=== PATIENT | female | born 1975 | race Caucasian/White ===

== ENCOUNTER 2016-11-13 16:58 | Observation (INO) | payer OTHER, SELFPAY ==
[2016-11-13] MEDS: DILAUDID 2 MG INJECTION IV PRN ×3 (18:01→22:28)
[2016-11-13] MEDS: ROCEPHIN 1 Gm-D5w 50 ml Bag** 1 G/50 ML IVPB IV SCH (18:05)
[2016-11-13] MEDS: Zofran 4 MG/2 ML VIAL IV PRN ×2 (18:05→22:38)
[2016-11-13] MEDS: PROTONIX 40 MG IV IV SCH (18:05)
[2016-11-13] MEDS: D5W/0.45NS W/ 20mEq KCl 1000 ML 1,000 ML IV SCH (18:06)
[2016-11-13 18:11] LABS: BASOPHIL % 0.2 % (0.0-0.4); Eosinophil % 2.6 % (0.00-5.0); Granulocytes % 57.5 % (36.0-66.0); Lymphocytes % 33.2 % (24.0-44.0); Mean Platelet Volume 9.7 fl (6-9.5); Monocytes % 6.5 % (0.0-12.0); Platelet Count 294 K/mm3 (150-450); Red Blood Count 4.01 M/mm3 (4.1-5.4); Red Cell Distribution Width 14.8 % (11.5-14.0); White Blood Count 8.5 K/mm3 (4.0-10.5)
[2016-11-13 18:19] LABS: Mean Corpuscular Hemoglobin 27.6 pg (26-32)
[2016-11-13 19:03] LABS: ALKALINE PHOSPHATASE 73 U/L (46-116); ANION GAP 12.7 MEQ/L (5-15); BLOOD UREA NITROGEN 9 mg/dL (9-20); CHLORIDE 106 mEq/L (98-107); Glucose 103 MG/DL (70-110); Potassium 3.3 mEq/L (3.5-5.1); SGOT/AST 13 U/L (15-37); SGPT/ALT 15 U/L (12-78); SODIUM 143 mEq/L (136-145); Total Protein 6.8 gm/dL (6.4-8.2)
[2016-11-13 19:14] LABS: BILIRUBIN,TOTAL 0.1 mg/dL (0.2-1.0)
[2016-11-13] MEDS ORDERED: DESYREL 50 MG PO SCH (22:00)
[2016-11-13] MEDS ORDERED: Lyrica 50MG PO SCH (22:00)
[2016-11-13] MEDS: Ativan 1 MG PO PRN (23:14)
[2016-11-14] MEDS: DILAUDID 2 MG INJECTION IV PRN ×10 (00:31→23:49)
[2016-11-14] MEDS: Zofran 4 MG/2 ML VIAL IV PRN ×5 (02:36→21:49)
[2016-11-14] MEDS: D5W/0.45NS W/ 20mEq KCl 1000 ML 1,000 ML IV SCH ×2 (04:35→15:40)
[2016-11-14] MEDS: Ativan 1 MG PO PRN (08:32)
[2016-11-14] MEDS: PROTONIX 40 MG IV IV SCH (09:03)
[2016-11-14 09:04] LABS: BASOPHIL % 0.3 % (0.0-0.4); Eosinophil % 2.7 % (0.00-5.0); Granulocytes % 54.1 % (36.0-66.0); Lymphocytes % 35.6 % (24.0-44.0); Mean Cell Volume 86.7 fl (78-100); Mean Corpuscular Hemoglobin 27.5 pg (26-32); Mean Platelet Volume 9.8 fl (6-9.5); Monocytes % 7.3 % (0.0-12.0); Platelet Count 287 K/mm3 (150-450); Red Blood Count 4.07 M/mm3 (4.1-5.4); Red Cell Distribution Width 14.8 % (11.5-14.0); White Blood Count 6.7 K/mm3 (4.0-10.5)
[2016-11-14] MEDS: ROCEPHIN 1 Gm-D5w 50 ml Bag** 1 G/50 ML IVPB IV SCH (09:04)
[2016-11-14] MEDS ORDERED: HYDROCORTISONE RC PRN (09:33)
[2016-11-14 09:35] LABS: ANION GAP 12.9 MEQ/L (5-15); BLOOD UREA NITROGEN 5 mg/dL (9-20); CHLORIDE 107 mEq/L (98-107); Carbon Dioxide 26.4 mEq/L (21-32); Glucose 100 MG/DL (70-110); Potassium 3.9 mEq/L (3.5-5.1); SODIUM 142 mEq/L (136-145)
[2016-11-14] MEDS ORDERED: ANUSOL-HC 2.5% CREAM 30 GM TOP PRN (09:40)
[2016-11-14] MEDS ORDERED: NON-FORMULARY ITEM (Cholecalciferol (Vitamin D3) [Vitamin D3] 50,000 UNIT) PO SCH (09:45)
[2016-11-14] MEDS ORDERED: VEDOLIZUMAB 300 MG IV SCH (09:45)
[2016-11-14] MEDS ORDERED: LYRICA 100MG PO SCH (10:00)
--- NOTE | 2016-11-14 11:34 | XRAY ---
Indication: Abdominal pain. History of Crohn's disease. Multiple contiguous axial images obtained through the abdomen and pelvis prior to and following 80 cc Isovue 370 contrast. Oral contrast also given. Comparison: December 03, 2015. Lung bases again demonstrates bibasilar atelectasis/scarring more than before. Heart is not enlarged. Noncontrasted images through the abdomen again demonstrates calcified splenic granulomas. No new pathologic visceral calcification/calculi. Contrasted stomach and bowel loops appear nonobstructed. Colon is now fluid distended with synchronous fluid leveling probably diarrhea. There is now diffuse colonic bowel wall thickening involving the ascending and transverse colon as well as the distal ileum and ileocecal junction favoring Crohn's disease. Lesser minimal bowel wall thickening of the remaining descending and sigmoid colon. Right lower quadrant anastomosis remains intact. Again previous cholecystectomy and hysterectomy. No free fluid/air. Postcontrast images demonstrates normal visceral enhancement and renal excretion. Remaining liver, pancreas, spleen, adrenal glands, kidneys, ureters, bladder, and aorta appear normal in CT appearance and attenuation. Osseous structures intact. Impression: 1. Again CT features favoring Crohn's disease. No complications. 2. Stable calcified splenic granulomas. No pathologic visceral calcifications/calculi. CTDI 15.69
[2016-11-14] MEDS ORDERED: Ativan 1 MG PO PRN (15:07)
[2016-11-14] MEDS ORDERED: PHARMACY DOSING REQUIRED: VANCOMYCIN IV ONE (15:56)
[2016-11-14] MEDS: TYLENOL 325 MG PO PRN ×2 (17:26→22:33)
[2016-11-14] MEDS: VANCOCIN 1 GM VIAL*** 0.75 GM in Sodium Chloride 0.9% 250 ML 250 ML IV SCH (17:26)
[2016-11-14 22:04] LABS: A-aADO2 126; ARTERIAL BLD GAS O2 SATURATION 91.7 % (95-100); ARTERIAL BLOOD GAS BASE EXCESS 0.6 (-2.0-2.0); ARTERIAL BLOOD GAS FIO2 36 %; ARTERIAL BLOOD GAS PO2 72 mmHg (75-100); ARTERIAL BLOOD GAS pH 7.36 (7.35-7.45)
[2016-11-14 22:05] LABS: ALLEN TEST OK? YES
[2016-11-14] MEDS ORDERED: Sodium Chloride 0.9% 500 ML 500 ML IV ONE (22:30)
[2016-11-15] MEDS: DILAUDID 2 MG INJECTION IV PRN ×3 (02:19→06:48)
[2016-11-15] MEDS: Zofran 4 MG/2 ML VIAL IV PRN ×2 (02:22→06:48)
[2016-11-15] MEDS: D5W/0.45NS W/ 20mEq KCl 1000 ML 1,000 ML IV SCH ×2 (04:33→09:18)
[2016-11-15] MEDS: VANCOCIN 1 GM VIAL*** 0.75 GM in Sodium Chloride 0.9% 250 ML 250 ML IV SCH (05:42)
[2016-11-15 06:53] LABS: Eosinophil % 2.1 % (0.00-5.0); Granulocytes % 63.2 % (36.0-66.0); Lymphocytes % 26.6 % (24.0-44.0); Mean Cell Volume 86.6 fl (78-100); Mean Corpuscular Hemoglobin 27.2 pg (26-32); Mean Platelet Volume 10.4 fl (6-9.5); Monocytes % 8.1 % (0.0-12.0); Platelet Count 284 K/mm3 (150-450); Red Blood Count 4.19 M/mm3 (4.1-5.4); Red Cell Distribution Width 14.6 % (11.5-14.0); White Blood Count 6.3 K/mm3 (4.0-10.5)
[2016-11-15 07:11] VITALS: BP 109/68; PULSE 99; O2SAT 94
[2016-11-15 07:28] LABS: ANION GAP 10.9 MEQ/L (5-15); BLOOD UREA NITROGEN 6 mg/dL (9-20); CHLORIDE 109 mEq/L (98-107); Carbon Dioxide 27.8 mEq/L (21-32); Glucose 86 MG/DL (70-110); Potassium 4.8 mEq/L (3.5-5.1); SODIUM 143 mEq/L (136-145)
--- NOTE | 2016-11-15 08:46 | PCM.DCORD ---
- Discharge Discharge Date: 11/15/16 Disposition: Home, Self-Care Condition: Fair Prescriptions: New Sulfamethoxazole/Trimethoprim [Bactrim Ds Tablet] 1 each PO BID #14 tablet Fluoxetine HCl 20 mg PO DAILY #30 capsule Acetaminophen 325 mg [Tylenol 325 mg] 650 mg PO Q4H PRN PRN #0 tablet PRN Reason: Pain Continue Hydromorphone HCl 4 mg [Dilaudid 4 MG Tab] 4 mg PO Q4H #120 tab Lorazepam 1 mg [Ativan 1 MG] 1 mg PO TIDPRN PRN #90 tablet PRN Reason: Anxiety Pregabalin [Lyrica 100Mg] 100 mg PO BID #60 capsule Tramadol HCl 50 mg [Ultram 50 mg] 50 mg PO HS Ondansetron [Zofran Odt] 4 mg PO Q6HPRN PRN PRN Reason: Nausea Hydrocortisone [Proctosol-Hc] 28.35 gm RC Q4HPRN PRN PRN Reason: Pain Potassium Chl 40 Meq Oral Kiki* [Potassium Chl 40 Meq/30 ml Oral Solution] 40 meq PO DAILY PRN PRN PRN Reason: supplement Cholecalciferol (Vitamin D3) [Vitamin D3] 50,000 unit PO WEEKLY Vedolizumab [Entyvio] 300 mg IV UD Discontinued Trazodone HCl 50 mg [Desyrel 50 mg] 100 mg PO HS Follow up with: AKIKO GREGORY [Primary Care Provider] - 1 Week
[2016-11-15] MEDS: ROCEPHIN 1 Gm-D5w 50 ml Bag** 1 G/50 ML IVPB IV SCH (09:18)
[2016-11-15] MEDS: PROTONIX 40 MG IV IV SCH (09:18)
--- NOTE | 2016-11-15 10:03 | DS ---
DISCHARGE DIAGNOSES: 1) CELLULITIS OF UMBILICUS. 2) ABDOMINAL PAIN. 3) CROHN'S DISEASE. DISCHARGE PHYSICAL EXAMINATION: VITALS: Temperature current 98.7F, temperature max 100.7F, heart rate 70 to 122 currently 99, respiratory 16 to 18, blood pressure 97 to 122 over 56 to 70, weight 62.5 kg. Oxygen saturation 92 to 94% on room air. GENERAL: The patient is sitting up in bed in no acute distress. She is talkative but tearful at times. She denies suicidal ideation. CVS: She has a regular rate and rhythm. No murmurs, gallops or rubs are appreciated. LUNGS: Clear to auscultation bilaterally. No crackles or wheezes. ABDOMEN: Soft with normal bowel sounds. She has tenderness to mild palpation throughout. Her umbilicus she has 2 x 2 mm opening with mild surrounding erythema that comes down about 4 cm below her umbilicus. To the right of her umbilicus is a 0.5 x 0.5 area of firmness. There is no active drainage, no induration. EXTREMITIES: No clubbing, cyanosis or edema. HOSPITAL COURSE: 1) CELLULITIS OF UMBILICUS: She was started on ceftriaxone on her admission. Vancomycin was added yesterday. A wound culture was obtained. Per verbal report from the lab it had rare gram-positive cocci. On the gram stain the wound culture is still in lab. The patient desires to go home with oral antibiotic as her son has a graduation from grade school tomorrow that she does not want to miss. I explained to her that it would be better to stay for IV antibiotics but she prefers to go home and follow up in the clinic. I am going to discharge her on Bactrim 1 tablet p.o. b.i.d. for seven days, to follow up closely in the clinic. 2) ABDOMINAL PAIN: While she was here in the hospital she was given Dilaudid 1 mg IV every two hours as needed. She usually takes oral Dilaudid at home. She reported during her hospitalization that the IV pain medicine did not seem to help much but her blood pressure was on the low end of normal so we were unable to give her more. I discussed with her at length that it would be a good idea if we try to wean down on her pain medicine at home so she would not have a tolerance to it and would work better when she had pain different from her Crohn's and was hospitalized but the patient is reluctant to do this. She is allergic to all the other opiates. 3) CROHN'S DISEASE: She had a CT of her abdomen and pelvis during her hospitalization. It did not show any complications. Please see the radiologist dictation on this report. It did show extensive Crohn's disease for which she see a injury/safety hazard assessment in [place] and at [facility], and is currently under treatment with them. 4) ALTERED MENTAL STATUS: Last night the nurse called me and said that she was slurring her speech and confused, this has resolved this morning and she is alert and oriented and asking to go home. 5) DEPRESSION: The patient is agreeable to starting an antidepressant and states that she plans to start counseling as well. She knows if she has thoughts of hurting herself she needs to go to the emergency department or come to the office. She denies suicidal ideation at this time. DISCHARGE MEDICATIONS: She is going to resume all of her home medications and will start Bactrim DS 1 tablet p.o. b.i.d. for seven days and fluoxetine 20 mg p.o. daily. DISPOSITION: The patient was discharged to home in fair condition.
[2016-11-16] MEDS ORDERED: TROUGH DRUG LEVELS IJ ONE (05:30)
[2016-11-17] MEDS ORDERED: VITAMIN D2 PO SCH (10:00)
== END 2016-11-15 09:30 | disposition home or self-care (01) ==
LOC: MED SURG 16:58
PROVIDERS: ADMIT Internal Medicine; ATTEND Internal Medicine
DX: L03.316 Cellulitis of umbilicus (principal); K50.90 Crohn's disease, unspecified, without complications; R41.82 Altered mental status, unspecified; F41.8 Other specified anxiety disorders; G47.00 Insomnia, unspecified; Z79.899 Other long term (current) drug therapy
CPT/HCPCS: 36415; 36600; 74178; 80048; 80053; 82375; 82803; 85025; 86140; 87070; 87205; 94762; G0378; J0696; J1170; J2405; J3370; A9270-GY

== ENCOUNTER 2017-02-09 12:51 | Emergency (ER) | payer OTHER, SELFPAY ==
[2017-02-09] MEDS ORDERED: TORAdol 30 mg Injection IV ONE (13:52)
[2017-02-09] MEDS ORDERED: Vistaril 50 MG/ML IM ONE ×2 (13:52→14:08)
[2017-02-09] MEDS ORDERED: TORAdol 30 mg Injection ONE (14:08)
[2017-02-09 14:14] LABS: BASOPHIL % 0.2 % (0.0-0.4); Eosinophil % 1.8 % (0.00-5.0); Granulocytes % 62.5 % (36.0-66.0); Lymphocytes % 29.5 % (24.0-44.0); Mean Cell Volume 86.9 fl (78-100); Platelet Count 275 K/mm3 (150-450); Red Blood Count 3.83 M/mm3 (4.1-5.4)
[2017-02-09 14:15] LABS: Mean Corpuscular Hemoglobin 27.6 pg (26-32)
[2017-02-09 14:38] LABS: Collection Type VOID; Glucose NEGATIVE (NEGATIVE); Leukocyte Esterase NEGATIVE (NEGATIVE)
[2017-02-09 14:39] LABS: ADD URINE CULTURE? NO (NO); Bilirubin NEGATIVE (NEGATIVE); Blood NEGATIVE Ery/ul (0-5); COMPLETE URINE MICROSCOPIC? NO
[2017-02-09 14:44] LABS: ALKALINE PHOSPHATASE 77 U/L (46-116); BLOOD UREA NITROGEN 8 mg/dL (9-20); CHLORIDE 106 mEq/L (98-107); Carbon Dioxide 30.9 mEq/L (21-32); Glucose 89 MG/DL (70-110); Potassium 3.6 mEq/L (3.5-5.1); SGOT/AST 30 U/L (15-37); SGPT/ALT 16 U/L (12-78); SODIUM 141 mEq/L (136-145); Total Protein 6.7 gm/dL (6.4-8.2)
[2017-02-09 14:51] VITALS: BP 146/91; PULSE 81; O2SAT 96
--- NOTE | 2017-02-09 15:14 | ERPHSYRPT ---
- History of Present Illness Time Seen by Provider: 02/09/17 13:02 Source: patient Patient Subjective Stated Complaint: PT REPORTS BILATERAL SWELLING TO LEGS- STATES THAT SHE IS CONCERNED ABOUT HER LEFT LEG HAVING A BLOOD CLOT IN IT- STATES THAT SHE FEELS KNOTS IN IT-REPORTS PAIN-STATES THAT HER CHRONIC BACK PAIN HEADACHE IS ACTING UP WELL HER CROHNS-STATES SHE HAS ALREADY SPOKE TO PCP ABOUT THEM Triage Nursing Assessment: PT PINK WARM ET [id number] TO ED WITH NO NOTED LIMP-SLIGHT SWELLING NOTED TO RIGHT EXTREMITY-HOLMANS SIGN NEG BILATERALLY -PEDAL PULSE REGULAR ET STRONG BILATERALLY-CAP REFILL 2 SECONDS TO LOWER EXTREMITY-NO EXCESSIVE WARMTH NOTED Physician History: CC: leg swelling Hx: 41 y/o patient of Dr Gregory. She has hx of crohns disease. She has couple day hx of leg swelling. Started with a cord or knot in the left leg below knee inside. No redness. No fever or chills. No chest pain or acute dyspnea. No hx of venous thromboembolic disease. She was worried about blood clots. Ill: Crohns, fibromyalgia, arthritis, MVP Allergies/Adverse Reactions: clonazepam [From Klonopin] Allergy (Mild, Verified 02/09/17 13:03) "I DON'T KNOW" divalproex sodium [From Depakote] Allergy (Mild, Verified 02/09/17 13:03) "I DON'T KNOW" duloxetine HCl [From Cymbalta] Allergy (Mild, Verified 02/09/17 13:03) Hives fentanyl Allergy (Mild, Verified 02/09/17 13:03) Hives meperidine HCl [From Demerol] Allergy (Mild, Verified 02/09/17 13:03) Hives morphine Allergy (Mild, Verified 02/09/17 13:03) Hives buprenorphine Allergy (Verified 02/09/17 13:03) duloxetine [From Cymbalta] Allergy (Verified 02/09/17 13:03) meperidine [From Demerol] Allergy (Verified 02/09/17 13:03) adalimumab [From Humira] Adverse Reaction (Mild, Verified 02/09/17 13:03) Vomiting prednisone Adverse Reaction (Mild, Verified 02/09/17 13:03) SHAKING Home Medications: Tramadol HCl 50 mg [Ultram 50 mg] 50 mg PO HS 12/07/15 [History] Ondansetron [Zofran Odt] 4 mg PO Q6HPRN PRN 12/03/15 [History] Cholecalciferol (Vitamin D3) [Vitamin D3] 50,000 unit PO WEEKLY 11/13/16 [ History] Potassium Chl 40 Meq Oral Kiki* [Potassium Chl 40 Meq/30 ml Oral Solution] 40 meq PO DAILY PRN PRN 11/13/16 [History] Vedolizumab [Entyvio] 300 mg IV UD 11/13/16 [History] Trazodone HCl 50 mg [Desyrel 50 mg] 50 mg PO HS 02/09/17 [History] Hx Tetanus, Diphtheria Vaccination/Date Given: Yes Hx Influenza Vaccination/Date Given: No Hx Pneumococcal Vaccination/Date Given: No Immunizations Up to Date: Yes - Review of Systems Constitutional: No Fever, No Chills Eyes: No Symptoms Ears, Nose, & Throat: No Symptoms Respiratory: No Cough, No Dyspnea Cardiac: Edema (legs), No Chest Pain Abdominal/Gastrointestinal: No Nausea, No Vomiting Skin: No Rash Neurological: No Headache All Other Systems: Reviewed and Negative - Past Medical History Pertinent Past Medical History: Yes Neurological History: No Pertinent History ENT History: No Pertinent History Cardiac History: Arrhythmia Respiratory History: No Pertinent History Endocrine Medical History: Hypothyroidism Musculoskeletal History: Fibromyalgia, Osteoarthritis GI Medical History: Crohns Disease History: No Pertinent History Psycho-Social History: Anxiety, Depression Female Reproductive Disorders: Other Other Medical History: Cluster Headaches, pre cancerous cells cervix - Past Surgical History Past Surgical History: Yes Neuro Surgical History: No Pertinent History Cardiac: No Pertinent History Respiratory: No Pertinent History Gastrointestinal: Bowel Surgery, Cholecystectomy, Colon Resection Genitourinary: No Pertinent History Musculoskeletal: No Pertinent History Female Surgical History: Hysterectomy Other Surgical History: port-a-cath placement, tonsillectomy, 2 bowel resections - Social History Smoking Status: Current every day smoker How long have you smoked: 20 YEARS Exposure to second hand smoke: No Drug Use: none Patient Lives Alone: No - Female History Hx Last Menstrual Period: HYSTERECTOMY Hx Now: No - Nursing Vital Signs Nursing Vital Signs: Initial Vital Signs Temperature 99.4 F 02/09/17 12:57 Pulse Rate 110 H 02/09/17 12:57 Respiratory Rate 20 02/09/17 12:57 Blood Pressure 138/86 02/09/17 12:57 O2 Sat by Pulse Oximetry 96 02/09/17 12:57 Pain Scale Pain Intensity 7 - Physical Exam General Appearance: alert, other (anxious appearing) Eyes, Ears, Nose, Throat Exam: normal ENT inspection, moist mucous membranes Neck Exam: normal inspection, non-tender, supple Cardiovascular/Respiratory Exam: normal breath sounds, regular rate/rhythm Gastrointestinal/Abdominal Exam: non-tender, soft Neuro/Tendon Exam: normal sensation, normal motor functions Mental Status Exam: alert, oriented x 3, cooperative Skin Exam: warm, dry, No rash SpO2 Interpretation: normal SpO2: 96 Oxygen Delivery: Room Air Comments: Trace edema of legs. Cord left inner leg below knee, palpable, not red, mildly tender. Pulse intact. No calf tenderness. - Course Nursing assessment & vital signs reviewed: Yes - Radiology Ultrasound Exam doppler both legs Ultrasound: Other (per tech: No DVT. Superficial phlebitis left saphenous below knee.) Ordered Tests: Active Orders 24 hr Category Date Time Status Clean Catch Urine Specimen STAT Care 02/09/17 13:51 Active IV Insertion STAT Care 02/09/17 13:51 Active VENOUS BILATERAL EXTREMITY [US] Stat Exams 02/09/17 13:53 Ordered CBC W DIFF Stat Lab 02/09/17 14:05 Completed CMP Stat Lab 02/09/17 14:05 Completed UA W/RFX UR CULTURE Stat Lab 02/09/17 13:52 Completed Medication Summary Discontinued Medications Generic Name Dose Route Start Last Admin Trade Name Freq PRN Reason Stop Dose Admin Hydroxyzine HCl 50 mg 02/09/17 13:52 02/09/17 14:13 Vistaril 50 Mg/Ml IM 02/09/17 13:53 50 mg STAT ONE Administration Hydroxyzine HCl Confirm 02/09/17 14:08 Vistaril 50 Mg/Ml Administered 02/09/17 14:09 Dose 50 mg IM .STK-MED ONE Ketorolac Tromethamine 30 mg 02/09/17 13:52 02/09/17 14:12 Toradol 30 Mg Injection IV 02/09/17 13:53 30 mg STAT ONE Administration Ketorolac Tromethamine Confirm 02/09/17 14:08 Toradol 30 Mg Injection Administered 02/09/17 14:09 Dose 30 mg .ROUTE .STK-MED ONE Lab/Rad Data: Laboratory Result Diagrams 02/09/17 14:05 02/09/17 14:05 Laboratory Results 02/09/17 02/09/17 02/09/17 Range/Units 14:05 14:05 13:52 WBC 9.0 (4.0-10.5) K/mm3 RBC 3.83 L (4.1-5.4) M/mm3 Hgb 10.6 L (12.0-16.0) gm/dl Hct 33.3 L (35-47) % MCV 86.9 (78-100) fl MCH 27.6 (26-32) pg MCHC 31.8 L (32-36) g/dl RDW 16.0 H (11.5-14.0) % Plt Count 275 (150-450) K/mm3 MPV 10.0 H (6-9.5) fl Gran % 62.5 (36.0-66.0) % Lymphocytes % 29.5 (24.0-44.0) % Monocytes % 6.0 (0.0-12.0) % Eosinophils % 1.8 (0.00-5.0) % Basophils % 0.2 (0.0-0.4) % Basophils # 0.02 (0-0.4) Sodium 141 (136-145) mEq/L Potassium 3.6 (3.5-5.1) mEq/L Chloride 106 (98-107) mEq/L Carbon Dioxide 30.9 (21-32) mEq/L Anion Gap 8.0 (5-15) MEQ/L BUN 8 L (9-20) mg/dL Creatinine 0.52 L (0.55-1.30) mg/dl Estimated GFR > 60 ML/MIN Glucose 89 (70-110) MG/DL Calcium 8.7 (8.5-10.1) mg/dL Total Bilirubin 0.10 L (0.2-1.0) mg/dL AST 30 (15-37) U/L ALT 16 (12-78) U/L Alkaline Phosphatase 77 (46-116) U/L Serum Total Protein 6.7 (6.4-8.2) gm/dL Albumin 3.0 L (3.4-5.0) g/dL Ur Collection Type VOID Urine Color LT.YELLOW (YELLOW) Urine Appearance CLEAR (CLEAR) Urine pH 8.0 (5-6) Ur Specific [place] 1.005 (1.005-1.025) Urine Protein NEGATIVE (Negative) Urine Ketones NEGATIVE (NEGATIVE) Urine Blood NEGATIVE (0-5) Elias/ul Urine Nitrite NEGATIVE (NEGATIVE) Urine Bilirubin NEGATIVE (NEGATIVE) Urine Urobilinogen NORMAL (0-1) mg/dL Ur Leukocyte Esterase NEGATIVE (NEGATIVE) Urine Glucose NEGATIVE (NEGATIVE) mg/dL Specimen Received 02/09/17 1430 - Progress Progress Note: 02/09/17 15:14 Will get labs to check kidney function and get sono to rule out DVT. 02/09/17 16:00 Inst given. Counseled pt/family regarding: lab results, diagnosis, need for follow-up, rad results - Departure Time of Disposition: 16:00 Departure Disposition: Home Clinical Impression: Superficial phlebitis of left leg Condition: Stable Critical Care Time: No Referrals: AKIKO GREGORY [Primary Care Provider] - Instructions: Peripheral Edema -- Bilateral Additional Instructions: You have superficial phlebitis. Warm compresses 4 times a day. Rx keflex. Rx ibuprofen. Try support stockings. Follow up with Dr Gregory next week. Return for worsening or concerns. Prescriptions: Ibuprofen 600 mg [Motrin 600 mg] 1 tab PO Q6H PRN PRN #20 tablet PRN Reason: for pain Cephalexin Mh 500 mg [Keflex 500 mg] 1 cap PO QID #28 capsule
--- NOTE | 2017-02-09 16:34 | XRAY ---
Indication: Swelling. Left calf pain. Two-dimensional sonogram and color Doppler imaging of the major venous vessels of the left and right leg was performed. Comparison: None There is nonoccluding echogenic thrombus in a superficial vein at the level of the left calf favoring thrombophlebitis. No thrombus in the remaining examined deep in the vessels of the left and right leg including greater saphenous veins. Patent veins demonstrate normal compressibility. Venous waveforms are normal with and without augmentation. Impression: Left calf superficial thrombophlebitis. Remaining left and leg negative for DVT. Comment: Preliminary report was given.
== END 2017-02-09 16:12 | disposition home or self-care (01) ==
LOC: ED 12:51
DX: I80.02 Phlebitis and thrombophlebitis of superficial vessels of left lower extremity (principal)
CPT/HCPCS: 36000; 36415; 80053; 81002; 85025; 93970; 96372; 96374; 99284; J1642; J1885; J3410

== ENCOUNTER 2017-03-30 02:07 | Inpatient (IN) | payer OTHER, SELFPAY ==
[2017-03-30] MEDS ORDERED: Phenergan 25 MG INJ IV ONE (02:29)
[2017-03-30] MEDS ORDERED: Sodium Chloride 0.9% 1000 ML 1,000 ML IV STA (02:29)
[2017-03-30] MEDS ORDERED: Hydromorphone 1 mg/ml Ampule IV ONE (02:29)
[2017-03-30] MEDS ORDERED: Phenergan 25 MG INJ ONE (02:35)
[2017-03-30] MEDS ORDERED: Hydromorphone 1 mg/ml Ampule ONE (02:36)
[2017-03-30] MEDS ORDERED: Sodium Chloride 0.9% 1000 ML 1,000 ML ONE (02:36)
--- NOTE | 2017-03-30 02:38 | ERPHSYRPT ---
- History of Present Illness Time Seen by Provider: 03/30/17 02:25 Historian: patient Exam Limitations: no limitations Patient Subjective Stated Complaint: N/V/D ABDOMINAL PAIN X 3 DAYS. UNABLE TO KEEP MEDICTIONS DOWN. HAS APPOINTMENT WITH DR GREGORY TODAY AT 0900 Triage Nursing Assessment: ALERT AND ORIENTED WITH C/O ABDOMINAL PAIN WITH N/V/ D X 3 DAYS.;ABDOMEN SOFT AND TENDER ON PALPATION INCREASED ON LEFT LOWER QUAD. Physician History: 41-year-old white female with history of Crohn's disease arrives with complaint of left upper left lower quadrant abdominal pain multiple episodes of vomiting multiple episodes of diarrhea symptoms for 3 days Patient apparently takes chronic narcotic analgesia prescribed by her family doctor with states she cannot keep these down. She denies any fever she has not had any melena no hematochezia. Past medical history includes arrhythmia, hypothyroidism, osteoarthritis, Crohn' s disease, anxiety, depression, cluster headaches, precancerous cells on her cervix. Past surgical history includes bowel surgery, cholecystectomy, colon resection, hysterectomy, Port-A-Cath, tonsillectomy, bowel resection Timing/Duration: day(s) (3 days) Activities at Onset: none Quality: cramping Abdominal Pain Onset Location: LUQ, LLQ Pain Radiation: no radiation Severity of Pain-Max: moderate Severity of Pain-Current: moderate Modifying Factors: Improves With: other (patient states she has narcotic analgesia at home but is not able to keep it down) Associated Symptoms: diarrhea, nausea, vomiting, No back, No chest pain, No diaphoresis, No fever/chills, No fatigue, No headache, No heartburn, No loss of appetite, No neck pain, No rash, No shortness of breath, No syncope, No weakness Previous symptoms: same symptoms as today Allergies/Adverse Reactions: clonazepam [From Klonopin] Allergy (Mild, Verified 03/30/17 02:22) "I DON'T KNOW" divalproex sodium [From Depakote] Allergy (Mild, Verified 03/30/17 02:22) "I DON'T KNOW" duloxetine HCl [From Cymbalta] Allergy (Mild, Verified 03/30/17 02:22) Hives fentanyl Allergy (Mild, Verified 03/30/17 02:22) Hives meperidine HCl [From Demerol] Allergy (Mild, Verified 03/30/17 02:22) Hives morphine Allergy (Mild, Verified 03/30/17 02:22) Hives buprenorphine Allergy (Verified 03/30/17 02:22) duloxetine [From Cymbalta] Allergy (Verified 03/30/17 02:22) meperidine [From Demerol] Allergy (Verified 03/30/17 02:22) adalimumab [From Humira] Adverse Reaction (Mild, Verified 03/30/17 02:22) Vomiting prednisone Adverse Reaction (Mild, Verified 03/30/17 02:22) SHAKING Home Medications: Tramadol HCl 50 mg [Ultram 50 mg] 50 mg PO HS 05/31/15 [History] Ondansetron [Zofran Odt] 4 mg PO Q6HPRN PRN 12/03/15 [History] Cholecalciferol (Vitamin D3) [Vitamin D3] 50,000 unit PO WEEKLY 11/13/16 [ History] Potassium Chl 40 Meq Oral Kiki* [Potassium Chl 40 Meq/30 ml Oral Solution] 40 meq PO DAILY PRN PRN 11/13/16 [History] Vedolizumab [Entyvio] 300 mg IV UD 11/13/16 [History] Trazodone HCl 50 mg [Desyrel 50 mg] 50 mg PO HS 02/09/17 [History] Hx Tetanus, Diphtheria Vaccination/Date Given: Yes Hx Influenza Vaccination/Date Given: No Hx Pneumococcal Vaccination/Date Given: No Immunizations Up to Date: Yes - Review of Systems Constitutional: No Fever, No Chills Eyes: No Symptoms Ears, Nose, & Throat: No Symptoms Respiratory: No Cough, No Dyspnea Cardiac: No Chest Pain, No Edema, No Syncope Abdominal/Gastrointestinal: Abdominal Pain, Nausea, Vomiting, Diarrhea, No Constipation, No Hematemesis, No Hematochezia, No Melena, No Dysphagia, No Appetite Changes Genitourinary Symptoms: No Dysuria Musculoskeletal: No Back Pain, No Neck Pain Skin: No Rash Neurological: No Dizziness, No Focal Weakness, No Sensory Changes Psychological: No Symptoms Endocrine: No Symptoms All Other Systems: Reviewed and Negative - Past Medical History Pertinent Past Medical History: Yes Neurological History: No Pertinent History ENT History: No Pertinent History Cardiac History: Arrhythmia Respiratory History: No Pertinent History Endocrine Medical History: Hypothyroidism Musculoskeletal History: Fibromyalgia, Osteoarthritis GI Medical History: Crohns Disease History: No Pertinent History Psycho-Social History: Anxiety, Depression Female Reproductive Disorders: Other Other Medical History: Cluster Headaches, pre cancerous cells cervix - Past Surgical History Past Surgical History: Yes Neuro Surgical History: No Pertinent History Cardiac: No Pertinent History Respiratory: No Pertinent History Gastrointestinal: Bowel Surgery, Cholecystectomy, Colon Resection Genitourinary: No Pertinent History Musculoskeletal: No Pertinent History Female Surgical History: Hysterectomy Other Surgical History: port-a-cath placement, tonsillectomy, 2 bowel resections - Social History Smoking Status: Current every day smoker How long have you smoked: 20 YEARS Exposure to second hand smoke: No Drug Use: none Patient Lives Alone: No - Female History Hx Now: No - Nursing Vital Signs Nursing Vital Signs: Initial Vital Signs Temperature 98.8 F 03/30/17 02:09 Pulse Rate 109 H 03/30/17 02:09 Respiratory Rate 20 03/30/17 02:09 Blood Pressure 141/88 03/30/17 02:09 O2 Sat by Pulse Oximetry 100 03/30/17 02:09 Pain Scale Pain Intensity 7 - Physical Exam General Appearance: moderate distress Eye Exam: PERRL/EOMI, eyes nml inspection Ears, Nose, Throat Exam: normal ENT inspection, pharynx normal, moist mucous membranes Neck Exam: normal inspection, non-tender, supple, full range of motion Respiratory Exam: normal breath sounds, lungs clear, No respiratory distress Cardiovascular Exam: regular rate/rhythm, normal heart sounds Gastrointestinal/Abdomen Exam: soft, normal bowel sounds, tenderness (left upper and left lower quadrant tenderness), No distention, No mass, No guarding, No ecchymosis, No pulsatile mass, No rebound, No hernia, No hepatomegaly, No organomegaly, No splenomegaly Back Exam: normal inspection, normal range of motion, No CVA tenderness, No vertebral tenderness Extremity Exam: normal inspection, normal range of motion, pelvis stable Neurologic Exam: alert, oriented x 3, cooperative, normal mood/affect, nml cerebellar function, sensation nml, No motor deficits Skin Exam: normal color, warm, dry SpO2 Interpretation: normal (100%) SpO2: 100 Oxygen Delivery: Room Air - Course Nursing assessment & vital signs reviewed: Yes EKG Interpreted by Me: RATE (72 bpm), Sinus Rhythm, NORMAL AXIS, Other (EKG: Sinus rhythm 72 bpm normal axis, no acute ST or T wave changes essentially normal EKG) - Radiology Exams Abdomen X-ray Interpretation: Interpreted by me, Other (cxr unremarkable, few air fluid levels on abdominal film) Ordered Tests: Active Orders 24 hr Category Date Time Status EKG-ER Only STAT Care 03/30/17 03:27 Active IV Insertion STAT Care 03/30/17 02:29 Active OBSTR/ACUTE ABDOMEN SERIES Stat Exams 03/30/17 02:42 Taken AMYLASE Stat Lab 03/30/17 02:50 Completed CBC W DIFF Stat Lab 03/30/17 02:50 Completed CMP Stat Lab 03/30/17 02:50 Completed LIPASE Stat Lab 03/30/17 02:50 Completed UA W/RFX UR CULTURE Stat Lab 03/30/17 03:20 Received Medication Summary Generic Name Dose Route Start Last Admin Trade Name Freq PRN Reason Stop Dose Admin Sodium Chloride 1,000 mls @ 999 mls/hr 03/30/17 02:29 03/30/17 02:45 Sodium Chloride 0.9% 1000 Ml IV 03/30/17 03:29 999 mls/hr .Q1H1M STA Administration Potassium Chloride 100 mls @ 50 mls/hr 03/30/17 03:30 Potassium Chloride 20 Meq In Water 100ml IV 03/30/17 07:29 Q2H FRANK Discontinued Medications Generic Name Dose Route Start Last Admin Trade Name Freq PRN Reason Stop Dose Admin Hydromorphone HCl 1 mg 03/30/17 02:29 03/30/17 02:46 Hydromorphone 1 Mg/Ml Ampule IV 03/30/17 02:30 1 mg STAT ONE Administration Hydromorphone HCl Confirm 03/30/17 02:36 Hydromorphone 1 Mg/Ml Ampule Administered 03/30/17 02:37 Dose 1 mg .ROUTE .STK-MED ONE Sodium Chloride Confirm 03/30/17 02:36 Sodium Chloride 0.9% 1000 Ml Administered 03/30/17 02:37 Dose 1,000 mls @ ud .ROUTE .STK-MED ONE Promethazine HCl 12.5 mg 03/30/17 02:29 03/30/17 02:46 Phenergan 25 Mg Inj IV 03/30/17 02:30 12.5 mg STAT ONE Administration Promethazine HCl Confirm 03/30/17 02:35 Phenergan 25 Mg Inj Administered 03/30/17 02:36 Dose 25 mg .ROUTE .STK-MED ONE Lab/Rad Data: Laboratory Result Diagrams 03/30/17 02:50 03/30/17 02:50 Laboratory Results 03/30/17 03/30/17 Range/Units 02:50 02:50 WBC 11.1 H (4.0-10.5) K/mm3 RBC 4.59 (4.1-5.4) M/mm3 Hgb 13.0 (12.0-16.0) gm/dl Hct 39.0 (35-47) % MCV 85.0 (78-100) fl MCH 28.3 (26-32) pg MCHC 33.3 (32-36) g/dl RDW 15.6 H (11.5-14.0) % Plt Count 380 (150-450) K/mm3 MPV 9.6 H (6-9.5) fl Gran % 75.4 H (36.0-66.0) % Lymphocytes % 19.8 L (24.0-44.0) % Monocytes % 3.9 (0.0-12.0) % Eosinophils % 0.7 (0.00-5.0) % Basophils % 0.2 (0.0-0.4) % Basophils # 0.02 (0-0.4) Sodium 142 (136-145) mEq/L Potassium 2.4 L* (3.5-5.1) mEq/L Chloride 104 (98-107) mEq/L Carbon Dioxide 24.6 (21-32) mEq/L Anion Gap 16.2 H (5-15) MEQ/L BUN 8 L (9-20) mg/dL Creatinine 0.60 (0.55-1.30) mg/dl Estimated GFR > 60 ML/MIN Glucose 97 (70-110) MG/DL Calcium 9.3 (8.5-10.1) mg/dL Total Bilirubin 0.30 (0.2-1.0) mg/dL AST 18 (15-37) U/L ALT 24 (12-78) U/L Alkaline Phosphatase 84 (46-116) U/L Serum Total Protein 7.6 (6.4-8.2) gm/dL Albumin 4.0 (3.4-5.0) g/dL Amylase 58 (25-115) U/L Lipase 267 (73-393) U/L - Progress Progress: improved Progress Note: 03/30/17 02:36 41-year-old white female with a history of chronic abdominal pain history of Crohn's complains of multiple episodes of vomiting diarrhea left upper and lower quadrant abdominal pain symptoms going on for 3 days Patient states she does have narcotic analgesia she states she is not able to keep her pain meds down inspect is reviewed patient is on hydromorphone 4 mg she received 150 of these on March 02, 2017 she is also on lorazepam 1 mg she received 90 of these on March 02, 2017 she is also on tramadol 50 mg she received 30 of these on March 02, 2017, she is also on Lyrica 100 mg she received 60 of these on March 02, 2017. Patient states she is "pooping out" potassium pills and feels like she might be low on her potassium. Will go ahead and give patient IV normal saline Phenergan and Dilaudid 1 mg IV. Patient apparently has an appointment with her family doctor later today. 03/30/17 03:30 Patient with a few air-fluid levels on her acute abdominal series. Patient with nausea and vomiting patient with a potassium of 2.4. Patient receiving IV normal saline has received Phenergan and hydromorphone. I have ordered a 40 milliequivalents K rider. Will discuss case with Dr. Bello,who is security and privacy consultant for Dr. Gregory the patient's family physician. 03/30/17 03:43 Patient's case is discussed with Dr. Bello will place on observation telemetry patient to continue receiving IV normal saline her first 20 mEq of K rider (out of 40) have been started in the emergency room will continue hydromorphone for pain, Zofran for nausea,. . - Departure Time of Disposition: 03:47 Departure Disposition: Observation Clinical Impression: History of Crohn's disease, Hypokalemia Abdominal pain Qualifiers: Abdominal location: unspecified location Qualified Code(s): R10.9 - Unspecified abdominal pain Vomiting Qualifiers: Vomiting type: unspecified Vomiting Intractability: unspecified Nausea presence : unspecified Qualified Code(s): R11.10 - Vomiting, unspecified Diarrhea Qualifiers: Diarrhea type: unspecified type Qualified Code(s): R19.7 - Diarrhea, unspecified Condition: Fair Critical Care Time: No Referrals: AKIKO GREGORY [Primary Care Provider] -
[2017-03-30 02:54] LABS: BASOPHIL % 0.2 % (0.0-0.4); Eosinophil % 0.7 % (0.00-5.0); Granulocytes % 75.4 % (36.0-66.0); Lymphocytes % 19.8 % (24.0-44.0); Mean Corpuscular Hemoglobin 28.3 pg (26-32); Mean Platelet Volume 9.6 fl (6-9.5); Monocytes % 3.9 % (0.0-12.0); Platelet Count 380 K/mm3 (150-450); Red Blood Count 4.59 M/mm3 (4.1-5.4); Red Cell Distribution Width 15.6 % (11.5-14.0); White Blood Count 11.1 K/mm3 (4.0-10.5)
[2017-03-30 03:22] LABS: ALKALINE PHOSPHATASE 84 U/L (46-116); ANION GAP 16.2 MEQ/L (5-15); BLOOD UREA NITROGEN 8 mg/dL (9-20); CHLORIDE 104 mEq/L (98-107); Carbon Dioxide 24.6 mEq/L (21-32); Glucose 97 MG/DL (70-110); LIPASE 267 U/L (73-393); SGOT/AST 18 U/L (15-37); SGPT/ALT 24 U/L (12-78); SODIUM 142 mEq/L (136-145); Total Protein 7.6 gm/dL (6.4-8.2)
[2017-03-30 03:24] LABS: Potassium 2.4 mEq/L (3.5-5.1)
[2017-03-30 03:30] LABS: ADD URINE CULTURE? NO (NO); Bilirubin NEGATIVE (NEGATIVE); Blood NEGATIVE Ery/ul (0-5); COMPLETE URINE MICROSCOPIC? NO; Collection Type CLEAN CATCH; Glucose NEGATIVE (NEGATIVE); Leukocyte Esterase NEGATIVE (NEGATIVE)
[2017-03-30] MEDS: POTASSIUM CHLORIDE 20 mEq IN WATER 100ML 100 ML IV SCH ×2 (03:33→05:30)
[2017-03-30] MEDS ORDERED: DILAUDID 2 MG INJECTION IV PRN (04:12)
[2017-03-30] MEDS ORDERED: Sodium Chloride 0.9% 1000 ML 1,000 ML IV SCH (04:12)
[2017-03-30] MEDS ORDERED: Zofran 4 MG/2 ML VIAL IV PRN (04:12)
[2017-03-30] MEDS ORDERED: DILAUDID 2 MG INJECTION IV ONE (05:30)
--- NOTE | 2017-03-30 09:04 | XRAY ---
Indication: Abdominal pain. Comparison: March 03, 2015. 2 views of the abdomen again demonstrates right mid abdomen suture material and cholecystectomy clips. There is now mild right abdomen air distended bowel loops with some fluid leveling, ileus versus enteritis. Obstruction less likely considered as there is distal bowel gas. Again calcified splenic granulomas. Remaining solid organs and osseous structures unremarkable. Single PA chest again demonstrates normal heart, lungs, and bony thorax with incidental calcified granulomas and right-sided Port-A-Cath. Impression: 1. Right abdomen mild air distended bowel loops with fluid leveling, ileus versus enteritis. CT may yield further information if there remains further clinical concern. 2. Stable nonacute one view chest with chronic features.
[2017-03-30] MEDS: ENOXAPARIN SODIUM SQ SCH (09:53)
[2017-03-30 10:01] LABS: MAGNESIUM 1.6 mg/dL (1.8-2.4); Potassium 3.4 mEq/L (3.5-5.1)
[2017-03-30] MEDS ORDERED: VEDOLIZUMAB 300 MG IV SCH (10:15)
[2017-03-30] MEDS ORDERED: NON-FORMULARY ITEM (Cholecalciferol (Vitamin D3) [Vitamin D3] 50,000 UNIT) PO SCH (10:15)
--- NOTE | 2017-03-30 10:16 | HP ---
HISTORY OF PRESENT ILLNESS: This is a 41 year-old lady with severe Crohn's disease followed at both at and by a stockfeed miller in [place]. She had been doing better on Entyvio 300 mg IV. She reports that it was every four weeks and then changed it to every six and now she is trying to go every eight weeks. She has a history in the past of multiple hospitalizations for abdominal pain, vomiting, diarrhea. She has tried multiple other medications in the past for her Crohn's disease and it has not been well controlled. She had scans at and has had procedures at with clear documentation of severe Crohn's disease. The patient reported that she had been vomiting for about three days and unable to keep liquids or solids down as well as her home medications. She reports her whole abdomen is tender with the left side being worse. She then developed headaches, vomiting and her arms started to feel like they were going numb which happens when her potassium was low. She reports she had diarrhea at least three times yesterday and vomited five to six times. She reports that she drove herself here to the hospital and is feeling better since getting some fluids and potassium. REVIEW OF SYSTEMS: She denies fever. No blood in her stools. She states the stool looks like bile. She has had decreased oral intake and decreased urination. She is not sure if she has been urinating with the diarrhea. PAST MEDICAL HISTORY: Severe Crohn's disease. History of cervical cancer. Depression. Fibromyalgia. Chronic abdominal pain from the Crohn's disease. PAST SURGICAL HISTORY: Cholecystectomy. Hysterectomy. Bowel resection x2. Tonsillectomy. Colonoscopy 03/07/[address] Pineda stockfeed miller at [facility] revealed internal hemorrhoids, inflammation of small bowel anastomosis. MEDICATIONS: Keflex 1 capsule four times a day, vitamin D 50,000 units weekly, fluoxetine 20 mg daily, hydromorphone 4 mg tablet every six hours as needed, ibuprofen 600 mg every six hours as needed, lorazepam 1 mg t.i.d. as needed, Zofran 4 mg sublingual every six hours as needed, potassium 40 mg mEq daily as needed, Lyrica 100 mg twice a day, tramadol 50 mg q.h.s., trazodone 50 mg q.h.s., Entyvio 30 mg IV every six weeks. ALLERGIES: BUPRENORPHINE, CLONAZEPAM, CYMBALTA, DEMEROL, DIVALPROEX, DULOXETINE, FENTANYL, MEPERIDINE, MORPHINE, PREDNISONE. SOCIAL HISTORY: She has two children that live with her that family members care for while she is here in the hospital. She does smoke cigarettes. FAMILY HISTORY: Noncontributory. PHYSICAL EXAMINATION: VITAL SIGNS: Temperature current 97.9F, temperature max 98.8F, heart rate 70 to 109, respiratory rate 16 to 20, blood pressure 99 to 141 over 54 to 88. Oxygen saturation 94 to 100%. GENERAL: The patient is lying in bed, pleasant and talkative in no acute distress. CVS: She has a regular rate and rhythm. No murmurs, gallops or rubs are appreciated. CHEST: Clear to auscultation bilaterally. ABDOMEN: Soft with normal bowel sounds, mildly tender throughout. No guarding. No rigidity. EXTREMITIES: No clubbing, cyanosis or edema. SKIN: Warm, dry and intact. LABORATORY DATA AND TESTS: On admission her potassium was 2.4 otherwise CMP was within normal limits. UA was negative. White blood cell count was slightly elevated at 11,000 with 75% granulocytes, 20% lymphocytes. She had acute obstructive series with no official report from the radiologist yet. ASSESSMENT AND PLAN: 1) CROHN'S DISEASE EXACERBATION: Will continue with IV fluids, IV pain control with Zofran for nausea. Will continue with Lyrica. Will hold her oral opiates at this time. 2) HYPOKALEMIA: She received 4 mEq of IV and they are going to recheck her potassium. I am also going to have them check her magnesium level, continue to replace this as needed. 3) HISTORY OF DEPRESSION: Will continue her home medication of fluoxetine.
[2017-03-30] MEDS: LYRICA 100MG PO SCH ×2 (10:36→22:06)
[2017-03-30] MEDS: Zofran 4 MG/2 ML VIAL IV PRN ×4 (10:36→23:09)
[2017-03-30] MEDS: Prozac 20 MG PO SCH (10:45)
[2017-03-30] MEDS ORDERED: Magnesium Sulfate 1 GM/2 ML VIAL IV ONE (12:00)
[2017-03-30] MEDS: DILAUDID 2 MG INJECTION IV PRN ×5 (12:33→22:06)
[2017-03-30] MEDS: D5w/0.45NS W/ 40MEQ KCl 1000 Ml 1,000 ML IV SCH (12:34)
[2017-03-30] MEDS: Magnesium 1 Gm / 100 Ml D5W*** 100 ML IV SCH ×2 (12:34→13:35)
[2017-03-30] MEDS: Ativan 1 MG PO PRN (16:55)
[2017-03-30] MEDS: DESYREL 50 MG PO SCH (22:06)
[2017-03-31] MEDS: DILAUDID 2 MG INJECTION IV PRN ×11 (00:07→23:43)
[2017-03-31] MEDS: Zofran 4 MG/2 ML VIAL IV PRN ×5 (05:04→23:45)
[2017-03-31 06:17] LABS: BASOPHIL % 0.1 % (0.0-0.4); Eosinophil % 2.4 % (0.00-5.0); Granulocytes % 59.6 % (36.0-66.0); Lymphocytes % 31.6 % (24.0-44.0); Mean Cell Volume 87.3 fl (78-100); Mean Corpuscular Hemoglobin 28.2 pg (26-32); Mean Platelet Volume 9.8 fl (6-9.5); Monocytes % 6.3 % (0.0-12.0); Platelet Count 293 K/mm3 (150-450); Red Blood Count 4.11 M/mm3 (4.1-5.4); Red Cell Distribution Width 15.7 % (11.5-14.0); White Blood Count 7.8 K/mm3 (4.0-10.5)
[2017-03-31 06:36] LABS: ANION GAP 9.8 MEQ/L (5-15); BLOOD UREA NITROGEN 4 mg/dL (9-20); CHLORIDE 109 mEq/L (98-107); Carbon Dioxide 26.6 mEq/L (21-32); Glucose 95 MG/DL (70-110); Potassium 3.3 mEq/L (3.5-5.1); SODIUM 142 mEq/L (136-145)
[2017-03-31] MEDS: LYRICA 100MG PO SCH ×2 (10:07→22:30)
[2017-03-31] MEDS: D5w/0.45NS W/ 40MEQ KCl 1000 Ml 1,000 ML IV SCH ×2 (10:12→21:18)
[2017-03-31] MEDS: Prozac 20 MG PO SCH (10:14)
[2017-03-31] MEDS: ENOXAPARIN SODIUM SQ SCH (10:21)
[2017-03-31] MEDS: Ativan 1 MG PO PRN ×2 (10:25→19:34)
--- NOTE | 2017-03-31 12:06 | PCM.NOTE ---
Date and Time: 03/31/17 1201 Subjective Assessment: She reports some nausea but the nausea medication helps. She states she has had diarrhea 4 times yesterday which is an improvement. She also reports a headache on the left side today. She would like to try a liquid diet. She continues to have diffuse abdominal pain but a little worse on the left side. - Review of Systems Constitutional: No Symptoms Eyes: No Symptoms Ears, Nose, & Throat: No Symptoms Respiratory: No Symptoms Cardiac: No Symptoms Abdominal/Gastrointestinal: Abdominal Pain, Vomiting, Diarrhea Genitourinary Symptoms: No Symptoms Musculoskeletal: No Symptoms Neurological: Headache Objective Exam General Appearance: no apparent distress, alert Neurologic Exam: alert, oriented x 3, cooperative, normal mood/affect Skin Exam: normal color, warm, dry, No rash Respiratory Exam: normal breath sounds, lungs clear, No crackles/rales, No rhonchi, No wheezing Cardiovascular Exam: regular rate/rhythm, normal heart sounds, No murmur, No friction rub, No gallop Gastrointestinal/Abdomen Exam: soft, normal bowel sounds, tenderness, No mass, No guarding Extremity Exam: other (no c/c/e) OBJECTIVE DATA Vital Signs: Vital Signs - 24 hr Temp Pulse Resp BP Pulse Ox 03/31/17 11:59 97.4 F 73 16 111/62 93 L 03/31/17 07:55 97.4 F 81 16 111/68 93 L 03/31/17 07:30 16 03/31/17 04:00 98 F 87 16 102/68 96 03/31/17 00:00 98.1 F 82 16 119/58 93 L 03/30/17 20:00 98.2 F 72 18 121/82 92 L 03/30/17 16:00 98.0 F 70 16 112/67 93 L 03/30/17 15:38 16 Pain Assessment - Last Documented Pain Intensity 8 Pain Scale Used 0-10 Pain Scale Intake and Output: Intake & Output 03/29/17 03/30/17 03/31/17 04/01/17 06:59 06:59 06:59 06:59 Intake Total 2561 0 Output Total 1001 Balance 1560 0 Weight 55.61 kg 57.323 kg Lab Results: Lab Results-Last 24 Hours 03/31/17 03/31/17 03/31/17 Range/Units 05:45 05:45 05:45 WBC 7.8 (4.0-10.5) K/mm3 RBC 4.11 (4.1-5.4) M/mm3 Hgb 11.6 L (12.0-16.0) gm/dl Hct 35.9 (35-47) % MCV 87.3 (78-100) fl MCH 28.2 (26-32) pg MCHC 32.3 (32-36) g/dl RDW 15.7 H (11.5-14.0) % Plt Count 293 (150-450) K/mm3 MPV 9.8 H (6-9.5) fl Gran % 59.6 (36.0-66.0) % Lymphocytes % 31.6 (24.0-44.0) % Monocytes % 6.3 (0.0-12.0) % Eosinophils % 2.4 (0.00-5.0) % Basophils % 0.1 (0.0-0.4) % Basophils # 0.01 (0-0.4) Sodium 142 (136-145) mEq/L Potassium 3.3 L (3.5-5.1) mEq/L Chloride 109 H (98-107) mEq/L Carbon Dioxide 26.6 (21-32) mEq/L Anion Gap 9.8 (5-15) MEQ/L BUN 4 L (9-20) mg/dL Creatinine 0.47 L (0.55-1.30) mg/dl Estimated GFR > 60 ML/MIN Glucose 95 (70-110) MG/DL Calcium 8.3 L (8.5-10.1) mg/dL Magnesium 2.1 (1.8-2.4) mg/dL Assessment/Plan (1) Crohn's disease of both small and large intestine Current Visit: No Status: Chronic Assessment & Plan: Continue with IV fluids, pain control. She receives Entyvio injections as an outpatient and will be due for this again in about a week. Will try clear liquids today. Code(s): K50.80 - CROHN'S DISEASE OF BOTH SMALL AND LG INT W/O COMPLICATIONS (2) Hypokalemia Current Visit: Yes Status: Acute Assessment & Plan: Conitnue with potassium chloride in IV fluids. Magnesium was replaced yesterday. Code(s): E87.6 - HYPOKALEMIA (3) Depression Current Visit: Yes Status: Acute Code(s): F32.9 - MAJOR DEPRESSIVE DISORDER , SINGLE EPISODE, UNSPECIFIED (4) DNR (do not resuscitate) discussion Current Visit: Yes Status: Acute Assessment & Plan: Discussed with patient yesterday that she does not want chest compressions or to be put on a breathing machine if something happens suddenly. Code(s): Z71.89 - OTHER SPECIFIED COUNSELING
[2017-03-31] MEDS: DESYREL 50 MG PO SCH (22:31)
[2017-04-01] MEDS: DILAUDID 2 MG INJECTION IV PRN ×10 (01:47→21:57)
[2017-04-01] MEDS: Zofran 4 MG/2 ML VIAL IV PRN ×5 (03:49→21:57)
[2017-04-01] MEDS: Ativan 1 MG PO PRN (05:54)
[2017-04-01 06:06] LABS: ANION GAP 10.2 MEQ/L (5-15); BLOOD UREA NITROGEN 2 mg/dL (9-20); CHLORIDE 108 mEq/L (98-107); Carbon Dioxide 28.4 mEq/L (21-32); Glucose 94 MG/DL (70-110); Potassium 3.9 mEq/L (3.5-5.1); SODIUM 143 mEq/L (136-145)
[2017-04-01] MEDS: D5w/0.45NS W/ 40MEQ KCl 1000 Ml 1,000 ML IV SCH ×2 (07:00→17:00)
--- NOTE | 2017-04-01 08:55 | PCM.NOTE ---
Date and Time: 04/01/17 0852 Subjective Assessment: She reports she was able to keep some sprite down but the chicken broth didn't seem to sit very well on her stomach. She continues to have abdominal pain and reports diarrhea x 10 last night. She would like to try some tomatoe soup. - Review of Systems Constitutional: No Symptoms Eyes: No Symptoms Ears, Nose, & Throat: No Symptoms Respiratory: No Symptoms Cardiac: No Symptoms Abdominal/Gastrointestinal: Abdominal Pain, Nausea, Diarrhea Genitourinary Symptoms: No Symptoms Musculoskeletal: No Symptoms Skin: No Symptoms Objective Exam General Appearance: no apparent distress, alert Neurologic Exam: alert, cooperative, normal mood/affect Skin Exam: normal color, warm, dry Respiratory Exam: normal breath sounds, lungs clear, No crackles/rales, No rhonchi, No wheezing Cardiovascular Exam: regular rate/rhythm, normal heart sounds, No murmur, No friction rub, No gallop Gastrointestinal/Abdomen Exam: soft, normal bowel sounds, tenderness, No distention, No mass, No guarding Extremity Exam: normal inspection, other (no c/c/e) OBJECTIVE DATA Vital Signs: Vital Signs - 24 hr Temp Pulse Resp BP Pulse Ox 04/01/17 07:41 18 04/01/17 07:07 98.0 F 81 18 99/68 98 04/01/17 03:51 98.2 F 81 18 108/62 96 03/31/17 23:52 98.7 F 85 18 109/72 95 03/31/17 19:58 98.4 F 91 H 16 112/78 96 03/31/17 16:00 98.2 F 84 16 102/68 93 L 03/31/17 12:00 16 03/31/17 11:59 97.4 F 73 16 111/62 93 L Pain Assessment - Last Documented Pain Intensity 8 Pain Scale Used 0-10 Pain Scale Intake and Output: Intake & Output 03/30/17 03/31/17 04/01/17 04/02/17 06:59 06:59 06:59 06:59 Intake Total 2561 5046 280 Output Total 1001 1000 Balance 1560 4046 280 Weight 55.61 kg 57.323 kg 58.74 kg Lab Results: Lab Results-Last 24 Hours 04/01/17 Range/Units 05:35 Sodium 143 (136-145) mEq/L Potassium 3.9 (3.5-5.1) mEq/L Chloride 108 H (98-107) mEq/L Carbon Dioxide 28.4 (21-32) mEq/L Anion Gap 10.2 (5-15) MEQ/L BUN 2 L (9-20) mg/dL Creatinine 0.49 L (0.55-1.30) mg/dl Estimated GFR > 60 ML/MIN Glucose 94 (70-110) MG/DL Calcium 8.7 (8.5-10.1) mg/dL Assessment/Plan (1) Crohn's disease of both small and large intestine Current Visit: No Status: Chronic Assessment & Plan: Continue with IV fluids, pain control. Try advance to full liquid diet. She follows up as an outpatient with a patient services specialist at and at [facility]. Code(s): K50.80 - CROHN'S DISEASE OF BOTH SMALL AND LG INT W/O COMPLICATIONS (2) Hypokalemia Current Visit: Yes Status: Resolved Code(s): E87.6 - HYPOKALEMIA (3) Depression Current Visit: Yes Status: Acute Code(s): F32.9 - MAJOR DEPRESSIVE DISORDER , SINGLE EPISODE, UNSPECIFIED (4) DNR (do not resuscitate) discussion Current Visit: Yes Status: Acute Code(s): Z71.89 - OTHER SPECIFIED COUNSELING
[2017-04-01] MEDS: Prozac 20 MG PO SCH (10:54)
[2017-04-01] MEDS: LYRICA 100MG PO SCH ×2 (10:54→21:57)
[2017-04-01] MEDS: ENOXAPARIN SODIUM SQ SCH (10:54)
[2017-04-01] MEDS: DESYREL 50 MG PO SCH (21:57)
[2017-04-02] MEDS: DILAUDID 2 MG INJECTION IV PRN ×11 (00:05→23:42)
[2017-04-02] MEDS: Zofran 4 MG/2 ML VIAL IV PRN ×5 (02:42→21:35)
[2017-04-02 05:42] LABS: ANION GAP 8.8 MEQ/L (5-15); BLOOD UREA NITROGEN 2 mg/dL (9-20); CHLORIDE 108 mEq/L (98-107); Carbon Dioxide 29.7 mEq/L (21-32); Glucose 89 MG/DL (70-110); Potassium 4.2 mEq/L (3.5-5.1); SODIUM 142 mEq/L (136-145)
--- NOTE | 2017-04-02 07:59 | PCM.NOTE ---
Date and Time: 04/02/17 0754 Subjective Assessment: She reports she continues to have abdominal pain and diarrhea. She was able to drink 3 glasses of water she reports. She has had some nausea but no vomiting as the nausea medication has helped. She thinks she may want to try her oral pain medication if she can keep some food down today. She reports increased stress at home with her daughter and grand daughters. She reports some mouth pain and dental caries. She used to see Dr. Thayer but reports he is no longer practicing. - Review of Systems Constitutional: No Symptoms Eyes: No Symptoms Respiratory: No Symptoms Cardiac: No Symptoms Abdominal/Gastrointestinal: Abdominal Pain, Nausea, Diarrhea Genitourinary Symptoms: No Symptoms Musculoskeletal: No Symptoms Objective Exam General Appearance: no apparent distress, alert Neurologic Exam: alert, cooperative, normal mood/affect Comments: 04/02/17 07:59 Mouth with poor dentition, multiple broken off teeth, mild swelling of right side of face. OBJECTIVE DATA Vital Signs: Vital Signs - 24 hr Temp Pulse Resp BP Pulse Ox 04/02/17 07:20 98.6 F 84 17 93/52 96 04/02/17 04:00 97.8 F 86 16 104/58 97 04/01/17 23:48 98.3 F 91 H 16 97/58 96 04/01/17 19:30 98.7 F 96 H 16 117/75 93 L 04/01/17 16:00 98.2 F 84 16 108/70 98 04/01/17 11:22 98.0 F 81 18 103/62 94 L Pain Assessment - Last Documented Pain Intensity 6 Pain Scale Used 0-10 Pain Scale Intake and Output: Intake & Output 03/31/17 04/01/17 04/02/17 04/03/17 06:59 06:59 06:59 06:59 Intake Total 2561 5046 6236 Output Total 1001 1000 1000 Balance 1560 4046 5236 Weight 57.323 kg 58.74 kg 57.742 kg Lab Results: Lab Results-Last 24 Hours 04/02/17 Range/Units 05:10 Sodium 142 (136-145) mEq/L Potassium 4.2 (3.5-5.1) mEq/L Chloride 108 H (98-107) mEq/L Carbon Dioxide 29.7 (21-32) mEq/L Anion Gap 8.8 (5-15) MEQ/L BUN 2 L (9-20) mg/dL Creatinine 0.57 (0.55-1.30) mg/dl Estimated GFR > 60 ML/MIN Glucose 89 (70-110) MG/DL Calcium 9.1 (8.5-10.1) mg/dL Assessment/Plan (1) Crohn's disease of both small and large intestine Current Visit: No Status: Chronic Assessment & Plan: Continue with IV fluids, pain control, try to advance diet. She is on Entyvio as an outpatient and they just tried to stretch her infusions out from every 4 weeks to every 6 weeks. Code(s): K50.80 - CROHN'S DISEASE OF BOTH SMALL AND LG INT W/O COMPLICATIONS (2) Depression Current Visit: Yes Status: Acute Code(s): F32.9 - MAJOR DEPRESSIVE DISORDER , SINGLE EPISODE, UNSPECIFIED (3) DNR (do not resuscitate) discussion Current Visit: Yes Status: Acute Code(s): Z71.89 - OTHER SPECIFIED COUNSELING (4) Dental caries Current Visit: Yes Status: Acute Assessment & Plan: Will start ceftriaxone for this as she is not taking much by mouth. Code(s): K02.9 - DENTAL CARIES, UNSPECIFIED
[2017-04-02] MEDS: ENOXAPARIN SODIUM SQ SCH (08:26)
[2017-04-02] MEDS: Prozac 20 MG PO SCH (08:28)
[2017-04-02] MEDS: LYRICA 100MG PO SCH ×2 (08:28→21:33)
[2017-04-02] MEDS: ROCEPHIN 1 Gm-D5w 50 ml Bag** 1 G/50 ML IVPB IV SCH (08:28)
[2017-04-02] MEDS ORDERED: VITAMIN D2 PO SCH (10:00)
[2017-04-02] MEDS: D5w/0.45NS W/ 40MEQ KCl 1000 Ml 1,000 ML IV SCH ×2 (13:47→23:51)
[2017-04-02] MEDS: Ativan 1 MG PO PRN (19:33)
[2017-04-02] MEDS: DESYREL 50 MG PO SCH (21:33)
[2017-04-03] MEDS: DILAUDID 2 MG INJECTION IV PRN ×5 (01:51→11:51)
[2017-04-03] MEDS: Zofran 4 MG/2 ML VIAL IV PRN ×3 (01:52→11:48)
[2017-04-03 07:22] LABS: ANION GAP 11.6 MEQ/L (5-15); BLOOD UREA NITROGEN 5 mg/dL (9-20); CHLORIDE 106 mEq/L (98-107); Carbon Dioxide 30.3 mEq/L (21-32); Glucose 98 MG/DL (70-110); Potassium 4.4 mEq/L (3.5-5.1); SODIUM 144 mEq/L (136-145)
--- NOTE | 2017-04-03 08:38 | PCM.NOTE ---
Date and Time: 04/03/17832 Subjective Assessment: Patient reports continued diarrhea every hour which she states is normal for her. She would like to try her breakfast and lunch and then try to switch to her oral dilaudid. She reports she was due for her refills and had an appointment at my office the day she came in so if she is discharged later today , she will come and pick these up at my office. She continues to have abdominal pain that is worse on the left side. She has had nausea but the zofran has helped and she has been able to keep some food down. We discussed how fluoxetine has been on her home medication list at our office so we thought she was taking it but she reports she has not been taking this but she is willing to start it again as an outpatient. - Review of Systems Constitutional: No Symptoms Eyes: No Symptoms Ears, Nose, & Throat: No Symptoms Respiratory: No Symptoms Cardiac: No Symptoms Abdominal/Gastrointestinal: Abdominal Pain, Nausea, Diarrhea, No Vomiting, No Constipation Genitourinary Symptoms: No Symptoms Objective Exam General Appearance: no apparent distress, alert Neurologic Exam: alert, cooperative, normal mood/affect Skin Exam: normal color, warm, dry, No rash Respiratory Exam: normal breath sounds, lungs clear, No crackles/rales, No rhonchi, No wheezing Cardiovascular Exam: regular rate/rhythm, normal heart sounds, No murmur, No friction rub, No gallop Gastrointestinal/Abdomen Exam: soft, normal bowel sounds, tenderness, No distention, No mass, No guarding Extremity Exam: normal inspection, other (no c/c/e) OBJECTIVE DATA Vital Signs: Vital Signs - 24 hr Temp Pulse Resp BP Pulse Ox 04/03/17 07:09 97.8 F 88 16 116/68 93 L 04/03/17 04:00 98.4 F 85 16 98/68 97 04/03/17 00:00 98.4 F 92 H 16 119/85 95 04/02/17 20:00 98.3 F 89 16 116/64 95 04/02/17 16:00 98.6 F 72 18 97/62 95 04/02/17 12:00 19 04/02/17 11:20 98.6 F 93 H 18 105/64 94 L Pain Assessment - Last Documented Pain Intensity 6 Pain Scale Used 0-10 Pain Scale Intake and Output: Intake & Output 04/01/17 04/02/17 04/03/17 04/04/17 06:59 06:59 06:59 06:59 Intake Total 5954 7110 Output Total 1000 300 Balance 4952 6896 Weight 57.742 kg 61.745 kg Lab Results: Lab Results-Last 24 Hours 04/03/17 Range/Units 06:15 Sodium 144 (136-145) mEq/L Potassium 4.4 (3.5-5.1) mEq/L Chloride 106 (98-107) mEq/L Carbon Dioxide 30.3 (21-32) mEq/L Anion Gap 11.6 (5-15) MEQ/L BUN 5 L (9-20) mg/dL Creatinine 0.55 (0.55-1.30) mg/dl Estimated GFR > 60 ML/MIN Glucose 98 (70-110) MG/DL Calcium 9.6 (8.5-10.1) mg/dL Assessment/Plan (1) Crohn's disease of both small and large intestine Current Visit: No Status: Chronic Assessment & Plan: Continue with IV fluids, pain management and she will follow up with her gastroenterologists as an outpatient. If she is able to tolerate her oral dilaudid today, then she can be discharged home if she has someone to drive her home. Code(s): K50.80 - CROHN'S DISEASE OF BOTH SMALL AND LG INT W/O COMPLICATIONS (2) Depression Current Visit: Yes Status: Acute Assessment & Plan: Plan to restart fluoxetine as an outpatient. Code(s): F32.9 - MAJOR DEPRESSIVE DISORDER, SINGLE EPISODE, UNSPECIFIED (3) DNR (do not resuscitate) discussion Current Visit: Yes Status: Acute Code(s): Z71.89 - OTHER SPECIFIED COUNSELING (4) Dental caries Current Visit: Yes Status: Acute Assessment & Plan: Continue ceftriaxone 1 g IV daily and plan to change to amoxicillin as an outpatient to finish course. Code(s): K02.9 - DENTAL CARIES, UNSPECIFIED
[2017-04-03] MEDS: ENOXAPARIN SODIUM SQ SCH (09:13)
[2017-04-03] MEDS: Prozac 20 MG PO SCH (09:13)
[2017-04-03] MEDS: LYRICA 100MG PO SCH (09:13)
[2017-04-03] MEDS: ROCEPHIN 1 Gm-D5w 50 ml Bag** 1 G/50 ML IVPB IV SCH (09:14)
[2017-04-03] MEDS: D5w/0.45NS W/ 40MEQ KCl 1000 Ml 1,000 ML IV SCH (10:56)
[2017-04-03] MEDS ORDERED: Dilaudid 4 MG Tab PO PRN (13:29)
--- NOTE | 2017-04-03 15:01 | PCM.DCORD ---
- Discharge Discharge Date: 04/03/17 Disposition: Home, Self-Care Condition: Fair Prescriptions: New Amoxicillin 500 mg PO TID #24 capsule Fluoxetine HCl 20 mg [Prozac 20 MG] 20 mg PO DAILY #30 cap Continue Hydromorphone HCl 4 mg [Dilaudid 4 MG Tab] 4 mg PO Q4H #120 tab Lorazepam 1 mg [Ativan 1 MG] 1 mg PO TIDPRN PRN #90 tablet PRN Reason: Anxiety Pregabalin [Lyrica 100Mg] 100 mg PO BID #60 capsule Tramadol HCl 50 mg [Ultram 50 mg] 50 mg PO HS Ondansetron [Zofran Odt] 4 mg SL Q6HPRN PRN PRN Reason: Nausea Potassium Chl 40 Meq Oral Kiki* [Potassium Chl 40 Meq/30 ml Oral Solution] 40 meq PO DAILY PRN PRN PRN Reason: supplement Cholecalciferol (Vitamin D3) [Vitamin D3] 50,000 unit PO WEEKLY Vedolizumab [Entyvio] 300 mg IV UD Trazodone HCl 50 mg [Desyrel 50 mg] 50 mg PO HS Follow up with: AKIKO GREGORY [Primary Care Provider] - Forms: Patient Portal Information
[2017-04-03 16:26] VITALS: BP 125/62; PULSE 80; O2SAT 96
== END 2017-04-03 16:35 | disposition home or self-care (01) | DRG 387 ==
LOC: ED 02:07 → MED SURG 03:55 → OBSVTOIN 04-01 08:52
PROVIDERS: ADMIT Internal Medicine; ATTEND Internal Medicine
DX: K50.80 Crohn's disease of both small and large intestine without complications (principal); E87.6 Hypokalemia; R11.2 Nausea with vomiting, unspecified; R51 Headache; F32.9 Major depressive disorder, single episode, unspecified; K02.9 Dental caries, unspecified
CPT/HCPCS: 36000; 36415; 74022; 80048; 80053; 81002; 82150; 83690; 83735; 84132; 85025; 93005; 93041; 93268; 96360; 96365; 96374; 96375; 99285; G0378; J0696; J1170; J1642; J1650; J2405; J2550; J3475; J3480; A9270-GY

== ENCOUNTER → 2017-04-16 | Emergency (ER) | payer OTHER, SELFPAY ==
[~2017-04-16] MED LIST: Augmentin 500-125 Tablet ONE; Augmentin 500-125 Tablet PO ONE; TYLENOL 325 MG ONE; TYLENOL 325 MG PO STA
[2017-04-16 18:37] VITALS: O2SAT 96
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
[2017-04-16 20:45] VITALS: BP 113/84; PULSE 85
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
== END | disposition home or self-care (01) ==
LOC: ED 18:18
DX: S00.83XA Contusion of other part of head, initial encounter (principal); S06.0X9A Concussion with loss of consciousness of unspecified duration, initial encounter; S16.1XXA Strain of muscle, fascia and tendon at neck level, initial encounter; S39.012A Strain of muscle, fascia and tendon of lower back, initial encounter; V89.2XXA Person injured in unspecified motor-vehicle accident, traffic, initial encounter; Z79.899 Other long term (current) drug therapy; E03.9 Hypothyroidism, unspecified
CPT/HCPCS: 70450; 70486; 71010; 72110; 72125; 99283; 99284; A9270-GY

== ENCOUNTER 2017-06-25 21:08 | Inpatient (IN) | payer OTHER ==
[2017-06-25] MEDS ORDERED: Sodium Chloride 0.9% 1000 ML 1,000 ML IV STA (21:16)
[2017-06-25] MEDS ORDERED: BENADRYL 50 MG/ML IV ONE (21:16)
[2017-06-25] MEDS ORDERED: Hydromorphone 1 mg/ml Ampule IV ONE ×2 (21:16→23:04)
[2017-06-25] MEDS ORDERED: Zofran 4 MG/2 ML VIAL IV ONE (21:18)
[2017-06-25] MEDS ORDERED: BENADRYL 50 MG/ML ONE (21:39)
[2017-06-25] MEDS ORDERED: Zofran 4 MG/2 ML VIAL ONE (21:39)
[2017-06-25] MEDS ORDERED: Hydromorphone 1 mg/ml Ampule ONE ×2 (21:39→23:07)
[2017-06-25] MEDS ORDERED: Sodium Chloride 0.9% 1000 ML 1,000 ML ONE (21:40)
[2017-06-25 21:45] LABS: BASOPHIL % 0.2 % (0.0-0.4); Basophil (Absolute #) 0.02 (0-0.4); Eosinophil % 0.7 % (0.00-5.0); Eosinophil (Absolute #) 0.09 (0-0.5); Granulocyte Absolute (ANC) 9.37 (1.4-6.9); Granulocytes % 75.8 % (36.0-66.0); Hematocrit 39.9 % (35-47); Hemoglobin 12.8 gm/dl (12.0-16.0); Lymphocyte (Absolute #) 2.42 (1.0-4.6); Lymphocytes % 19.6 % (24.0-44.0); Mean Cell Volume 83.8 fl (78-100); Mean Corpuscular Hemoglobin 26.9 pg (26-32); Mean Corpuscular Hgb Concent. 32.1 g/dl (32-36); Mean Platelet Volume 9.1 fl (6-9.5); Monocyte (Absolute #) 0.46 (0.0-1.3); Monocytes % 3.7 % (0.0-12.0); Platelet Count 394 K/mm3 (150-450); Red Blood Count 4.76 M/mm3 (4.1-5.4); Red Cell Distribution Width 14.9 % (11.5-14.0); White Blood Count 12.4 K/mm3 (4.0-10.5)
[2017-06-25 21:46] LABS: VBG CARBOXYHEMOGLOBIN 6.6 % T HGB (0.0-6.9); VBG HCO3- 25.2 meq/L (22-28); VBG HEMOGLOBIN 13.1; VBG O2 SATURATION 93.7 (95-100); VBG pH 7.43 (7.32-7.42)
[2017-06-25 21:47] LABS: VBG POTASSIUM 2.4 (3.5-5.1)
[2017-06-25 22:10] LABS: ALBUMIN 3.6 g/dL (3.4-5.0); ALKALINE PHOSPHATASE 85 U/L (46-116); ANION GAP 15.2 MEQ/L (5-15); BLOOD UREA NITROGEN 11 mg/dL (9-20); CHLORIDE 105 mEq/L (98-107); Calcium 9.2 mg/dL (8.5-10.1); Carbon Dioxide 23.9 mEq/L (21-32); Creatinine 1 0.68 mg/dl (0.55-1.30); EST GLOMERULAR FILTRATION RATE > 60 ML/MIN; Glucose 100 MG/DL (70-110); LIPASE 301 U/L (73-393); SGOT/AST 13 U/L (15-37); SGPT/ALT 13 U/L (12-78); SODIUM 142 mEq/L (136-145); Total Protein 7.4 gm/dL (6.4-8.2)
[2017-06-25 22:12] LABS: Potassium 2.4 mEq/L (3.5-5.1)
--- NOTE | 2017-06-25 22:32 | ERPHSYRPT ---
- History of Present Illness Time Seen by Provider: 06/25/17 21:11 Source: patient Patient Subjective Stated Complaint: pt states she is having abd pain, nausea, and vomiting. states pain has gotten unbearable today. pt states she has been having numbness and tingling in her extremities. Triage Nursing Assessment: pt awake and alert. layhing in bed with eyes closed. pt arrive per family vehicle at ambulance bay and famiy states that she is having difficulty walking d/t weakness and numbness in her arms and feet. pt breathing quickly and shallow. lungs cta. abd soft, bowel sounds presnt. no stool at this time. Physician History: CC: crohns Hx: 41 y/o patient of Dr Gregory with hx of crohns disease. She is having a flare with recurrent nonbloody diarrhea, abd pain, vomiting. She can not keep her meds down. Ran out of zofran. No fever or chills. Vomiting and diarrhea are severe. She has full body muscle cramping. She is anxious. Severity: severe Allergies/Adverse Reactions: clonazepam [From Klonopin] Allergy (Mild, Verified 06/25/17 21:19) "I DON'T KNOW" divalproex sodium [From Depakote] Allergy (Mild, Verified 06/25/17 21:19) "I DON'T KNOW" duloxetine HCl [From Cymbalta] Allergy (Mild, Verified 06/25/17 21:19) Hives fentanyl Allergy (Mild, Verified 06/25/17 21:19) Hives meperidine HCl [From Demerol] Allergy (Mild, Verified 06/25/17 21:19) Hives morphine Allergy (Mild, Verified 06/25/17 21:19) Hives buprenorphine Allergy (Verified 06/25/17 21:19) duloxetine [From Cymbalta] Allergy (Verified 06/25/17 21:19) meperidine [From Demerol] Allergy (Verified 06/25/17 21:19) adalimumab [From Humira] Adverse Reaction (Mild, Verified 06/25/17 21:19) Vomiting prednisone Adverse Reaction (Mild, Verified 06/25/17 21:19) SHAKING Home Medications: Tramadol HCl 50 mg [Ultram 50 mg] 50 mg PO HS 12/07/15 [History] Ondansetron [Zofran Odt] 4 mg SL Q6HPRN PRN 12/03/15 [History] Cholecalciferol (Vitamin D3) [Vitamin D3] 50,000 unit PO WEEKLY 11/13/16 [ History] Potassium Chl 40 Meq Oral Kiki* [Potassium Chl 40 Meq/30 ml Oral Solution] 40 meq PO DAILY PRN PRN 11/13/16 [History] Vedolizumab [Entyvio] 300 mg IV UD 11/13/16 [History] Trazodone HCl 50 mg [Desyrel 50 mg] 50 mg PO HS 02/09/17 [History] Hydromorphone HCl 4 mg [Dilaudid 4 MG Tab] 4 mg PO Q4H PRN PRN 04/16/17 [ History] Hx Tetanus, Diphtheria Vaccination/Date Given: Yes Hx Influenza Vaccination/Date Given: No Hx Pneumococcal Vaccination/Date Given: No Immunizations Up to Date: Yes - Review of Systems Constitutional: Fatigue, Malaise, No Fever, No Chills Eyes: No Symptoms Ears, Nose, & Throat: No Symptoms Respiratory: No Cough, No Dyspnea Cardiac: No Chest Pain Abdominal/Gastrointestinal: Abdominal Pain, Nausea, Vomiting, Diarrhea Genitourinary Symptoms: No Dysuria Musculoskeletal: Myalgias Skin: No Rash Neurological: No Headache All Other Systems: Reviewed and Negative - Past Medical History Pertinent Past Medical History: Yes Neurological History: No Pertinent History ENT History: No Pertinent History Cardiac History: Arrhythmia Respiratory History: No Pertinent History Endocrine Medical History: Hypothyroidism Musculoskeletal History: Fibromyalgia, Osteoarthritis GI Medical History: Crohns Disease History: No Pertinent History Psycho-Social History: Anxiety, Depression Female Reproductive Disorders: Other Other Medical History: Cluster Headaches, pre cancerous cells cervix - Past Surgical History Past Surgical History: Yes Neuro Surgical History: No Pertinent History Cardiac: No Pertinent History Respiratory: No Pertinent History Gastrointestinal: Bowel Surgery, Cholecystectomy, Colon Resection Genitourinary: No Pertinent History Musculoskeletal: No Pertinent History Female Surgical History: Hysterectomy Other Surgical History: port-a-cath placement, tonsillectomy, 2 bowel resections - Social History Smoking Status: Current every day smoker How long have you smoked: 20 years Exposure to second hand smoke: Yes Drug Use: none Patient Lives Alone: No - Female History Hx Last Menstrual Period: hyster Hx Now: (hysterectomy) - Nursing Vital Signs Nursing Vital Signs: Initial Vital Signs Temperature 98.5 F 06/25/17 21:10 Pulse Rate 106 H 06/25/17 21:10 Respiratory Rate 26 H 06/25/17 21:10 Blood Pressure 137/83 06/25/17 21:10 O2 Sat by Pulse Oximetry 97 06/25/17 21:10 Pain Scale Pain Intensity 6 - Physical Exam General Appearance: alert, anxiety, thin Eye Exam: PERRL/EOMI Ears, Nose, Throat Exam: dry mucous membranes Neck Exam: normal inspection, non-tender, supple Respiratory Exam: normal breath sounds Cardiovascular Exam: regular rate/rhythm Gastrointestinal/Abdomen Exam: soft, other (diffuse discomfort, nondistended) Back Exam: normal inspection Extremity Exam: normal inspection, normal range of motion Neurologic Exam: alert, oriented x 3, cooperative, sensation nml, No motor deficits Skin Exam: warm, dry, No rash SpO2 Interpretation: normal SpO2: 97 Oxygen Delivery: Room Air - Course Nursing assessment & vital signs reviewed: Yes - Radiology Exams AAS X-ray Interpretation: Interpreted by me (few air fluid levels without obstruction, no free air) Ordered Tests: Active Orders 24 hr Category Date Time Status Triple Air Valve Tester STAT Care 06/25/17 22:20 Active Cath for Specimen-Straight STAT Care 06/25/17 21:17 Active EKG-ER Only STAT Care 06/25/17 22:20 Active IV Insertion STAT Care 06/25/17 21:16 Active NPO (ED) STAT Care 06/25/17 21:16 Active OBSTR/ACUTE ABDOMEN SERIES Stat Exams 06/25/17 22:36 Taken CBC W DIFF Stat Lab 06/25/17 21:42 Completed CMP Stat Lab 06/25/17 21:42 Completed LIPASE Stat Lab 06/25/17 21:42 Completed Lactic Acid Stat Lab 06/25/17 21:38 Completed MAGNESIUM Stat Lab 06/25/17 21:42 Completed UA W/RFX UR CULTURE Stat Lab 06/25/17 21:16 Ordered VENOUS BLOOD GAS Stat Lab 06/25/17 21:38 Completed Medication Summary Generic Name Dose Route Start Last Admin Trade Name Freq PRN Reason Stop Dose Admin Magnesium Sulfate/Dextrose 100 mls @ 100 mls/hr 06/25/17 22:30 06/25/17 22:49 Magnesium 1 Gm / 100 Ml D5w IV 06/26/17 00:29 100 mls/hr Q1H FRANK Administration Potassium Chloride 100 mls @ 50 mls/hr 06/25/17 22:30 06/25/17 22:49 Potassium Chloride 20 Meq In Water 100ml IV 06/26/17 02:29 50 mls/hr Q2H FRANK Administration Discontinued Medications Generic Name Dose Route Start Last Admin Trade Name Freq PRN Reason Stop Dose Admin Diphenhydramine HCl 25 mg 06/25/17 21:16 06/25/17 21:46 Benadryl 50 Mg/Ml IV 06/25/17 21:17 25 mg STAT ONE Administration Diphenhydramine HCl Confirm 06/25/17 21:39 Benadryl 50 Mg/Ml Administered 06/25/17 21:40 Dose 50 mg .ROUTE .STK-MED ONE Hydromorphone HCl 1 mg 06/25/17 21:16 06/25/17 21:46 Hydromorphone 1 Mg/Ml Ampule IV 06/25/17 21:17 1 mg STAT ONE Administration Hydromorphone HCl Confirm 06/25/17 21:39 Hydromorphone 1 Mg/Ml Ampule Administered 06/25/17 21:40 Dose 1 mg .ROUTE .STK-MED ONE Sodium Chloride 1,000 mls @ 999 mls/hr 06/25/17 21:16 06/25/17 21:46 Sodium Chloride 0.9% 1000 Ml IV 06/25/17 22:16 999 mls/hr .Q1H1M STA Administration Sodium Chloride Confirm 06/25/17 21:40 Sodium Chloride 0.9% 1000 Ml Administered 06/25/17 21:41 Dose 1,000 mls @ ud .ROUTE .STK-MED ONE Ondansetron HCl 4 mg 06/25/17 21:18 06/25/17 21:46 Zofran 4 Mg/2 Ml Vial IV 06/25/17 21:19 4 mg STAT ONE Administration Ondansetron HCl Confirm 06/25/17 21:39 Zofran 4 Mg/2 Ml Vial Administered 06/25/17 21:40 Dose 4 mg .ROUTE .STK-MED ONE Lab/Rad Data: Laboratory Result Diagrams 06/25/17 21:42 06/25/17 21:42 Laboratory Results 06/25/17 06/25/17 06/25/17 Range/Units 21:42 21:42 21:42 WBC 12.4 H (4.0-10.5) K/mm3 RBC 4.76 (4.1-5.4) M/mm3 Hgb 12.8 (12.0-16.0) gm/dl Hct 39.9 (35-47) % MCV 83.8 (78-100) fl MCH 26.9 (26-32) pg MCHC 32.1 (32-36) g/dl RDW 14.9 H (11.5-14.0) % Plt Count 394 (150-450) K/mm3 MPV 9.1 (6-9.5) fl Gran % 75.8 H (36.0-66.0) % Lymphocytes % 19.6 L (24.0-44.0) % Monocytes % 3.7 (0.0-12.0) % Eosinophils % 0.7 (0.00-5.0) % Basophils % 0.2 (0.0-0.4) % Basophils # 0.02 (0-0.4) VBG pH (7.32-7.42) VBG pCO2 at Pat Temp (42-55) mm/Hg VBG pO2 at Pat Temp (25-40) mm/Hg VBG HCO3 (22-28) meq/L VBG O2 Sat (Timo) (95-100) VBG Base Excess (-2.0-2.0) VBG Hemoglobin VBG Carboxyhemoglobin (0.0-6.9) % T HGB POC Potassium (3.5-5.1) Sodium 142 (136-145) mEq/L Potassium 2.4 L* (3.5-5.1) mEq/L Chloride 105 (98-107) mEq/L Carbon Dioxide 23.9 (21-32) mEq/L Anion Gap 15.2 H (5-15) MEQ/L BUN 11 (9-20) mg/dL Creatinine 0.68 (0.55-1.30) mg/dl Estimated GFR > 60 ML/MIN Glucose 100 (70-110) MG/DL Lactic Acid (0.4-2.0) Calcium 9.2 (8.5-10.1) mg/dL Magnesium 1.5 L (1.8-2.4) mg/dL Total Bilirubin 0.30 (0.2-1.0) mg/dL AST 13 L (15-37) U/L ALT 13 (12-78) U/L Alkaline Phosphatase 85 (46-116) U/L Serum Total Protein 7.4 (6.4-8.2) gm/dL Albumin 3.6 (3.4-5.0) g/dL Lipase 301 (73-393) U/L 06/25/17 06/25/17 Range/Units 21:38 21:38 WBC (4.0-10.5) K/mm3 RBC (4.1-5.4) M/mm3 Hgb (12.0-16.0) gm/dl Hct (35-47) % MCV (78-100) fl MCH (26-32) pg MCHC (32-36) g/dl RDW (11.5-14.0) % Plt Count (150-450) K/mm3 MPV (6-9.5) fl Gran % (36.0-66.0) % Lymphocytes % (24.0-44.0) % Monocytes % (0.0-12.0) % Eosinophils % (0.00-5.0) % Basophils % (0.0-0.4) % Basophils # (0-0.4) VBG pH 7.43 H (7.32-7.42) VBG pCO2 at Pat Temp 38 L (42-55) mm/Hg VBG pO2 at Pat Temp 57 H (25-40) mm/Hg VBG HCO3 25.2 (22-28) meq/L VBG O2 Sat (Timo) 93.7 L (95-100) VBG Base Excess 1.0 (-2.0-2.0) VBG Hemoglobin 13.1 VBG Carboxyhemoglobin 6.6 (0.0-6.9) % T HGB POC Potassium 2.4 L* (3.5-5.1) Sodium (136-145) mEq/L Potassium (3.5-5.1) mEq/L Chloride (98-107) mEq/L Carbon Dioxide (21-32) mEq/L Anion Gap (5-15) MEQ/L BUN (9-20) mg/dL Creatinine (0.55-1.30) mg/dl Estimated GFR ML/MIN Glucose (70-110) MG/DL Lactic Acid 1.0 (0.4-2.0) Calcium (8.5-10.1) mg/dL Magnesium (1.8-2.4) mg/dL Total Bilirubin (0.2-1.0) mg/dL AST (15-37) U/L ALT (12-78) U/L Alkaline Phosphatase (46-116) U/L Serum Total Protein (6.4-8.2) gm/dL Albumin (3.4-5.0) g/dL Lipase (73-393) U/L - Progress Progress Note: 06/25/17 23:03 Still pain and nausea after meds. K low and mag low. Will supp. Called Dr Villegas for Gerard for obs. Discussed with .: Bakari Will see patient in: hospital (observation) Counseled pt/family regarding: lab results, diagnosis, need for follow-up, rad results - Departure Time of Disposition: 23:03 Departure Disposition: Observation Clinical Impression: Crohn's disease of both small and large intestine, Hypokalemia, Hypomagnesemia , Vomiting and diarrhea Condition: Fair Critical Care Time: No Referrals: AKIKO GREGORY [Primary Care Provider] -
[2017-06-25] MEDS: POTASSIUM CHLORIDE 20 mEq IN WATER 100ML 100 ML IV SCH (22:49)
[2017-06-25] MEDS: Magnesium 1 Gm / 100 Ml D5W*** 100 ML IV SCH (22:49)
[2017-06-26 00:01] LABS: Appearance CLEAR (CLEAR); Leukocyte Esterase NEGATIVE (NEGATIVE); Nitrite NEGATIVE (NEGATIVE)
[2017-06-26 00:02] LABS: Bacteria FEW /HPF (NEGATIVE); Bilirubin NEGATIVE (NEGATIVE); Blood NEGATIVE Ery/ul (0-5); Epithelial Cells FEW /HPF (FEW); Glucose NEGATIVE (NEGATIVE); Ketones LARGE (NEGATIVE); Mucus MANY /HPF (NEGATIVE); Protein,Urine Dip TRACE (Negative); Urobilinogen NORMAL mg/dL (0-1)
[2017-06-26] MEDS ORDERED: Zofran 4 MG/2 ML VIAL IV PRN (00:27)
[2017-06-26] MEDS: D5w/0.45NS W/ 40MEQ KCl 1000 Ml 1,000 ML IV SCH ×3 (00:59→22:34)
[2017-06-26] MEDS: Magnesium 1 Gm / 100 Ml D5W*** 100 ML IV SCH (01:33)
[2017-06-26] MEDS: POTASSIUM CHLORIDE 20 mEq IN WATER 100ML 100 ML IV SCH ×2 (01:33→03:20)
[2017-06-26] MEDS: DILAUDID 2 MG INJECTION IV PRN ×8 (03:53→22:18)
[2017-06-26 08:19] LABS: BASOPHIL % 0.2 % (0.0-0.4); Basophil (Absolute #) 0.02 (0-0.4); Eosinophil (Absolute #) 0.17 (0-0.5); Granulocyte Absolute (ANC) 5.01 (1.4-6.9); Granulocytes % 59.2 % (36.0-66.0); Hematocrit 36.1 % (35-47); Hemoglobin 11.4 gm/dl (12.0-16.0); Lymphocyte (Absolute #) 2.79 (1.0-4.6); Mean Corpuscular Hemoglobin 27.1 pg (26-32); Mean Corpuscular Hgb Concent. 31.6 g/dl (32-36); Mean Platelet Volume 9.8 fl (6-9.5); Monocyte (Absolute #) 0.47 (0.0-1.3); Monocytes % 5.6 % (0.0-12.0); Platelet Count 347 K/mm3 (150-450); White Blood Count 8.5 K/mm3 (4.0-10.5)
[2017-06-26 08:19] LABS: ANION GAP 12.1 MEQ/L (5-15); BLOOD UREA NITROGEN 9 mg/dL (9-20); CHLORIDE 107 mEq/L (98-107); Calcium 8.2 mg/dL (8.5-10.1); Carbon Dioxide 27.1 mEq/L (21-32); Creatinine 1 0.66 mg/dl (0.55-1.30); EST GLOMERULAR FILTRATION RATE > 60 ML/MIN; Glucose 95 MG/DL (70-110); Potassium 3.5 mEq/L (3.5-5.1); SODIUM 143 mEq/L (136-145)
[2017-06-26] MEDS: Zofran 4 MG/2 ML VIAL IV PRN ×4 (08:48→22:18)
--- NOTE | 2017-06-26 09:15 | XRAY ---
Indication: Vomiting and diarrhea. History of Crohn's disease. Comparison: Portable chest April 16, 2017. 2 views of the abdomen nonacute and nonobstructed. Right abdomen suture material and cholecystectomy clips. Remaining solid organs and osseous structures unremarkable. Single frontal chest again demonstrates normal heart, lungs, and bony thorax with incidental calcified granulomas in right-sided Port-A-Cath. Impression: Negative abdomen. Nonacute one view chest with chronic features.
[2017-06-26] MEDS: Pepcid 20 MG VIAL IV SCH ×2 (10:35→22:18)
[2017-06-27] MEDS: DILAUDID 2 MG INJECTION IV PRN ×11 (00:29→21:37)
[2017-06-27] MEDS: Zofran 4 MG/2 ML VIAL IV PRN ×5 (02:33→19:26)
[2017-06-27 06:12] LABS: BASOPHIL % 0.2 % (0.0-0.4); Basophil (Absolute #) 0.02 (0-0.4); Eosinophil % 1.6 % (0.00-5.0); Eosinophil (Absolute #) 0.14 (0-0.5); Granulocyte Absolute (ANC) 6.02 (1.4-6.9); Granulocytes % 69.2 % (36.0-66.0); Hematocrit 37.8 % (35-47); Hemoglobin 11.8 gm/dl (12.0-16.0); Lymphocyte (Absolute #) 2.15 (1.0-4.6); Lymphocytes % 24.7 % (24.0-44.0); Mean Cell Volume 86.5 fl (78-100); Mean Corpuscular Hgb Concent. 31.2 g/dl (32-36); Mean Platelet Volume 9.5 fl (6-9.5); Monocyte (Absolute #) 0.37 (0.0-1.3); Monocytes % 4.3 % (0.0-12.0); Platelet Count 318 K/mm3 (150-450); Red Blood Count 4.37 M/mm3 (4.1-5.4); Red Cell Distribution Width 15.1 % (11.5-14.0); White Blood Count 8.7 K/mm3 (4.0-10.5)
[2017-06-27 06:39] LABS: ANION GAP 9.7 MEQ/L (5-15); BLOOD UREA NITROGEN 4 mg/dL (9-20); CHLORIDE 110 mEq/L (98-107); Calcium 8.5 mg/dL (8.5-10.1); Carbon Dioxide 26.6 mEq/L (21-32); Creatinine 1 0.55 mg/dl (0.55-1.30); EST GLOMERULAR FILTRATION RATE > 60 ML/MIN; Glucose 103 MG/DL (70-110); Potassium 3.7 mEq/L (3.5-5.1); SODIUM 143 mEq/L (136-145)
--- NOTE | 2017-06-27 08:12 | HP ---
HISTORY OF PRESENT ILLNESS: This is a 41 year-old patient with history of severe Crohn's disease who follows both at and by a insurance assistant in [place]. She reports that around Christstime she started feeling bad with increased vomiting and diarrhea. She reports she took all of her Zofran at home and was unable to get a refill because her pharmacy was closed on Sunday and then the . She reports it started to feel like her hands were tingling so she had her mother drive her to the emergency department. In the emergency department she was found to have significant hypokalemia and hypomagnesemia. She reports she continues to have some abdominal pain. She usually has Dilaudid 1 mg IV every two hours while she is here in the hospital and so far it has been given every four hours and she reports she would like to have that increased to every two hours. She reports that they were able to get the Entyvio approved and that she has an appointment to get this given at the [facility] in mid-June and also to see her insurance assistant there as well. She reports her whole abdomen is tender but a little more on the left lower quadrant. She is glad that she had the IV fluids and getting the potassium and magnesium but still states she feels poorly. REVIEW OF SYSTEMS: No chest pain. No shortness of breath. No headache. No fevers. She has the diarrhea, vomiting and abdominal pain. No lower extremity edema. No rashes. PAST MEDICAL HISTORY: Severe Crohn's disease documented at [facility]. Chronic abdominal pain from the Crohn's disease. History of cervical cancer, depression, fibromyalgia, anxiety. PAST SURGICAL HISTORY: Cholecystectomy, hysterectomy, bowel resection x2, tonsillectomy, colonoscopy 03/07/[address] Leonard Pineda Jr., Grievance Coordinator at [facility] with internal hemorrhoids, inflammation of the small bowel anastomosis. MEDICATIONS: Please see the home medication list. ALLERGIES: CLONAZEPAM, DEPAKOTE, CYMBALTA, FENTANYL, DEMEROL, MORPHINE, PREDNISONE, BUPRONEPHRINE. SOCIAL HISTORY: Her two young sons live with her. She continues to smoke. No alcohol use. FAMILY HISTORY: Noncontributory. PHYSICAL EXAMINATION: VITAL SIGNS: Temperature current 98.3F, temperature max 98.8F, heart rate 70 to 82, respiratory rate 18 to 20, blood pressure 106 to 111 over 60 to 68. Oxygen saturation 96 to 98% on room air. GENERAL: The patient is lying in bed a pleasant talkative lady in no acute distress. CVS: She has a regular rate and rhythm. No murmurs, gallops or rubs. CHEST: Clear to auscultation bilaterally. No crackles or wheezes. ABDOMEN: Normal bowel sounds. Tenderness throughout slightly worse in the left lower quadrant. No guarding. No rigidity. EXTREMITIES: No clubbing, cyanosis or edema. SKIN: Warm, dry and intact. LABORATORY DATA AND TESTS: On admission her potassium was 2.4 and repeat potassium 3.5, magnesium 1.5 repeat magnesium 2.4. UA with few bacteria, 2 to 5 white blood cells. White blood cell count 12,400 and repeat 8,500. Hemoglobin 11.4 this a.m. She had an acute abdominal series that was read as negative. ASSESSMENT AND PLAN: 1) CROHN'S DISEASE EXACERBATION: Will continue with IV fluids and pain control. She usually improves with conservative therapy as well as bowel rest and will have her follow up with her regular insurance assistant after she is discharged. 2) HYPOKALEMIA: Her potassium has been replaced, will continue with potassium in her IV fluids and recheck in the a.m. 3) HYPOMAGNESEMIA: This was also replaced. 4) HISTORY OF DEPRESSION: Will continue her home antidepressant. 5) ANXIETY: Will continue with her home antianxiety medications.
--- NOTE | 2017-06-27 08:18 | PCM.NOTE ---
Date and Time: 06/27/17812 Subjective Assessment: Patient reports that she continues to have abdominal pain and nausea. She reports the pain medication is helping with her abdominal pain. She has not had vomiting since she is taking the zofran. She continues to have frequent loose stools. She reports she tried a few sips of fluid yesterday. She reports the numbness is gone in her arms and legs. - Review of Systems Constitutional: Weakness Eyes: No Symptoms Ears, Nose, & Throat: No Symptoms Respiratory: No Symptoms Cardiac: No Symptoms Abdominal/Gastrointestinal: Abdominal Pain, Nausea, Diarrhea Genitourinary Symptoms: No Symptoms Musculoskeletal: No Symptoms Objective Exam General Appearance: no apparent distress, alert Neurologic Exam: alert, cooperative, normal mood/affect Skin Exam: normal color, dry, rash Respiratory Exam: normal breath sounds, lungs clear, No crackles/rales, No rhonchi, No wheezing Cardiovascular Exam: regular rate/rhythm, normal heart sounds, No murmur, No friction rub, No gallop Gastrointestinal/Abdomen Exam: soft, normal bowel sounds, tenderness, No distention, No mass, No guarding Extremity Exam: normal inspection, other (no c/c/e) OBJECTIVE DATA Vital Signs: Vital Signs - 24 hr Temp Pulse Resp BP Pulse Ox 06/27/17 07:54 16 06/27/17 07:11 97.9 F 70 16 102/67 95 06/27/17 04:02 98.3 F 80 20 118/81 95 06/27/17 03:53 20 06/27/17 03:26 98.3 F 80 20 118/81 95 06/27/17 00:00 98.0 F 67 16 102/60 97 06/26/17 20:00 98.3 F 72 18 102/67 95 06/26/17 16:00 98.3 F 76 20 111/60 98 06/26/17 12:00 98.3 F 73 18 106/68 96 Pain Assessment - Last Documented Pain Intensity 6 Pain Scale Used 0-10 Pain Scale Intake and Output: Intake & Output 06/25/17 06/26/17 06/27/17 06/28/17 06:59 06:59 06:59 06:59 Intake Total 3609 Output Total 4200 Balance -591 Weight 54.431 kg Lab Results: Lab Results-Last 24 Hours 06/26/17 06/26/1706/26/18 Range/Units 05:00 05:00 05:38 WBC 8.5 (4.0-10.5) K/mm3 RBC 4.20 (4.1-5.4) M/mm3 Hgb 11.4 L (12.0-16.0) gm/dl Hct 36.1 (35-47) % MCV 86.0 (78-100) fl MCH 27.1 (26-32) pg MCHC 31.6 L (32-36) g/dl RDW 15.0 H (11.5-14.0) % Plt Count 347 (150-450) K/mm3 MPV 9.8 H (6-9.5) fl Gran % 59.2 (36.0-66.0) % Lymphocytes % 33.0 (24.0-44.0) % Monocytes % 5.6 (0.0-12.0) % Eosinophils % 2.0 (0.00-5.0) % Basophils % 0.2 (0.0-0.4) % Basophils # 0.02 (0-0.4) Sodium 143 (136-145) mEq/L Potassium 3.5 (3.5-5.1) mEq/L Chloride 107 (98-107) mEq/L Carbon Dioxide 27.1 (21-32) mEq/L Anion Gap 12.1 (5-15) MEQ/L BUN 9 (9-20) mg/dL Creatinine 0.66 (0.55-1.30) mg/dl Estimated GFR > 60 ML/MIN Glucose 95 (70-110) MG/DL Calcium 8.2 L (8.5-10.1) mg/dL Magnesium 2.4 (1.8-2.4) mg/dL 06/27/17 06/27/17 Range/Units 05:25 05:25 WBC 8.7 (4.0-10.5) K/mm3 RBC 4.37 (4.1-5.4) M/mm3 Hgb 11.8 L (12.0-16.0) gm/dl Hct 37.8 (35-47) % MCV 86.5 (78-100) fl MCH 27.0 (26-32) pg MCHC 31.2 L (32-36) g/dl RDW 15.1 H (11.5-14.0) % Plt Count 318 (150-450) K/mm3 MPV 9.5 (6-9.5) fl Gran % 69.2 H (36.0-66.0) % Lymphocytes % 24.7 (24.0-44.0) % Monocytes % 4.3 (0.0-12.0) % Eosinophils % 1.6 (0.00-5.0) % Basophils % 0.2 (0.0-0.4) % Basophils # 0.02 (0-0.4) Sodium 143 (136-145) mEq/L Potassium 3.7 (3.5-5.1) mEq/L Chloride 110 H (98-107) mEq/L Carbon Dioxide 26.6 (21-32) mEq/L Anion Gap 9.7 (5-15) MEQ/L BUN 4 L (9-20) mg/dL Creatinine 0.55 (0.55-1.30) mg/dl Estimated GFR > 60 ML/MIN Glucose 103 (70-110) MG/DL Calcium 8.5 (8.5-10.1) mg/dL Magnesium (1.8-2.4) mg/dL Assessment/Plan (1) Exacerbation of Crohn's disease Current Visit: Yes Status: Acute Assessment & Plan: Continue IV fluids and pain control with IV dilaudid. Advance diet as tolerated. Code(s): K50.90 - CROHN'S DISEASE, UNSPECIFIED, WITHOUT COMPLICATIONS (2) Hypokalemia Current Visit: Yes Status: Resolved Code(s): E87.6 - HYPOKALEMIA (3) Hypomagnesemia Current Visit: Yes Status: Resolved Code(s): E83.42 - HYPOMAGNESEMIA (4) Depression Current Visit: Yes Status: Acute Assessment & Plan: Continue home medication. Code(s): F32.9 - MAJOR DEPRESSIVE DISORDER, SINGLE EPISODE, UNSPECIFIED
[2017-06-27] MEDS: Pepcid 20 MG VIAL IV SCH ×2 (08:46→21:37)
[2017-06-27] MEDS: D5w/0.45NS W/ 40MEQ KCl 1000 Ml 1,000 ML IV SCH ×2 (08:46→19:26)
[2017-06-27] MEDS: ENOXAPARIN SODIUM SQ SCH (09:15)
[2017-06-27] MEDS ORDERED: NON-FORMULARY ITEM (Cholecalciferol (Vitamin D3) [Vitamin D3] 50,000 UNIT) PO SCH (10:00)
[2017-06-27] MEDS ORDERED: VEDOLIZUMAB 300 MG IV SCH (10:00)
[2017-06-27] MEDS: LYRICA 100MG PO SCH ×2 (11:12→21:37)
[2017-06-27] MEDS: Prozac 20 MG PO SCH (11:12)
[2017-06-27] MEDS: Ativan 1 MG PO PRN ×2 (15:27→21:37)
[2017-06-27] MEDS: DESYREL 50 MG PO SCH (21:37)
[2017-06-28] MEDS: Zofran 4 MG/2 ML VIAL IV PRN ×5 (06:03→22:51)
[2017-06-28] MEDS: DILAUDID 2 MG INJECTION IV PRN ×9 (06:05→22:50)
[2017-06-28 06:31] LABS: BASOPHIL % 0.2 % (0.0-0.4); Basophil (Absolute #) 0.02 (0-0.4); Eosinophil % 1.2 % (0.00-5.0); Granulocyte Absolute (ANC) 5.54 (1.4-6.9); Hematocrit 39.8 % (35-47); Hemoglobin 12.3 gm/dl (12.0-16.0); Lymphocyte (Absolute #) 2.03 (1.0-4.6); Lymphocytes % 25.2 % (24.0-44.0); Mean Cell Volume 87.3 fl (78-100); Mean Corpuscular Hgb Concent. 30.9 g/dl (32-36); Mean Platelet Volume 9.6 fl (6-9.5); Monocyte (Absolute #) 0.35 (0.0-1.3); Monocytes % 4.4 % (0.0-12.0); Platelet Count 320 K/mm3 (150-450); Red Blood Count 4.56 M/mm3 (4.1-5.4); Red Cell Distribution Width 15.3 % (11.5-14.0)
[2017-06-28 06:38] LABS: ANION GAP 9.1 MEQ/L (5-15); BLOOD UREA NITROGEN 2 mg/dL (9-20); CHLORIDE 107 mEq/L (98-107); Calcium 8.9 mg/dL (8.5-10.1); Carbon Dioxide 29.8 mEq/L (21-32); Creatinine 1 0.63 mg/dl (0.55-1.30); EST GLOMERULAR FILTRATION RATE > 60 ML/MIN; Glucose 92 MG/DL (70-110); SODIUM 142 mEq/L (136-145)
[2017-06-28] MEDS: D5w/0.45NS W/ 40MEQ KCl 1000 Ml 1,000 ML IV SCH ×4 (07:56→16:30)
[2017-06-28] MEDS: Pepcid 20 MG VIAL IV SCH ×2 (08:08→20:37)
[2017-06-28] MEDS: ENOXAPARIN SODIUM SQ SCH (08:08)
[2017-06-28] MEDS: LYRICA 100MG PO SCH ×2 (10:08→21:25)
[2017-06-28] MEDS: Prozac 20 MG PO SCH (10:08)
[2017-06-28] MEDS: Ativan 1 MG PO PRN ×3 (10:13→21:34)
--- NOTE | 2017-06-28 11:06 | PCM.NOTE ---
Date and Time: 06/28/17 1102 Subjective Assessment: She reports she was able to take some chicken broth and that she slept a little bit last night. She continues to have watery stools frequently. She continues to have left lower and left upper quadrant pain as well as some epigastric pain. She has no numbness in her hands. - Review of Systems Constitutional: Weakness Eyes: No Symptoms Ears, Nose, & Throat: No Symptoms Respiratory: No Symptoms Cardiac: No Symptoms Abdominal/Gastrointestinal: Abdominal Pain, Nausea, Diarrhea Genitourinary Symptoms: No Symptoms Musculoskeletal: No Symptoms Skin: No Symptoms Objective Exam General Appearance: no apparent distress, alert Neurologic Exam: alert, cooperative, normal mood/affect Skin Exam: normal color, warm, dry, No rash Respiratory Exam: normal breath sounds, lungs clear, No crackles/rales, No rhonchi, No wheezing Cardiovascular Exam: regular rate/rhythm, normal heart sounds, No murmur, No friction rub, No gallop Gastrointestinal/Abdomen Exam: soft, normal bowel sounds, tenderness, No distention, No mass, No guarding Extremity Exam: other (no c/c/e) OBJECTIVE DATA Vital Signs: Vital Signs - 24 hr Temp Pulse Resp BP Pulse Ox 06/28/17 11:00 98.6 F 75 16 102/68 95 06/28/17 08:00 16 06/28/17 07:07 98.5 F 81 16 109/71 95 06/28/17 04:00 15 06/28/17 00:00 98.2 F 80 16 108/74 95 06/27/17 20:00 97.8 F 86 17 119/68 95 06/27/17 16:00 98.9 F 71 16 103/53 96 06/27/17 12:00 16 06/27/17 11:14 98.6 F 65 16 119/68 95 Pain Assessment - Last Documented Pain Intensity 7 Pain Scale Used 0-10 Pain Scale Intake and Output: Intake & Output 06/26/17 06/27/17 06/28/17 06/29/17 06:59 06:59 06:59 06:59 Intake Total 3609 3511 120 Output Total 4200 3000 Balance -591 511 120 Weight 54.431 kg Lab Results: Lab Results-Last 24 Hours 06/28/17 06/28/17 Range/Units 04:00 05:00 WBC 8.0 (4.0-10.5) K/mm3 RBC 4.56 (4.1-5.4) M/mm3 Hgb 12.3 (12.0-16.0) gm/dl Hct 39.8 (35-47) % MCV 87.3 (78-100) fl MCH 27.0 (26-32) pg MCHC 30.9 L (32-36) g/dl RDW 15.3 H (11.5-14.0) % Plt Count 320 (150-450) K/mm3 MPV 9.6 H (6-9.5) fl Gran % 69.0 H (36.0-66.0) % Lymphocytes % 25.2 (24.0-44.0) % Monocytes % 4.4 (0.0-12.0) % Eosinophils % 1.2 (0.00-5.0) % Basophils % 0.2 (0.0-0.4) % Basophils # 0.02 (0-0.4) Sodium 142 (136-145) mEq/L Potassium 4.0 (3.5-5.1) mEq/L Chloride 107 (98-107) mEq/L Carbon Dioxide 29.8 (21-32) mEq/L Anion Gap 9.1 (5-15) MEQ/L BUN 2 L (9-20) mg/dL Creatinine 0.63 (0.55-1.30) mg/dl Estimated GFR > 60 ML/MIN Glucose 92 (70-110) MG/DL Calcium 8.9 (8.5-10.1) mg/dL Multi-Disciplinary Progress Notes: Multi-Disciplinary Progress Notes 06/27/17 11:03 Case Management Note by Lizet Robbins SPOKE WITH PT THIS AM . HOME WITH SAME LEVEL OF CARE AT DISCHARGE. LIVES WITH KIDS, INDEPENDENT WITH ALL ADL'S. Initialized on 06/27/17 11:03 - END OF NOTE Assessment/Plan (1) Exacerbation of Crohn's disease Current Visit: Yes Status: Acute Assessment & Plan: continue with IV fluids and pain control. Will try to advance diet. Possible discharge tomorrow if she can tolerate a diet today. Code(s): K50.90 - CROHN'S DISEASE, UNSPECIFIED, WITHOUT COMPLICATIONS (2) Depression Current Visit: Yes Status: Acute Assessment & Plan: Controlled on her home medications at this time. Code(s): F32.9 - MAJOR DEPRESSIVE DISORDER, SINGLE EPISODE, UNSPECIFIED (3) Full code status Current Visit: Yes Status: Acute Assessment & Plan: Code status was address with her yesterday and she wishes to be full code but said she did not want to be on a ventilator for a prolonged time. Patient was encouraged to discuss her wishes with her family. Code(s): Z78.9 - OTHER SPECIFIED HEALTH STATUS
[2017-06-28] MEDS: DESYREL 50 MG PO SCH (21:25)
[2017-06-29] MEDS: DILAUDID 2 MG INJECTION IV PRN ×11 (00:46→23:38)
[2017-06-29] MEDS: Zofran 4 MG/2 ML VIAL IV PRN ×5 (03:08→21:47)
[2017-06-29] MEDS: D5w/0.45NS W/ 40MEQ KCl 1000 Ml 1,000 ML IV SCH ×3 (03:32→23:38)
[2017-06-29 05:47] LABS: BASOPHIL % 0.1 % (0.0-0.4); Basophil (Absolute #) 0.01 (0-0.4); Eosinophil % 2.2 % (0.00-5.0); Eosinophil (Absolute #) 0.18 (0-0.5); Granulocyte Absolute (ANC) 4.88 (1.4-6.9); Granulocytes % 58.7 % (36.0-66.0); Hematocrit 33.3 % (35-47); Hemoglobin 10.2 gm/dl (12.0-16.0); Lymphocyte (Absolute #) 2.79 (1.0-4.6); Lymphocytes % 33.5 % (24.0-44.0); Mean Cell Volume 87.6 fl (78-100); Mean Corpuscular Hemoglobin 26.8 pg (26-32); Mean Corpuscular Hgb Concent. 30.6 g/dl (32-36); Mean Platelet Volume 9.4 fl (6-9.5); Monocyte (Absolute #) 0.46 (0.0-1.3); Monocytes % 5.5 % (0.0-12.0); Platelet Count 263 K/mm3 (150-450); Red Cell Distribution Width 15.3 % (11.5-14.0); White Blood Count 8.3 K/mm3 (4.0-10.5)
[2017-06-29 06:13] LABS: BLOOD UREA NITROGEN 5 mg/dL (9-20); CHLORIDE 109 mEq/L (98-107); Calcium 8.2 mg/dL (8.5-10.1); Carbon Dioxide 27.2 mEq/L (21-32); EST GLOMERULAR FILTRATION RATE > 60 ML/MIN; Glucose 94 MG/DL (70-110); Potassium 4.1 mEq/L (3.5-5.1); SODIUM 143 mEq/L (136-145)
--- NOTE | 2017-06-29 08:57 | PCM.NOTE ---
Date and Time: 06/29/1757 Subjective Assessment: She reports continued diarrhea. She was able to eat some breakfast but states that her stomach just doesn't feel better. She is needing the zofran every 4 hours. She continues to feel weak. - Review of Systems Constitutional: Weakness Eyes: No Symptoms Ears, Nose, & Throat: No Symptoms Respiratory: No Symptoms Cardiac: No Symptoms Abdominal/Gastrointestinal: Abdominal Pain, Nausea, Diarrhea Genitourinary Symptoms: No Symptoms Musculoskeletal: No Symptoms Objective Exam General Appearance: no apparent distress Neurologic Exam: alert, cooperative, normal mood/affect Skin Exam: normal color, warm, dry, No rash Respiratory Exam: normal breath sounds, lungs clear, No crackles/rales, No rhonchi, No wheezing Cardiovascular Exam: regular rate/rhythm, No murmur, No friction rub, No gallop Gastrointestinal/Abdomen Exam: soft, normal bowel sounds, tenderness, other ( tenderness worse in the epigastric and left lower quadrant), No distention, No mass, No guarding Extremity Exam: normal inspection, other (no cc//e) OBJECTIVE DATA Vital Signs: Vital Signs - 24 hr Temp Pulse Resp BP Pulse Ox 06/29/17 08:00 18 06/29/17 07:37 98.0 F 84 18 96/54 93 L 06/29/17 03:45 97.9 F 71 17 107/61 96 06/29/17 00:00 98.0 F 74 18 103/69 99 06/28/17 20:00 98.9 F 89 17 101/66 94 L 06/28/17 16:00 16 06/28/17 15:55 98.2 F 76 16 110/72 95 06/28/17 11:52 16 06/28/17 11:00 98.6 F 75 16 102/68 95 Pain Assessment - Last Documented Pain Intensity 5 Pain Scale Used 0-10 Pain Scale Intake and Output: Intake & Output 06/27/17 06/28/17 06/29/17 06/30/17 06:59 06:59 06:59 06:59 Intake Total 3609 3511 4577 Output Total 4200 3000 7000 Balance -669 317 -0440 Lab Results: Lab Results-Last 24 Hours 06/29/17 06/29/17 Range/Units 05:30 05:30 WBC 8.3 (4.0-10.5) K/mm3 RBC 3.80 L (4.1-5.4) M/mm3 Hgb 10.2 L (12.0-16.0) gm/dl Hct 33.3 L (35-47) % MCV 87.6 (78-100) fl MCH 26.8 (26-32) pg MCHC 30.6 L (32-36) g/dl RDW 15.3 H (11.5-14.0) % Plt Count 263 (150-450) K/mm3 MPV 9.4 (6-9.5) fl Gran % 58.7 (36.0-66.0) % Lymphocytes % 33.5 (24.0-44.0) % Monocytes % 5.5 (0.0-12.0) % Eosinophils % 2.2 (0.00-5.0) % Basophils % 0.1 (0.0-0.4) % Basophils # 0.01 (0-0.4) Sodium 143 (136-145) mEq/L Potassium 4.1 (3.5-5.1) mEq/L Chloride 109 H (98-107) mEq/L Carbon Dioxide 27.2 (21-32) mEq/L Anion Gap 11.0 (5-15) MEQ/L BUN 5 L (9-20) mg/dL Creatinine 0.50 L (0.55-1.30) mg/dl Estimated GFR > 60 ML/MIN Glucose 94 (70-110) MG/DL Calcium 8.2 L (8.5-10.1) mg/dL Multi-Disciplinary Progress Notes: Multi-Disciplinary Progress Notes 06/28/17 11:58 Case Management Note by Lizet Robbins PT CONT TO VOICES ANY NEW NEEDS AT DISCHARGE WILL CONT TO FOLLOW ANY NEEDS. Initialized on 06/28/17 11:58 - END OF NOTE Assessment/Plan (1) Exacerbation of Crohn's disease Current Visit: Yes Status: Acute Assessment & Plan: Start solumedrol today. Continue with Iv fluids. Continue with IV pain control. Code(s): K50.90 - CROHN'S DISEASE, UNSPECIFIED, WITHOUT COMPLICATIONS (2) Depression Current Visit: Yes Status: Acute Assessment & Plan: continue home medication. Currently stable. Code(s): F32.9 - MAJOR DEPRESSIVE DISORDER, SINGLE EPISODE, UNSPECIFIED (3) Full code status Current Visit: Yes Status: Acute Code(s): Z78.9 - OTHER SPECIFIED HEALTH STATUS
[2017-06-29] MEDS: solu-MEDROL 40 MG IV SCH ×4 (09:19→23:38)
[2017-06-29] MEDS: Pepcid 20 MG VIAL IV SCH ×2 (09:19→21:48)
[2017-06-29] MEDS: ENOXAPARIN SODIUM SQ SCH (09:20)
[2017-06-29] MEDS: LYRICA 100MG PO SCH ×2 (09:20→21:47)
[2017-06-29] MEDS: Prozac 20 MG PO SCH (09:20)
[2017-06-29] MEDS: Ativan 1 MG PO PRN ×2 (12:34→19:39)
[2017-06-29] MEDS: DESYREL 50 MG PO SCH (21:47)
[2017-06-30] MEDS: Zofran 4 MG/2 ML VIAL IV PRN ×5 (02:20→21:20)
[2017-06-30] MEDS: DILAUDID 2 MG INJECTION IV PRN ×9 (02:20→21:19)
[2017-06-30] MEDS: solu-MEDROL 40 MG IV SCH ×3 (05:10→18:49)
[2017-06-30 06:56] LABS: BASOPHIL % 0.1 % (0.0-0.4); Basophil (Absolute #) 0.01 (0-0.4); Eosinophil (Absolute #) 0 (0-0.5); Granulocyte Absolute (ANC) 13.06 (1.4-6.9); Granulocytes % 90.2 % (36.0-66.0); Hematocrit 35.8 % (35-47); Hemoglobin 11.3 gm/dl (12.0-16.0); Lymphocyte (Absolute #) 1.23 (1.0-4.6); Lymphocytes % 8.5 % (24.0-44.0); Mean Cell Volume 86.5 fl (78-100); Mean Corpuscular Hgb Concent. 31.6 g/dl (32-36); Mean Platelet Volume 9.6 fl (6-9.5); Monocyte (Absolute #) 0.17 (0.0-1.3); Monocytes % 1.2 % (0.0-12.0); Platelet Count 311 K/mm3 (150-450); Red Blood Count 4.14 M/mm3 (4.1-5.4); Red Cell Distribution Width 14.9 % (11.5-14.0); White Blood Count 14.5 K/mm3 (4.0-10.5)
[2017-06-30 07:09] LABS: Mean Corpuscular Hemoglobin 27.2 pg (26-32)
[2017-06-30 07:16] LABS: ANION GAP 11.8 MEQ/L (5-15); BLOOD UREA NITROGEN 5 mg/dL (9-20); CHLORIDE 105 mEq/L (98-107); Calcium 9.1 mg/dL (8.5-10.1); Carbon Dioxide 27.8 mEq/L (21-32); Creatinine 1 0.62 mg/dl (0.55-1.30); EST GLOMERULAR FILTRATION RATE > 60 ML/MIN; Glucose 165 MG/DL (70-110); Potassium 4.6 mEq/L (3.5-5.1); SODIUM 140 mEq/L (136-145)
[2017-06-30] MEDS: Prozac 20 MG PO SCH (08:43)
[2017-06-30] MEDS: LYRICA 100MG PO SCH ×2 (08:43→21:18)
[2017-06-30] MEDS: Pepcid 20 MG VIAL IV SCH ×2 (08:44→21:20)
[2017-06-30] MEDS: ENOXAPARIN SODIUM SQ SCH (08:44)
[2017-06-30] MEDS: Ativan 1 MG PO PRN ×2 (08:47→21:18)
[2017-06-30] MEDS: D5w/0.45NS W/ 40MEQ KCl 1000 Ml 1,000 ML IV SCH ×2 (08:47→20:34)
--- NOTE | 2017-06-30 12:45 | PCM.NOTE ---
Date and Time: 06/30/17 1242 Subjective Assessment: She reports she only had diarrhea twice today but she did vomit after breakfast. She continues to have lower abdominal pain and epigastric pain. She continues to feel weak. - Review of Systems Constitutional: Weakness Eyes: No Symptoms Ears, Nose, & Throat: No Symptoms Respiratory: No Symptoms Cardiac: No Symptoms Abdominal/Gastrointestinal: Abdominal Pain, Nausea, Diarrhea Genitourinary Symptoms: No Symptoms Musculoskeletal: No Symptoms Skin: No Symptoms Objective Exam General Appearance: no apparent distress, alert Neurologic Exam: alert, cooperative, normal mood/affect Skin Exam: normal color, warm, dry, No rash Respiratory Exam: normal breath sounds, lungs clear, No crackles/rales, No rhonchi, No wheezing Cardiovascular Exam: regular rate/rhythm, normal heart sounds, No murmur, No friction rub, No gallop Gastrointestinal/Abdomen Exam: soft, normal bowel sounds, tenderness, other ( tender in epigastric area and left lower quadrant,), No distention, No mass, No guarding Extremity Exam: normal inspection, other (no c/c/e) OBJECTIVE DATA Vital Signs: Vital Signs - 24 hr Temp Pulse Resp BP Pulse Ox 06/30/17 08:00 20 06/30/17 07:34 98.4 F 65 20 111/56 93 L 06/30/17 04:10 97.8 F 70 16 108/51 94 L 06/29/17 23:42 97.9 F 73 16 102/57 96 06/29/17 20:10 97.8 F 81 15 121/65 97 06/29/17 20:00 15 06/29/17 16:00 99.4 F 104 H 18 109/64 95 Pain Assessment - Last Documented Pain Intensity 6 Pain Scale Used 0-10 Pain Scale Intake and Output: Intake & Output 06/28/17 06/29/17 06/30/17 07/01/17 06:59 06:59 06:59 06:59 Intake Total 4457 4900 240 Output Total 7000 3000 Balance -2543 1900 240 Lab Results: Lab Results-Last 24 Hours 06/30/17 06/30/17 Range/Units 06:00 06:00 WBC 14.5 H (4.0-10.5) K/mm3 RBC 4.14 (4.1-5.4) M/mm3 Hgb 11.3 L (12.0-16.0) gm/dl Hct 35.8 (35-47) % MCV 86.5 (78-100) fl MCH 27.2 (26-32) pg MCHC 31.6 L (32-36) g/dl RDW 14.9 H (11.5-14.0) % Plt Count 311 (150-450) K/mm3 MPV 9.6 H (6-9.5) fl Gran % 90.2 H (36.0-66.0) % Lymphocytes % 8.5 L (24.0-44.0) % Monocytes % 1.2 (0.0-12.0) % Eosinophils % 0.0 (0.00-5.0) % Basophils % 0.1 (0.0-0.4) % Basophils # 0.01 (0-0.4) Sodium 140 (136-145) mEq/L Potassium 4.6 (3.5-5.1) mEq/L Chloride 105 (98-107) mEq/L Carbon Dioxide 27.8 (21-32) mEq/L Anion Gap 11.8 (5-15) MEQ/L BUN 5 L (9-20) mg/dL Creatinine 0.62 (0.55-1.30) mg/dl Estimated GFR > 60 ML/MIN Glucose 165 H (70-110) MG/DL Calcium 9.1 (8.5-10.1) mg/dL Assessment/Plan (1) Exacerbation of Crohn's disease Current Visit: Yes Status: Acute Assessment & Plan: Continue with IV steroids, IV pain control, IV fluids. She may be having some improvement with the decreased number of stools. She follows with a electricity trading analyst in [place] and at . Code(s): K50.90 - CROHN'S DISEASE, UNSPECIFIED, WITHOUT COMPLICATIONS (2) Depression Current Visit: Yes Status: Acute Assessment & Plan: Well controlled with her home medication. Code(s): F32.9 - MAJOR DEPRESSIVE DISORDER, SINGLE EPISODE, UNSPECIFIED (3) Full code status Current Visit: Yes Status: Acute Code(s): Z78.9 - OTHER SPECIFIED HEALTH STATUS
[2017-06-30] MEDS: DESYREL 50 MG PO SCH (21:18)
[2017-07-01] MEDS: DILAUDID 2 MG INJECTION IV PRN ×10 (00:16→23:49)
[2017-07-01] MEDS: solu-MEDROL 40 MG IV SCH ×5 (00:16→23:50)
[2017-07-01] MEDS: Zofran 4 MG/2 ML VIAL IV PRN ×5 (02:25→21:20)
[2017-07-01] MEDS: Ativan 1 MG PO PRN ×2 (05:55→18:16)
[2017-07-01 05:56] LABS: Basophil (Absolute #) 0 (0-0.4); Eosinophil (Absolute #) 0 (0-0.5); Granulocyte Absolute (ANC) 19.63 (1.4-6.9); Hematocrit 37.3 % (35-47); Hemoglobin 11.3 gm/dl (12.0-16.0); Lymphocyte (Absolute #) 1.41 (1.0-4.6); Lymphocytes % 6.6 % (24.0-44.0); Mean Corpuscular Hgb Concent. 30.3 g/dl (32-36); Monocyte (Absolute #) 0.29 (0.0-1.3); Monocytes % 1.4 % (0.0-12.0); Platelet Count 320 K/mm3 (150-450); Red Blood Count 4.24 M/mm3 (4.1-5.4); Red Cell Distribution Width 15.6 % (11.5-14.0); White Blood Count 21.3 K/mm3 (4.0-10.5)
[2017-07-01 06:05] LABS: Mean Corpuscular Hemoglobin 26.6 pg (26-32)
[2017-07-01 06:13] LABS: ANION GAP 11.8 MEQ/L (5-15); BLOOD UREA NITROGEN 7 mg/dL (9-20); CHLORIDE 105 mEq/L (98-107); Carbon Dioxide 26.4 mEq/L (21-32); Creatinine 1 0.69 mg/dl (0.55-1.30); EST GLOMERULAR FILTRATION RATE > 60 ML/MIN; Glucose 159 MG/DL (70-110); Potassium 4.4 mEq/L (3.5-5.1); SODIUM 139 mEq/L (136-145)
[2017-07-01] MEDS: Pepcid 20 MG VIAL IV SCH ×2 (07:47→19:56)
[2017-07-01] MEDS: Prozac 20 MG PO SCH (07:48)
[2017-07-01] MEDS: VITAMIN D2 PO SCH (07:48)
[2017-07-01] MEDS: ENOXAPARIN SODIUM SQ SCH (07:48)
[2017-07-01] MEDS: LYRICA 100MG PO SCH ×2 (07:48→19:56)
[2017-07-01] MEDS: Magnesium 1 Gm / 100 Ml D5W*** 100 ML IV SCH ×2 (11:10→12:45)
--- NOTE | 2017-07-01 11:30 | PCM.NOTE ---
Date and Time: 07/01/17 1126 Subjective Assessment: Patient reports continued left sided abdominal pain and epigastric pain as well as some diarrhea but she feels this is a little better and continued nausea. She continues to need dilaudid 1 mg IV every 2 hours for pain. She is agreeable to a CT scan today and will check a rapid GI panel. Discussed she may need transferred to if she continues to not have much improvement to see her guidance director. - Review of Systems Constitutional: Weakness Eyes: No Symptoms Ears, Nose, & Throat: No Symptoms Respiratory: No Symptoms Cardiac: No Symptoms Abdominal/Gastrointestinal: Abdominal Pain, Nausea, Diarrhea Genitourinary Symptoms: No Symptoms Musculoskeletal: No Symptoms Skin: No Symptoms Objective Exam General Appearance: no apparent distress Neurologic Exam: alert, cooperative, normal mood/affect Skin Exam: normal color, warm, dry Respiratory Exam: normal breath sounds, lungs clear, No crackles/rales, No rhonchi, No wheezing Cardiovascular Exam: regular rate/rhythm, normal heart sounds, No murmur, No friction rub, No gallop Gastrointestinal/Abdomen Exam: soft, normal bowel sounds, tenderness, other ( more tenderness over left lower and left upper quadrant and epigastric area.), No distention, No mass, No guarding Extremity Exam: other (no c/c/e) OBJECTIVE DATA Vital Signs: Vital Signs - 24 hr Temp Pulse Resp BP Pulse Ox 07/01/17 09:55 56 L 18 109/59 98 07/01/17 08:00 18 07/01/17 07:19 98.2 F 56 L 18 111/71 95 07/01/17 04:00 97.7 F 54 L 14 118/63 96 07/01/17 00:00 98.0 F 73 16 108/58 95 06/30/17 20:12 97.7 F 80 18 110/67 94 L 06/30/17 20:00 16 06/30/17 16:00 98.3 F 75 18 120/66 93 L 06/30/17 12:00 98.7 F 82 17 105/58 91 L Pain Assessment - Last Documented Pain Intensity 7 Pain Scale Used 0-10 Pain Scale Intake and Output: Intake & Output 06/29/17 06/30/17 07/01/17 07/02/17 06:59 06:59 06:59 06:59 Intake Total 4457 4900 4278 360 Output Total 7000 3000 4200 Balance -2543 1900 78 360 Lab Results: Lab Results-Last 24 Hours 07/01/17 07/01/17 07/01/17 Range/Units 05:26 05:26 05:26 WBC 21.3 H (4.0-10.5) K/mm3 RBC 4.24 (4.1-5.4) M/mm3 Hgb 11.3 L (12.0-16.0) gm/dl Hct 37.3 (35-47) % MCV 88.0 (78-100) fl MCH 26.6 (26-32) pg MCHC 30.3 L (32-36) g/dl RDW 15.6 H (11.5-14.0) % Plt Count 320 (150-450) K/mm3 MPV 10.0 H (6-9.5) fl Gran % 92.0 H (36.0-66.0) % Lymphocytes % 6.6 L (24.0-44.0) % Monocytes % 1.4 (0.0-12.0) % Eosinophils % 0.0 (0.00-5.0) % Basophils % 0.0 (0.0-0.4) % Basophils # 0 (0-0.4) Sodium 139 (136-145) mEq/L Potassium 4.4 (3.5-5.1) mEq/L Chloride 105 (98-107) mEq/L Carbon Dioxide 26.4 (21-32) mEq/L Anion Gap 11.8 (5-15) MEQ/L BUN 7 L (9-20) mg/dL Creatinine 0.69 (0.55-1.30) mg/dl Estimated GFR > 60 ML/MIN Glucose 159 H (70-110) MG/DL Calcium 9.0 (8.5-10.1) mg/dL Magnesium 1.6 L (1.8-2.4) mg/dL Radiology Exams: Radiology Procedures Category Date Time Status ABDOMEN AND PELVIS W&WO CONTRA [CT] Urgent Exams 07/01/17 11:20 Ordered Assessment/Plan (1) Exacerbation of Crohn's disease Current Visit: Yes Status: Acute Assessment & Plan: Continue IV steroids. I think the leukocytosis is due to this but will also check GI panel and c.diff and amylase and lipase. Continue IV fluids. May need to consider TPN if her oral intake does not improve. Code(s): K50.90 - CROHN'S DISEASE, UNSPECIFIED, WITHOUT COMPLICATIONS (2) Depression Current Visit: Yes Status: Acute Assessment & Plan: Continue home medication. Code(s): F32.9 - MAJOR DEPRESSIVE DISORDER, SINGLE EPISODE, UNSPECIFIED (3) Full code status Current Visit: Yes Status: Acute Code(s): Z78.9 - OTHER SPECIFIED HEALTH STATUS (4) Hypomagnesemia Current Visit: Yes Status: Resolved Assessment & Plan: Will give 2 grams magnesium sulfate today IV. Code(s): E83.42 - HYPOMAGNESEMIA
[2017-07-01 11:41] LABS: AMYLASE 43 U/L (25-115); LIPASE 259 U/L (73-393)
[2017-07-01] MEDS: PROTONIX 40 MG IV IV SCH (12:45)
[2017-07-01] MEDS ORDERED: CITROMA 296 ML PO ONE (15:34)
[2017-07-01] MEDS: D5w/0.45NS W/ 40MEQ KCl 1000 Ml 1,000 ML IV SCH (18:39)
[2017-07-01] MEDS: DESYREL 50 MG PO SCH (19:56)
--- NOTE | 2017-07-01 20:13 | XRAY ---
Indication: Abdominal pain and vomiting. History of Crohn's disease. Multiple contiguous axial images obtained through the abdomen and pelvis prior to and following 80 cc Isovue 370 contrast. Oral contrast also given. Comparison: November 14, 2016. Lung bases again demonstrates bibasilar atelectasis/scarring. Heart is not enlarged. Noncontrasted images again demonstrates calcified splenic granulomas. No new pathologic visceral calcifications/calculi. Contrast in stomach and bowel loops appear nonobstructed. There is now moderate diffuse scattered colonic fecal debris throughout. No abnormal bowel wall thickening. Right lower quadrant anastomosis intact. Again previous hysterectomy. No free fluid/air. Postcontrast images demonstrates normal visceral enhancement and renal excretion. Remaining liver, pancreas, spleen, adrenal glands, kidneys, ureters, bladder, and aorta appear normal in CT appearance and attenuation. No pathologic retroperitoneal lymphadenopathy. Osseous structures intact. Impression: 1. New moderate fecal stasis without obstruction. 2. Stable calcified splenic granulomas. 3. Remaining CT abdomen/pelvis with and without contrast exam is negative. Comment: Preliminary interpretation was made by [facility]. No discrepancy. CTDI 12.27
[2017-07-02] MEDS: Zofran 4 MG/2 ML VIAL IV PRN ×3 (02:23→14:16)
[2017-07-02] MEDS: DILAUDID 2 MG INJECTION IV PRN ×3 (02:24→07:40)
[2017-07-02] MEDS: D5w/0.45NS W/ 40MEQ KCl 1000 Ml 1,000 ML IV SCH (04:46)
[2017-07-02] MEDS: Ativan 1 MG PO PRN (05:05)
[2017-07-02] MEDS: solu-MEDROL 40 MG IV SCH ×2 (05:05→11:22)
[2017-07-02 06:06] LABS: Granulocyte Absolute (ANC) 14.86 (1.4-6.9); Hematocrit 39.4 % (35-47); Mean Cell Volume 87.9 fl (78-100); Mean Corpuscular Hemoglobin 26.8 pg (26-32); Mean Corpuscular Hgb Concent. 30.5 g/dl (32-36); Mean Platelet Volume 10.5 fl (6-9.5); Platelet Count 329 K/mm3 (150-450); Red Blood Count 4.48 M/mm3 (4.1-5.4); Red Cell Distribution Width 15.4 % (11.5-14.0); White Blood Count 16.7 K/mm3 (4.0-10.5)
[2017-07-02 06:36] LABS: ANION GAP 10.8 MEQ/L (5-15); BLOOD UREA NITROGEN 12 mg/dL (9-20); CHLORIDE 102 mEq/L (98-107); Calcium 9.3 mg/dL (8.5-10.1); Creatinine 1 0.68 mg/dl (0.55-1.30); EST GLOMERULAR FILTRATION RATE > 60 ML/MIN; Glucose 125 MG/DL (70-110); Potassium 5.4 mEq/L (3.5-5.1); SODIUM 138 mEq/L (136-145)
[2017-07-02 07:12] LABS: Lymphocytes 5 % (24-44); Monocyte 1 % (0.0-12.0); Neutrophils 94 % (36.0-66.0); Platelet Estimate NORMAL (NORMAL); Total Cells Counted 100
[2017-07-02] MEDS ORDERED: Dextrose 5% -0.45 NaCl 1000 ML 1,000 ML IV SCH (07:45)
[2017-07-02] MEDS ORDERED: Dilaudid 4 MG Tab PO PRN (08:39)
[2017-07-02] MEDS: ENOXAPARIN SODIUM SQ SCH (09:08)
[2017-07-02] MEDS: LYRICA 100MG PO SCH (09:09)
[2017-07-02] MEDS: Prozac 20 MG PO SCH (09:09)
[2017-07-02] MEDS: VITAMIN D2 PO SCH (09:09)
[2017-07-02] MEDS: Pepcid 20 MG VIAL IV SCH (09:09)
[2017-07-02] MEDS: PROTONIX 40 MG IV IV SCH (11:22)
[2017-07-02 13:21] VITALS: BP 111/70; PULSE 66; O2SAT 95
--- NOTE | 2017-07-02 15:20 | PCM.DCORD ---
- Discharge Discharge Date: 07/02/17 Disposition: Home, Self-Care Condition: Fair Prescriptions: New Heparin Flush 500 units/5 ml [Heparin Lock Flush 100 Units/ml 5ml Syringe ] 500 units PORT FLUSH PRN PRN disp.syrin PRN Reason: Iv Port Flush Continue Lorazepam 1 mg [Ativan 1 MG] 1 mg PO TIDPRN PRN #90 tablet PRN Reason: Anxiety Pregabalin [Lyrica 100Mg] 100 mg PO BID #60 capsule Tramadol HCl 50 mg [Ultram 50 mg] 50 mg PO HS Ondansetron [Zofran Odt] 4 mg SL Q6HPRN PRN PRN Reason: Nausea Potassium Chl 40 Meq Oral Kiki* [Potassium Chl 40 Meq/30 ml Oral Solution] 40 meq PO DAILY PRN PRN PRN Reason: supplement Cholecalciferol (Vitamin D3) [Vitamin D3] 50,000 unit PO WEEKLY Vedolizumab [Entyvio] 300 mg IV UD Trazodone HCl 50 mg [Desyrel 50 mg] 50 mg PO HS Fluoxetine HCl 20 mg [Prozac 20 MG] 20 mg PO DAILY #30 cap Hydromorphone HCl 4 mg [Dilaudid 4 MG Tab] 4 mg PO Q4H PRN PRN PRN Reason: Pain Follow up with: AKIKO GREGORY [Primary Care Provider] - 07/09/17 1:15 pm Forms: Patient Portal Information
--- NOTE | 2017-07-04 11:05 | DS ---
DISCHARGE DIAGNOSES: 1) EXACERBATION OF CROHN'S DISEASE. 2) DEPRESSION. 3) CONSTIPATION. DISCHARGE PHYSICAL EXAMINATION: VITALS: Temperature current 98.3F, temperature max 98.4F, heart rate 50 to 68, respiratory rate 14 to 18, blood pressure 110 to 126 over 66 to 70. Oxygen saturation 94 to 96% on room air. GENERAL: The patient is lying in bed a pleasant talkative lady in no acute distress. CVS: She has a regular rate and rhythm. No murmurs, gallops or rubs. CHEST: Clear to auscultation bilaterally. ABDOMEN: Mildly tender in the left lower quadrant. Normal bowel sounds. No guarding. No rigidity. No distention. EXTREMITIES: No clubbing, cyanosis or edema. SKIN: Warm, dry and intact. HOSPITAL COURSE: 1) CROHN'S DISEASE EXACERBATION: She was given IV fluids and IV pain medication during her hospitalization. Her pain seemed to worsen. Yesterday she had a CT scan that revealed dilated small bowel and colon with ileus and fecal material in the rectum and sigmoid. She was given magnesium citrate and then mineral oil enema. The patient reported she filled this with stool although her nurse states she only showed it to her once. The patient reported she felt much better. The patient already has outpatient follow up scheduled with her coal handler and she reports they are getting her back on Entyvio that she had been on in the past which they had to get a new approval for with her new insurance company. 2) CONSTIPATION: Seems to be resolved as above. 3) DEPRESSION: She was continued on her home antidepressants. DISPOSITION: The patient was discharged to home in fair condition to resume all of her home medications and to follow up as an outpatient.
== END 2017-07-02 16:03 | disposition home or self-care (01) | DRG 387 ==
LOC: ED 21:08 → MED SURG 06-26 00:11 → OBSVTOIN 06-28 11:02
PROVIDERS: ADMIT Internal Medicine; ATTEND Internal Medicine
DX: K50.90 Crohn's disease, unspecified, without complications (principal); F32.9 Major depressive disorder, single episode, unspecified; K59.00 Constipation, unspecified; E87.6 Hypokalemia; E83.42 Hypomagnesemia; M79.7 Fibromyalgia; F41.9 Anxiety disorder, unspecified; Z85.41 Personal history of malignant neoplasm of cervix uteri
CPT/HCPCS: 36000; 36415; 74022; 74178; 80048; 80053; 81000; 81002; 82150; 82805; 83605; 83690; 83735; 85025; 87507; 93005; 93041; 93268; 96360; 96361; 96365; 96368; 96376; 99285; G0378; J1170; J1200; J1642; J1650; J2405; J2920; J3475; J3480; P9612; A9270-GY

== ENCOUNTER 2017-10-21 14:34 | Emergency (ER) | payer OTHER ==
[2017-10-21] MEDS ORDERED: TORAdol 30 mg Injection IV ONE (15:17)
[2017-10-21] MEDS ORDERED: Pepcid 20 MG VIAL IV ONE ×2 (15:17→15:34)
[2017-10-21] MEDS ORDERED: Zofran 4 MG/2 ML VIAL IV ONE (15:17)
[2017-10-21] MEDS ORDERED: Sodium Chloride 0.9% 1000 ML 1,000 ML IV STA (15:17)
[2017-10-21 15:33] LABS: BASOPHIL % 0.2 % (0.0-0.4); Basophil (Absolute #) 0.03 (0-0.4); Eosinophil % 0.3 % (0.00-5.0); Eosinophil (Absolute #) 0.04 (0-0.5); Granulocytes % 80.8 % (36.0-66.0); Hematocrit 42.6 % (35-47); Hemoglobin 14.2 gm/dl (12.0-16.0); Lymphocyte (Absolute #) 2.26 (1.0-4.6); Lymphocytes % 15.4 % (24.0-44.0); Mean Cell Volume 82.9 fl (78-100); Mean Corpuscular Hemoglobin 27.6 pg (26-32); Mean Corpuscular Hgb Concent. 33.3 g/dl (32-36); Mean Platelet Volume 9.3 fl (6-9.5); Monocyte (Absolute #) 0.49 (0.0-1.3); Monocytes % 3.3 % (0.0-12.0); Platelet Count 535 K/mm3 (150-450); Red Blood Count 5.14 M/mm3 (4.1-5.4); Red Cell Distribution Width 14.9 % (11.5-14.0); White Blood Count 14.7 K/mm3 (4.0-10.5)
[2017-10-21] MEDS ORDERED: Sodium Chloride 0.9% 1000 ML 1,000 ML ONE (15:34)
[2017-10-21] MEDS ORDERED: TORAdol 30 mg Injection ONE (15:34)
[2017-10-21] MEDS ORDERED: Zofran 4 MG/2 ML VIAL ONE (15:34)
[2017-10-21 15:41] LABS: Appearance HAZY (CLEAR); Bilirubin NEGATIVE (NEGATIVE); Blood NEGATIVE Ery/ul (0-5); Glucose NEGATIVE (NEGATIVE); Ketones NEGATIVE (NEGATIVE); Leukocyte Esterase 2+ (NEGATIVE); Nitrite NEGATIVE (NEGATIVE); Protein,Urine Dip 300 (Negative); Urobilinogen NORMAL mg/dL (0-1)
--- NOTE | 2017-10-21 15:48 | ERPHSYRPT ---
- History of Present Illness Time Seen by Provider: 10/21/17 14:56 Historian: patient Exam Limitations: no limitations Patient Subjective Stated Complaint: pt here for "flare up of chrons" for a week now, with n/v/d and abd pain Triage Nursing Assessment: pt alert, resp easy, walked in, skin w/d/p, no edema. abd soft Physician History: Pt is c/o recurrent, diffuse abdominal pain for one week, diarrhea, vomiting. She denies fever, chills,. passing bloody or black stool, or vomiting blood. She had surgeries for Chron's disease in the past, and several ER visits. Timing/Duration: week(s) (1) Activities at Onset: none Quality: cramping, sharpness Abdominal Pain Onset Location: generalized abdomen Pain Radiation: no radiation Severity of Pain-Max: severe Severity of Pain-Current: severe Modifying Factors: Improves With: nothing Associated Symptoms: diarrhea, loss of appetite, nausea, vomiting Previous symptoms: same symptoms as today Allergies/Adverse Reactions: clonazepam [From Klonopin] Allergy (Mild, Verified 10/21/17 14:54) "I DON'T KNOW" divalproex sodium [From Depakote] Allergy (Mild, Verified 10/21/17 14:54) "I DON'T KNOW" duloxetine HCl [From Cymbalta] Allergy (Mild, Verified 10/21/17 14:54) Hives fentanyl Allergy (Mild, Verified 10/21/17 14:54) Hives meperidine HCl [From Demerol] Allergy (Mild, Verified 10/21/17 14:54) Hives morphine Allergy (Mild, Verified 10/21/17 14:54) Hives buprenorphine Allergy (Verified 10/21/17 14:54) duloxetine [From Cymbalta] Allergy (Verified 10/21/17 14:54) meperidine [From Demerol] Allergy (Verified 10/21/17 14:54) adalimumab [From Humira] Adverse Reaction (Mild, Verified 10/21/17 14:54) Vomiting prednisone Adverse Reaction (Mild, Verified 10/21/17 14:54) SHAKING Home Medications: Tramadol HCl 50 mg [Ultram 50 mg] 50 mg PO HS 05/31/15 [History] Ondansetron [Zofran Odt] 4 mg SL Q6HPRN PRN 12/03/15 [History] Cholecalciferol (Vitamin D3) [Vitamin D3] 50,000 unit PO WEEKLY 11/13/16 [ History] Potassium Chl 40 Meq Oral Kiki* [Potassium Chl 40 Meq/30 ml Oral Solution] 40 meq PO DAILY PRN PRN 11/13/16 [History] Vedolizumab [Entyvio] 300 mg IV UD 11/13/16 [History] Trazodone HCl 50 mg [Desyrel 50 mg] 50 mg PO HS 02/09/17 [History] Hydromorphone HCl 4 mg [Dilaudid 4 MG Tab] 4 mg PO Q4H PRN PRN 04/16/17 [ History] Hx Tetanus, Diphtheria Vaccination/Date Given: Yes Hx Influenza Vaccination/Date Given: No Hx Pneumococcal Vaccination/Date Given: No Immunizations Up to Date: Yes - Review of Systems Constitutional: No Symptoms Abdominal/Gastrointestinal: Abdominal Pain, Nausea, Vomiting, Diarrhea, No Hematemesis, No Hematochezia, No Melena All Other Systems: Reviewed and Negative - Past Medical History Pertinent Past Medical History: Yes Neurological History: No Pertinent History ENT History: No Pertinent History Cardiac History: Arrhythmia Respiratory History: No Pertinent History Endocrine Medical History: Hypothyroidism Musculoskeletal History: Fibromyalgia, Osteoarthritis GI Medical History: Crohns Disease History: No Pertinent History Psycho-Social History: Anxiety, Depression Female Reproductive Disorders: Other Other Medical History: Cluster Headaches, pre cancerous cells cervix - Past Surgical History Past Surgical History: Yes Neuro Surgical History: No Pertinent History Cardiac: No Pertinent History Respiratory: No Pertinent History Gastrointestinal: Bowel Surgery, Cholecystectomy, Colon Resection Genitourinary: No Pertinent History Musculoskeletal: No Pertinent History Female Surgical History: Hysterectomy Other Surgical History: port-a-cath placement, tonsillectomy, 2 bowel resections - Social History Smoking Status: Current every day smoker How long have you smoked: 20 years Exposure to second hand smoke: Yes Drug Use: none Patient Lives Alone: No - Female History Hx Last Menstrual Period: hyster Hx Now: No - Nursing Vital Signs Nursing Vital Signs: Initial Vital Signs Temperature 98.5 F 10/21/17 14:40 Pulse Rate 89 10/21/17 14:40 Respiratory Rate 16 10/21/17 14:40 Blood Pressure 104/72 10/21/17 14:40 O2 Sat by Pulse Oximetry 95 10/21/17 14:40 Pain Scale Pain Intensity 6 - Physical Exam General Appearance: no apparent distress Eye Exam: eyes nml inspection Ears, Nose, Throat Exam: normal ENT inspection Neck Exam: normal inspection, non-tender, supple Respiratory Exam: normal breath sounds, lungs clear, airway intact, No chest tenderness Cardiovascular Exam: regular rate/rhythm, normal heart sounds, normal peripheral pulses, No murmur Gastrointestinal/Abdomen Exam: soft, normal bowel sounds, tenderness (diffuse), No distention, No mass, No guarding, No ecchymosis, No pulsatile mass, No rebound, No hernia Pelvic Exam: not done Back Exam: normal inspection, No CVA tenderness Extremity Exam: normal inspection Neurologic Exam: alert, oriented x 3 Skin Exam: normal color, warm, dry, No rash Lymphatic Exam: No adenopathy SpO2 Interpretation: normal SpO2: 95 Oxygen Delivery: Room Air - Course Nursing assessment & vital signs reviewed: Yes - CT Exams Abdomen/Pelvis CT Interpretation: Tele-radiologist Report, Other (Mild wall thickening and mucosal hyperemia involving the terminal ileum.) Ordered Tests: Active Orders 24 hr Category Date Time Status Clean Catch Urine Specimen STAT Care 10/21/17 15:17 Active IV Insertion STAT Care 10/21/17 15:17 Active NPO (ED) STAT Care 10/21/17 15:17 Active ABDOMEN AND PELVIS W CONTRAST [CT] Stat Exams 10/21/17 15:18 Taken AMYLASE Stat Lab 10/21/17 15:32 Completed CBC W DIFF Stat Lab 10/21/17 15:32 Completed CMP Stat Lab 10/21/17 15:32 Completed CULTURE,URINE Stat Lab 10/21/17 15:32 Received HCG,QUALITATIVE URINE Stat Lab 10/21/17 15:32 Completed LIPASE Stat Lab 10/21/17 15:32 Completed UA W/ MICROSCOPIC Stat Lab 10/21/17 15:32 Completed Urine Triage Profile Stat Lab 10/21/17 15:32 Completed Medication Summary Discontinued Medications Generic Name Dose Route Start Last Admin Trade Name Freq PRN Reason Stop Dose Admin Hydrocodone Bitart/Acetaminophen 1 tab 10/21/17 18:09 10/21/17 18:12 [place] 5/325 Mg PO 10/21/17 18:10 1 tab STAT ONE Administration Hydrocodone Bitart/Acetaminophen Confirm 10/21/17 18:11 [place] 5/325 Mg Administered 10/21/17 18:12 Dose 1 tab .ROUTE .STK-MED ONE Diphenhydramine HCl 25 mg 10/21/17 16:48 10/21/17 16:57 Benadryl 50 Mg/Ml IV 10/21/17 16:49 25 mg STAT ONE Administration Diphenhydramine HCl Confirm 10/21/17 16:53 Benadryl 50 Mg/Ml Administered 10/21/17 16:54 Dose 50 mg .ROUTE .STK-MED ONE Famotidine 20 mg 10/21/17 15:17 10/21/17 15:43 Pepcid 20 Mg Vial IV 10/21/17 15:18 20 mg STAT ONE Administration Famotidine Confirm 10/21/17 15:34 Pepcid 20 Mg Vial Administered 10/21/17 15:35 Dose 20 mg IV .STK-MED ONE Sodium Chloride 1,000 mls @ 999 mls/hr 10/21/17 15:17 10/21/17 15:43 Sodium Chloride 0.9% 1000 Ml IV 10/21/17 16:17 999 mls/hr .Q1H1M STA Administration Sodium Chloride Confirm 10/21/17 15:34 Sodium Chloride 0.9% 1000 Ml Administered 10/21/17 15:35 Dose 1,000 mls @ ud .ROUTE .STK-MED ONE Ketorolac Tromethamine 30 mg 10/21/17 15:17 10/21/17 15:43 Toradol 30 Mg Injection IV 10/21/17 15:18 30 mg STAT ONE Administration Ketorolac Tromethamine Confirm 10/21/17 15:34 Toradol 30 Mg Injection Administered 10/21/17 15:35 Dose 30 mg .ROUTE .STK-MED ONE Morphine Sulfate 4 mg 10/21/17 16:48 10/21/17 16:58 Morphine Sulfate 4 Mg Inj IV 10/21/17 16:49 4 mg STAT ONE Administration Morphine Sulfate Confirm 10/21/17 16:54 Morphine Sulfate 4 Mg Inj Administered 10/21/17 16:55 Dose 4 mg .ROUTE .STK-MED ONE Ondansetron HCl 4 mg 10/21/17 15:17 10/21/17 15:43 Zofran 4 Mg/2 Ml Vial IV 10/21/17 15:18 4 mg STAT ONE Administration Ondansetron HCl Confirm 10/21/17 15:34 Zofran 4 Mg/2 Ml Vial Administered 10/21/17 15:35 Dose 4 mg .ROUTE .STK-MED ONE Promethazine HCl 25 mg 10/21/17 16:21 10/21/17 16:41 Phenergan 25 Mg Inj IM 10/21/17 16:22 25 mg STAT ONE Administration Promethazine HCl Confirm 10/21/17 16:38 Phenergan 25 Mg Inj Administered 10/21/17 16:39 Dose 25 mg .ROUTE .STK-MED ONE Lab/Rad Data: Laboratory Result Diagrams 10/21/17 15:32 10/21/17 15:32 Laboratory Results 10/21/17 10/21/17 10/21/17 Range/Units 15:32 15:32 15:32 WBC (4.0-10.5) K/mm3 RBC (4.1-5.4) M/mm3 Hgb (12.0-16.0) gm/dl Hct (35-47) % MCV (78-100) fl MCH (26-32) pg MCHC (32-36) g/dl RDW (11.5-14.0) % Plt Count (150-450) K/mm3 MPV (6-9.5) fl Gran % (36.0-66.0) % Eos # (Auto) (0-0.5) Absolute Lymphs (auto) (1.0-4.6) Absolute Monos (auto) (0.0-1.3) Lymphocytes % (24.0-44.0) % Monocytes % (0.0-12.0) % Eosinophils % (0.00-5.0) % Basophils % (0.0-0.4) % Absolute Granulocytes (1.4-6.9) Basophils # (0-0.4) Sodium (137-145) mmol/L Potassium (3.5-5.1) mmol/L Chloride (98-107) mmol/L Carbon Dioxide (22-30) mmol/L Anion Gap (5-15) MEQ/L BUN (7-17) mg/dL Creatinine (0.52-1.04) mg/dL Estimated GFR ML/MIN Glucose (74-106) mg/dL Calcium (8.4-10.2) mg/dL Total Bilirubin (0.2-1.3) mg/dL AST (14-36) U/L ALT (0-35) U/L Alkaline Phosphatase (38-126) U/L Serum Total Protein (6.3-8.2) g/dL Albumin (3.5-5.0) g/dL Amylase (30-110) U/L Lipase (23-300) U/L Ur Collection Type CLEAN CATCH Urine Color YELLOW (YELLOW) Urine Appearance HAZY (CLEAR) Urine pH 5.0 (5-6) Ur Specific [place] 1.010 (1.005-1.025) Urine Protein 300 (Negative) Urine Ketones NEGATIVE (NEGATIVE) Urine Blood NEGATIVE (0-5) Elias/ul Urine Nitrite NEGATIVE (NEGATIVE) Urine Bilirubin NEGATIVE (NEGATIVE) Urine Urobilinogen NORMAL (0-1) mg/dL Ur Leukocyte Esterase 2+ (NEGATIVE) Urine Microscopic RBC 0-2 (0-2) /HPF Urine Microscopic WBC 5-10 (0-5) /HPF Ur Epithelial Cells FEW (FEW) /HPF Urine Bacteria MODERATE (NEGATIVE) /HPF Hyaline Casts 5-10 (0-2) /LPF Urine Mucus MODERATE (NEGATIVE) /HPF Urine Culture Reflexed YES (NO) Urine Glucose NEGATIVE (NEGATIVE) mg/dL Urine HCG, Qual NEGATIVE (Negative) Urine Opiates Level POSITIVE (NEGATIVE) Ur Methadone NEGATIVE (NEGATIVE) Urine Barbiturates NEGATIVE (NEGATIVE) Ur Phencyclidine (PCP) NEGATIVE (NEGATIVE) Urine Amphetamine NEGATIVE (NEGATIVE) U Benzodiazepine Level NEGATIVE (NEGATIVE) Urine Cocaine NEGATIVE (NEGATIVE) Urine Marijuana (THC) NEGATIVE (NEGATIVE) Specimen Received 10/21/17 1530 10/21/17 10/21/17 Range/Units 15:32 15:32 WBC 14.7 H (4.0-10.5) K/mm3 RBC 5.14 (4.1-5.4) M/mm3 Hgb 14.2 (12.0-16.0) gm/dl Hct 42.6 (35-47) % MCV 82.9 (78-100) fl MCH 27.6 (26-32) pg MCHC 33.3 (32-36) g/dl RDW 14.9 H (11.5-14.0) % Plt Count 535 H (150-450) K/mm3 MPV 9.3 (6-9.5) fl Gran % 80.8 H (36.0-66.0) % Eos # (Auto) 0.04 (0-0.5) Absolute Lymphs (auto) 2.26 (1.0-4.6) Absolute Monos (auto) 0.49 (0.0-1.3) Lymphocytes % 15.4 L (24.0-44.0) % Monocytes % 3.3 (0.0-12.0) % Eosinophils % 0.3 (0.00-5.0) % Basophils % 0.2 (0.0-0.4) % Absolute Granulocytes 11.90 H (1.4-6.9) Basophils # 0.03 (0-0.4) Sodium 147 H (137-145) mmol/L Potassium 4.1 (3.5-5.1) mmol/L Chloride 107 (98-107) mmol/L Carbon Dioxide 22 (22-30) mmol/L Anion Gap 22.6 H (5-15) MEQ/L BUN 12 (7-17) mg/dL Creatinine 0.81 (0.52-1.04) mg/dL Estimated GFR > 60.0 ML/MIN Glucose 110 H (74-106) mg/dL Calcium 10.7 H (8.4-10.2) mg/dL Total Bilirubin 0.40 (0.2-1.3) mg/dL AST 16 (14-36) U/L ALT 17 (0-35) U/L Alkaline Phosphatase 113 (38-126) U/L Serum Total Protein 8.7 H (6.3-8.2) g/dL Albumin 4.7 (3.5-5.0) g/dL Amylase 88 (30-110) U/L Lipase 276 (23-300) U/L Ur Collection Type Urine Color (YELLOW) Urine Appearance (CLEAR) Urine pH (5-6) Ur Specific [place] (1.005-1.025) Urine Protein (Negative) Urine Ketones (NEGATIVE) Urine Blood (0-5) Elias/ul Urine Nitrite (NEGATIVE) Urine Bilirubin (NEGATIVE) Urine Urobilinogen (0-1) mg/dL Ur Leukocyte Esterase (NEGATIVE) Urine Microscopic RBC (0-2) /HPF Urine Microscopic WBC (0-5) /HPF Ur Epithelial Cells (FEW) /HPF Urine Bacteria (NEGATIVE) /HPF Hyaline Casts (0-2) /LPF Urine Mucus (NEGATIVE) /HPF Urine Culture Reflexed (NO) Urine Glucose (NEGATIVE) mg/dL Urine HCG, Qual (Negative) Urine Opiates Level (NEGATIVE) Ur Methadone (NEGATIVE) Urine Barbiturates (NEGATIVE) Ur Phencyclidine (PCP) (NEGATIVE) Urine Amphetamine (NEGATIVE) U Benzodiazepine Level (NEGATIVE) Urine Cocaine (NEGATIVE) Urine Marijuana (THC) (NEGATIVE) Specimen Received - Progress Progress: improved Progress Note: 10/21/17 18:12 Improved after iv fluids, Morphine and Phenergan, not vomiting, nausea and pain mostly resolve, afebrile, I discussed the CT and lab results with her, will start her on keflex and discharge with instructions to rest x 2-3 days, drink plenty of fluids, and return if severe pain, vomiting, or fever> 102 F, follow up with her Ele[employer] next week. 10/21/17 18:13 10/21/17 18:17 Counseled pt/family regarding: lab results, diagnosis, need for follow-up, rad results - Departure Time of Disposition: 18:14 Departure Disposition: Home Clinical Impression: Crohn's disease of both small and large intestine Qualifiers: Digestive disease complication type: without complication Qualified Code(s): K50.80 - Crohn's disease of both small and large intestine without complications Nausea and vomiting Qualifiers: Vomiting type: unspecified Vomiting Intractability: non-intractable Qualified Code(s): R11.2 - Nausea with vomiting, unspecified Condition: Stable Critical Care Time: No Referrals: AKIKO GREGORY [Primary Care Provider] - Additional Instructions: Rest x 2-3 days, drink plenty of fluids, return if severe pain, vomiting, fever > 102 F, follow up with your PCP or [employer] next week! Prescriptions: Cephalexin Mh 500 mg [Keflex 500 mg] 500 mg PO Q6H 7 Days #28 capsule Promethazine HCl 25 mg [Phenergan 25 mg] 25 mg PO Q6H PRN 5 Days #10 tablet PRN Reason: Nausea/Vomiting
[2017-10-21 15:50] LABS: ALBUMIN 4.7 g/dL (3.5-5.0); ALKALINE PHOSPHATASE 113 U/L (38-126); AMYLASE 88 U/L (30-110); ANION GAP 22.6 MEQ/L (5-15); BLOOD UREA NITROGEN 12 mg/dL (7-17); CHLORIDE 107 mmol/L (98-107); Calcium 10.7 mg/dL (8.4-10.2); Carbon Dioxide 22 mmol/L (22-30); Creatinine 1 0.81 mg/dL (0.52-1.04); Glucose 110 mg/dL (74-106); LIPASE 276 U/L (23-300); Potassium 4.1 mmol/L (3.5-5.1); SGOT/AST 16 U/L (14-36); SODIUM 147 mmol/L (137-145); Total Protein 8.7 g/dL (6.3-8.2)
[2017-10-21 15:53] LABS: Amphetamine,Urine NEGATIVE (NEGATIVE); Benzodiazepine,Urine NEGATIVE (NEGATIVE); Cocaine,Urine NEGATIVE (NEGATIVE); Methadone,Urine NEGATIVE (NEGATIVE); Opiate,Urine POSITIVE (NEGATIVE); PCP,Urine NEGATIVE (NEGATIVE); THC,Urine NEGATIVE (NEGATIVE)
[2017-10-21 15:55] LABS: Bacteria MODERATE /HPF (NEGATIVE); Epithelial Cells FEW /HPF (FEW); Mucus MODERATE /HPF (NEGATIVE); RBC 0-2 /HPF (0-2)
[2017-10-21 15:58] LABS: SGPT/ALT 17 U/L (0-35)
[2017-10-21 16:15] LABS: Barbiturate,Urine NEGATIVE (NEGATIVE)
[2017-10-21] MEDS ORDERED: Phenergan 25 MG INJ IM ONE (16:21)
[2017-10-21] MEDS ORDERED: Phenergan 25 MG INJ ONE (16:38)
[2017-10-21] MEDS ORDERED: BENADRYL 50 MG/ML IV ONE (16:48)
[2017-10-21] MEDS ORDERED: MORPHINE SULFATE 4 MG INJ IV ONE (16:48)
[2017-10-21] MEDS ORDERED: BENADRYL 50 MG/ML ONE (16:53)
[2017-10-21] MEDS ORDERED: MORPHINE SULFATE 4 MG INJ ONE (16:54)
[2017-10-21 17:59] VITALS: BP 105/66; PULSE 80
[2017-10-21] MEDS ORDERED: NORCO 5/325 MG PO ONE (18:09)
[2017-10-21] MEDS ORDERED: NORCO 5/325 MG ONE (18:11)
[2017-10-21 18:15] VITALS: O2SAT 95
[2017-10-21] MEDS ORDERED: KEFLEX 500 MG PO ONE (18:17)
[2017-10-21] MEDS ORDERED: KEFLEX 500 MG ONE (18:25)
--- NOTE | 2017-10-21 21:09 | XRAY ---
Indication: Abdomen pain, nausea, and vomiting. Multiple contiguous axial images obtained through the abdomen and pelvis using 80 cc Isovue 370 contrast only. Comparison: July 01, 2017. Lung bases again demonstrates mild bibasilar dependent atelectasis. No consolidation or effusion. Heart is not enlarged. Noncontrasted stomach and bowel loops appear unremarkable. Stable cholecystectomy, hysterectomy, calculus with splenic granulomas, and intact right lower quadrant anastomosis. No free fluid/air. Remaining liver, pancreas, spleen, adrenal glands, kidneys, ureters, bladder, and aorta appear unremarkable. Osseous structures intact. Impression: 1. Stable calcified splenic granulomas and postsurgical changes. 2. No new/acute intra-abdominal/pelvic abnormalities. Comment: Preliminary interpretation was made by [facility]. No critical discrepancy. CTDI 11.56
== END 2017-10-21 18:50 | disposition home or self-care (01) ==
LOC: ED 14:34
DX: K50.80 Crohn's disease of both small and large intestine without complications (principal); R11.2 Nausea with vomiting, unspecified; Z79.899 Other long term (current) drug therapy
CPT/HCPCS: 36000; 36415; 74177; 80053; 80307; 81000; 82150; 83690; 84703; 85025; 87086; 96360; 96372; 99284; J1200; J1642; J1885; J2270; J2405; J2550; A9270-GY

== ENCOUNTER 2017-11-20 11:02 | Emergency (ER) | payer OTHER ==
[2017-11-20] MEDS ORDERED: Sodium Chloride 0.9% 1000 ML 1,000 ML IV STA ×2 (11:17→11:24)
[2017-11-20] MEDS ORDERED: MORPHINE SULFATE 4 MG INJ IV ONE ×3 (11:17→15:06)
[2017-11-20] MEDS ORDERED: BENADRYL 50 MG/ML IV ONE (11:19)
--- NOTE | 2017-11-20 11:24 | ERPHSYRPT ---
- History of Present Illness Time Seen by Provider: 11/20/17 11:20 Historian: patient Exam Limitations: no limitations Patient Subjective Stated Complaint: HASN'T FELT WELL SINCE SUNDAY. STATES VOMITED ALL DAY YESTERDAY AND TODAY. ALSO HAVING LOOSE STOOLS. PAIN TO LOWER ABD AND LEFT SIDE. Triage Nursing Assessment: TO ROOM PER SELF, GUARDING ABD. A/O TIMES THREE. ABD SOFT, TENDER TO TOUCH. Physician History: 42-year-old white female who was initially seen by Dr. gregory this morning she arrives with complaint of abdominal pain states she is unable to eat she's been having multiple episodes of vomiting and diarrhea symptoms since 5 days ago. Patient states that her pain is generalized in her abdomen Past medical history includes arrhythmia, hypothyroidism, fibromyalgia, osteoarthritis, Crohn's disease, anxiety, depression, cluster headaches, abnormal cells on her cervix in the past Past surgical history includes bowel surgery, cholecystectomy, colon resection, hysterectomy, Port-A-Cath, tonsillectomy patient apparently has had 2 bowel resections. Social history positive tobacco use Timing/Duration: day(s) (5 days) Activities at Onset: none Quality: cramping Abdominal Pain Onset Location: generalized abdomen Pain Radiation: no radiation Severity of Pain-Max: moderate Severity of Pain-Current: moderate Modifying Factors: Improves With: nothing Associated Symptoms: loss of appetite, nausea, vomiting, No back, No chest pain , No diaphoresis, No diarrhea, No fever/chills, No fatigue, No headache, No heartburn, No neck pain, No rash, No shortness of breath, No syncope Previous symptoms: same symptoms as today Allergies/Adverse Reactions: clonazepam [From Klonopin] Allergy (Mild, Verified 11/20/17 11:16) "I DON'T KNOW" divalproex sodium [From Depakote] Allergy (Mild, Verified 11/20/17 11:16) "I DON'T KNOW" duloxetine HCl [From Cymbalta] Allergy (Mild, Verified 11/20/17 11:16) Hives fentanyl Allergy (Mild, Verified 11/20/17 11:16) Hives meperidine HCl [From Demerol] Allergy (Mild, Verified 11/20/17 11:16) Hives morphine Allergy (Mild, Verified 11/20/17 11:16) Hives buprenorphine Allergy (Verified 11/20/17 11:16) duloxetine [From Cymbalta] Allergy (Verified 11/20/17 11:16) meperidine [From Demerol] Allergy (Verified 11/20/17 11:16) adalimumab [From Humira] Adverse Reaction (Mild, Verified 11/20/17 11:16) Vomiting prednisone Adverse Reaction (Mild, Verified 11/20/17 11:16) SHAKING Home Medications: Ondansetron [Zofran Odt] 4 mg SL Q6HPRN PRN 12/03/15 [History] Cholecalciferol (Vitamin D3) [Vitamin D3] 50,000 unit PO WEEKLY 11/13/16 [ History] Potassium Chl 40 Meq Oral Kiki* [Potassium Chl 40 Meq/30 ml Oral Solution] 40 meq PO DAILY PRN PRN 11/13/16 [History] Vedolizumab [Entyvio] 300 mg IV UD 11/13/16 [History] Trazodone HCl 50 mg [Desyrel 50 mg] 50 mg PO HS 02/09/17 [History] Hydromorphone HCl 4 mg [Dilaudid 4 MG Tab] 4 mg PO Q4H PRN PRN 04/16/17 [ History] Hx Tetanus, Diphtheria Vaccination/Date Given: Yes Hx Influenza Vaccination/Date Given: No Hx Pneumococcal Vaccination/Date Given: No - Review of Systems Constitutional: No Fever, No Chills Eyes: No Symptoms Ears, Nose, & Throat: No Symptoms Respiratory: No Cough, No Dyspnea Cardiac: No Chest Pain, No Edema, No Syncope Abdominal/Gastrointestinal: Abdominal Pain, Nausea, Vomiting, Diarrhea Genitourinary Symptoms: No Dysuria Musculoskeletal: No Back Pain, No Neck Pain Skin: No Rash Neurological: No Dizziness, No Focal Weakness, No Sensory Changes Psychological: No Symptoms Endocrine: No Symptoms All Other Systems: Reviewed and Negative - Past Medical History Pertinent Past Medical History: Yes Neurological History: No Pertinent History ENT History: No Pertinent History Cardiac History: Arrhythmia Respiratory History: No Pertinent History Endocrine Medical History: Hypothyroidism Musculoskeletal History: Fibromyalgia, Osteoarthritis GI Medical History: Crohns Disease History: No Pertinent History Psycho-Social History: Anxiety, Depression Female Reproductive Disorders: Other Other Medical History: Cluster Headaches, pre cancerous cells cervix - Past Surgical History Past Surgical History: Yes Neuro Surgical History: No Pertinent History Cardiac: No Pertinent History Respiratory: No Pertinent History Gastrointestinal: Bowel Surgery, Cholecystectomy, Colon Resection Genitourinary: No Pertinent History Musculoskeletal: No Pertinent History Female Surgical History: Hysterectomy Other Surgical History: port-a-cath placement, tonsillectomy, 2 bowel resections - Social History Smoking Status: Current every day smoker How long have you smoked: 20 years Exposure to second hand smoke: Yes Drug Use: none Patient Lives Alone: No - Female History Hx Now: No - Nursing Vital Signs Nursing Vital Signs: Initial Vital Signs Temperature 98.7 F 11/20/17 11:06 Pulse Rate 138 H 11/20/17 11:06 Respiratory Rate 18 11/20/17 11:06 Blood Pressure 116/87 11/20/17 11:06 O2 Sat by Pulse Oximetry 98 11/20/17 11:06 Pain Scale Pain Intensity 9 - Physical Exam General Appearance: other (well-developed well-nourished white female anxious in appearance) Eye Exam: PERRL/EOMI, eyes nml inspection Ears, Nose, Throat Exam: normal ENT inspection, pharynx normal, moist mucous membranes Neck Exam: normal inspection, non-tender, supple, full range of motion Respiratory Exam: normal breath sounds, lungs clear, No respiratory distress Cardiovascular Exam: regular rate/rhythm, normal heart sounds Gastrointestinal/Abdomen Exam: soft, normal bowel sounds, tenderness (Diffuse abdominal tenderness) Back Exam: normal inspection, normal range of motion, No CVA tenderness, No vertebral tenderness Extremity Exam: normal inspection, normal range of motion, pelvis stable Neurologic Exam: alert, oriented x 3, cooperative, drafter apprentice II-XII nml as tested, normal mood/affect, nml cerebellar function, sensation nml, No motor deficits Skin Exam: normal color, warm, dry SpO2 Interpretation: normal (98%) SpO2: 98 Oxygen Delivery: Room Air - Course Nursing assessment & vital signs reviewed: Yes EKG Interpreted by Me: RATE (102 bpm), Sinus Tach, NORMAL AXIS, Other (EKG: Sinus tachycardia, 102 bpm, normal axis,, no acute ST or T wave changes, normal EKG) - Radiology Exams Abdomen X-ray Interpretation: Discussed w/ radiologist (three-view abdomen acute series : Impression: Stable negative abdomen and nonacute one view chest with chronic features) Ordered Tests: Active Orders 24 hr Category Date Time Status Transit Operator STAT Care 11/20/17 12:13 Active EKG-ER Only STAT Care 11/20/17 12:12 Active IV Insertion STAT Care 11/20/17 11:17 Active OBSTR/ACUTE ABDOMEN SERIES Stat Exams 11/20/17 12:15 Completed AMYLASE Stat Lab 11/20/17 11:30 Completed BLOOD CULTURE Stat Lab 11/20/17 12:17 Received CBC W DIFF Stat Lab 11/20/17 11:30 Completed CMP Stat Lab 11/20/17 11:30 Completed CULTURE,URINE Stat Lab 11/20/17 11:30 Received ETHYL ALCOHOL Stat Lab 11/20/17 11:30 Completed LIPASE Stat Lab 11/20/17 11:30 Completed Occult Blood,Stool Other Stat Lab 11/20/17 11:30 Completed UA W/ MICROSCOPIC Stat Lab 11/20/17 11:30 Completed Urine Triage Profile Stat Lab 11/20/17 11:30 Completed Medication Summary Generic Name Dose Route Start Last Admin Trade Name Freq PRN Reason Stop Dose Admin Sodium Chloride 1,000 mls @ 100 mls/hr 11/20/17 14:45 11/20/17 14:43 Sodium Chloride 0.9% 1000 Ml IV 12/20/17 14:44 100 mls/hr .Q10H FRANK Administration Discontinued Medications Generic Name Dose Route Start Last Admin Trade Name Freq PRN Reason Stop Dose Admin Diphenhydramine HCl 25 mg 11/20/17 11:19 11/20/17 11:31 Benadryl 50 Mg/Ml IV 11/20/17 11:20 25 mg STAT ONE Administration Diphenhydramine HCl Confirm 11/20/17 11:26 Benadryl 50 Mg/Ml Administered 11/20/17 11:27 Dose 50 mg .ROUTE .STK-MED ONE Sodium Chloride 1,000 mls @ 999 mls/hr 11/20/17 11:17 11/20/17 11:32 Sodium Chloride 0.9% 1000 Ml IV 11/20/17 12:17 999 mls/hr .Q1H1M STA Administration Sodium Chloride 1,000 mls @ 999 mls/hr 11/20/17 11:24 11/20/17 12:31 Sodium Chloride 0.9% 1000 Ml IV 11/20/17 12:24 999 mls/hr .Q1H1M STA Administration Sodium Chloride Confirm 11/20/17 11:27 Sodium Chloride 0.9% 1000 Ml Administered 11/20/17 11:28 Dose 1,000 mls @ ud .ROUTE .STK-MED ONE Ceftriaxone Sodium/Dextrose 1 g in 50 mls @ 100 mls/hr 11/20/17 11:52 12:04 Rocephin 1 Gm-D5w 50 Ml Bag IV 11/20/17 12:21 100 mls/hr STAT STA Administration Ceftriaxone Sodium/Dextrose Confirm 11/20/17 12:00 Rocephin 1 Gm-D5w 50 Ml Bag Administered 11/20/17 12:01 Dose 1 g in 50 mls @ ud IV .STK-MED ONE Sodium Chloride Confirm 11/20/17 12:10 Sodium Chloride 0.9% 1000 Ml Administered 11/20/17 12:11 Dose 1,000 mls @ ud .ROUTE .STK-MED ONE Potassium Chloride 100 mls @ 50 mls/hr 11/20/17 12:12 11/20/17 12:31 Potassium Chloride 20 Meq In Water 100ml IV 11/20/17 14:11 50 mls/hr STAT ONE Administration Potassium Chloride Confirm 11/20/17 12:26 Potassium Chloride 20 Meq In Water 100ml Administered 11/20/17 12:27 Dose 100 mls @ ud IV .STK-MED ONE Sodium Chloride Confirm 11/20/17 14:40 Sodium Chloride 0.9% 1000 Ml Administered 11/20/17 14:41 Dose 1,000 mls @ ud .ROUTE .STK-MED ONE Morphine Sulfate 4 mg 11/20/17 11:17 11/20/17 11:32 Morphine Sulfate 4 Mg Inj IV 11/20/17 11:18 4 mg STAT ONE Administration Morphine Sulfate Confirm 11/20/17 11:27 Morphine Sulfate 4 Mg Inj Administered 11/20/17 11:28 Dose 4 mg .ROUTE .STK-MED ONE Morphine Sulfate 4 mg 11/20/17 12:08 11/20/17 12:11 Morphine Sulfate 4 Mg Inj IV 11/20/17 12:09 4 mg STAT ONE Administration Morphine Sulfate Confirm 11/20/17 12:10 Morphine Sulfate 4 Mg Inj Administered 11/20/17 12:11 Dose 4 mg .ROUTE .STK-MED ONE Morphine Sulfate 4 mg 11/20/17 15:06 11/20/17 15:17 Morphine Sulfate 4 Mg Inj IV 11/20/17 15:07 4 mg STAT ONE Administration Morphine Sulfate Confirm 11/20/17 15:13 Morphine Sulfate 4 Mg Inj Administered 11/20/17 15:14 Dose 4 mg .ROUTE .STK-MED ONE Ondansetron HCl Confirm 11/20/17 14:40 Zofran 4 Mg/2 Ml Vial Administered 11/20/17 14:41 Dose 4 mg .ROUTE .STK-MED ONE Ondansetron HCl 4 mg 11/20/17 14:42 11/20/17 14:44 Zofran 4 Mg/2 Ml Vial IV 11/20/17 14:43 4 mg STAT ONE Administration Lab/Rad Data: Laboratory Result Diagrams 11/20/17 11:30 11/20/17 11:30 Laboratory Results 11/20/17 11/20/17 11/20/17 Range/Units 11:30 11:30 11:30 WBC (4.0-10.5) K/mm3 RBC (4.1-5.4) M/mm3 Hgb (12.0-16.0) gm/dl Hct (35-47) % MCV (78-100) fl MCH (26-32) pg MCHC (32-36) g/dl RDW (11.5-14.0) % Plt Count (150-450) K/mm3 MPV (6-9.5) fl Gran % (36.0-66.0) % Eos # (Auto) (0-0.5) Absolute Lymphs (auto) (1.0-4.6) Absolute Monos (auto) (0.0-1.3) Lymphocytes % (24.0-44.0) % Monocytes % (0.0-12.0) % Eosinophils % (0.00-5.0) % Basophils % (0.0-0.4) % Absolute Granulocytes (1.4-6.9) Basophils # (0-0.4) Sodium (137-145) mmol/L Potassium (3.5-5.1) mmol/L Chloride (98-107) mmol/L Carbon Dioxide (22-30) mmol/L Anion Gap (5-15) MEQ/L BUN (7-17) mg/dL Creatinine (0.52-1.04) mg/dL Estimated GFR ML/MIN Glucose (74-106) mg/dL Calcium (8.4-10.2) mg/dL Total Bilirubin (0.2-1.3) mg/dL AST (14-36) U/L ALT (0-35) U/L Alkaline Phosphatase (38-126) U/L Serum Total Protein (6.3-8.2) g/dL Albumin (3.5-5.0) g/dL Amylase (30-110) U/L Lipase (23-300) U/L Ur Collection Type VOID Urine Color YELLOW (YELLOW) Urine Appearance HAZY (CLEAR) Urine pH 6.0 (5-6) Ur Specific [place] 1.020 (1.005-1.025) Urine Protein 2+ (Negative) Urine Ketones MODERATE (NEGATIVE) Urine Blood 50 (0-5) Elias/ul Urine Nitrite NEGATIVE (NEGATIVE) Urine Bilirubin SMALL (NEGATIVE) Urine Urobilinogen NORMAL (0-1) mg/dL Ur Leukocyte Esterase TRACE (NEGATIVE) Urine Microscopic RBC 0-2 (0-2) /HPF Urine Microscopic WBC 10-15 (0-5) /HPF Ur Epithelial Cells MODERATE (FEW) /HPF Urine Bacteria FEW (NEGATIVE) /HPF Urine Mucus MODERATE (NEGATIVE) /HPF Urine Culture Reflexed YES (NO) Urine Glucose NEGATIVE (NEGATIVE) mg/dL Stool Occult Blood NEGATIVE (Negative) Urine Opiates Level POSITIVE (NEGATIVE) Ur Methadone NEGATIVE (NEGATIVE) Urine Barbiturates NEGATIVE (NEGATIVE) Ur Phencyclidine (PCP) NEGATIVE (NEGATIVE) Urine Amphetamine NEGATIVE (NEGATIVE) U Benzodiazepine Level NEGATIVE (NEGATIVE) Urine Cocaine NEGATIVE (NEGATIVE) Urine Marijuana (THC) NEGATIVE (NEGATIVE) Ethyl Alcohol (0-10) mg/dL Specimen Received 11/20/17 1140 11/20/17 11/20/17 11/20/17 Range/Units 11:30 11:30 11:30 WBC 14.7 H (4.0-10.5) K/mm3 RBC 5.52 H (4.1-5.4) M/mm3 Hgb 15.1 (12.0-16.0) gm/dl Hct 44.6 (35-47) % MCV 80.8 (78-100) fl MCH 27.3 (26-32) pg MCHC 33.9 (32-36) g/dl RDW 15.4 H (11.5-14.0) % Plt Count 561 H (150-450) K/mm3 MPV 9.2 (6-9.5) fl Gran % 79.6 H (36.0-66.0) % Eos # (Auto) 0.03 (0-0.5) Absolute Lymphs (auto) 2.28 (1.0-4.6) Absolute Monos (auto) 0.68 (0.0-1.3) Lymphocytes % 15.5 L (24.0-44.0) % Monocytes % 4.6 (0.0-12.0) % Eosinophils % 0.2 (0.00-5.0) % Basophils % 0.1 (0.0-0.4) % Absolute Granulocytes 11.71 H (1.4-6.9) Basophils # 0.02 (0-0.4) Sodium 142 (137-145) mmol/L Potassium 3.1 L (3.5-5.1) mmol/L Chloride 103 (98-107) mmol/L Carbon Dioxide 21 L (22-30) mmol/L Anion Gap 20.3 H (5-15) MEQ/L BUN 9 (7-17) mg/dL Creatinine 0.65 (0.52-1.04) mg/dL Estimated GFR > 60.0 ML/MIN Glucose 120 H (74-106) mg/dL Calcium 10.2 (8.4-10.2) mg/dL Total Bilirubin 0.40 (0.2-1.3) mg/dL AST 18 (14-36) U/L ALT 15 (0-35) U/L Alkaline Phosphatase 118 (38-126) U/L Serum Total Protein 8.4 H (6.3-8.2) g/dL Albumin 4.8 (3.5-5.0) g/dL Amylase 71 (30-110) U/L Lipase 174 (23-300) U/L Ur Collection Type Urine Color (YELLOW) Urine Appearance (CLEAR) Urine pH (5-6) Ur Specific [place] (1.005-1.025) Urine Protein (Negative) Urine Ketones (NEGATIVE) Urine Blood (0-5) Elias/ul Urine Nitrite (NEGATIVE) Urine Bilirubin (NEGATIVE) Urine Urobilinogen (0-1) mg/dL Ur Leukocyte Esterase (NEGATIVE) Urine Microscopic RBC (0-2) /HPF Urine Microscopic WBC (0-5) /HPF Ur Epithelial Cells (FEW) /HPF Urine Bacteria (NEGATIVE) /HPF Urine Mucus (NEGATIVE) /HPF Urine Culture Reflexed (NO) Urine Glucose (NEGATIVE) mg/dL Stool Occult Blood (Negative) Urine Opiates Level (NEGATIVE) Ur Methadone (NEGATIVE) Urine Barbiturates (NEGATIVE) Ur Phencyclidine (PCP) (NEGATIVE) Urine Amphetamine (NEGATIVE) U Benzodiazepine Level (NEGATIVE) Urine Cocaine (NEGATIVE) Urine Marijuana (THC) (NEGATIVE) Ethyl Alcohol < 10 (0-10) mg/dL Specimen Received - Progress Progress: improved Progress Note: 11/20/17 13:59 Patient improved but not completely pain-free after morphine 4 mg IV 2 Benadryl 25 mg IV. Patient's heart rate markedly improved after 2 L of normal saline. Patient's acute abdomen no acute changes. Patient did have 10-15 white cells per high-power field in her urine blood cultures and urine cultures obtained patient given Rocephin IV. Dr. Cortés had requested that the patient be transferred to a facility were a avionics integration engineer was available. I discussed the case initially with Jesica Sharp nurse practitioner on-call for Dr. Silva I also discussed the case with Dr. Babin , hospitalist at [facility] Dr. Babin accepted patient for transfer - Departure Time of Disposition: 14:01 Departure Disposition: Transfer ([facility],Dr. Babin) Clinical Impression: persistent nausea and vomiting, Dehydration, History of Crohn's disease Abdominal pain Qualifiers: Abdominal location: generalized Qualified Code(s): R10.84 - Generalized abdominal pain Condition: Fair Critical Care Time: No Referrals: AKIKO GREGORY [Primary Care Provider] -
[2017-11-20] MEDS ORDERED: BENADRYL 50 MG/ML ONE (11:26)
[2017-11-20] MEDS ORDERED: MORPHINE SULFATE 4 MG INJ ONE ×3 (11:27→15:13)
[2017-11-20] MEDS ORDERED: Sodium Chloride 0.9% 1000 ML 1,000 ML ONE ×3 (11:27→14:40)
[2017-11-20 11:34] LABS: BASOPHIL % 0.1 % (0.0-0.4); Basophil (Absolute #) 0.02 (0-0.4); Eosinophil % 0.2 % (0.00-5.0); Eosinophil (Absolute #) 0.03 (0-0.5); Granulocyte Absolute (ANC) 11.71 (1.4-6.9); Granulocytes % 79.6 % (36.0-66.0); Hematocrit 44.6 % (35-47); Hemoglobin 15.1 gm/dl (12.0-16.0); Lymphocyte (Absolute #) 2.28 (1.0-4.6); Lymphocytes % 15.5 % (24.0-44.0); Mean Cell Volume 80.8 fl (78-100); Mean Corpuscular Hgb Concent. 33.9 g/dl (32-36); Mean Platelet Volume 9.2 fl (6-9.5); Monocyte (Absolute #) 0.68 (0.0-1.3); Monocytes % 4.6 % (0.0-12.0); Platelet Count 561 K/mm3 (150-450); Red Blood Count 5.52 M/mm3 (4.1-5.4); Red Cell Distribution Width 15.4 % (11.5-14.0); White Blood Count 14.7 K/mm3 (4.0-10.5)
[2017-11-20 11:36] LABS: Mean Corpuscular Hemoglobin 27.3 pg (26-32)
[2017-11-20 11:42] LABS: Appearance HAZY (CLEAR); Leukocyte Esterase TRACE (NEGATIVE); Nitrite NEGATIVE (NEGATIVE); Protein,Urine Dip 2+ (Negative)
[2017-11-20 11:43] LABS: Bacteria FEW /HPF (NEGATIVE); Bilirubin SMALL (NEGATIVE); Blood 50 Ery/ul (0-5); Epithelial Cells MODERATE /HPF (FEW); Glucose NEGATIVE (NEGATIVE); Ketones MODERATE (NEGATIVE); Mucus MODERATE /HPF (NEGATIVE); RBC 0-2 /HPF (0-2); Urobilinogen NORMAL mg/dL (0-1)
[2017-11-20] MEDS ORDERED: ROCEPHIN 1 Gm-D5w 50 ml Bag** 1 G/50 ML IVPB IV STA (11:52)
[2017-11-20 11:53] LABS: Amphetamine,Urine NEGATIVE (NEGATIVE); Barbiturate,Urine NEGATIVE (NEGATIVE); Benzodiazepine,Urine NEGATIVE (NEGATIVE); Cocaine,Urine NEGATIVE (NEGATIVE); Methadone,Urine NEGATIVE (NEGATIVE); Opiate,Urine POSITIVE (NEGATIVE); PCP,Urine NEGATIVE (NEGATIVE); THC,Urine NEGATIVE (NEGATIVE)
[2017-11-20] MEDS ORDERED: ROCEPHIN 1 Gm-D5w 50 ml Bag** 1 G/50 ML IVPB IV ONE (12:00)
[2017-11-20 12:01] LABS: ALBUMIN 4.8 g/dL (3.5-5.0); ALKALINE PHOSPHATASE 118 U/L (38-126); AMYLASE 71 U/L (30-110); ANION GAP 20.3 MEQ/L (5-15); BLOOD UREA NITROGEN 9 mg/dL (7-17); CHLORIDE 103 mmol/L (98-107); Calcium 10.2 mg/dL (8.4-10.2); Carbon Dioxide 21 mmol/L (22-30); Creatinine 1 0.65 mg/dL (0.52-1.04); Glucose 120 mg/dL (74-106); LIPASE 174 U/L (23-300); Potassium 3.1 mmol/L (3.5-5.1); SGOT/AST 18 U/L (14-36); SGPT/ALT 15 U/L (0-35); SODIUM 142 mmol/L (137-145); Total Protein 8.4 g/dL (6.3-8.2)
[2017-11-20] MEDS ORDERED: POTASSIUM CHLORIDE 20 mEq IN WATER 100ML 100 ML IV ONE ×2 (12:12→12:26)
--- NOTE | 2017-11-20 12:47 | XRAY ---
Indication: Abdomen pain. Nausea and vomiting. Comparison: June 25, 2017. 2 views of the abdomen again demonstrates nonspecific nonobstructed bowel gas pattern with stable right abdomen suture material and cholecystectomy clips. Remaining solid organs and osseous structures unremarkable. Single PA chest again demonstrates normal heart, lungs, and bony thorax with incidental calcified granulomas and right Port-A-Cath. Impression: Stable negative abdomen and nonacute one view chest with chronic features.
[2017-11-20] MEDS ORDERED: Zofran 4 MG/2 ML VIAL ONE (14:40)
[2017-11-20] MEDS ORDERED: Zofran 4 MG/2 ML VIAL IV ONE (14:42)
[2017-11-20] MEDS ORDERED: Sodium Chloride 0.9% 1000 ML 1,000 ML IV SCH (14:45)
[2017-11-20 15:59] VITALS: BP 110/72; PULSE 96; O2SAT 96
== END 2017-11-20 16:55 | disposition short-term general hospital (02) ==
LOC: ED 11:02
DX: R11.2 Nausea with vomiting, unspecified (principal); E86.0 Dehydration; R10.84 Generalized abdominal pain; K50.90 Crohn's disease, unspecified, without complications
CPT/HCPCS: 36000; 36415; 74022; 80053; 80307; 81000; 82150; 82272; 83690; 85025; 87040; 87077; 87086; 87186; 93005; 93041; 96360; 96361; 96374; 96375; 96376; 99285; J0696; J1200; J2270; J2405; J3480; G0480

== ENCOUNTER 2017-12-01 02:50 | Emergency (ER) | payer OTHER ==
[2017-12-01 03:21] VITALS: O2SAT 98
--- NOTE | 2017-12-01 03:29 | ERPHSYRPT ---
- History of Present Illness Time Seen by Provider: 12/01/17 03:15 Source: patient Exam Limitations: no limitations Patient Subjective Stated Complaint: leg swelling and continued abdominal pain since being discharged from [facility] 4 days ago.. was transfered from here. has had blood clots on left leg Triage Nursing Assessment: alert and oriented and anxious. casandra has had sob since she noticed the swelling. states sore throat.. in no respiratory distress. abdomen soft but tender to palpate. states has a UTI and is being treated. Physician History: 42 y/o female with history of Crohns Disease, Anxiety and DVT who was just released from [facility] for Crohns flare up comes to the ER with complaints of leg swelling and shortness of breath that started this evening. Pt says that on the last admission, she developed a DVT of the left leg and was given lovenox injections but was not sent home on any oral anti-coagulants. Pt admits to having worsening dyspnea on exertion as well as a sore throat. Pt denies any fever, chills, cough, congestion, chest pain, dizziness or palpitations. Timing/Duration: today Activities at Onset: none Severity of Dyspnea-Max: mild Severity of Dyspnea-Current: mild Possible Cause: no prior episodes Modifying Factors: Improves With: nothing Associated Symptoms: anxiety, leg swelling International travel in last 2 weeks: No Allergies/Adverse Reactions: clonazepam [From Klonopin] Allergy (Mild, Verified 11/20/17 11:16) "I DON'T KNOW" divalproex sodium [From Depakote] Allergy (Mild, Verified 11/20/17 11:16) "I DON'T KNOW" duloxetine HCl [From Cymbalta] Allergy (Mild, Verified 11/20/17 11:16) Hives fentanyl Allergy (Mild, Verified 11/20/17 11:16) Hives meperidine HCl [From Demerol] Allergy (Mild, Verified 11/20/17 11:16) Hives morphine Allergy (Mild, Verified 11/20/17 11:16) Hives buprenorphine Allergy (Verified 11/20/17 11:16) duloxetine [From Cymbalta] Allergy (Verified 11/20/17 11:16) meperidine [From Demerol] Allergy (Verified 11/20/17 11:16) adalimumab [From Humira] Adverse Reaction (Mild, Verified 11/20/17 11:16) Vomiting prednisone Adverse Reaction (Mild, Verified 11/20/17 11:16) SHAKING Home Medications: Ondansetron [Zofran Odt] 4 mg SL Q6HPRN PRN 12/03/15 [History] Cholecalciferol (Vitamin D3) [Vitamin D3] 50,000 unit PO WEEKLY 11/13/16 [ History] Potassium Chl 40 Meq Oral Kiki* [Potassium Chl 40 Meq/30 ml Oral Solution] 40 meq PO DAILY PRN PRN 11/13/16 [History] Vedolizumab [Entyvio] 300 mg IV UD 11/13/16 [History] Trazodone HCl 50 mg [Desyrel 50 mg] 50 mg PO HS 02/09/17 [History] Hydromorphone HCl 4 mg [Dilaudid 4 MG Tab] 4 mg PO Q4H PRN PRN 04/16/17 [ History] Hx Tetanus, Diphtheria Vaccination/Date Given: Yes Hx Influenza Vaccination/Date Given: No Hx Pneumococcal Vaccination/Date Given: No Immunizations Up to Date: Yes - Review of Systems Constitutional: No Fever, No Chills Eyes: No Symptoms Ears, Nose, & Throat: No Symptoms Respiratory: Dyspnea, Dyspnea on Exertion ([place]), No Cough Cardiac: Edema, No Chest Pain, No Palpitations, No Syncope Abdominal/Gastrointestinal: No Abdominal Pain, No Nausea, No Vomiting, No Diarrhea Genitourinary Symptoms: No Dysuria Musculoskeletal: No Back Pain, No Neck Pain Skin: No Rash Neurological: No Dizziness, No Focal Weakness, No Sensory Changes Psychological: No Symptoms, Anxiety Endocrine: No Symptoms All Other Systems: Reviewed and Negative - Past Medical History Pertinent Past Medical History: Yes Neurological History: No Pertinent History ENT History: No Pertinent History Cardiac History: Arrhythmia Respiratory History: No Pertinent History Endocrine Medical History: Hypothyroidism Musculoskeletal History: Fibromyalgia, Osteoarthritis GI Medical History: Crohns Disease History: No Pertinent History Psycho-Social History: Anxiety, Depression Female Reproductive Disorders: Other Other Medical History: Cluster Headaches, pre cancerous cells cervix - Past Surgical History Past Surgical History: Yes Neuro Surgical History: No Pertinent History Cardiac: No Pertinent History Respiratory: No Pertinent History Gastrointestinal: Bowel Surgery, Cholecystectomy, Colon Resection Genitourinary: No Pertinent History Musculoskeletal: No Pertinent History Female Surgical History: Hysterectomy Other Surgical History: port-a-cath placement, tonsillectomy, 2 bowel resections - Social History Smoking Status: Current every day smoker How long have you smoked: 20 years Exposure to second hand smoke: No Drug Use: none Patient Lives Alone: No - Female History Hx Now: No - Nursing Vital Signs Nursing Vital Signs: Initial Vital Signs Temperature 99.1 F 12/01/17 03:12 Pulse Rate 74 12/01/17 03:12 Respiratory Rate 18 12/01/17 03:12 Blood Pressure 123/82 12/01/17 03:12 O2 Sat by Pulse Oximetry 98 12/01/17 03:12 Pain Scale Pain Intensity 7 - Physical Exam General Appearance: alert, anxiety Eye Exam: PERRL/EOMI Neck Exam: normal inspection, supple Respiratory Exam: normal breath sounds, lungs clear, No chest tenderness, No respiratory distress Cardiovascular/Chest Exam: normal heart sounds, regular rate/rhythm Abdominal/Gastrointestinal Exam: soft, No tenderness, No distention, No mass Extremity Exam: non-tender, normal range of motion, normal inspection, no calf tenderness, no pedal edema Neurologic Exam: alert, oriented x 3, 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, 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, sensation nml, No motor deficits Skin Exam: normal color, warm, No dry SpO2 Interpretation: normal SpO2: 98 Oxygen Delivery: Room Air - Course Nursing assessment & vital signs reviewed: Yes EKG Interpreted by Me: RATE, NORMAL AXIS, NORMAL INTERVALS, NORMAL QRS, NORMAL ST-T Ordered Tests: Active Orders 24 hr Category Date Time Status 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 STAT Care 12/01/17 03:18 Active EKG-ER Only STAT Care 12/01/17 03:18 Active IV Insertion STAT Care 12/01/17 03:18 Active CHEST WITH CONTRAST [CT] Stat Exams 12/01/17 03:18 Taken CBC W DIFF Stat Lab 12/01/17 03:55 Completed CK-Creatinine Phosphokinase Stat Lab 12/01/17 03:55 Completed CMP Stat Lab 12/01/17 03:55 Completed CULTURE, THROAT Stat Lab 12/01/17 03:29 Received HCG QUALITATIVE,SERUM Stat Lab 12/01/17 03:55 Completed Manual Differential NC Stat Lab 12/01/17 03:55 Completed NT PRO BNP Stat Lab 12/01/17 03:55 Completed PROTIME WITH INR Stat Lab 12/01/17 03:55 Completed PTT Stat Lab 12/01/17 03:55 Completed STREP SCREEN-BETA A Stat Lab 12/01/17 03:29 Completed TROPONIN Q3H Lab 12/01/17 03:55 Completed TROPONIN Q3H Lab 12/01/17 06:30 Ordered TROPONIN Q3H Lab 12/01/17 09:30 Ordered TROPONIN Q3H Lab 12/01/17 12:30 Ordered TROPONIN Q3H Lab 12/01/17 15:30 Ordered Medication Summary Discontinued Medications Generic Name Dose Route Start Last Admin Trade Name Freq PRN Reason Stop Dose Admin Hydromorphone HCl 1 mg 12/01/17 04:05 12/01/17 04:16 Hydromorphone 1 Mg/Ml Ampule IV 12/01/17 04:06 1 mg STAT ONE Administration Hydromorphone HCl Confirm 12/01/17 04:13 Dilaudid 2 Mg Injection Administered 12/01/17 04:14 Dose 2 mg .ROUTE .STK-MED ONE Ondansetron HCl 4 mg 12/01/17 04:06 12/01/17 04:15 Zofran 4 Mg/2 Ml Vial IV 12/01/17 04:07 4 mg STAT ONE Administration Ondansetron HCl Confirm 12/01/17 04:09 Zofran 4 Mg/2 Ml Vial Administered 12/01/17 04:10 Dose 4 mg .ROUTE .STK-MED ONE Potassium Chloride 40 meq 12/01/17 04:47 12/01/17 05:16 Klor Con 10 Meq PO 12/01/17 04:48 40 meq STAT ONE Administration Potassium Chloride Confirm 12/01/17 05:16 Klor Con 10 Meq Administered 12/01/17 05:17 Dose 40 meq PO .STK-MED ONE Lab/Rad Data: Laboratory Result Diagrams 12/01/17 03:55 12/01/17 03:55 Laboratory Results 12/01/17 12/01/17 12/01/17 Range/Units 03:55 03:55 03:55 WBC (4.0-10.5) K/mm3 RBC (4.1-5.4) M/mm3 Hgb (12.0-16.0) gm/dl Hct (35-47) % MCV (78-100) fl MCH (26-32) pg MCHC (32-36) g/dl RDW (11.5-14.0) % Plt Count (150-450) K/mm3 MPV (6-9.5) fl Absolute Granulocytes (1.4-6.9) Segmented Neutrophils (36.0-66.0) % Lymphocytes (Manual) (24-44) % Monocytes (Manual) (0.0-12.0) % Eosinophils (Manual) (0.00-3.0) % Platelet Estimate (NORMAL) RBC Morphology PT 9.7 L (9.95-12.35) SECONDS INR 0.84 (0.8-3.0) APTT 27.1 (25.3-37.0) SECONDS Sodium (137-145) mmol/L Potassium (3.5-5.1) mmol/L Chloride (98-107) mmol/L Carbon Dioxide (22-30) mmol/L Anion Gap (5-15) MEQ/L BUN (7-17) mg/dL Creatinine (0.52-1.04) mg/dL Estimated GFR ML/MIN Glucose (74-106) mg/dL Calcium (8.4-10.2) mg/dL Total Bilirubin (0.2-1.3) mg/dL AST (14-36) U/L ALT (0-35) U/L Alkaline Phosphatase (38-126) U/L Creatine Kinase (30-135) U/L Troponin I < 0.012 (0.000-0.034) ng/mL NT-Pro-B Natriuret Pep (0-450) pg/mL Serum Total Protein (6.3-8.2) g/dL Albumin (3.5-5.0) g/dL Serum , Qual NEGATIVE (Negative) Streptococcus Screen (Negative) 12/01/17 12/01/17 12/01/17 Range/Units 03:55 03:55 03:29 WBC 13.4 H (4.0-10.5) K/mm3 RBC 3.94 L (4.1-5.4) M/mm3 Hgb 10.8 L (12.0-16.0) gm/dl Hct 33.3 L (35-47) % MCV 84.5 (78-100) fl MCH 27.4 (26-32) pg MCHC 32.4 (32-36) g/dl RDW 17.8 H (11.5-14.0) % Plt Count 303 (150-450) K/mm3 MPV 9.9 H (6-9.5) fl Absolute Granulocytes 8.51 H (1.4-6.9) Segmented Neutrophils 69 H (36.0-66.0) % Lymphocytes (Manual) 23 L (24-44) % Monocytes (Manual) 5 (0.0-12.0) % Eosinophils (Manual) 3 (0.00-3.0) % Platelet Estimate NORMAL (NORMAL) RBC Morphology NORMAL PT (9.95-12.35) SECONDS INR (0.8-3.0) APTT (25.3-37.0) SECONDS Sodium 143 (137-145) mmol/L Potassium 3.3 L (3.5-5.1) mmol/L Chloride 104 (98-107) mmol/L Carbon Dioxide 31 H (22-30) mmol/L Anion Gap 11.6 (5-15) MEQ/L BUN 11 (7-17) mg/dL Creatinine 0.46 L (0.52-1.04) mg/dL Estimated GFR > 60.0 ML/MIN Glucose 98 (74-106) mg/dL Calcium 8.6 (8.4-10.2) mg/dL Total Bilirubin 0.10 L (0.2-1.3) mg/dL AST 17 (14-36) U/L ALT 24 (0-35) U/L Alkaline Phosphatase 62 (38-126) U/L Creatine Kinase 45 (30-135) U/L Troponin I (0.000-0.034) ng/mL NT-Pro-B Natriuret Pep 416 (0-450) pg/mL Serum Total Protein 5.8 L (6.3-8.2) g/dL Albumin 3.3 L (3.5-5.0) g/dL Serum , Qual (Negative) Streptococcus Screen NEGATIVE (Negative) - Progress Progress: improved Air Movement: good Progress Note: 12/01/17 04:59 Pt feels better after receiving dilaudid and zofran. Pt has a white count of 13, 000 but is on steroids. The EKG and troponin is normal. The CTA chest does not show a pulmonary embolus. Pt will be d/c home, will continue on her dilaudid pills and will F/U with her PCP. - Departure Time of Disposition: 05:35 Departure Disposition: Home Clinical Impression: Leg swelling Dyspnea Qualifiers: Dyspnea type: shortness of breath Qualified Code(s): R06.02 - Shortness of breath Condition: Stable Critical Care Time: No Referrals: AKIKO GREGORY [Primary Care Provider] - Instructions: Dependent Edema (DC), Shortness of Breath (Dyspnea) (DC) Additional Instructions: Follow up with your primary care doctor for any additional recommendations for leg swelling and shortness of breath. Continue to take pain medications as instructed.
[2017-12-01] MEDS ORDERED: Hydromorphone 1 mg/ml Ampule IV ONE (04:05)
[2017-12-01] MEDS ORDERED: Zofran 4 MG/2 ML VIAL IV ONE (04:06)
[2017-12-01 04:07] LABS: Granulocyte Absolute (ANC) 8.51 (1.4-6.9); Hematocrit 33.3 % (35-47); Hemoglobin 10.8 gm/dl (12.0-16.0); Mean Cell Volume 84.5 fl (78-100); Mean Corpuscular Hemoglobin 27.4 pg (26-32); Mean Corpuscular Hgb Concent. 32.4 g/dl (32-36); Mean Platelet Volume 9.9 fl (6-9.5); Platelet Count 303 K/mm3 (150-450); Red Blood Count 3.94 M/mm3 (4.1-5.4); Red Cell Distribution Width 17.8 % (11.5-14.0); White Blood Count 13.4 K/mm3 (4.0-10.5)
[2017-12-01] MEDS ORDERED: Zofran 4 MG/2 ML VIAL ONE (04:09)
[2017-12-01] MEDS ORDERED: DILAUDID 2 MG INJECTION ONE (04:13)
[2017-12-01 04:31] LABS: ALBUMIN 3.3 g/dL (3.5-5.0); ALKALINE PHOSPHATASE 62 U/L (38-126); ANION GAP 11.6 MEQ/L (5-15); BLOOD UREA NITROGEN 11 mg/dL (7-17); CHLORIDE 104 mmol/L (98-107); CK-Creatinine Phosphokinase 45 U/L (30-135); Calcium 8.6 mg/dL (8.4-10.2); Carbon Dioxide 31 mmol/L (22-30); Creatinine 1 0.46 mg/dL (0.52-1.04); Glucose 98 mg/dL (74-106); INR 0.84 (0.8-3.0); Potassium 3.3 mmol/L (3.5-5.1); SGOT/AST 17 U/L (14-36); SGPT/ALT 24 U/L (0-35); SODIUM 143 mmol/L (137-145); Total Protein 5.8 g/dL (6.3-8.2)
[2017-12-01 04:33] LABS: PTT 27.1 SECONDS (25.3-37.0)
[2017-12-01 04:40] LABS: NT PRO BNP 416 pg/mL (0-450)
[2017-12-01] MEDS ORDERED: Klor Con 10 MEQ PO ONE ×2 (04:47→05:16)
[2017-12-01 05:11] LABS: Eosinophil 3 % (0.00-3.0); Lymphocytes 23 % (24-44); Monocyte 5 % (0.0-12.0); Neutrophils 69 % (36.0-66.0); Platelet Estimate NORMAL (NORMAL); Total Cells Counted 100
[2017-12-01 05:23] VITALS: BP 124/88; PULSE 78
--- NOTE | 2017-12-01 08:31 | XRAY ---
Indication: Abdomen pain, lower extremity edema, and short of breath. History of left leg blood clots. Multiple contiguous axial images obtained through the chest using 80 cc Isovue 370 contrast and PE protocol. Comparison: None. There is satisfactory opacification of the pulmonary arteries to include the lobar and segmental branches. No filling defect or pulmonary embolus. Heart is not enlarged. Aorta is normal in course and caliber. Right-sided Port-A-Cath. Tiny left superhilar calcified nodes. No pathologic mediastinal/hilar lymphadenopathy. Examination of the lung parenchyma demonstrates mild bilateral dependent atelectasis, minimal bibasilar fibrosis/scarring, and left midlung calcified granuloma. Small patchy airspace opacity in the peripheral right upper lobe. No other pulmonary mass, infiltrate, or effusion. Bony thorax intact. Limited upper abdomen demonstrates calcified splenic granulomas and previous cholecystectomy. Impression: 1. Negative pulmonary embolus. 2. Right upper lobe patchy airspace disease. 3. Incidental evidence for old granulomatous disease. Comment: Preliminary interpretation was made by [facility]. No discrepancy. CTDI 12.56
== END 2017-12-01 06:11 | disposition home or self-care (01) ==
LOC: ED 02:50
DX: M79.89 Other specified soft tissue disorders (principal); R06.02 Shortness of breath; Z86.718 Personal history of other venous thrombosis and embolism; Z79.899 Other long term (current) drug therapy
CPT/HCPCS: 36000; 36415; 71260; 80053; 82550; 83880; 84484; 84703; 85025; 85610; 85730; 87070; 87430; 93005; 93041; 96374; 96375; 99284; J1170; J1642; J2405; A9270-GY

== ENCOUNTER 2018-02-28 17:30 | Inpatient (IN) | payer OTHER ==
[2018-02-28] MEDS ORDERED: Sodium Chloride 0.9% 1000 ML 1,000 ML IV STA (18:44)
[2018-02-28] MEDS ORDERED: Phenergan 25 MG INJ IV ONE (18:45)
[2018-02-28] MEDS ORDERED: MORPHINE SULFATE 4 MG INJ IV ONE ×2 (18:45→20:20)
--- NOTE | 2018-02-28 18:50 | ERPHSYRPT ---
- History of Present Illness Time Seen by Provider: 02/28/18 18:38 Historian: patient Exam Limitations: no limitations Patient Subjective Stated Complaint: PT HERE FOR ABD PAIN FOR LAST COUPLE DAYS WITH N/V/D. 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 Past surgical history includes bowel surgery, cholecystectomy, colon resection, hysterectomy, Port-A-Cath, tonsillectomy and adenoidectomy, Timing/Duration: day(s) Activities at Onset: none Quality: cramping Abdominal Pain Onset Location: generalized abdomen Pain Radiation: no radiation Severity of Pain-Max: moderate Severity of Pain-Current: moderate Associated Symptoms: denies symptoms Previous symptoms: same symptoms as today (frequent episodes of abdominal pain) Allergies/Adverse Reactions: clonazepam [From Klonopin] Allergy (Mild, Verified 02/28/18 17:52) "I DON'T KNOW" divalproex sodium [From Depakote] Allergy (Mild, Verified 02/28/18 17:52) "I DON'T KNOW" duloxetine HCl [From Cymbalta] Allergy (Mild, Verified 02/28/18 17:52) Hives fentanyl Allergy (Mild, Verified 02/28/18 17:52) Hives meperidine HCl [From Demerol] Allergy (Mild, Verified 02/28/18 17:52) Hives morphine Allergy (Mild, Verified 02/28/18 17:52) Hives buprenorphine Allergy (Verified 02/28/18 17:52) duloxetine [From Cymbalta] Allergy (Verified 02/28/18 17:52) meperidine [From Demerol] Allergy (Verified 02/28/18 17:52) adalimumab [From Humira] Adverse Reaction (Mild, Verified 02/28/18 17:52) Vomiting prednisone Adverse Reaction (Mild, Verified 02/28/18 17:52) SHAKING Home Medications: Cholecalciferol (Vitamin D3) [Vitamin D3] 50,000 unit PO WEEKLY 11/13/16 [ History] Vedolizumab [Entyvio] 300 mg IV UD 11/13/16 [History] Hydromorphone HCl 4 mg [Dilaudid 4 MG Tab] 4 mg PO Q4H PRN PRN 04/16/17 [ History] Ondansetron HCl [Zofran] 4 mg PO Q6H PRN PRN 02/28/18 [History] Hx Tetanus, Diphtheria Vaccination/Date Given: Yes Hx Influenza Vaccination/Date Given: No Hx Pneumococcal Vaccination/Date Given: No - Review of Systems Constitutional: No Fever, No Chills Eyes: No Symptoms Ears, Nose, & Throat: No Symptoms Respiratory: No Cough, No Dyspnea Cardiac: No Chest Pain, No Edema, No Syncope Abdominal/Gastrointestinal: Abdominal Pain, Nausea, Vomiting, Diarrhea Genitourinary Symptoms: No Dysuria Musculoskeletal: No Back Pain, No Neck Pain Skin: No Rash Neurological: No Dizziness, No Focal Weakness, No Sensory Changes Psychological: No Symptoms Endocrine: No Symptoms All Other Systems: Reviewed and Negative - Past Medical History Pertinent Past Medical History: Yes Neurological History: No Pertinent History ENT History: No Pertinent History Cardiac History: Arrhythmia Respiratory History: No Pertinent History Endocrine Medical History: Hypothyroidism Musculoskeletal History: Fibromyalgia, Osteoarthritis GI Medical History: Crohns Disease History: No Pertinent History Psycho-Social History: Anxiety, Depression Female Reproductive Disorders: Other Other Medical History: Cluster Headaches, pre cancerous cells cervix - Past Surgical History Past Surgical History: Yes Neuro Surgical History: No Pertinent History Cardiac: No Pertinent History Respiratory: No Pertinent History Gastrointestinal: Bowel Surgery, Cholecystectomy, Colon Resection Genitourinary: No Pertinent History Musculoskeletal: No Pertinent History Female Surgical History: Hysterectomy Other Surgical History: port-a-cath placement, tonsillectomy, 2 bowel resections - Social History Smoking Status: Current every day smoker How long have you smoked: 20 years Exposure to second hand smoke: Yes Drug Use: none Patient Lives Alone: No - Female History Hx Last Menstrual Period: POST Hx Now: No - Nursing Vital Signs Nursing Vital Signs: Initial Vital Signs Temperature 99.2 F 02/28/18 17:47 Pulse Rate 118 H 02/28/18 17:47 Respiratory Rate 16 02/28/18 17:47 Blood Pressure 137/109 02/28/18 17:47 O2 Sat by Pulse Oximetry 97 02/28/18 17:47 Pain Scale Pain Intensity 6 - Physical Exam General Appearance: mild distress Eye Exam: PERRL/EOMI, eyes nml inspection Ears, Nose, Throat Exam: normal ENT inspection, pharynx normal, moist mucous membranes Neck Exam: normal inspection, non-tender, supple, full range of motion Respiratory Exam: normal breath sounds, lungs clear, No respiratory distress Cardiovascular Exam: regular rate/rhythm, normal heart sounds Gastrointestinal/Abdomen Exam: soft, normal bowel sounds, tenderness (Mild diffuse tenderness) Back Exam: normal inspection, normal range of motion, No CVA tenderness, No vertebral tenderness Extremity Exam: normal inspection, normal range of motion, pelvis stable Neurologic Exam: alert, oriented x 3, 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, 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, normal mood/affect, nml cerebellar function, sensation nml, No motor deficits Skin Exam: normal color, warm, dry SpO2 Interpretation: normal (97%) SpO2: 97 Oxygen Delivery: Room Air - Course Nursing assessment & vital signs reviewed: Yes EKG Interpreted by Me: RATE (95 bpm), Sinus Rhythm, NORMAL AXIS, Other (EKG: Sinus rhythm, 95 bpm, normal axis, no acute ST or T wave changes, , essentially normal EKG) - Radiology Exams Abdomen X-ray Interpretation: Interpreted by me, Other (acute abdomen series: Air-fluid levels upper abdomen no free air) Ordered Tests: Medication Summary Generic Name Dose Route Start Last Admin Trade Name Freq PRN Reason Stop Dose Admin Enoxaparin Sodium 40 mg 03/01/18 10:00 03/01/18 10:13 Enoxaparin Sodium SQ 03/31/18 09:59 40 mg DAILY FRANK Administration Fluoxetine HCl 20 mg 03/01/18 10:00 03/01/18 08:09 Prozac 20 Mg PO 03/31/18 09:59 20 mg DAILY FRANK Administration Sodium Chloride 1,000 mls @ 100 mls/hr 02/28/18 22:34 03/02/18 06:28 Sodium Chloride 0.9% 1000 Ml IV 03/30/18 22:33 100 mls/hr .Q10H FRANK Administration Potassium Chloride 20 meq in 100 mls @ 50 mls/hr 03/02/18 08:52 Potassium Chloride 20 Meq In Water 100ml IV 03/02/18 10:51 STAT ONE Lorazepam 1 mg 02/28/18 22:55 03/02/18 01:04 Ativan 2 Mg/1 Ml Vial IV 03/30/18 22:54 1 mg TID PRN PRN Administration ANXIETY Methylprednisolone Sodium Succinate 60 mg 03/01/18 09:00 03/02/18 06:27 Solu-Medrol 125 Mg IV 03/31/18 08:59 60 mg Q8HT FRANK Administration Morphine Sulfate 2 mg 02/28/18 22:54 03/02/18 08:50 Morphine Sulfate 2 Mg Inj IV 03/05/18 22:53 2 mg Q2H PRN PRN Administration PAIN Ondansetron HCl 4 mg 02/28/18 22:56 03/02/18 06:27 Zofran 4 Mg/2 Ml Vial IV 03/30/18 22:55 4 mg Q4H PRN PRN Administration NAUSEA/VOMITING Promethazine HCl 12.5 mg 02/28/18 22:34 03/02/18 08:50 Phenergan 25 Mg Inj IV 03/30/18 22:33 12.5 mg Q6H PRN PRN Administration NAUSEA/VOMITING Discontinued Medications Generic Name Dose Route Start Last Admin Trade Name Freq PRN Reason Stop Dose Admin Sodium Chloride 1,000 mls @ 999 mls/hr 02/28/18 18:44 02/28/18 19:07 Sodium Chloride 0.9% 1000 Ml IV 02/28/18 19:44 999 mls/hr .Q1H1M STA Administration Sodium Chloride Confirm 02/28/18 19:03 Sodium Chloride 0.9% 1000 Ml Administered 02/28/18 19:04 Dose 1,000 mls @ ud .ROUTE .STK-MED ONE Sodium Chloride 1,000 mls @ 100 mls/hr 02/28/18 20:15 Sodium Chloride 0.9% 1000 Ml IV 03/30/18 20:14 .Q10H FRANK Potassium Chloride 100 mls @ 50 mls/hr 02/28/18 20:15 02/28/18 23:24 Potassium Chloride 20 Meq In Water 100ml IV 03/01/18 00:14 50 mls/hr Q2H FRANK Administration Morphine Sulfate 4 mg 02/28/18 18:45 02/28/18 19:08 Morphine Sulfate 4 Mg Inj IV 02/28/18 18:46 4 mg STAT ONE Administration Morphine Sulfate Confirm 02/28/18 19:03 Morphine Sulfate 4 Mg Inj Administered 02/28/18 19:04 Dose 4 mg .ROUTE .STK-MED ONE Morphine Sulfate 4 mg 02/28/18 20:20 02/28/18 21:13 Morphine Sulfate 4 Mg Inj IV 02/28/18 20:21 4 mg STAT ONE Administration Morphine Sulfate Confirm 02/28/18 21:11 Morphine Sulfate 4 Mg Inj Administered 02/28/18 21:12 Dose 4 mg .ROUTE .STK-MED ONE Morphine Sulfate 4 mg 02/28/18 22:34 Morphine Sulfate 4 Mg Inj IV 03/05/18 22:33 Q4H PRN PRN PAIN Promethazine HCl 12.5 mg 02/28/18 18:45 02/28/18 19:08 Phenergan 25 Mg Inj IV 02/28/18 18:46 12.5 mg STAT ONE Administration Promethazine HCl Confirm 02/28/18 19:03 Phenergan 25 Mg Inj Administered 02/28/18 19:04 Dose 25 mg .ROUTE .STK-MED ONE Lab/Rad Data: Laboratory Result Diagrams 02/28/18 18:05 02/28/18 18:05 Laboratory Results 02/28/18 02/28/18 Range/Units 18:05 18:05 WBC 11.9 H (4.0-10.5) K/mm3 RBC 4.65 (4.1-5.4) M/mm3 Hgb 13.0 (12.0-16.0) gm/dl Hct 39.3 (35-47) % MCV 84.5 (78-100) fl MCH 28.0 (26-32) pg MCHC 33.1 (32-36) g/dl RDW 15.0 H (11.5-14.0) % Plt Count 494 H (150-450) K/mm3 MPV 9.2 (6-9.5) fl Gran % 73.0 H (36.0-66.0) % Eos # (Auto) 0.10 (0-0.5) Absolute Lymphs (auto) 2.59 (1.0-4.6) Absolute Monos (auto) 0.50 (0.0-1.3) Lymphocytes % 21.8 L (24.0-44.0) % Monocytes % 4.2 (0.0-12.0) % Eosinophils % 0.8 (0.00-5.0) % Basophils % 0.2 (0.0-0.4) % Absolute Granulocytes 8.65 H (1.4-6.9) Basophils # 0.02 (0-0.4) Sodium 142 (137-145) mmol/L Potassium 2.8 L* (3.5-5.1) mmol/L Chloride 106 (98-107) mmol/L Carbon Dioxide 25 (22-30) mmol/L Anion Gap 14.7 (5-15) MEQ/L BUN 12 (7-17) mg/dL Creatinine 0.51 L (0.52-1.04) mg/dL Estimated GFR > 60.0 ML/MIN Glucose 98 (74-106) mg/dL Calcium 9.6 (8.4-10.2) mg/dL Total Bilirubin 0.20 (0.2-1.3) mg/dL AST 20 (14-36) U/L ALT 23 (0-35) U/L Alkaline Phosphatase 88 (38-126) U/L Serum Total Protein 7.4 (6.3-8.2) g/dL Albumin 4.4 (3.5-5.0) g/dL Amylase 91 (30-110) U/L Lipase 327 H (23-300) U/L - Progress Progress: improved Progress Note: 02/28/18 20:19 42-year-old white female with history of Crohn's arrives with complaint of persistent nausea and vomiting diarrhea symptoms for 2-3 days. Patient with tenderness in the left lower quadrant abdomen. Patient unfortunately has a potassium of 2.8. I've discussed the case with Dr. Bello who is covering for Dr. dykes. Will go ahead and continue IV fluids continue morphine and Phenergan for pain. 02/28/18 20:[address] patient on 40 mEq K rider Will begin this in the emergency room. - Departure Time of Disposition: 20:31 Departure Disposition: Observation Clinical Impression: Hypokalemia Nausea and vomiting Qualifiers: Vomiting type: unspecified Vomiting Intractability: non-intractable Qualified Code(s): R11.2 - Nausea with vomiting, unspecified Abdominal pain Qualifiers: Abdominal location: left lower quadrant Qualified Code(s): R10.32 - Left lower quadrant pain Diarrhea Qualifiers: Diarrhea type: unspecified type Qualified Code(s): R19.7 - Diarrhea, unspecified Condition: Fair Critical Care Time: No
[2018-02-28 18:51] LABS: BASOPHIL % 0.2 % (0.0-0.4); Basophil (Absolute #) 0.02 (0-0.4); Eosinophil % 0.8 % (0.00-5.0); Granulocyte Absolute (ANC) 8.65 (1.4-6.9); Hematocrit 39.3 % (35-47); Lymphocyte (Absolute #) 2.59 (1.0-4.6); Lymphocytes % 21.8 % (24.0-44.0); Mean Cell Volume 84.5 fl (78-100); Mean Corpuscular Hgb Concent. 33.1 g/dl (32-36); Mean Platelet Volume 9.2 fl (6-9.5); Monocytes % 4.2 % (0.0-12.0); Platelet Count 494 K/mm3 (150-450); Red Blood Count 4.65 M/mm3 (4.1-5.4); White Blood Count 11.9 K/mm3 (4.0-10.5)
[2018-02-28 19:01] LABS: ALBUMIN 4.4 g/dL (3.5-5.0); ALKALINE PHOSPHATASE 88 U/L (38-126); AMYLASE 91 U/L (30-110); ANION GAP 14.7 MEQ/L (5-15); BLOOD UREA NITROGEN 12 mg/dL (7-17); CHLORIDE 106 mmol/L (98-107); Calcium 9.6 mg/dL (8.4-10.2); Carbon Dioxide 25 mmol/L (22-30); Creatinine 1 0.51 mg/dL (0.52-1.04); Glucose 98 mg/dL (74-106); LIPASE 327 U/L (23-300); SGOT/AST 20 U/L (14-36); SGPT/ALT 23 U/L (0-35); SODIUM 142 mmol/L (137-145); Total Protein 7.4 g/dL (6.3-8.2)
[2018-02-28] MEDS ORDERED: MORPHINE SULFATE 4 MG INJ ONE ×2 (19:03→21:11)
[2018-02-28] MEDS ORDERED: Phenergan 25 MG INJ ONE (19:03)
[2018-02-28] MEDS ORDERED: Sodium Chloride 0.9% 1000 ML 1,000 ML ONE (19:03)
[2018-02-28 19:04] LABS: Potassium 2.8 mmol/L (3.5-5.1)
[2018-02-28] MEDS ORDERED: Sodium Chloride 0.9% 1000 ML 1,000 ML IV SCH (20:15)
[2018-02-28 20:29] LABS: Appearance CLEAR (CLEAR); Bilirubin NEGATIVE (NEGATIVE); Blood TRACE NON-HEM Ery/ul (0-5); Glucose NEGATIVE (NEGATIVE); Ketones NEGATIVE (NEGATIVE); Leukocyte Esterase NEGATIVE (NEGATIVE); Nitrite NEGATIVE (NEGATIVE); Protein,Urine Dip TRACE (Negative); Specific Gravity 1.025 (1.005-1.025); Urobilinogen NORMAL mg/dL (0-1)
[2018-02-28 20:30] LABS: Epithelial Cells MODERATE /HPF (FEW); Mucus SLIGHT /HPF (NEGATIVE); RBC 0-2 /HPF (0-2); WBC 0-2 /HPF (0-5)
[2018-02-28] MEDS: POTASSIUM CHLORIDE 20 mEq IN WATER 100ML 100 ML IV SCH ×2 (21:19→23:24)
[2018-02-28] MEDS ORDERED: MORPHINE SULFATE 4 MG INJ IV PRN (22:34)
[2018-02-28] MEDS: MORPHINE SULFATE 2 MG INJ IV PRN (23:16)
[2018-02-28] MEDS: Zofran 4 MG/2 ML VIAL IV PRN (23:19)
[2018-02-28] MEDS: Ativan 2 MG/1 ML VIAL IV PRN (23:22)
[2018-03-01] MEDS: Sodium Chloride 0.9% 1000 ML 1,000 ML IV SCH ×3 (01:20→19:58)
[2018-03-01] MEDS: MORPHINE SULFATE 2 MG INJ IV PRN ×10 (01:20→21:55)
[2018-03-01] MEDS: Phenergan 25 MG INJ IV PRN ×2 (02:33→09:57)
[2018-03-01 04:49] LABS: ALBUMIN 3.9 g/dL (3.5-5.0); ALKALINE PHOSPHATASE 71 U/L (38-126); AMYLASE 63 U/L (30-110); BLOOD UREA NITROGEN 10 mg/dL (7-17); CHLORIDE 110 mmol/L (98-107); Calcium 9.1 mg/dL (8.4-10.2); Carbon Dioxide 24 mmol/L (22-30); Glucose 84 mg/dL (74-106); LIPASE 105 U/L (23-300); Potassium 3.5 mmol/L (3.5-5.1); SGOT/AST 20 U/L (14-36); SGPT/ALT 21 U/L (0-35); SODIUM 143 mmol/L (137-145); Total Protein 6.5 g/dL (6.3-8.2)
[2018-03-01] MEDS: Zofran 4 MG/2 ML VIAL IV PRN ×4 (05:24→21:55)
[2018-03-01 05:51] LABS: BASOPHIL % 0.4 % (0.0-0.4); Basophil (Absolute #) 0.03 (0-0.4); Eosinophil % 2.5 % (0.00-5.0); Granulocyte Absolute (ANC) 4.58 (1.4-6.9); Granulocytes % 57.7 % (36.0-66.0); Hemoglobin 12.1 gm/dl (12.0-16.0); Lymphocyte (Absolute #) 2.56 (1.0-4.6); Lymphocytes % 32.2 % (24.0-44.0); Mean Corpuscular Hemoglobin 28.1 pg (26-32); Mean Corpuscular Hgb Concent. 32.7 g/dl (32-36); Monocyte (Absolute #) 0.57 (0.0-1.3); Monocytes % 7.2 % (0.0-12.0); Platelet Count 435 K/mm3 (150-450); White Blood Count 7.9 K/mm3 (4.0-10.5)
[2018-03-01] MEDS: Ativan 2 MG/1 ML VIAL IV PRN ×2 (08:09→17:42)
[2018-03-01] MEDS: Prozac 20 MG PO SCH (08:09)
--- NOTE | 2018-03-01 09:09 | XRAY ---
Indication: Abdominal pain. History Crohn's. Comparison: November 20, 2017. 2 views of the abdomen again demonstrates nonspecific nonobstructed bowel gas pattern with right abdomen suture material, cholecystectomy clips, and calcified splenic granulomas. Remaining solid organs and osseous structures are unremarkable. Single PA chest again demonstrates normal heart, lungs, and bony thorax with incidental calcific granulomas in right Port-A-Cath. Impression: Stable negative abdomen and nonacute 1V chest with chronic features.
--- NOTE | 2018-03-01 09:34 | HP ---
HISTORY OF PRESENT ILLNESS: This is a 42 year-old patient with severe Crohn's disease who presented to the emergency department with increasing vomiting, diarrhea as well as left lower quadrant pain. She has been following with Dr. Leonard Pineda at [facility] and reports that she is supposed to have a colonoscopy with him and then have surgery but the colonoscopy has not been scheduled yet. She reports that she spoke with the surgeon the last admission she had [facility]. She reports the vomiting and diarrhea got worse two days ago. She reports having diarrhea 40 times in the past two days with mucousy and non-bloody. She reports a low grade fever to 104F at home. REVIEW OF SYSTEMS: No cough. No rhinorrhea. No sick contacts. No rashes. PAST MEDICAL HISTORY: Crohn's disease. History of bowel resection x2. History of cervical cancer. Depression. Fibromyalgia. Chronic abdominal pain. PAST SURGICAL HISTORY: Cholecystectomy. Hysterectomy. Bowel resection x2. Tonsillectomy. MEDICATIONS: Please see the medication reconciliation list which I have reviewed. ALLERGIES: CLONAZEPAM, CYMBALTA, DEMEROL, DIVALPROEX, FENTANYL, MEPERIDINE, ADALIMUMAB, MORPHINE, PREDNISONE. SOCIAL HISTORY: She continues to smoke. No alcohol use. She has two sons that live with her. FAMILY HISTORY: Noncontributory. PHYSICAL EXAMINATION: VITAL SIGNS: Temperature current 98.5F, temperature max 99.2F, heart rate 67 to 118 currently 90, respiratory rate 16 to 20, blood pressure 113 to 137 over 77 to 109, weight 58 kg. Oxygen saturation 95 to 97% on room air. GENERAL: The patient is sitting up in no acute distress. CVS: She has a regular rate and rhythm. No murmurs, gallops or rubs. CHEST: Clear to auscultation bilaterally. ABDOMEN: Diffusely tender. No guarding. No rigidity. Normal bowel sounds. EXTREMITIES: No clubbing, cyanosis or edema. SKIN: Warm, dry and intact. LABORATORY DATA AND TESTS: CBC within normal limits today. CMP within normal limits. Urine culture is in lab. She had acute abdominal series. We are awaiting the final reading on that from the radiologist. ASSESSMENT AND PLAN: 1) CROHN'S DISEASE EXACERBATION: I will start her on IV Solu-Medrol, will continue with pain management with morphine at this time. I will update her frame and scrap crusher that she has been admitted and see if he would like to give her the date and time for the colonoscopy. 2) ANXIETY: Currently her lorazepam is held as she is on morphine. 3) FIBROMYALGIA: Currently stable. 4) HYPOKALEMIA: On admission her potassium was 2.8 but this has been replaced and is normal now.
[2018-03-01] MEDS: solu-MEDROL 125 MG IV SCH ×3 (10:00→21:55)
[2018-03-01] MEDS: ENOXAPARIN SODIUM SQ SCH (10:13)
[2018-03-02] MEDS: MORPHINE SULFATE 2 MG INJ IV PRN ×11 (00:08→22:46)
[2018-03-02] MEDS: Ativan 2 MG/1 ML VIAL IV PRN ×2 (01:04→15:01)
[2018-03-02] MEDS: Zofran 4 MG/2 ML VIAL IV PRN ×5 (02:11→20:44)
[2018-03-02 05:41] LABS: BASOPHIL % 0.1 % (0.0-0.4); Basophil (Absolute #) 0.01 (0-0.4); Eosinophil (Absolute #) 0 (0-0.5); Hematocrit 34.1 % (35-47); Hemoglobin 11.1 gm/dl (12.0-16.0); Lymphocyte (Absolute #) 1.46 (1.0-4.6); Lymphocytes % 15.5 % (24.0-44.0); Mean Cell Volume 85.3 fl (78-100); Mean Corpuscular Hgb Concent. 32.6 g/dl (32-36); Mean Platelet Volume 8.9 fl (6-9.5); Monocyte (Absolute #) 0.23 (0.0-1.3); Monocytes % 2.4 % (0.0-12.0); Platelet Count 396 K/mm3 (150-450); Red Cell Distribution Width 14.5 % (11.5-14.0); White Blood Count 9.4 K/mm3 (4.0-10.5)
[2018-03-02 05:47] LABS: Mean Corpuscular Hemoglobin 27.7 pg (26-32)
[2018-03-02 05:50] LABS: ANION GAP 10.7 MEQ/L (5-15); BLOOD UREA NITROGEN 5 mg/dL (7-17); CHLORIDE 109 mmol/L (98-107); Calcium 8.7 mg/dL (8.4-10.2); Carbon Dioxide 26 mmol/L (22-30); Creatinine 1 0.44 mg/dL (0.52-1.04); Glucose 144 mg/dL (74-106); Potassium 3.2 mmol/L (3.5-5.1); SODIUM 142 mmol/L (137-145)
[2018-03-02] MEDS: solu-MEDROL 125 MG IV SCH ×3 (06:27→22:15)
[2018-03-02] MEDS: Sodium Chloride 0.9% 1000 ML 1,000 ML IV SCH (06:28)
[2018-03-02] MEDS: Phenergan 25 MG INJ IV PRN ×2 (08:50→18:29)
[2018-03-02] MEDS ORDERED: POTASSIUM CHLORIDE 20 mEq IN WATER 100ML 20 MEQ/100 ML BAG IV ONE (08:52)
[2018-03-02] MEDS: ENOXAPARIN SODIUM SQ SCH (09:55)
[2018-03-02] MEDS: Prozac 20 MG PO SCH (09:55)
--- NOTE | 2018-03-02 11:14 | PCM.NOTE ---
Date and Time: 03/02/18 1111 Subjective Assessment: Patient required 22 mg of IV morphine over the past 24 hours. She continues to have diarrhea and abdominal pain but states she is keeping some fluids down with the nausea medication. Dr. Beth's office plans to see her in March and do colonoscopy in April. - Review of Systems Constitutional: Weakness Eyes: No Symptoms Ears, Nose, & Throat: No Symptoms Respiratory: No Symptoms Cardiac: No Symptoms Abdominal/Gastrointestinal: Abdominal Pain, Nausea, Diarrhea, No Vomiting Genitourinary Symptoms: No Symptoms Musculoskeletal: No Symptoms Skin: No Symptoms Objective Exam General Appearance: no apparent distress, alert Neurologic Exam: alert, cooperative, normal mood/affect Skin Exam: normal color, warm, dry, No rash Respiratory Exam: normal breath sounds, lungs clear, No crackles/rales, No rhonchi, No wheezing Cardiovascular Exam: regular rate/rhythm, normal heart sounds, No murmur, No friction rub, No gallop Gastrointestinal/Abdomen Exam: soft, normal bowel sounds, tenderness, No distention, No mass, No guarding Extremity Exam: other (no c/c/e) OBJECTIVE DATA Vital Signs: Vital Signs - 24 hr Temp Pulse Resp BP Pulse Ox 03/02/18 09:17 97 03/02/18 08:00 17 03/02/18 07:53 97.9 F 89 17 115/74 94 L 03/02/18 04:00 98.2 F 86 19 114/79 95 03/02/18 00:00 97.7 F 94 H 18 110/73 96 03/01/18 20:00 98.0 F 97 H 19 126/84 91 L 03/01/18 19:31 91 L 03/01/18 16:00 98.8 F 85 18 113/79 92 L 03/01/18 12:00 98.6 F 96 H 18 115/72 92 L Pain Assessment - Last Documented Pain Intensity 8 Pain Scale Used 0-10 Pain Scale Intake and Output: Intake & Output 02/28/18 03/01/18 03/02/18 03/03/18 06:59 06:59 06:59 06:59 Intake Total 954 5339 240 Output Total 4000 200 Balance 954 1339 40 Weight 58.8 kg 59.6 kg Lab Results: Lab Results-Last 24 Hours 03/02/18 03/02/18 03/02/18 Range/Units 05:15 05:15 05:20 WBC 9.4 (4.0-10.5) K/mm3 RBC 4.00 L (4.1-5.4) M/mm3 Hgb 11.1 L (12.0-16.0) gm/dl Hct 34.1 L (35-47) % MCV 85.3 (78-100) fl MCH 27.7 (26-32) pg MCHC 32.6 (32-36) g/dl RDW 14.5 H (11.5-14.0) % Plt Count 396 (150-450) K/mm3 MPV 8.9 (6-9.5) fl Gran % 82.0 H (36.0-66.0) % Eos # (Auto) 0 (0-0.5) Absolute Lymphs (auto) 1.46 (1.0-4.6) Absolute Monos (auto) 0.23 (0.0-1.3) Lymphocytes % 15.5 L (24.0-44.0) % Monocytes % 2.4 (0.0-12.0) % Eosinophils % 0.0 (0.00-5.0) % Basophils % 0.1 (0.0-0.4) % Absolute Granulocytes 7.70 H (1.4-6.9) Basophils # 0.01 (0-0.4) Sodium 142 (137-145) mmol/L Potassium 3.2 L (3.5-5.1) mmol/L Chloride 109 H (98-107) mmol/L Carbon Dioxide 26 (22-30) mmol/L Anion Gap 10.7 (5-15) MEQ/L BUN 5 L (7-17) mg/dL Creatinine 0.44 L (0.52-1.04) mg/dL Estimated GFR > 60.0 ML/MIN Glucose 144 H (74-106) mg/dL Calcium 8.7 (8.4-10.2) mg/dL Magnesium 1.7 (1.6-2.3) mg/dL Radiology Exams: Radiology Procedures Category Date Time Status OBSTR/ACUTE ABDOMEN SERIES Stat Exams 02/28/18 19:37 Completed Assessment/Plan (1) Exacerbation of Crohn's disease Current Visit: No Status: Acute Assessment & Plan: Continue fluids, IV pain control, IV steroids. Code(s): K50.90 - CROHN'S DISEASE, UNSPECIFIED, WITHOUT COMPLICATIONS (2) Anxiety Current Visit: Yes Status: Acute Code(s): F41.9 - ANXIETY DISORDER, UNSPECIFIED (3) Fibromyalgia Current Visit: Yes Status: Acute (4) Hypokalemia Current Visit: Yes Status: Acute Assessment & Plan: Magnesium level in normal limits; continue to replace potassium. Code(s): E87.6 - HYPOKALEMIA
[2018-03-02] MEDS: Sodium Chloride 0.9% W/ 20 mEq KCl/LITER 1,000 ML IV SCH (15:01)
[2018-03-03] MEDS: Phenergan 25 MG INJ IV PRN ×4 (00:51→20:37)
[2018-03-03] MEDS: MORPHINE SULFATE 2 MG INJ IV PRN ×9 (00:51→22:30)
[2018-03-03] MEDS: Ativan 2 MG/1 ML VIAL IV PRN ×3 (01:00→22:41)
[2018-03-03] MEDS: Sodium Chloride 0.9% W/ 20 mEq KCl/LITER 1,000 ML IV SCH ×3 (01:04→21:06)
[2018-03-03] MEDS: Zofran 4 MG/2 ML VIAL IV PRN ×4 (03:58→22:30)
[2018-03-03 05:42] LABS: Basophil (Absolute #) 0 (0-0.4); Eosinophil (Absolute #) 0 (0-0.5); Granulocyte Absolute (ANC) 9.16 (1.4-6.9); Hematocrit 32.6 % (35-47); Hemoglobin 10.7 gm/dl (12.0-16.0); Lymphocyte (Absolute #) 1.45 (1.0-4.6); Lymphocytes % 13.3 % (24.0-44.0); Mean Corpuscular Hemoglobin 28.2 pg (26-32); Mean Corpuscular Hgb Concent. 32.8 g/dl (32-36); Mean Platelet Volume 8.8 fl (6-9.5); Monocyte (Absolute #) 0.29 (0.0-1.3); Monocytes % 2.7 % (0.0-12.0); Platelet Count 365 K/mm3 (150-450); Red Blood Count 3.79 M/mm3 (4.1-5.4); Red Cell Distribution Width 14.9 % (11.5-14.0); White Blood Count 10.9 K/mm3 (4.0-10.5)
[2018-03-03 06:07] LABS: ANION GAP 13.6 MEQ/L (5-15); BLOOD UREA NITROGEN 4 mg/dL (7-17); CHLORIDE 108 mmol/L (98-107); Calcium 8.9 mg/dL (8.4-10.2); Carbon Dioxide 27 mmol/L (22-30); Glucose 122 mg/dL (74-106); Potassium 3.5 mmol/L (3.5-5.1); SODIUM 145 mmol/L (137-145)
[2018-03-03] MEDS: solu-MEDROL 125 MG IV SCH ×3 (06:54→22:29)
--- NOTE | 2018-03-03 09:04 | PCM.NOTE ---
Date and Time: 03/03/18900 Subjective Assessment: She reports continued abdominal pain and diarrhea. She has had some nausea but no vomiting as she is taking the anti nausea medications. She is concerned if she goes home, she will end up right back at the hospital. Her fried cake maker will see her early March with a colonoscopy scheduled for April. - Review of Systems Constitutional: No Symptoms Eyes: No Symptoms Ears, Nose, & Throat: No Symptoms Respiratory: No Symptoms Cardiac: No Symptoms Abdominal/Gastrointestinal: Abdominal Pain, Nausea, Diarrhea, No Vomiting Genitourinary Symptoms: No Symptoms Musculoskeletal: No Symptoms Skin: No Symptoms Objective Exam General Appearance: no apparent distress, alert, other (sitting up, holding her abodmen) Neurologic Exam: alert, cooperative, normal mood/affect Skin Exam: normal color, warm, dry, No rash Cardiovascular Exam: regular rate/rhythm, normal heart sounds, No murmur, No friction rub, No gallop Gastrointestinal/Abdomen Exam: soft, normal bowel sounds, tenderness, No distention, No mass, No guarding Extremity Exam: normal inspection, other (no c/c/e) OBJECTIVE DATA Vital Signs: Vital Signs - 24 hr Temp Pulse Resp BP Pulse Ox 03/03/18 07:41 97.6 F 62 17 114/73 95 03/03/18 04:00 97.7 F 63 20 117/80 95 03/03/18 00:00 18 03/02/18 23:59 97.6 F 85 18 122/78 96 03/02/18 20:00 19 03/02/18 19:35 98.0 F 99 H 19 105/69 96 03/02/18 18:28 96 03/02/18 16:00 97.4 F 88 18 120/66 97 03/02/18 13:58 96 03/02/18 12:00 98.1 F 121 H 18 98/55 96 03/02/18 09:17 97 Pain Assessment - Last Documented Pain Intensity 6 Pain Scale Used 0-10 Pain Scale Intake and Output: Intake & Output 03/01/18 03/02/18 03/03/18 03/04/18 06:59 06:59 06:59 06:59 Intake Total 954 5373 4344 Output Total 4000 1500 Balance 954 7809 2844 Weight 58.8 kg 59.6 kg 59.9 kg Lab Results: Lab Results-Last 24 Hours 03/02/18 03/02/18 03/03/18 Range/Units 05:20 14:00 05:05 WBC 10.9 H (4.0-10.5) K/mm3 RBC 3.79 L (4.1-5.4) M/mm3 Hgb 10.7 L (12.0-16.0) gm/dl Hct 32.6 L (35-47) % MCV 86.0 (78-100) fl MCH 28.2 (26-32) pg MCHC 32.8 (32-36) g/dl RDW 14.9 H (11.5-14.0) % Plt Count 365 (150-450) K/mm3 MPV 8.8 (6-9.5) fl Gran % 84.0 H (36.0-66.0) % Eos # (Auto) 0 (0-0.5) Absolute Lymphs (auto) 1.45 (1.0-4.6) Absolute Monos (auto) 0.29 (0.0-1.3) Lymphocytes % 13.3 L (24.0-44.0) % Monocytes % 2.7 (0.0-12.0) % Eosinophils % 0.0 (0.00-5.0) % Basophils % 0.0 (0.0-0.4) % Absolute Granulocytes 9.16 H (1.4-6.9) Basophils # 0 (0-0.4) Sodium (137-145) mmol/L Potassium 3.5 (3.5-5.1) mmol/L Chloride (98-107) mmol/L Carbon Dioxide (22-30) mmol/L Anion Gap (5-15) MEQ/L BUN (7-17) mg/dL Creatinine (0.52-1.04) mg/dL Estimated GFR ML/MIN Glucose (74-106) mg/dL Calcium (8.4-10.2) mg/dL Magnesium 1.7 (1.6-2.3) mg/dL 03/03/18 Range/Units 05:05 WBC (4.0-10.5) K/mm3 RBC (4.1-5.4) M/mm3 Hgb (12.0-16.0) gm/dl Hct (35-47) % MCV (78-100) fl MCH (26-32) pg MCHC (32-36) g/dl RDW (11.5-14.0) % Plt Count (150-450) K/mm3 MPV (6-9.5) fl Gran % (36.0-66.0) % Eos # (Auto) (0-0.5) Absolute Lymphs (auto) (1.0-4.6) Absolute Monos (auto) (0.0-1.3) Lymphocytes % (24.0-44.0) % Monocytes % (0.0-12.0) % Eosinophils % (0.00-5.0) % Basophils % (0.0-0.4) % Absolute Granulocytes (1.4-6.9) Basophils # (0-0.4) Sodium 145 (137-145) mmol/L Potassium 3.5 (3.5-5.1) mmol/L Chloride 108 H (98-107) mmol/L Carbon Dioxide 27 (22-30) mmol/L Anion Gap 13.6 (5-15) MEQ/L BUN 4 L (7-17) mg/dL Creatinine 0.40 L (0.52-1.04) mg/dL Estimated GFR > 60.0 ML/MIN Glucose 122 H (74-106) mg/dL Calcium 8.9 (8.4-10.2) mg/dL Magnesium (1.6-2.3) mg/dL Assessment/Plan (1) Exacerbation of Crohn's disease Current Visit: No Status: Acute Assessment & Plan: Continue IV steroids and IV pain control. Follow up with fried cake maker as an outpatient. Code(s): K50.90 - CROHN'S DISEASE, UNSPECIFIED, WITHOUT COMPLICATIONS (2) Anxiety Current Visit: Yes Status: Acute Assessment & Plan: Stable at this time. Code(s): F41.9 - ANXIETY DISORDER, UNSPECIFIED (3) Fibromyalgia Current Visit: Yes Status: Acute Assessment & Plan: Stable at this time. (4) Hypokalemia Current Visit: Yes Status: Acute Assessment & Plan: I added potassium to her IV fluids and her potassium is normal this am at 3.5. Code(s): E87.6 - HYPOKALEMIA
[2018-03-03] MEDS: Prozac 20 MG PO SCH (09:30)
[2018-03-03] MEDS: ENOXAPARIN SODIUM SQ SCH (09:30)
[2018-03-04] MEDS: MORPHINE SULFATE 2 MG INJ IV PRN ×3 (01:32→06:35)
[2018-03-04] MEDS: Zofran 4 MG/2 ML VIAL IV PRN (04:22)
[2018-03-04 04:41] VITALS: O2SAT 96
[2018-03-04 05:54] LABS: Granulocyte Absolute (ANC) 10.66 (1.4-6.9); Hematocrit 32.8 % (35-47); Hemoglobin 10.5 gm/dl (12.0-16.0); Mean Cell Volume 87.5 fl (78-100); Mean Platelet Volume 9.1 fl (6-9.5); Platelet Count 357 K/mm3 (150-450); Red Blood Count 3.75 M/mm3 (4.1-5.4); Red Cell Distribution Width 15.1 % (11.5-14.0); White Blood Count 12.6 K/mm3 (4.0-10.5)
[2018-03-04 06:08] LABS: ANION GAP 14.4 MEQ/L (5-15); BLOOD UREA NITROGEN 9 mg/dL (7-17); CHLORIDE 105 mmol/L (98-107); Calcium 8.7 mg/dL (8.4-10.2); Carbon Dioxide 27 mmol/L (22-30); Creatinine 1 0.43 mg/dL (0.52-1.04); Glucose 122 mg/dL (74-106); Potassium 3.6 mmol/L (3.5-5.1); SODIUM 143 mmol/L (137-145)
[2018-03-04] MEDS: Ativan 2 MG/1 ML VIAL IV PRN (06:35)
[2018-03-04] MEDS: solu-MEDROL 125 MG IV SCH (06:35)
[2018-03-04] MEDS: Sodium Chloride 0.9% W/ 20 mEq KCl/LITER 1,000 ML IV SCH (06:49)
[2018-03-04 07:59] VITALS: BP 153/93; PULSE 53
--- NOTE | 2018-03-04 08:31 | PCM.DCORD ---
- Discharge Discharge Date: 03/04/18 Disposition: Home, Self-Care Condition: Good Prescriptions: Continue Cholecalciferol (Vitamin D3) [Vitamin D3] 50,000 unit PO WEEKLY Vedolizumab [Entyvio] 300 mg IV UD Fluoxetine HCl 20 mg [Prozac 20 MG] 20 mg PO DAILY #30 cap Ondansetron HCl [Zofran] 4 mg PO Q6H PRN PRN PRN Reason: Nausea/Vomiting Lorazepam 1 mg [Ativan 1 MG] 1 mg PO TIDPRN PRN #90 tablet PRN Reason: Anxiety Changed Hydromorphone HCl 4 mg [Dilaudid 4 MG Tab] 4 mg PO Q6HPRN PRN #120 tab MDD 4 PRN Reason: Pain Additional Instructions: has scheduled patients colonoscopy for April and they will call pt. with a time. but pt will see in office March for a visit. I will send an order from the clinic for her Vit B 12 injections. Follow up with: KHRIS CASTILLO JR [NON-STAFF PHY W/O PRIVILEGES] - 03/27/18 1:30 pm AKIKO GREGORY [Primary Care Provider] - 03/08/18 10:30 am
[2018-03-04] MEDS: ENOXAPARIN SODIUM SQ SCH (10:37)
[2018-03-04] MEDS: Prozac 20 MG PO SCH (10:47)
--- NOTE | 2018-03-05 09:33 | DS ---
DISCHARGE DIAGNOSES: 1) CROHN'S DISEASE EXACERBATION. 2) ANXIETY. 3) FIBROMYALGIA. 4) HYPOKALEMIA. DISCHARGE PHYSICAL EXAMINATION: VITALS: Temperature current 98.1F, temperature max 98.7F, heart rate 56 to 74, respiratory rate 18 to 19, blood pressure 119 to 153 over 76 to 93. Oxygen saturation 94 to 96% on room air. GENERAL: The patient was a pleasant talkative lady sitting up in bed in no acute distress. CVS: She has a regular rate and rhythm. No murmurs, gallops or rubs are appreciated. CHEST: Clear to auscultation bilaterally. No crackles or wheezes. ABDOMEN: Normal bowel sounds, soft, diffusely tender. No guarding. No rigidity. EXTREMITIES: No clubbing, cyanosis or edema. SKIN: Warm, dry and intact. HOSPITAL COURSE: 1) CROHN'S DISEASE EXACERBATION: She was given IV fluids as well as IV pain control with morphine and she was requiring approximately 20 mg IV daily of morphine. I started her on IV steroids. She reported that she had oral steroids at home from the child specialist that she would take although these were not listed on her home medications. She also has follow up scheduled with the child specialist in March and a colonoscopy in April. Her child specialist is Dr. Leonard Pineda and will have her continue to keep that follow up. She does have history of severe Crohn's disease and they are talking about possible resection in the future due to an area that is almost strictured in her small bowel. 2) ANXIETY: It has been stable during her hospital stay. 3) FIBROMYALGIA: This has also been stable during her hospital stay. 4) HYPOKALEMIA: She came in with a low potassium and we replaced with IV potassium. We had to do one more K-rider later during the hospitalization when I added potassium chloride to her fluids. I will continue to monitor this as an outpatient. DISCHARGE MEDICATIONS: Please see the discharge order. FOLLOW UP: She is to follow up with myself this week and her child specialist as scheduled. DISPOSITION: The patient was discharged home in fair condition.
== END 2018-03-04 11:25 | disposition home or self-care (01) | DRG 387 ==
LOC: ED 17:30 → OBSVTOIN 21:45 → MED SURG 21:45 → INTOOBSV 03-01 09:04 → OBSVTOIN 03-01 09:04
PROVIDERS: ADMIT Internal Medicine; ATTEND Internal Medicine
DX: K50.90 Crohn's disease, unspecified, without complications (principal); F41.9 Anxiety disorder, unspecified; M79.7 Fibromyalgia; E87.6 Hypokalemia; Z85.41 Personal history of malignant neoplasm of cervix uteri; Z90.49 Acquired absence of other specified parts of digestive tract; F32.9 Major depressive disorder, single episode, unspecified; Z79.899 Other long term (current) drug therapy
CPT/HCPCS: 36000; 36415; 74022; 80048; 80053; 81000; 82150; 83690; 83735; 84132; 85025; 87086; 93268; 94762; 96360; 96374; 96375; 96376; 99285; J1642; J1650; J2060; J2270; J2405; J2550; J2930; J3480; A9270-GY; G0378

== ENCOUNTER 2018-04-26 06:49 | Emergency (ER) | payer OTHER ==
--- NOTE | 2018-04-26 07:34 | ERPHSYRPT ---
- History of Present Illness Time Seen by Provider: 04/26/18 07:20 Source: patient Exam Limitations: no limitations Patient Subjective Stated Complaint: states has hx crohns and has had vomiting for two days with watery diarrhea. is also having sore throat from the vomiting. was supposed to see dr siegel today to get scheduled for a colonoscopy. is also supposed to have a third surgery to have some more colon removed. also is having abd pain Triage Nursing Assessment: ambulated to room per self. skin w/d, color normal. resp easy. occasional retching with only small amt emesis. Physician History: 42 y/o white female with h/o crohns dz presents with abd pain, vomiting and watery diarrhea. pt also c/o sore throat secondary to vomiting pt has an appt with pcp today for her monthly check up. pt has a colonoscopy scheduled for May 09. pt has had 2 bowel resections in past for tx of acute exacerbations of her crohns dz. pt has had morphine in the past to control her abd pain. she tolerates that well. pt is not on any steroids at this time. Timing/Duration: gradual onset Severity: mild Prearrival Treatment: prescription meds Modifying Factors: Improves With: nothing Associated Symptoms: difficulty swallowing Allergies/Adverse Reactions: clonazepam [From Klonopin] Allergy (Mild, Verified 04/26/18 07:10) "I DON'T KNOW" divalproex sodium [From Depakote] Allergy (Mild, Verified 04/26/18 07:10) "I DON'T KNOW" duloxetine HCl [From Cymbalta] Allergy (Mild, Verified 04/26/18 07:10) Hives fentanyl Allergy (Mild, Verified 04/26/18 07:10) Hives meperidine HCl [From Demerol] Allergy (Mild, Verified 04/26/18 07:10) Hives buprenorphine Allergy (Verified 04/26/18 07:10) duloxetine [From Cymbalta] Allergy (Verified 04/26/18 07:10) meperidine [From Demerol] Allergy (Verified 04/26/18 07:10) adalimumab [From Humira] Adverse Reaction (Mild, Verified 04/26/18 07:10) Vomiting prednisone Adverse Reaction (Mild, Verified 04/26/18 07:10) SHAKING Home Medications: Cholecalciferol (Vitamin D3) [Vitamin D3] 50,000 unit PO WEEKLY 11/13/16 [ History] Vedolizumab [Entyvio] 300 mg IV UD 11/13/16 [History] Ondansetron HCl [Zofran] 4 mg PO Q6H PRN PRN 02/28/18 [History] Hx Tetanus, Diphtheria Vaccination/Date Given: Yes Hx Influenza Vaccination/Date Given: No Hx Pneumococcal Vaccination/Date Given: No - Review of Systems Constitutional: No Symptoms Eyes: No Symptoms Ears, Nose, & Throat: Throat Pain, Painful Swallowing Respiratory: No Symptoms Cardiac: No Symptoms, No Chest Pain, No Palpitations, No Syncope Abdominal/Gastrointestinal: Abdominal Pain, Nausea, Vomiting, Diarrhea Genitourinary Symptoms: No Symptoms, No Dysuria, No Frequency, No Hematuria Musculoskeletal: No Symptoms Skin: No Symptoms Neurological: No Symptoms Psychological: No Symptoms Endocrine: No Symptoms Hematologic/Lymphatic: No Symptoms Immunological/Allergic: No Symptoms All Other Systems: Reviewed and Negative - Past Medical History Pertinent Past Medical History: Yes Neurological History: No Pertinent History ENT History: No Pertinent History Cardiac History: Arrhythmia Respiratory History: No Pertinent History Endocrine Medical History: Hypothyroidism Musculoskeletal History: Fibromyalgia, Osteoarthritis GI Medical History: Crohns Disease History: No Pertinent History Psycho-Social History: Anxiety, Depression Female Reproductive Disorders: Other Other Medical History: Cluster Headaches, pre cancerous cells cervix - Past Surgical History Past Surgical History: Yes Neuro Surgical History: No Pertinent History Cardiac: No Pertinent History Respiratory: No Pertinent History Gastrointestinal: Bowel Surgery, Cholecystectomy, Colon Resection Genitourinary: No Pertinent History Musculoskeletal: No Pertinent History Female Surgical History: Hysterectomy Other Surgical History: port-a-cath placement, tonsillectomy, 2 bowel resections - Social History Smoking Status: Current every day smoker How long have you smoked: 20 Exposure to second hand smoke: No Drug Use: none Patient Lives Alone: No - Female History Hx Now: No - Nursing Vital Signs Nursing Vital Signs: Initial Vital Signs Temperature 99 F 04/26/18 07:08 Pulse Rate 125 H 04/26/18 07:08 Respiratory Rate 18 04/26/18 07:08 Blood Pressure 113/85 04/26/18 07:08 O2 Sat by Pulse Oximetry 95 04/26/18 07:08 Pain Scale Pain Intensity 8 - Physical Exam General Appearance: mild distress, alert, anxiety Eye Exam: bilateral eye: normal inspection, PERRL, EOMI Ear Exam: bilateral ear: auricle normal, canal normal, TM normal Nasal Exam: normal inspection Throat Exam: pharynx normal, moist mucus membranes, No dental tenderness, No excessive drooling Neck Exam: normal inspection, non-tender, supple, full range of motion, trachea midline Cardiovascular/Respiratory Exam: chest non-tender, normal breath sounds, regular rate/rhythm, heart sounds normal Abdominal Exam: soft, tenderness (generalized.), No guarding Neurologic Exam: alert, oriented x 3, cooperative, child development assistant II-XII nml as tested Skin Exam: normal color, warm, dry SpO2 Interpretation: normal SpO2: 95 Oxygen Delivery: Room Air Ordered Tests: Active Orders 24 hr Category Date Time Status IV Insertion STAT Care 04/26/18 07:41 Active AMYLASE Stat Lab 04/26/18 08:03 Completed CBC W DIFF Stat Lab 04/26/18 08:03 Completed CMP Stat Lab 04/26/18 08:03 Completed CULTURE,URINE Stat Lab 04/26/18 10:00 Received LIPASE Stat Lab 04/26/18 08:03 Completed Lactic Acid Stat Lab 04/26/18 07:55 Completed UA W/RFX UR CULTURE Stat Lab 04/26/18 10:00 Completed Medication Summary Discontinued Medications Generic Name Dose Route Start Last Admin Trade Name Rohit PRN Reason Stop Dose Admin Sodium Chloride 1,000 mls @ 999 mls/hr 04/26/18 07:41 04/26/18 08:16 Sodium Chloride 0.9% 1000 Ml IV 04/26/18 08:41 999 mls/hr .Q1H1M STA Administration Sodium Chloride Confirm 04/26/18 08:09 Sodium Chloride 0.9% 1000 Ml Administered 04/26/18 08:10 Dose 1,000 mls @ ud .ROUTE .STK-MED ONE Potassium Chloride 20 meq in 100 mls @ 50 mls/hr 04/26/18 08:58 04/26/18 09: 23 Potassium Chloride 20 Meq In Water 100ml IV 04/26/18 10:57 50 mls/hr STAT ONE Administration Potassium Chloride Confirm 04/26/18 09:17 Potassium Chloride 20 Meq In Water 100ml Administered 04/26/18 09:18 Dose 100 mls @ ud IV .STK-MED ONE Methylprednisolone Sodium Succinate 125 mg 04/26/18 09:19 04/26/18 09:26 Solu-Medrol 125 Mg IV 04/26/18 09:20 125 mg STAT ONE Administration Methylprednisolone Sodium Succinate Confirm 04/26/18 09:25 Solu-Medrol 125 Mg Administered 04/26/18 09:26 Dose 125 mg .ROUTE .STK-MED ONE Morphine Sulfate 4 mg 04/26/18 07:41 04/26/18 08:19 Morphine Sulfate 4 Mg Inj IV 04/26/18 07:42 4 mg STAT ONE Administration Morphine Sulfate Confirm 04/26/18 08:09 Morphine Sulfate 4 Mg Inj Administered 04/26/18 08:10 Dose 4 mg .ROUTE .STK-MED ONE Morphine Sulfate 4 mg 04/26/18 10:20 04/26/18 10:33 Morphine Sulfate 4 Mg Inj IV 04/26/18 10:21 4 mg STAT ONE Administration Morphine Sulfate Confirm 04/26/18 10:32 Morphine Sulfate 4 Mg Inj Administered 04/26/18 10:33 Dose 4 mg .ROUTE .STK-MED ONE Ondansetron HCl 4 mg 04/26/18 07:41 04/26/18 08:16 Zofran 4 Mg/2 Ml Vial IV 04/26/18 07:42 4 mg STAT ONE Administration Ondansetron HCl Confirm 04/26/18 08:08 Zofran 4 Mg/2 Ml Vial Administered 04/26/18 08:09 Dose 4 mg .ROUTE .STK-MED ONE Potassium Bicarbonate 50 meq 04/26/18 08:58 04/26/18 09:24 K-Lyte 25 Meq PO 04/26/18 08:59 50 meq STAT ONE Administration Potassium Bicarbonate Confirm 04/26/18 09:17 K-Lyte 25 Meq Administered 04/26/18 09:18 Dose 50 meq .ROUTE .STK-MED ONE Lab/Rad Data: Laboratory Result Diagrams 04/26/18 08:03 04/26/18 08:03 Laboratory Results 04/26/18 04/26/18 04/26/18 Range/Units 10:00 08:03 08:03 WBC 12.0 H (4.0-10.5) K/mm3 RBC 4.51 (4.1-5.4) M/mm3 Hgb 12.4 (12.0-16.0) gm/dl Hct 38.4 (35-47) % MCV 85.1 (78-100) fl MCH 27.5 (26-32) pg MCHC 32.3 (32-36) g/dl RDW 14.7 H (11.5-14.0) % Plt Count 499 H (150-450) K/mm3 MPV 9.4 (6-9.5) fl Gran % 79.7 H (36.0-66.0) % Eos # (Auto) 0.02 (0-0.5) Absolute Lymphs (auto) 1.79 (1.0-4.6) Absolute Monos (auto) 0.60 (0.0-1.3) Lymphocytes % 14.9 L (24.0-44.0) % Monocytes % 5.0 (0.0-12.0) % Eosinophils % 0.2 (0.00-5.0) % Basophils % 0.2 (0.0-0.4) % Absolute Granulocytes 9.61 H (1.4-6.9) Basophils # 0.02 (0-0.4) Sodium 140 (137-145) mmol/L Potassium 2.9 L* (3.5-5.1) mmol/L Chloride 101 (98-107) mmol/L Carbon Dioxide 28 (22-30) mmol/L Anion Gap 13.9 (5-15) MEQ/L BUN 9 (7-17) mg/dL Creatinine 0.47 L (0.52-1.04) mg/dL Estimated GFR > 60.0 ML/MIN Glucose 106 (74-106) mg/dL Lactic Acid (0.4-2.0) Calcium 9.4 (8.4-10.2) mg/dL Total Bilirubin 0.20 (0.2-1.3) mg/dL AST 11 L (14-36) U/L ALT 11 (0-35) U/L Alkaline Phosphatase 93 (38-126) U/L Serum Total Protein 6.9 (6.3-8.2) g/dL Albumin 4.0 (3.5-5.0) g/dL Amylase 62 (30-110) U/L Lipase 205 (23-300) U/L Urine Color YELLOW (YELLOW) Urine Appearance SLIGHTLY CLOUDY (CLEAR) Urine pH 6.0 (5-6) Ur Specific [place] 1.020 (1.005-1.025) Urine Protein 30 (Negative) Urine Ketones SMALL (NEGATIVE) Urine Blood NEGATIVE (0-5) Elias/ul Urine Nitrite NEGATIVE (NEGATIVE) Urine Bilirubin NEGATIVE (NEGATIVE) Urine Urobilinogen NEGATIVE (0-1) mg/dL Ur Leukocyte Esterase NEGATIVE (NEGATIVE) Urine WBC (Auto) 0-2 (0-5) /HPF Urine RBC (Auto) NONE (0-2) /HPF U Epithel Cells (Auto) RARE (FEW) /HPF Urine Bacteria (Auto) FEW (NEGATIVE) /HPF Urine Mucus (Auto) MODERATE (NEGATIVE) /HPF Urine Culture Reflexed YES (NO) Urine Glucose NEGATIVE (NEGATIVE) mg/dL 04/26/18 Range/Units 07:55 WBC (4.0-10.5) K/mm3 RBC (4.1-5.4) M/mm3 Hgb (12.0-16.0) gm/dl Hct (35-47) % MCV (78-100) fl MCH (26-32) pg MCHC (32-36) g/dl RDW (11.5-14.0) % Plt Count (150-450) K/mm3 MPV (6-9.5) fl Gran % (36.0-66.0) % Eos # (Auto) (0-0.5) Absolute Lymphs (auto) (1.0-4.6) Absolute Monos (auto) (0.0-1.3) Lymphocytes % (24.0-44.0) % Monocytes % (0.0-12.0) % Eosinophils % (0.00-5.0) % Basophils % (0.0-0.4) % Absolute Granulocytes (1.4-6.9) Basophils # (0-0.4) Sodium (137-145) mmol/L Potassium (3.5-5.1) mmol/L Chloride (98-107) mmol/L Carbon Dioxide (22-30) mmol/L Anion Gap (5-15) MEQ/L BUN (7-17) mg/dL Creatinine (0.52-1.04) mg/dL Estimated GFR ML/MIN Glucose (74-106) mg/dL Lactic Acid 1.0 (0.4-2.0) Calcium (8.4-10.2) mg/dL Total Bilirubin (0.2-1.3) mg/dL AST (14-36) U/L ALT (0-35) U/L Alkaline Phosphatase (38-126) U/L Serum Total Protein (6.3-8.2) g/dL Albumin (3.5-5.0) g/dL Amylase (30-110) U/L Lipase (23-300) U/L Urine Color (YELLOW) Urine Appearance (CLEAR) Urine pH (5-6) Ur Specific [place] (1.005-1.025) Urine Protein (Negative) Urine Ketones (NEGATIVE) Urine Blood (0-5) Elias/ul Urine Nitrite (NEGATIVE) Urine Bilirubin (NEGATIVE) Urine Urobilinogen (0-1) mg/dL Ur Leukocyte Esterase (NEGATIVE) Urine WBC (Auto) (0-5) /HPF Urine RBC (Auto) (0-2) /HPF U Epithel Cells (Auto) (FEW) /HPF Urine Bacteria (Auto) (NEGATIVE) /HPF Urine Mucus (Auto) (NEGATIVE) /HPF Urine Culture Reflexed (NO) Urine Glucose (NEGATIVE) mg/dL - Progress Progress: improved Progress Note: 04/26/18 11:19 pt feeling better. will send pt home with rx for prednisone Counseled pt/family regarding: lab results, diagnosis, need for follow-up - Departure Time of Disposition: 11:20 Departure Disposition: Home Clinical Impression: Chronic abdominal pain, Vomiting Condition: Stable Critical Care Time: No Referrals: AKIKO GREGORY [Primary Care Provider] - Additional Instructions: drink plenty of fluids. follow up with primary doctor for further management Prescriptions: Ondansetron HCl [Zofran] 4 mg PO TID PRN #10 tablet PRN Reason: Nausea/Vomiting Prednisone 10 mg [Deltasone 10 mg] 10 mg PO TID #12 tablet
[2018-04-26] MEDS ORDERED: Zofran 4 MG/2 ML VIAL IV ONE (07:41)
[2018-04-26] MEDS ORDERED: Sodium Chloride 0.9% 1000 ML 1,000 ML IV STA (07:41)
[2018-04-26] MEDS ORDERED: MORPHINE SULFATE 4 MG INJ IV ONE ×2 (07:41→10:20)
[2018-04-26] MEDS ORDERED: Zofran 4 MG/2 ML VIAL ONE (08:08)
[2018-04-26] MEDS ORDERED: Sodium Chloride 0.9% 1000 ML 1,000 ML ONE (08:09)
[2018-04-26] MEDS ORDERED: MORPHINE SULFATE 4 MG INJ ONE ×2 (08:09→10:32)
[2018-04-26 08:33] LABS: ALKALINE PHOSPHATASE 93 U/L (38-126); AMYLASE 62 U/L (30-110); ANION GAP 13.9 MEQ/L (5-15); BLOOD UREA NITROGEN 9 mg/dL (7-17); CHLORIDE 101 mmol/L (98-107); Calcium 9.4 mg/dL (8.4-10.2); Carbon Dioxide 28 mmol/L (22-30); Creatinine 1 0.47 mg/dL (0.52-1.04); Glucose 106 mg/dL (74-106); LIPASE 205 U/L (23-300); SGOT/AST 11 U/L (14-36); SGPT/ALT 11 U/L (0-35); SODIUM 140 mmol/L (137-145); Total Protein 6.9 g/dL (6.3-8.2)
[2018-04-26 08:39] LABS: Potassium 2.9 mmol/L (3.5-5.1)
[2018-04-26] MEDS ORDERED: K-LYTE 25 MEQ PO ONE (08:58)
[2018-04-26] MEDS ORDERED: POTASSIUM CHLORIDE 20 mEq IN WATER 100ML 20 MEQ/100 ML BAG IV ONE (08:58)
[2018-04-26 09:15] LABS: BASOPHIL % 0.2 % (0.0-0.4); Basophil (Absolute #) 0.02 (0-0.4); Eosinophil % 0.2 % (0.00-5.0); Eosinophil (Absolute #) 0.02 (0-0.5); Granulocyte Absolute (ANC) 9.61 (1.4-6.9); Granulocytes % 79.7 % (36.0-66.0); Hematocrit 38.4 % (35-47); Hemoglobin 12.4 gm/dl (12.0-16.0); Lymphocyte (Absolute #) 1.79 (1.0-4.6); Lymphocytes % 14.9 % (24.0-44.0); Mean Cell Volume 85.1 fl (78-100); Mean Corpuscular Hemoglobin 27.5 pg (26-32); Mean Corpuscular Hgb Concent. 32.3 g/dl (32-36); Mean Platelet Volume 9.4 fl (6-9.5); Platelet Count 499 K/mm3 (150-450); Red Blood Count 4.51 M/mm3 (4.1-5.4); Red Cell Distribution Width 14.7 % (11.5-14.0)
[2018-04-26] MEDS ORDERED: K-LYTE 25 MEQ ONE (09:17)
[2018-04-26] MEDS ORDERED: POTASSIUM CHLORIDE 20 mEq IN WATER 100ML 100 ML IV ONE (09:17)
[2018-04-26] MEDS ORDERED: solu-MEDROL 125 MG IV ONE (09:19)
[2018-04-26] MEDS ORDERED: solu-MEDROL 125 MG ONE (09:25)
[2018-04-26 10:18] LABS: Appearance SLIGHTLY CLOUDY (CLEAR); Bilirubin NEGATIVE (NEGATIVE); Blood NEGATIVE Ery/ul (0-5); Glucose NEGATIVE (NEGATIVE); Ketones SMALL (NEGATIVE); Leukocyte Esterase NEGATIVE (NEGATIVE); Nitrite NEGATIVE (NEGATIVE); Protein,Urine Dip 30 (Negative); Urobilinogen NEGATIVE mg/dL (0-1)
[2018-04-26 12:21] VITALS: BP 131/78; PULSE 88; O2SAT 98
== END 2018-04-26 12:16 | disposition home or self-care (01) ==
LOC: ED 06:49
DX: R10.9 Unspecified abdominal pain (principal); R11.2 Nausea with vomiting, unspecified; R19.7 Diarrhea, unspecified; Z79.899 Other long term (current) drug therapy
CPT/HCPCS: 36000; 36415; 80053; 81001; 82150; 83605; 83690; 85025; 87086; 96360; 96365; 96374; 96375; 96376; 99284; J1642; J2270; J2405; J2930; J3480; A9270-GY

== ENCOUNTER 2018-05-27 07:08 | Emergency (ER) | payer OTHER ==
--- NOTE | 2018-05-27 07:56 | ERPHSYRPT ---
- History of Present Illness Time Seen by Provider: 05/27/18 07:53 Historian: patient Exam Limitations: no limitations Patient Subjective Stated Complaint: abdominal pain Triage Nursing Assessment: Pt c/o of abdominal pain that starts under the sternum and goes all the way to the pubic bone, pain with palpatation, tachycardic, pulses normal, reports diarhea, denies N&V, afebrile, rates pain 10 / Physician History: The patient is a 42-year-old female complaining of worsening abdominal pain and fever since yesterday. She has chronic abdominal pain from Crohn's disease but states this pain is in a different spot than the chronic pain. She saw her primary medical doctor, Dr. Gregory, 3 days ago for the pain. She was told to come to the emergency room if the pain worsened or she developed a fever. She has vomiting and diarrhea but she states these are no different than what they are every day. She had a colonoscopy done on 05/09/18. She took a Dilaudid at 11 PM yesterday without relief. She requests Zofran and morphine in the ER. Her past medical history is significant for Crohn's disease, partial colon resection 2, chronic abdominal pain, anxiety, tonsillectomy, and cholecystectomy. Timing/Duration: yesterday, gradual onset, worse Activities at Onset: none Quality: aching Abdominal Pain Onset Location: generalized abdomen Pain Radiation: no radiation Severity of Pain-Max: severe Severity of Pain-Current: severe Modifying Factors: Improves With: analgesics (dilaudid) Associated Symptoms: diarrhea, fever/chills, nausea, vomiting Previous symptoms: different symptoms, recently seen Allergies/Adverse Reactions: clonazepam [From Klonopin] Allergy (Mild, Verified 05/27/18 07:30) "I DON'T KNOW" divalproex sodium [From Depakote] Allergy (Mild, Verified 05/27/18 07:30) "I DON'T KNOW" duloxetine HCl [From Cymbalta] Allergy (Mild, Verified 05/27/18 07:30) Hives fentanyl Allergy (Mild, Verified 05/27/18 07:30) Hives meperidine HCl [From Demerol] Allergy (Mild, Verified 05/27/18 07:30) Hives buprenorphine Allergy (Verified 05/27/18 07:30) duloxetine [From Cymbalta] Allergy (Verified 05/27/18 07:30) meperidine [From Demerol] Allergy (Verified 05/27/18 07:30) adalimumab [From Humira] Adverse Reaction (Mild, Verified 05/27/18 07:30) Vomiting prednisone Adverse Reaction (Mild, Verified 05/27/18 07:30) SHAKING Home Medications: Cholecalciferol (Vitamin D3) [Vitamin D3] 50,000 unit PO WEEKLY 11/13/16 [ History] Vedolizumab [Entyvio] 300 mg IV UD 11/13/16 [History] Hx Tetanus, Diphtheria Vaccination/Date Given: Yes Hx Influenza Vaccination/Date Given: No Hx Pneumococcal Vaccination/Date Given: No - Review of Systems Constitutional: Fever Eyes: No Symptoms Ears, Nose, & Throat: No Symptoms Respiratory: No Cough, No Dyspnea Cardiac: No Chest Pain, No Edema, No Syncope Abdominal/Gastrointestinal: Abdominal Pain, Nausea, Vomiting, Diarrhea Genitourinary Symptoms: No Dysuria Musculoskeletal: No Back Pain, No Neck Pain Skin: No Rash Neurological: No Dizziness, No Focal Weakness, No Sensory Changes Psychological: No Symptoms Endocrine: No Symptoms Hematologic/Lymphatic: No Symptoms Immunological/Allergic: No Symptoms All Other Systems: Reviewed and Negative - Past Medical History Pertinent Past Medical History: Yes Neurological History: No Pertinent History ENT History: No Pertinent History Cardiac History: Arrhythmia Respiratory History: No Pertinent History Endocrine Medical History: Hypothyroidism Musculoskeletal History: Fibromyalgia, Osteoarthritis GI Medical History: Crohns Disease History: No Pertinent History Psycho-Social History: Anxiety, Depression Female Reproductive Disorders: Other Other Medical History: Cluster Headaches, pre cancerous cells cervix - Past Surgical History Past Surgical History: Yes Neuro Surgical History: No Pertinent History Cardiac: No Pertinent History Respiratory: No Pertinent History Gastrointestinal: Bowel Surgery, Cholecystectomy, Colon Resection Genitourinary: No Pertinent History Musculoskeletal: No Pertinent History Female Surgical History: Hysterectomy Other Surgical History: port-a-cath placement, tonsillectomy, 2 bowel resections - Social History Smoking Status: Current every day smoker How long have you smoked: 20 Exposure to second hand smoke: No Drug Use: none Patient Lives Alone: No - Female History Hx Now: No (hysterectomy) - Nursing Vital Signs Nursing Vital Signs: Initial Vital Signs Temperature 98.2 F 05/27/18 07:12 Pulse Rate 119 H 05/27/18 07:12 Blood Pressure 113/76 05/27/18 07:12 O2 Sat by Pulse Oximetry 96 05/27/18 07:12 Pain Scale Pain Intensity 5 - Physical Exam General Appearance: moderate distress Eye Exam: PERRL/EOMI, eyes nml inspection Ears, Nose, Throat Exam: normal ENT inspection, pharynx normal, moist mucous membranes Neck Exam: normal inspection, non-tender, supple, full range of motion Respiratory Exam: normal breath sounds, lungs clear, No respiratory distress Cardiovascular Exam: regular rate/rhythm, normal heart sounds Gastrointestinal/Abdomen Exam: tenderness (generalized) Pelvic Exam: not done Rectal Exam: not done Back Exam: normal inspection, normal range of motion, No CVA tenderness, No vertebral tenderness Extremity Exam: normal inspection, normal range of motion, pelvis stable Neurologic Exam: alert, oriented x 3, cooperative, normal mood/affect, nml cerebellar function, sensation nml, No motor deficits Skin Exam: normal color, warm, dry SpO2 Interpretation: normal SpO2: 96 Oxygen Delivery: Room Air - CT Exams Abdomen/Pelvis CT Interpretation: Tele-radiologist Report (per Dr Holguin), Other (mild fluid distended small bowel with wall thickening with stranding favoring enteritis) Ordered Tests: Active Orders 24 hr Category Date Time Status Clean Catch Urine Specimen STAT Care 05/27/18 07:58 Active IV Insertion STAT Care 05/27/18 07:58 Active ABDOMEN AND PELVIS W/0 CONTRAS [CT] Stat Exams 05/27/18 07:59 Completed AMYLASE Stat Lab 05/27/18 07:58 Completed CBC W DIFF Stat Lab 05/27/18 08:15 Completed CMP Stat Lab 05/27/18 07:58 Completed LIPASE Stat Lab 05/27/18 07:58 Completed Lactic Acid Stat Lab 05/27/18 08:30 Completed UA W/RFX UR CULTURE Stat Lab 05/27/18 08:15 Completed Medication Summary Discontinued Medications Generic Name Dose Route Start Last Admin Trade Name Freq PRN Reason Stop Dose Admin Sodium Chloride 1,000 mls @ 999 mls/hr 05/27/18 07:58 05/27/18 08:38 Sodium Chloride 0.9% 1000 Ml IV 05/27/18 08:58 999 mls/hr .Q1H1M STA Administration Morphine Sulfate 4 mg 05/27/18 07:58 05/27/18 08:39 Morphine Sulfate 4 Mg Inj IV 05/27/18 07:59 4 mg STAT ONE Administration Morphine Sulfate 4 mg 05/27/18 09:57 05/27/18 10:11 Morphine Sulfate 4 Mg Inj IV 05/27/18 09:58 4 mg STAT ONE Administration Morphine Sulfate Confirm 05/27/18 10:06 Morphine Sulfate 4 Mg Inj Administered 05/27/18 10:07 Dose 4 mg .ROUTE .STK-MED ONE Ondansetron HCl 4 mg 05/27/18 07:58 05/27/18 08:39 Zofran 4 Mg/2 Ml Vial IV 05/27/18 07:59 4 mg STAT ONE Administration Lab/Rad Data: Laboratory Result Diagrams 05/27/18 08:15 05/27/18 07:58 Laboratory Results 05/27/18 05/27/18 05/27/18 Range/Units 08:30 08:15 08:15 WBC 14.9 H (4.0-10.5) K/mm3 RBC 4.01 L (4.1-5.4) M/mm3 Hgb 10.8 L (12.0-16.0) gm/dl Hct 34.5 L (35-47) % MCV 86.0 (78-100) fl MCH 26.9 (26-32) pg MCHC 31.3 L (32-36) g/dl RDW 15.2 H (11.5-14.0) % Plt Count 473 H (150-450) K/mm3 MPV 8.8 (6-9.5) fl Gran % 76.3 H (36.0-66.0) % Eos # (Auto) 0.23 (0-0.5) Absolute Lymphs (auto) 2.47 (1.0-4.6) Absolute Monos (auto) 0.82 (0.0-1.3) Lymphocytes % 16.5 L (24.0-44.0) % Monocytes % 5.5 (0.0-12.0) % Eosinophils % 1.5 (0.00-5.0) % Basophils % 0.2 (0.0-0.4) % Absolute Granulocytes 11.39 H (1.4-6.9) Basophils # 0.03 (0-0.4) Sodium (137-145) mmol/L Potassium (3.5-5.1) mmol/L Chloride (98-107) mmol/L Carbon Dioxide (22-30) mmol/L Anion Gap (5-15) MEQ/L BUN (7-17) mg/dL Creatinine (0.52-1.04) mg/dL Estimated GFR ML/MIN Glucose (74-106) mg/dL Lactic Acid 1.0 (0.4-2.0) Calcium (8.4-10.2) mg/dL Total Bilirubin (0.2-1.3) mg/dL AST (14-36) U/L ALT (0-35) U/L Alkaline Phosphatase (38-126) U/L Serum Total Protein (6.3-8.2) g/dL Albumin (3.5-5.0) g/dL Amylase (30-110) U/L Lipase (23-300) U/L Urine Color STRAW (YELLOW) Urine Appearance CLEAR (CLEAR) Urine pH 6.0 (5-6) Ur Specific [place] 1.010 (1.005-1.025) Urine Protein NEGATIVE (Negative) Urine Ketones NEGATIVE (NEGATIVE) Urine Blood NEGATIVE (0-5) Elias/ul Urine Nitrite NEGATIVE (NEGATIVE) Urine Bilirubin NEGATIVE (NEGATIVE) Urine Urobilinogen NEGATIVE (0-1) mg/dL Ur Leukocyte Esterase NEGATIVE (NEGATIVE) Urine WBC (Auto) NONE (0-5) /HPF Urine RBC (Auto) NONE (0-2) /HPF U Epithel Cells (Auto) NONE (FEW) /HPF Urine Bacteria (Auto) NONE SEEN (NEGATIVE) /HPF Urine Culture Reflexed NO (NO) Urine Glucose NEGATIVE (NEGATIVE) mg/dL 05/27/18 Range/Units 07:58 WBC (4.0-10.5) K/mm3 RBC (4.1-5.4) M/mm3 Hgb (12.0-16.0) gm/dl Hct (35-47) % MCV (78-100) fl MCH (26-32) pg MCHC (32-36) g/dl RDW (11.5-14.0) % Plt Count (150-450) K/mm3 MPV (6-9.5) fl Gran % (36.0-66.0) % Eos # (Auto) (0-0.5) Absolute Lymphs (auto) (1.0-4.6) Absolute Monos (auto) (0.0-1.3) Lymphocytes % (24.0-44.0) % Monocytes % (0.0-12.0) % Eosinophils % (0.00-5.0) % Basophils % (0.0-0.4) % Absolute Granulocytes (1.4-6.9) Basophils # (0-0.4) Sodium 138 (137-145) mmol/L Potassium 3.5 (3.5-5.1) mmol/L Chloride 104 (98-107) mmol/L Carbon Dioxide 27 (22-30) mmol/L Anion Gap 11.6 (5-15) MEQ/L BUN 14 (7-17) mg/dL Creatinine 0.46 L (0.52-1.04) mg/dL Estimated GFR > 60.0 ML/MIN Glucose 94 (74-106) mg/dL Lactic Acid (0.4-2.0) Calcium 8.8 (8.4-10.2) mg/dL Total Bilirubin 0.20 (0.2-1.3) mg/dL AST 15 (14-36) U/L ALT 20 (0-35) U/L Alkaline Phosphatase 93 (38-126) U/L Serum Total Protein 6.7 (6.3-8.2) g/dL Albumin 3.7 (3.5-5.0) g/dL Amylase 63 (30-110) U/L Lipase 142 (23-300) U/L Urine Color (YELLOW) Urine Appearance (CLEAR) Urine pH (5-6) Ur Specific [place] (1.005-1.025) Urine Protein (Negative) Urine Ketones (NEGATIVE) Urine Blood (0-5) Elias/ul Urine Nitrite (NEGATIVE) Urine Bilirubin (NEGATIVE) Urine Urobilinogen (0-1) mg/dL Ur Leukocyte Esterase (NEGATIVE) Urine WBC (Auto) (0-5) /HPF Urine RBC (Auto) (0-2) /HPF U Epithel Cells (Auto) (FEW) /HPF Urine Bacteria (Auto) (NEGATIVE) /HPF Urine Culture Reflexed (NO) Urine Glucose (NEGATIVE) mg/dL - Progress Progress: unchanged Progress Note: 05/27/18 09:27 given zofran 4 mg, MSO4 4 mg, and fluids with improvement. 05/27/18 09:[address] Gregory who saw pt on Sunday for pain med refill. Pt was doing fine at the time. Dr Gregory wants pt transferred to [place] where there is a GI doctor. 05/27/18 10:12 Dr Horne, hospitalist, [facility] accepts pt. Counseled pt/family regarding: lab results, diagnosis, rad results - Departure Time of Disposition: 10:13 Departure Disposition: Transfer (transfer to [facility] per Dr Horne) Clinical Impression: Abdominal pain, Enteritis Condition: Stable Critical Care Time: No Referrals: AKIKO GREGORY [Primary Care Provider] -
[2018-05-27 08:31] LABS: BASOPHIL % 0.2 % (0.0-0.4); Basophil (Absolute #) 0.03 (0-0.4); Eosinophil % 1.5 % (0.00-5.0); Eosinophil (Absolute #) 0.23 (0-0.5); Granulocyte Absolute (ANC) 11.39 (1.4-6.9); Granulocytes % 76.3 % (36.0-66.0); Hematocrit 34.5 % (35-47); Hemoglobin 10.8 gm/dl (12.0-16.0); Lymphocyte (Absolute #) 2.47 (1.0-4.6); Lymphocytes % 16.5 % (24.0-44.0); Mean Corpuscular Hemoglobin 26.9 pg (26-32); Mean Corpuscular Hgb Concent. 31.3 g/dl (32-36); Mean Platelet Volume 8.8 fl (6-9.5); Monocyte (Absolute #) 0.82 (0.0-1.3); Monocytes % 5.5 % (0.0-12.0); Platelet Count 473 K/mm3 (150-450); Red Blood Count 4.01 M/mm3 (4.1-5.4); Red Cell Distribution Width 15.2 % (11.5-14.0); White Blood Count 14.9 K/mm3 (4.0-10.5)
[2018-05-27] MEDS: Sodium Chloride 0.9% 1000 ML 1,000 ML IV STA (08:38)
[2018-05-27] MEDS: Zofran 4 MG/2 ML VIAL IV ONE (08:39)
[2018-05-27] MEDS: MORPHINE SULFATE 4 MG INJ IV ONE ×2 (08:39→10:11)
[2018-05-27 08:42] LABS: Appearance CLEAR (CLEAR); Bilirubin NEGATIVE (NEGATIVE); Blood NEGATIVE Ery/ul (0-5); Glucose NEGATIVE (NEGATIVE); Ketones NEGATIVE (NEGATIVE); Leukocyte Esterase NEGATIVE (NEGATIVE); Nitrite NEGATIVE (NEGATIVE); Protein,Urine Dip NEGATIVE (Negative); Urobilinogen NEGATIVE mg/dL (0-1)
[2018-05-27 08:53] LABS: ALBUMIN 3.7 g/dL (3.5-5.0); ALKALINE PHOSPHATASE 93 U/L (38-126); AMYLASE 63 U/L (30-110); ANION GAP 11.6 MEQ/L (5-15); BLOOD UREA NITROGEN 14 mg/dL (7-17); CHLORIDE 104 mmol/L (98-107); Calcium 8.8 mg/dL (8.4-10.2); Carbon Dioxide 27 mmol/L (22-30); Creatinine 1 0.46 mg/dL (0.52-1.04); Glucose 94 mg/dL (74-106); LIPASE 142 U/L (23-300); Potassium 3.5 mmol/L (3.5-5.1); SGOT/AST 15 U/L (14-36); SGPT/ALT 20 U/L (0-35); SODIUM 138 mmol/L (137-145); Total Protein 6.7 g/dL (6.3-8.2)
--- NOTE | 2018-05-27 09:22 | XRAY ---
Indication: Diffuse abdominal pain. Multiple contiguous axial images obtained through the abdomen and pelvis without contrast as ordered. Comparison: July 01 and October 21, 2017. Lung bases demonstrates worsening bibasilar discoid atelectasis. No infiltrate or effusion. Heart is not enlarged. Noncontrasted stomach and bowel loops appear nonobstructed. Left mid abdomen demonstrates a loop of mild fluid distended small bowel with wall thickening with stranding favoring enteritis. Also new moderate diffuse scattered colonic fecal debris throughout including rectum. Stable cholecystectomy, hysterectomy, calcified splenic granulomas, and right lower quadrant anastomosis. No free fluid/air. Remaining liver, pancreas, spleen, adrenal glands, kidneys, ureters, bladder, and aorta appear unremarkable for noncontrast exam. Osseous structures intact. No ventral or inguinal hernias. Impression: 1. New CT finding favoring enteritis. 2. New diffuse fecal stasis without obstruction. 3. Worsening bibasilar discoid atelectasis. 4. Remaining CT abdomen/pelvis without contrast exam is negative. CT DI 13.05
[2018-05-27] MEDS ORDERED: MORPHINE SULFATE 4 MG INJ ONE (10:06)
[2018-05-27 11:38] VITALS: BP 132/72; PULSE 72; O2SAT 98
== END 2018-05-27 11:54 | disposition short-term general hospital (02) ==
LOC: ED 07:08
DX: R10.84 Generalized abdominal pain (principal); K52.9 Noninfective gastroenteritis and colitis, unspecified; Z79.899 Other long term (current) drug therapy; K50.90 Crohn's disease, unspecified, without complications
CPT/HCPCS: 36000; 36415; 74176; 80053; 81001; 82150; 83605; 83690; 85025; 96360; 96374; 96375; 96376; 99285; J2270; J2405

== ENCOUNTER 2018-10-09 16:39 | Emergency (ER) | payer OTHER ==
[2018-10-09] MEDS ORDERED: Phenergan 25 MG INJ IV ONE (17:03)
[2018-10-09] MEDS ORDERED: Lactated Ringers 1,000 ML IV ONE ×2 (17:04→17:10)
[2018-10-09] MEDS ORDERED: Klor Con 10 MEQ PO ONE ×2 (17:10→17:46)
[2018-10-09] MEDS ORDERED: Phenergan 25 MG INJ ONE (17:10)
--- NOTE | 2018-10-09 17:11 | ERPHSYRPT ---
- History of Present Illness Time Seen by Provider: 10/09/18 16:47 Source: patient Exam Limitations: no limitations Physician History: patient sent from Clinic because low K+=2.7; patient has hx of Chrons disease and chronic abd pain with loose watery stools and intermittant abd pain with N&V ; no fever or chills; Dr Gregory called and wants us to give her some K+ and release her. she takes dilaudid at home and took zofran at home but not helping completely; Timing/Duration: today Severity: mild Modifying Factors: Improves With: other Associated Symptoms: nausea, vomiting, abdominal pain, other (watery diarrhea chronic no change) Allergies/Adverse Reactions: clonazepam [From Klonopin] Allergy (Mild, Verified 10/09/18 16:59) "I DON'T KNOW" divalproex sodium [From Depakote] Allergy (Mild, Verified 10/09/18 16:59) "I DON'T KNOW" duloxetine HCl [From Cymbalta] Allergy (Mild, Verified 10/09/18 16:59) Hives fentanyl Allergy (Mild, Verified 10/09/18 16:59) Hives meperidine HCl [From Demerol] Allergy (Mild, Verified 10/09/18 16:59) Hives buprenorphine Allergy (Verified 10/09/18 16:59) duloxetine [From Cymbalta] Allergy (Verified 10/09/18 16:59) meperidine [From Demerol] Allergy (Verified 10/09/18 16:59) adalimumab [From Humira] Adverse Reaction (Mild, Verified 10/09/18 16:59) Vomiting prednisone Adverse Reaction (Mild, Verified 10/09/18 16:59) SHAKING Home Medications: Cholecalciferol (Vitamin D3) [Vitamin D3] 50,000 unit PO WEEKLY 11/13/16 [ History] Vedolizumab [Entyvio] 300 mg IV UD 11/13/16 [History] Omeprazole 20 mg PO DAILY 10/09/18 [History] Hx Tetanus, Diphtheria Vaccination/Date Given: Yes Hx Influenza Vaccination/Date Given: No Hx Pneumococcal Vaccination/Date Given: No - Review of Systems Constitutional: No Symptoms Eyes: No Symptoms Ears, Nose, & Throat: No Symptoms Respiratory: No Cough, No Dyspnea, No Wheezing Cardiac: No Chest Pain, No Palpitations, No Syncope Abdominal/Gastrointestinal: Abdominal Pain (chronic no change), Nausea, Vomiting (no change), Diarrhea (chronic no change) Genitourinary Symptoms: No Symptoms Musculoskeletal: No Symptoms Skin: No Symptoms Neurological: No Symptoms Psychological: No Symptoms - Past Medical History Pertinent Past Medical History: Yes Neurological History: No Pertinent History ENT History: No Pertinent History Cardiac History: Arrhythmia Respiratory History: No Pertinent History Endocrine Medical History: Hypothyroidism Musculoskeletal History: Fibromyalgia, Osteoarthritis GI Medical History: Crohns Disease History: No Pertinent History Psycho-Social History: Anxiety, Depression Female Reproductive Disorders: Other Other Medical History: Cluster Headaches, pre cancerous cells cervix - Past Surgical History Past Surgical History: Yes Neuro Surgical History: No Pertinent History Cardiac: No Pertinent History Respiratory: No Pertinent History Gastrointestinal: Bowel Surgery, Cholecystectomy, Colon Resection Genitourinary: No Pertinent History Musculoskeletal: No Pertinent History Female Surgical History: Hysterectomy Other Surgical History: port-a-cath placement, tonsillectomy, 2 bowel resections - Social History Smoking Status: Current every day smoker How long have you smoked: 20 Exposure to second hand smoke: No Alcohol Use: None Drug Use: none Patient Lives Alone: No Significant Family History: no pertinent family hx - Female History Hx Now: No - Nursing Vital Signs Nursing Vital Signs: Initial Vital Signs Temperature 98.6 F 10/09/18 16:55 Pulse Rate 112 H 10/09/18 16:55 Respiratory Rate 16 10/09/18 16:55 Blood Pressure 114/76 10/09/18 16:55 O2 Sat by Pulse Oximetry 97 10/09/18 16:55 Pain Scale Pain Intensity 6 - Physical Exam General Appearance: mild distress, alert, thin Eye Exam: PERRL/EOMI, eyes nml inspection, No photophobia Ears, Nose, Throat Exam: normal ENT inspection, TMs normal, pharynx normal, moist mucous membranes Neck Exam: normal inspection, non-tender, supple, full range of motion, No meningismus, No JVD Respiratory Exam: normal breath sounds, lungs clear, airway intact, No chest tenderness, No respiratory distress, No diminished breath sounds Cardiovascular Exam: regular rate/rhythm, normal heart sounds, normal peripheral pulses, capillary refill <2 sec, No murmur Gastrointestinal/Abdomen Exam: soft, normal bowel sounds, tenderness (mild diffuse), guarding (mild ), No distention, No mass, No pulsatile mass, No rebound, No organomegaly Pelvic Exam: deferred Rectal Exam: deferred Back Exam: normal inspection, normal range of motion, No CVA tenderness, No rash Extremity Exam: normal inspection, normal range of motion, No jane's sign, No pedal edema Neurologic Exam: alert, oriented x 3, cooperative, plasterer spray 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 II-XII nml as tested, normal mood/affect, nml cerebellar function, nml station & gait, other (no hyperreflexia) Skin Exam: normal color, warm, dry, No rash, No petechiae - Course Nursing assessment & vital signs reviewed: Yes Ordered Tests: Active Orders 24 hr Category Date Time Status IV Insertion STAT Care 10/09/18 17:03 Active Medication Summary Discontinued Medications Generic Name Dose Route Start Last Admin Trade Name Freq PRN Reason Stop Dose Admin Hydromorphone HCl 2 mg 10/09/18 17:35 10/09/18 17:41 Hydromorphone 1 Mg/Ml Ampule IV 10/09/18 17:36 2 mg STAT ONE Administration Hydromorphone HCl Confirm 10/09/18 17:39 Hydromorphone 1 Mg/Ml Ampule Administered 10/09/18 17:40 Dose 2 mg .ROUTE .STK-MED ONE Lactated Ringer's 1,000 mls @ 999 mls/hr 10/09/18 17:04 10/09/18 18:29 Lactated Ringers IV 10/09/18 18:04 Infused .Q1H1M ONE Infusion Lactated Ringer's Confirm 10/09/18 17:10 Lactated Ringers Administered 10/09/18 17:11 Dose 1,000 mls @ ud IV .STK-MED ONE Potassium Chloride 40 meq 10/09/18 17:05 10/09/18 17:48 Klor Con 10 Meq PO 10/09/18 17:06 40 meq STAT ONE Administration Potassium Chloride Confirm 10/09/18 17:10 Klor Con 10 Meq Administered 10/09/18 17:11 Dose 40 meq PO .STK-MED ONE Potassium Chloride Confirm 10/09/18 17:46 Klor Con 10 Meq Administered 10/09/18 17:47 Dose 40 meq PO .STK-MED ONE Promethazine HCl 12.5 mg 10/09/18 17:03 10/09/18 17:20 Phenergan 25 Mg Inj IV 10/09/18 17:04 12.5 mg STAT ONE Administration Promethazine HCl Confirm 10/09/18 17:10 Phenergan 25 Mg Inj Administered 10/09/18 17:11 Dose 25 mg .ROUTE .STK-MED ONE Lab/Rad Data: k+= 2.7 FROM CLINIC - Progress Progress: improved, re-examined Progress Note: 10/09/18 17:11 will give LR IV and oral potassium with phenergan; will monitor and recheck 10/09/18 19:04 PATIENT TOLERATED iv FLUIDS, ANTIEMETICS AND PAIN MED AND ORAL k+ WELL dR Gregory NOTIFIED AND PATIENT RELEASED HOME TO FOLLOW UP WITH dR GREGORY IN THE OFFICE 10/09/18 19:06 INSTRUCTIONS GIVEN Counseled pt/family regarding: lab results, diagnosis, need for follow-up - Departure Departure Disposition: Home Clinical Impression: Hypokalemia, History of Crohn's disease Condition: Stable Critical Care Time: No Referrals: AKIKO GREGORY [Primary Care Provider] - Instructions: Hypokalemia (DC) Additional Instructions: CONTINUE HOME MEDS; TAKE ORAL k+; FOLLOW UP dR Gregory Follow-up with family doctor as directed. Call for appointment. Return if any problems. If you smoke please stop. Call or follow up with your family doctor for assistance if you need it to stop. Please wear your seatbelt when driving. Have a nice day. Thank you for allowing us to participate in your care today. :o) Dr Carlos Manuel Ovalles
[2018-10-09] MEDS: Klor Con 10 MEQ PO ONE ×2 (17:20→17:48)
[2018-10-09] MEDS ORDERED: Hydromorphone 1 mg/ml Ampule IV ONE (17:35)
[2018-10-09] MEDS ORDERED: Hydromorphone 1 mg/ml Ampule ONE (17:39)
[2018-10-09 19:22] VITALS: BP 105/71; PULSE 93; O2SAT 95
== END 2018-10-09 19:31 | disposition home or self-care (01) ==
LOC: ED 16:39
DX: E87.6 Hypokalemia (principal); K50.90 Crohn's disease, unspecified, without complications
CPT/HCPCS: 36000; 36415; 80048; 82306; 82607; 84443; 85025; 96360; 96374; 96375; 99284; J1170; J1642; J2550; A9270-GY

== ENCOUNTER 2018-11-10 19:45 | Emergency (ER) | payer OTHER ==
[2018-11-10] MEDS ORDERED: Zofran 4 MG/2 ML VIAL IV ONE (20:31)
[2018-11-10] MEDS ORDERED: Sodium Chloride 0.9% 1000 ML 1,000 ML IV STA ×2 (20:31→20:39)
[2018-11-10] MEDS ORDERED: Sodium Chloride 0.9% 1000 ML 1,000 ML ONE ×3 (20:35→22:54)
[2018-11-10] MEDS ORDERED: Zofran 4 MG/2 ML VIAL ONE (20:35)
[2018-11-10] MEDS ORDERED: DILAUDID 2 MG INJECTION IV STA ×2 (20:40→23:06)
[2018-11-10] MEDS ORDERED: Hydromorphone 1 mg/ml Ampule ONE ×2 (20:43→23:21)
[2018-11-10 20:45] LABS: BASOPHIL % 0.4 % (0.0-0.4); Basophil (Absolute #) 0.03 (0-0.4); Eosinophil % 1.7 % (0.00-5.0); Eosinophil (Absolute #) 0.13 (0-0.5); Granulocyte Absolute (ANC) 5.11 (1.4-6.9); Granulocytes % 65.8 % (36.0-66.0); Hematocrit 30.6 % (35-47); Hemoglobin 9.5 gm/dl (12.0-16.0); Lymphocyte (Absolute #) 2.07 (1.0-4.6); Lymphocytes % 26.7 % (24.0-44.0); Mean Cell Volume 79.7 fl (78-100); Mean Corpuscular Hemoglobin 24.7 pg (26-32); Mean Platelet Volume 8.9 fl (6-9.5); Monocyte (Absolute #) 0.42 (0.0-1.3); Monocytes % 5.4 % (0.0-12.0); Platelet Count 424 K/mm3 (150-450); Red Blood Count 3.84 M/mm3 (4.1-5.4); White Blood Count 7.8 K/mm3 (4.0-10.5)
[2018-11-10 20:53] LABS: INR 1.16 (0.8-3.0); PROTIME 13.5 SECONDS (9.95-12.35)
[2018-11-10 20:57] LABS: ALBUMIN 3.2 g/dL (3.5-5.0); ALKALINE PHOSPHATASE 80 U/L (38-126); AMYLASE 47 U/L (30-110); ANION GAP 11.5 MEQ/L (5-15); BLOOD UREA NITROGEN 8 mg/dL (7-17); CHLORIDE 104 mmol/L (98-107); Calcium 8.8 mg/dL (8.4-10.2); Carbon Dioxide 28 mmol/L (22-30); Creatinine 1 0.38 mg/dL (0.52-1.04); Glucose 104 mg/dL (74-106); LIPASE 59 U/L (23-300); MAGNESIUM 1.9 mg/dL (1.6-2.3); SGOT/AST 11 U/L (14-36); SGPT/ALT 15 U/L (0-35); SODIUM 141 mmol/L (137-145); Total Protein 6.2 g/dL (6.3-8.2)
[2018-11-10 20:59] VITALS: O2SAT 96
[2018-11-10 21:00] LABS: Potassium 2.9 mmol/L (3.5-5.1)
[2018-11-10 21:09] LABS: Appearance CLEAR (CLEAR); Bacteria RARE /HPF (NEGATIVE); Bilirubin NEGATIVE (NEGATIVE); Blood NEGATIVE Ery/ul (0-5); Epithelial Cells RARE /HPF (FEW); Glucose NEGATIVE (NEGATIVE); Ketones NEGATIVE (NEGATIVE); Leukocyte Esterase NEGATIVE (NEGATIVE); Nitrite NEGATIVE (NEGATIVE); Protein,Urine Dip NEGATIVE (Negative); Specific Gravity 1.006 (1.005-1.025); Urobilinogen NEGATIVE mg/dL (0-1); WBC 0-2 /HPF (0-5)
[2018-11-10] MEDS: Sodium Chloride 0.9% 1000 ML 1,000 ML IV SCH ×2 (21:22→21:23)
[2018-11-10] MEDS ORDERED: POTASSIUM CHLORIDE 20 mEq IN WATER 100ML 20 MEQ/100 ML BAG IV ONE (22:02)
[2018-11-10] MEDS ORDERED: POTASSIUM CHLORIDE 20 mEq IN WATER 100ML 100 ML IV ONE (22:04)
--- NOTE | 2018-11-10 22:14 | ERPHSYRPT ---
- History of Present Illness Time Seen by Provider: 11/10/18 20:20 Historian: patient Exam Limitations: clinical condition Patient Subjective Stated Complaint: Abdominal pain Triage Nursing Assessment: Patient ambulated back to ED and transferred self to bed. Patietn A+O X 3. Patient's skin pink, warm and dry. Patient complains of abdominal pain all over abdomen 9/10 that is throbbing and cramping. Patient states she has been having the pain for 2 days. Patient did take dilaudid 4mg PO at 1000 with no relief. Patient states she has been having diarrhea for 2 days. Patient's abdomen flat, soft and tender with hyperactive BS X 4. Physician History: PATIENT WITH A HISTORY OF CROHNS DISEASE, POST BOWEL RESECTIONS X 2 COMPLAINS OF GENERALIZED ABDOMINAL PAIN X 3 DAYS. DENIES DIARRHEA OR FEVER OR CHILLS. UNABLE TO TOLERATE FLUIDS. DENIES MELENA OR HEMATOCHEZIA, Timing/Duration: day(s) Activities at Onset: none Quality: sharpness, stabbing Abdominal Pain Onset Location: generalized abdomen Pain Radiation: no radiation Severity of Pain-Max: severe Severity of Pain-Current: severe Modifying Factors: Improves With: analgesics, other (HAS NO RELIEF AFTER ORAL DILAUDID 4MG ) Associated Symptoms: nausea, vomiting Previous symptoms: same symptoms as today Allergies/Adverse Reactions: clonazepam [From Klonopin] Allergy (Mild, Verified 11/10/18 20:08) "I DON'T KNOW" divalproex sodium [From Depakote] Allergy (Mild, Verified 11/10/18 20:08) "I DON'T KNOW" duloxetine HCl [From Cymbalta] Allergy (Mild, Verified 11/10/18 20:08) Hives fentanyl Allergy (Mild, Verified 11/10/18 20:08) Hives meperidine HCl [From Demerol] Allergy (Mild, Verified 11/10/18 20:08) Hives buprenorphine Allergy (Verified 11/10/18 20:08) duloxetine [From Cymbalta] Allergy (Verified 11/10/18 20:08) meperidine [From Demerol] Allergy (Verified 11/10/18 20:08) adalimumab [From Humira] Adverse Reaction (Mild, Verified 11/10/18 20:08) Vomiting prednisone Adverse Reaction (Mild, Verified 11/10/18 20:08) SHAKING Home Medications: Cholecalciferol (Vitamin D3) [Vitamin D3] 50,000 unit PO WEEKLY 11/13/16 [ History] Vedolizumab [Entyvio] 300 mg IV UD 11/13/16 [History] Omeprazole 20 mg PO DAILY 10/09/18 [History] Hx Tetanus, Diphtheria Vaccination/Date Given: Yes Hx Influenza Vaccination/Date Given: No Hx Pneumococcal Vaccination/Date Given: No Immunizations Up to Date: Yes - Review of Systems Constitutional: No Fever, No Chills Eyes: No Symptoms Ears, Nose, & Throat: No Symptoms Respiratory: No Symptoms, No Cough, No Dyspnea Cardiac: No Chest Pain, No Edema, No Syncope Abdominal/Gastrointestinal: No Abdominal Pain, No Nausea, No Vomiting, No Diarrhea Genitourinary Symptoms: No Dysuria Musculoskeletal: No Back Pain, No Neck Pain Skin: No Rash Neurological: No Dizziness, No Focal Weakness, No Sensory Changes Psychological: No Symptoms Endocrine: No Symptoms All Other Systems: Reviewed and Negative - Past Medical History Pertinent Past Medical History: Yes Neurological History: No Pertinent History ENT History: No Pertinent History Cardiac History: Arrhythmia Respiratory History: No Pertinent History Endocrine Medical History: Hypothyroidism Musculoskeletal History: Fibromyalgia, Osteoarthritis GI Medical History: Crohns Disease History: No Pertinent History Psycho-Social History: Anxiety, Depression Female Reproductive Disorders: Other Other Medical History: Cluster Headaches, pre cancerous cells cervix - Past Surgical History Past Surgical History: Yes Neuro Surgical History: No Pertinent History Cardiac: No Pertinent History Respiratory: No Pertinent History Gastrointestinal: Bowel Surgery, Cholecystectomy, Colon Resection Genitourinary: No Pertinent History Musculoskeletal: No Pertinent History Female Surgical History: Hysterectomy Other Surgical History: port-a-cath placement, tonsillectomy, 2 bowel resections - Social History Smoking Status: Current every day smoker How long have you smoked: 20 Exposure to second hand smoke: No Alcohol Use: None Drug Use: none Patient Lives Alone: No Significant Family History: no pertinent family hx - Female History Hx Last Menstrual Period: Hysterectomy Hx Now: No - Nursing Vital Signs Nursing Vital Signs: Initial Vital Signs Temperature 99.8 F 11/10/18 20:10 Pulse Rate 114 H 11/10/18 20:10 Respiratory Rate 20 11/10/18 20:10 Blood Pressure 124/82 11/10/18 20:10 O2 Sat by Pulse Oximetry 94 L 11/10/18 20:10 Pain Scale Pain Intensity 6 - Physical Exam SpO2: 96 - CT Exams Abdomen/Pelvis CT Interpretation: Tele-radiologist Report (MILD WALL THICKENING OF THE RECTOSIGMOID COLON, FOCAL AREA LOF NARROWING IN THE MID TRANSVERSE COLON. ADDITIONAL WALL THICKENING IN THE ASCENDING COLON WITH WALL THICKENING OF THE DISTAL SMALL BOWEL, SUGGESTIVE OF CROHNS DISEASE.) Ordered Tests: Active Orders 24 hr Category Date Time Status Etcher Photoengraving STAT Care 11/10/18 20:41 Active EKG-ER Only STAT Care 11/10/18 20:31 Active IV Insertion STAT Care 11/10/18 20:17 Active IV Insertion-2nd Peripheral STAT Care 11/10/18 20:59 Active Oxygen-ED Only Nasal Cannula 2 lpm Care 11/10/18 20:41 Active ABDOMEN AND PELVIS W CONTRAST [CT] Stat Exams 11/10/18 20:32 Taken AMYLASE Stat Lab 11/10/18 20:40 Completed BLOOD CULTURE Stat Lab 11/10/18 20:55 Received CBC W DIFF Stat Lab 11/10/18 20:40 Completed CMP Stat Lab 11/10/18 20:40 Completed LIPASE Stat Lab 11/10/18 20:40 Completed Lactic Acid Stat Lab 11/10/18 20:40 Completed MAGNESIUM Stat Lab 11/10/18 20:40 Completed PROTIME WITH INR Stat Lab 11/10/18 20:43 Completed TROPONIN Q3H Lab 11/10/18 20:43 Completed UA W/RFX UR CULTURE Stat Lab 11/10/18 21:01 Completed Urine Triage Profile Stat Lab 11/10/18 21:00 Completed Medication Summary Generic Name Dose Route Start Last Admin Trade Name Freq PRN Reason Stop Dose Admin Sodium Chloride 1,000 mls @ 999 mls/hr 11/10/18 20:45 11/10/18 21:23 Sodium Chloride 0.9% 1000 Ml IV 11/10/18 22:45 Not Given .Q1H1M FRANK Sodium Chloride 1,000 mls @ 100 mls/hr 11/10/18 23:30 11/10/18 23:29 Sodium Chloride 0.9% 1000 Ml IV 12/10/18 23:29 100 mls/hr .Q10H FRANK Administration Discontinued Medications Generic Name Dose Route Start Last Admin Trade Name Freq PRN Reason Stop Dose Admin Hydromorphone HCl 2 mg 11/10/18 20:40 11/10/18 20:45 Dilaudid 2 Mg Injection IV 11/10/18 20:41 2 mg STAT STA Administration Hydromorphone HCl Confirm 11/10/18 20:43 Hydromorphone 1 Mg/Ml Ampule Administered 11/10/18 20:44 Dose 2 mg .ROUTE .STK-MED ONE Hydromorphone HCl 2 mg 11/10/18 23:06 11/10/18 23:28 Dilaudid 2 Mg Injection IV 11/10/18 23:07 2 mg STAT STA Administration Hydromorphone HCl Confirm 11/10/18 23:21 Hydromorphone 1 Mg/Ml Ampule Administered 11/10/18 23:22 Dose 2 mg .ROUTE .STK-MED ONE Sodium Chloride 1,000 mls @ 999 mls/hr 11/10/18 20:31 11/10/18 21:41 Sodium Chloride 0.9% 1000 Ml IV 11/10/18 21:31 Infused .Q1H1M STA Infusion Sodium Chloride Confirm 11/10/18 20:35 Sodium Chloride 0.9% 1000 Ml Administered 11/10/18 20:36 Dose 1,000 mls @ ud .ROUTE .STK-MED ONE Sodium Chloride 1,000 mls @ 999 mls/hr 11/10/18 20:39 11/10/18 21:57 Sodium Chloride 0.9% 1000 Ml IV 11/10/18 21:39 Infused .Q1H1M STA Infusion Potassium Chloride 20 meq in 100 mls @ 50 mls/hr 11/10/18 22:02 11/10/18 22: 11 Potassium Chloride 20 Meq In Water 100ml IV 11/11/18 00:01 50 mls/hr STAT ONE Administration Potassium Chloride Confirm 11/10/18 22:04 Potassium Chloride 20 Meq In Water 100ml Administered 11/10/18 22:05 Dose 100 mls @ ud IV .STK-MED ONE Levofloxacin/Dextrose 500 mg in 100 mls @ 100 mls/hr 11/10/18 23:07 11/10/18 23:30 Levofloxacin 500mg/100ml D5w IV 11/11/18 00:06 100 mls/hr STAT STA Administration Levofloxacin/Dextrose Confirm 11/10/18 23:21 Levofloxacin 500mg/100ml D5w Administered 11/10/18 23:22 Dose 500 mg in 100 mls @ ud IV .STK-MED ONE Ondansetron HCl 4 mg 11/10/18 20:31 11/10/18 20:42 Zofran 4 Mg/2 Ml Vial IV 11/10/18 20:32 4 mg STAT ONE Administration Ondansetron HCl Confirm 11/10/18 20:35 Zofran 4 Mg/2 Ml Vial Administered 11/10/18 20:36 Dose 4 mg .ROUTE .STK-MED ONE Lab/Rad Data: Laboratory Result Diagrams 11/10/18 20:40 11/10/18 20:40 Laboratory Results 11/10/18 11/10/18 11/10/18 Range/Units 21:01 21:00 20:43 WBC (4.0-10.5) K/mm3 RBC (4.1-5.4) M/mm3 Hgb (12.0-16.0) gm/dl Hct (35-47) % MCV (78-100) fl MCH (26-32) pg MCHC (32-36) g/dl RDW (11.5-14.0) % Plt Count (150-450) K/mm3 MPV (6-9.5) fl Gran % (36.0-66.0) % Eos # (Auto) (0-0.5) Absolute Lymphs (auto) (1.0-4.6) Absolute Monos (auto) (0.0-1.3) Lymphocytes % (24.0-44.0) % Monocytes % (0.0-12.0) % Eosinophils % (0.00-5.0) % Basophils % (0.0-0.4) % Absolute Granulocytes (1.4-6.9) Basophils # (0-0.4) PT (9.95-12.35) SECONDS INR (0.8-3.0) Sodium (137-145) mmol/L Potassium (3.5-5.1) mmol/L Chloride (98-107) mmol/L Carbon Dioxide (22-30) mmol/L Anion Gap (5-15) MEQ/L BUN (7-17) mg/dL Creatinine (0.52-1.04) mg/dL Estimated GFR ML/MIN Glucose (74-106) mg/dL Lactic Acid (0.4-2.0) Calcium (8.4-10.2) mg/dL Magnesium (1.6-2.3) mg/dL Total Bilirubin (0.2-1.3) mg/dL AST (14-36) U/L ALT (0-35) U/L Alkaline Phosphatase (38-126) U/L Troponin I < 0.012 (0.000-0.034) ng/mL Serum Total Protein (6.3-8.2) g/dL Albumin (3.5-5.0) g/dL Amylase (30-110) U/L Lipase (23-300) U/L Urine Color STRAW (YELLOW) Urine Appearance CLEAR (CLEAR) Urine pH 7.0 (5-6) Ur Specific [place] 1.006 (1.005-1.025) Urine Protein NEGATIVE (Negative) Urine Ketones NEGATIVE (NEGATIVE) Urine Blood NEGATIVE (0-5) Elias/ul Urine Nitrite NEGATIVE (NEGATIVE) Urine Bilirubin NEGATIVE (NEGATIVE) Urine Urobilinogen NEGATIVE (0-1) mg/dL Ur Leukocyte Esterase NEGATIVE (NEGATIVE) Urine WBC (Auto) 0-2 (0-5) /HPF Urine RBC (Auto) NONE (0-2) /HPF U Epithel Cells (Auto) RARE (FEW) /HPF Urine Bacteria (Auto) RARE (NEGATIVE) /HPF Urine Culture Reflexed NO (NO) Urine Glucose NEGATIVE (NEGATIVE) mg/dL Urine Opiates Level POSITIVE (NEGATIVE) Ur Methadone NEGATIVE (NEGATIVE) Urine Barbiturates NEGATIVE (NEGATIVE) Ur Phencyclidine (PCP) NEGATIVE (NEGATIVE) Urine Amphetamine NEGATIVE (NEGATIVE) U Benzodiazepine Level NEGATIVE (NEGATIVE) Urine Cocaine NEGATIVE (NEGATIVE) Urine Marijuana (THC) NEGATIVE (NEGATIVE) 11/10/18 11/10/18 11/10/18 Range/Units 20:43 20:40 20:40 WBC (4.0-10.5) K/mm3 RBC (4.1-5.4) M/mm3 Hgb (12.0-16.0) gm/dl Hct (35-47) % MCV (78-100) fl MCH (26-32) pg MCHC (32-36) g/dl RDW (11.5-14.0) % Plt Count (150-450) K/mm3 MPV (6-9.5) fl Gran % (36.0-66.0) % Eos # (Auto) (0-0.5) Absolute Lymphs (auto) (1.0-4.6) Absolute Monos (auto) (0.0-1.3) Lymphocytes % (24.0-44.0) % Monocytes % (0.0-12.0) % Eosinophils % (0.00-5.0) % Basophils % (0.0-0.4) % Absolute Granulocytes (1.4-6.9) Basophils # (0-0.4) PT 13.5 H (9.95-12.35) SECONDS INR 1.16 (0.8-3.0) Sodium 141 (137-145) mmol/L Potassium 2.9 L* (3.5-5.1) mmol/L Chloride 104 (98-107) mmol/L Carbon Dioxide 28 (22-30) mmol/L Anion Gap 11.5 (5-15) MEQ/L BUN 8 (7-17) mg/dL Creatinine 0.38 L (0.52-1.04) mg/dL Estimated GFR > 60.0 ML/MIN Glucose 104 (74-106) mg/dL Lactic Acid 1.2 (0.4-2.0) Calcium 8.8 (8.4-10.2) mg/dL Magnesium 1.9 (1.6-2.3) mg/dL Total Bilirubin 0.10 L (0.2-1.3) mg/dL AST 11 L (14-36) U/L ALT 15 (0-35) U/L Alkaline Phosphatase 80 (38-126) U/L Troponin I (0.000-0.034) ng/mL Serum Total Protein 6.2 L (6.3-8.2) g/dL Albumin 3.2 L (3.5-5.0) g/dL Amylase 47 (30-110) U/L Lipase 59 (23-300) U/L Urine Color (YELLOW) Urine Appearance (CLEAR) Urine pH (5-6) Ur Specific [place] (1.005-1.025) Urine Protein (Negative) Urine Ketones (NEGATIVE) Urine Blood (0-5) Elias/ul Urine Nitrite (NEGATIVE) Urine Bilirubin (NEGATIVE) Urine Urobilinogen (0-1) mg/dL Ur Leukocyte Esterase (NEGATIVE) Urine WBC (Auto) (0-5) /HPF Urine RBC (Auto) (0-2) /HPF U Epithel Cells (Auto) (FEW) /HPF Urine Bacteria (Auto) (NEGATIVE) /HPF Urine Culture Reflexed (NO) Urine Glucose (NEGATIVE) mg/dL Urine Opiates Level (NEGATIVE) Ur Methadone (NEGATIVE) Urine Barbiturates (NEGATIVE) Ur Phencyclidine (PCP) (NEGATIVE) Urine Amphetamine (NEGATIVE) U Benzodiazepine Level (NEGATIVE) Urine Cocaine (NEGATIVE) Urine Marijuana (THC) (NEGATIVE) 11/10/18 Range/Units 20:40 WBC 7.8 (4.0-10.5) K/mm3 RBC 3.84 L (4.1-5.4) M/mm3 Hgb 9.5 L (12.0-16.0) gm/dl Hct 30.6 L (35-47) % MCV 79.7 (78-100) fl MCH 24.7 L (26-32) pg MCHC 31.0 L (32-36) g/dl RDW 17.0 H (11.5-14.0) % Plt Count 424 (150-450) K/mm3 MPV 8.9 (6-9.5) fl Gran % 65.8 (36.0-66.0) % Eos # (Auto) 0.13 (0-0.5) Absolute Lymphs (auto) 2.07 (1.0-4.6) Absolute Monos (auto) 0.42 (0.0-1.3) Lymphocytes % 26.7 (24.0-44.0) % Monocytes % 5.4 (0.0-12.0) % Eosinophils % 1.7 (0.00-5.0) % Basophils % 0.4 (0.0-0.4) % Absolute Granulocytes 5.11 (1.4-6.9) Basophils # 0.03 (0-0.4) PT (9.95-12.35) SECONDS INR (0.8-3.0) Sodium (137-145) mmol/L Potassium (3.5-5.1) mmol/L Chloride (98-107) mmol/L Carbon Dioxide (22-30) mmol/L Anion Gap (5-15) MEQ/L BUN (7-17) mg/dL Creatinine (0.52-1.04) mg/dL Estimated GFR ML/MIN Glucose (74-106) mg/dL Lactic Acid (0.4-2.0) Calcium (8.4-10.2) mg/dL Magnesium (1.6-2.3) mg/dL Total Bilirubin (0.2-1.3) mg/dL AST (14-36) U/L ALT (0-35) U/L Alkaline Phosphatase (38-126) U/L Troponin I (0.000-0.034) ng/mL Serum Total Protein (6.3-8.2) g/dL Albumin (3.5-5.0) g/dL Amylase (30-110) U/L Lipase (23-300) U/L Urine Color (YELLOW) Urine Appearance (CLEAR) Urine pH (5-6) Ur Specific [place] (1.005-1.025) Urine Protein (Negative) Urine Ketones (NEGATIVE) Urine Blood (0-5) Elias/ul Urine Nitrite (NEGATIVE) Urine Bilirubin (NEGATIVE) Urine Urobilinogen (0-1) mg/dL Ur Leukocyte Esterase (NEGATIVE) Urine WBC (Auto) (0-5) /HPF Urine RBC (Auto) (0-2) /HPF U Epithel Cells (Auto) (FEW) /HPF Urine Bacteria (Auto) (NEGATIVE) /HPF Urine Culture Reflexed (NO) Urine Glucose (NEGATIVE) mg/dL Urine Opiates Level (NEGATIVE) Ur Methadone (NEGATIVE) Urine Barbiturates (NEGATIVE) Ur Phencyclidine (PCP) (NEGATIVE) Urine Amphetamine (NEGATIVE) U Benzodiazepine Level (NEGATIVE) Urine Cocaine (NEGATIVE) Urine Marijuana (THC) (NEGATIVE) - Progress Progress Note: 11/10/18 23:35 IV NORMAL SALINE 1000ML/HR X 2 , LACTIC ACID 1.2, DILAUDID 2MG X 2 DOSES, ZOFRAN 4MG, AFTER 2 SETS OF BLOOD CULTURES ADMINISTERED LEVAQUIN 500MG, FLAGYL 500MG IVPB, SOLUMEDROL 125MG IV Discussed with : Gerard (DISCUSSED WITH DR GREGORY AT 7770 RECOMMENDS TRANSFER TO [facility]), Other (DISCUSSED WITH DR BERNARD AT 9693 ACCEPTS TRANSFER TO [facility] VIA [facility]) - Departure Departure Disposition: Observation Clinical Impression: ACUTE EXACRBATION CROHNS DISEASE Condition: Stable Critical Care Time: No Referrals: AKIKO GREGORY [Primary Care Provider] -
[2018-11-10 22:27] LABS: Amphetamine,Urine NEGATIVE (NEGATIVE); Barbiturate,Urine NEGATIVE (NEGATIVE); Benzodiazepine,Urine NEGATIVE (NEGATIVE); Cocaine,Urine NEGATIVE (NEGATIVE); Methadone,Urine NEGATIVE (NEGATIVE); Opiate,Urine POSITIVE (NEGATIVE); PCP,Urine NEGATIVE (NEGATIVE); THC,Urine NEGATIVE (NEGATIVE)
[2018-11-10] MEDS ORDERED: Levofloxacin 500MG/100ML D5W 500 MG/100 ML BAG IV STA (23:07)
[2018-11-10] MEDS ORDERED: Levofloxacin 500MG/100ML D5W 500 MG/100 ML BAG IV ONE (23:21)
[2018-11-10] MEDS ORDERED: Sodium Chloride 0.9% 1000 ML 1,000 ML IV SCH (23:30)
[2018-11-11 00:45] VITALS: BP 119/85
[2018-11-11 01:26] VITALS: PULSE 112
--- NOTE | 2018-11-12 08:46 | XRAY ---
Exam: CT of the abdomen and pelvis with IV contrast from 11/10/2018. CTDI: 14.61 Comparison: CT of the abdomen and pelvis without IV contrast from 05/27/2018. Indication: 43-year-old female with diffuse abdominal pain 2 weeks, worse in mid to lower left abdomen, history of Crohn's disease 13 years. The patient has a history of 2 prior partial bowel resections due to Crohn's disease, cholecystectomy, and "complete" hysterectomy. She also has nausea, vomiting, diarrhea, and fever. Technique: Post-IV contrast axial images were obtained through the abdomen and pelvis during automated injection of 80 cc of Isovue-370 contrast material. Delay axial images were obtained through the abdomen and pelvis as well. Reconstructed coronal and sagittal images were created and reviewed. Findings: I note some obliquely oriented discoid atelectasis at the posterior left lung base. There is also minimal linear atelectasis at the anterior medial right lung base. No posterior pleural fluid is seen. The liver appears of unremarkable size. Minimal fat density is seen near the ligamentum teres anteriorly on axial image #24 and #25. This is not pathological. No focal liver mass is seen. Surgical clips consistent with prior cholecystectomy are noted. There is slight intrahepatic biliary duct prominence which may be due to the patient's prior cholecystectomy. The pancreas appears unremarkable. The spleen is of normal size and reveals some scattered calcified granulomas without mass. The adrenal glands are of normal size and configuration. The kidneys are of normal size and reveal no mass, hydronephrosis, or renal calculi. There is a mild extrarenal pelvis on the right. The visualized ureters appear unremarkable. The abdominal aorta is of normal diameter. No abnormal retroperitoneal lymphadenopathy is seen. I see no free intraperineal air or ventral hernia. Surgical suture material is seen within the right lower quadrant from prior partial bowel resection(s). I see no evidence of bowel obstruction. Fluid and stool are seen within the descending colon and rectosigmoid colon. However, more importantly, I see small bowel loops with abnormal wall thickening and enhancement. For example, see axial image #50 and #53 of series #2. These findings suggest acute inflammation/enteritis, probably due to the patient's Crohn's disease. I see no abscess. In addition, there is some focal narrowing of the mid transverse colon on coronal image #35. This could be due to peristalsis, although a mild stricture or mucosal lesion at this site is not excluded with certainty. There also appears to be some mild thickening of the colon wall near the hepatic flexure, proximal transverse colon, and sigmoid colon. This could reflect inflammation from Crohn's disease or colitis as well. The uterus is surgically absent. No abnormal pelvic adnexal mass or pelvic lymphadenopathy is seen. I cannot exclude a minimal amount of intraperitoneal fluid within the lower pelvis to the right of midline. The urinary bladder is mostly empty. No gross abnormality is seen. The skeleton reveals no acute fracture or aggressive bone lesion. Impression: 1. I note scattered areas of abnormal small bowel wall thickening and enhancement within the left lower quadrant and mid abdomen suggesting acute inflammation consistent with exacerbation of Crohn's disease. Enteritis is not completely excluded. To a lesser extent, I note mild colon wall thickening within the hepatic flexure and proximal transverse colon as well as the sigmoid colon which could represent inflammation from Crohn's disease or colitis. 2. I note a focal narrowing of the mid transverse colon on coronal image #35 which is nonspecific. Major differential diagnosis includes contraction due to a peristaltic wave, stricture, or other stenosing mucosal lesion. This is not appreciated on the coronal CT images from 05/27/2018. 3. I believe there is a minimal amount of free intraperitoneal fluid within the lower posterior right side of the pelvis. No free intraperitoneal air or abscess is seen. 4. Bibasilar linear/discoid atelectasis.
== END 2018-11-11 01:15 | disposition short-term general hospital (02) ==
LOC: ED 19:45
DX: K50.90 Crohn's disease, unspecified, without complications (principal); F41.8 Other specified anxiety disorders; Z79.899 Other long term (current) drug therapy; Z90.49 Acquired absence of other specified parts of digestive tract
CPT/HCPCS: 36000; 36415; 74177; 80053; 80307; 81001; 82150; 83605; 83690; 83735; 84484; 85025; 85610; 87040; 93005; 93041; 96360; 96361; 96365; 96367; 96374; 96375; 96376; 99285; J1170; J1956; J2405; J3480

== ENCOUNTER 2018-11-29 14:25 | Observation (INO) | payer OTHER ==
[2018-11-29] MEDS ORDERED: Sodium Chloride 0.9% 10 ML FLUSH Syringe IV PRN (15:15)
[2018-11-29] MEDS ORDERED: Potassium Chloride 40 MEQ/20 ML VIAL 40 MEQ, Magnesium Sulfate 1 GM/2 ML VIAL*** 2 GM i... IV SCH ×3 (16:00)
[2018-11-29] MEDS ORDERED: NON-FORMULARY ITEM (Ondansetron Hcl [Zofran] 4 MG) PO PRN (16:49)
[2018-11-29] MEDS ORDERED: Cyanocobalamin B-12 1000 MCG/ML IM SCH (17:00)
[2018-11-29] MEDS ORDERED: NON-FORMULARY ITEM (Cholecalciferol (Vitamin D3) [Vitamin D3] 50,000 UNIT) PO SCH (17:00)
[2018-11-29] MEDS: Protonix 40MG Tablet PO SCH (17:19)
[2018-11-29] MEDS: ZOFRAN ODT 4 MG PO PRN (17:19)
[2018-11-29] MEDS: BENTYL 20 MG PO SCH (21:39)
[2018-11-29] MEDS: Dilaudid 4 MG Tab PO PRN (21:40)
[2018-11-29] MEDS: Ativan 1 MG PO PRN (21:40)
[2018-11-29] MEDS ORDERED: NON-FORMULARY ITEM (Dicyclomine Hcl [Dicyclomine Hcl] 10 MG) PO SCH (22:00)
[2018-11-29] MEDS: Sodium Chloride 0.9% 10 ML FLUSH Syringe IV SCH (22:41)
[2018-11-30] MEDS: ZOFRAN ODT 4 MG PO PRN ×5 (03:09→23:58)
[2018-11-30 06:09] LABS: ANION GAP 11.5 MEQ/L (5-15); BLOOD UREA NITROGEN 7 mg/dL (7-17); CHLORIDE 106 mmol/L (98-107); Calcium 8.8 mg/dL (8.4-10.2); Carbon Dioxide 27 mmol/L (22-30); Creatinine 1 0.52 mg/dL (0.52-1.04); Glucose 82 mg/dL (74-106); Potassium 3.5 mmol/L (3.5-5.1); SODIUM 141 mmol/L (137-145)
[2018-11-30] MEDS: Sodium Chloride 0.9% 10 ML FLUSH Syringe IV SCH ×3 (06:51→21:26)
[2018-11-30] MEDS: Dilaudid 4 MG Tab PO PRN (06:51)
[2018-11-30] MEDS: Ativan 1 MG PO PRN ×2 (07:37→21:25)
[2018-11-30] MEDS: BENTYL 20 MG PO SCH ×3 (10:26→21:24)
[2018-11-30] MEDS: Protonix 40MG Tablet PO SCH (10:26)
[2018-11-30] MEDS ORDERED: SUBLIMAZE 100 MCG/2 ML IV ONE (11:02)
[2018-11-30] MEDS: DILAUDID 2 MG INJECTION IV PRN ×3 (15:14→23:58)
[2018-12-01] MEDS: DILAUDID 2 MG INJECTION IV PRN ×5 (04:10→22:23)
[2018-12-01] MEDS: ZOFRAN ODT 4 MG PO PRN ×5 (04:18→22:21)
[2018-12-01] MEDS: Sodium Chloride 0.9% 10 ML FLUSH Syringe IV SCH ×3 (06:52→22:23)
[2018-12-01] MEDS: Ativan 1 MG PO PRN ×2 (08:12→22:21)
[2018-12-01] MEDS: BENTYL 20 MG PO SCH ×3 (10:33→22:22)
[2018-12-01] MEDS: Protonix 40MG Tablet PO SCH (10:33)
--- NOTE | 2018-12-01 15:43 | PCM.NOTE ---
Date and Time: 11/30/18 1540 Subjective Assessment: doing better - Review of Systems Constitutional: No Fever, No Chills Eyes: No Symptoms Ears, Nose, & Throat: No Symptoms Respiratory: No Cough, No Short Of Breath Cardiac: No Chest Pain, No Edema, No Syncope Abdominal/Gastrointestinal: No Abdominal Pain, No Nausea, No Vomiting, No Diarrhea Genitourinary Symptoms: No Dysuria Musculoskeletal: No Back Pain, No Neck Pain Skin: No Rash Neurological: No Dizziness, No Focal Weakness, No Sensory Changes Psychological: No Symptoms Endocrine: No Symptoms Hematologic/Lymphatic: No Symptoms Immunological/Allergic: No Symptoms Objective Exam General Appearance: no apparent distress, alert Neurologic Exam: alert, oriented x 3, cooperative, normal mood/affect, nml cerebellar function, sensation nml, No motor deficits Skin Exam: normal color, warm, dry Wound Assessment: Skin/Wound Assessment Wound/Incision Assessment Start: 11/29/18 16: 10 Text: Status: Active Freq: Q8H Protocol: Document 12/01/18 10:00 CL (Rec: 12/01/18 10:32 CL [id number]) Wound/Incision Assessment Lower Anterior Medial Abdomen Wound Assessment Shift Assessment Wound Type Incision Wound Stage Non Pressure Wound Dressing Status Dry & Intact Drainage Amount None Drainage Odor None/Absent General Appearance Well Approximated Open to air Clean/Dry Comment scabs present, open to air, healing, no drainage noted. Wound Photo Photo Taken No Eye Exam: PERRL, EOMI, eyes nml inspection Ears, Nose, Throat Exam: normal ENT inspection, pharynx normal, moist mucous membranes Neck Exam: normal inspection, non-tender, supple, full range of motion Respiratory Exam: normal breath sounds, lungs clear, No respiratory distress Cardiovascular Exam: regular rate/rhythm, normal heart sounds Gastrointestinal/Abdomen Exam: soft, No tenderness, No mass Extremity Exam: normal inspection, normal range of motion Back Exam: normal inspection, normal range of motion, No CVA tenderness, No vertebral tenderness Pelvic Exam: deferred Rectal Exam: deferred OBJECTIVE DATA Vital Signs: Vital Signs - 24 hr Temp Pulse Resp BP Pulse Ox 12/01/18 12:00 98.4 F 93 H 16 99/56 97 12/01/18 11:00 17 12/01/18 07:21 97.9 F 76 17 96/57 97 12/01/18 07:00 17 12/01/18 04:00 98.0 F 76 16 142/88 96 12/01/18 03:00 15 12/01/18 00:10 98.3 F 81 15 105/59 96 11/30/18 23:00 16 11/30/18 20:00 97.6 F 82 16 110/62 96 11/30/18 19:41 18 11/30/18 16:03 97.8 F 80 18 85/53 98 Pain Assessment - Last Documented Pain Intensity 5 Pain Scale Used 0-10 Pain Scale Intake and Output: Intake & Output 11/29/18 11/30/18 12/01/18 12/02/18 11:59 11:59 11:59 11:59 Intake Total 1280 1680 Output Total 400 Balance 1280 1280 Weight 51.4 kg Assessment/Plan (1) Exacerbation of Crohn's disease Current Visit: Yes Status: Acute Onset Date: ~03/01/18 Qualifiers: Digestive disease complication type: unspecified complication Qualified Code(s): K50.919 - Crohn's disease, unspecified, with unspecified complications Code(s): K50.90 - CROHN'S DISEASE, UNSPECIFIED, WITHOUT COMPLICATIONS (2) Failure of outpatient treatment Current Visit: Yes Status: Chronic Onset Date: ~03/01/18 Code(s): Z78.9 - OTHER SPECIFIED HEALTH STATUS (3) Hypokalemia Current Visit: Yes Status: Resolved Onset Date: ~03/01/18 Code(s): E87.6 - HYPOKALEMIA (4) Nausea and vomiting Current Visit: Yes Status: Resolved Qualifiers: Vomiting type: unspecified Code(s): R11.2 - NAUSEA WITH VOMITING, UNSPECIFIED
[2018-12-02] MEDS: DILAUDID 2 MG INJECTION IV PRN (02:53)
[2018-12-02] MEDS: ZOFRAN ODT 4 MG PO PRN ×2 (02:53→09:17)
[2018-12-02] MEDS: Sodium Chloride 0.9% 10 ML FLUSH Syringe IV SCH ×2 (06:06→12:59)
[2018-12-02] MEDS: BENTYL 20 MG PO SCH (09:16)
[2018-12-02] MEDS: Dilaudid 4 MG Tab PO PRN (09:17)
[2018-12-02] MEDS: Protonix 40MG Tablet PO SCH (09:17)
--- NOTE | 2018-12-02 10:19 | PCM.NOTE ---
Date and Time: 12/02/18 1016 Subjective Assessment: Patient would like to go home. She feels she is almost to baseline but has not had oral pain meds due to her fear of vomiting. We discussed she would take the zophran tab and wait 20-30 minutes then attempt oral pain med ,explained I need to know she can tolerate oral meds before being discharged. She c/o the Zophran has a bad taste and it can cause the urge to vomit . We discussed a trial of phenergan and she would like a RX for that at home. She states she can have watery stools "30 x a day" and takes a liquid potassium per Dr Gee. Objective Exam Wound Assessment: Skin/Wound Assessment Wound/Incision Assessment Start: 11/29/18 16: 10 Text: Status: Active Freq: Q8H Protocol: Document 12/02/18 02:00 EG (Rec: 12/02/18 02:51 EG [id number]) Wound/Incision Assessment Lower Anterior Medial Abdomen Wound Assessment Shift Assessment Wound Type Incision Wound Stage Non Pressure Wound Dressing Status Dry & Intact Drainage Amount None Drainage Odor None/Absent General Appearance Well Approximated Open to air Clean/Dry Comment scabs present, open to air, healing, no drainage noted. Wound Photo Photo Taken No OBJECTIVE DATA Vital Signs: Vital Signs - 24 hr Temp Pulse Resp BP Pulse Ox 12/02/18 08:00 98.1 F 79 16 95/60 97 12/02/18 07:51 16 12/02/18 04:10 97.9 F 74 17 104/59 96 12/02/18 03:00 14 12/02/18 00:01 98.5 F 76 16 96/56 97 12/01/18 23:00 16 12/01/18 20:00 97.9 F 88 16 98/56 95 12/01/18 19:00 16 12/01/18 16:00 98.9 F 82 16 101/62 97 12/01/18 12:00 98.4 F 93 H 16 99/56 97 12/01/18 11:00 17 Pain Assessment - Last Documented Pain Intensity 6 Pain Scale Used 0-10 Pain Scale Intake and Output: Intake & Output 11/29/18 11/30/18 12/01/18 12/02/18 11:59 11:59 11:59 11:59 Intake Total 1280 1680 1880 Output Total 400 Balance 1280 1280 1880 Weight 51.4 kg
[2018-12-02 10:31] LABS: ALBUMIN 3.7 g/dL (3.5-5.0); ALKALINE PHOSPHATASE 83 U/L (38-126); ANION GAP 13.4 MEQ/L (5-15); BLOOD UREA NITROGEN 8 mg/dL (7-17); CHLORIDE 101 mmol/L (98-107); Calcium 9.7 mg/dL (8.4-10.2); Carbon Dioxide 30 mmol/L (22-30); Creatinine 1 0.59 mg/dL (0.52-1.04); Glucose 86 mg/dL (74-106); Potassium 5.1 mmol/L (3.5-5.1); SGOT/AST 24 U/L (14-36); SGPT/ALT 27 U/L (0-35); SODIUM 140 mmol/L (137-145); Total Protein 6.9 g/dL (6.3-8.2)
[2018-12-02 10:39] LABS: BASOPHIL % 0.5 % (0.0-0.4); Basophil (Absolute #) 0.04 (0-0.4); Eosinophil % 6.4 % (0.00-5.0); Eosinophil (Absolute #) 0.52 (0-0.5); Granulocyte Absolute (ANC) 5.77 (1.4-6.9); Granulocytes % 71.5 % (36.0-66.0); Hematocrit 31.9 % (35-47); Hemoglobin 9.7 gm/dl (12.0-16.0); Lymphocyte (Absolute #) 1.46 (1.0-4.6); Lymphocytes % 18.1 % (24.0-44.0); Mean Corpuscular Hemoglobin 24.9 pg (26-32); Mean Corpuscular Hgb Concent. 30.4 g/dl (32-36); Mean Platelet Volume 8.9 fl (6-9.5); Monocyte (Absolute #) 0.28 (0.0-1.3); Monocytes % 3.5 % (0.0-12.0); Platelet Count 575 K/mm3 (150-450); Red Blood Count 3.89 M/mm3 (4.1-5.4); Red Cell Distribution Width 18.6 % (11.5-14.0); White Blood Count 8.1 K/mm3 (4.0-10.5)
--- NOTE | 2018-12-02 12:21 | PCM.DCORD ---
- Discharge Disposition: Home, Self-Care Condition: Stable Prescriptions: New Promethazine HCl 25 mg [Phenergan 25 mg] 25 mg PO BID PRN #30 tablet Continue Cholecalciferol (Vitamin D3) [Vitamin D3] 50,000 unit PO WEEKLY Vedolizumab [Entyvio] 300 mg IV UD Lorazepam 1 mg [Ativan 1 MG] 1 mg PO TIDPRN PRN #90 tablet PRN Reason: Anxiety Hydromorphone HCl 4 mg [Dilaudid 4 MG Tab] 4 mg PO Q6HPRN PRN #120 tab MDD 4 PRN Reason: Pain Omeprazole 20 mg PO DAILY Dicyclomine HCl 10 mg PO TID Ondansetron HCl [Zofran] 4 mg PO Q6H PRN PRN Reason: Nausea/Vomiting Cyanocobalamin (Vitamin B-12) [Cobal-1000] 1,000 mcg IM UD Additional Instructions: Patient has an appt with her GI doctor 12/16/18.Since her potassium today is 5.1 , I told her to hold her home potassium and retest lab order for potassium in 1 week. Discussed anemia and need to eat foods rich in iron rather than iron tablets ,states she can eat cooked greens. Order to retest H/H [address] Gregory follows patient's pain meds and sees her regularly 1 x a month for this plus follows all of patient's primary care needs. Follow up with: AKIKO GREGORY [Primary Care Provider] - 12/10/18 3:00 pm
[2018-12-02 12:43] VITALS: BP 101/58; PULSE 88; O2SAT 91
[2018-12-03] MEDS ORDERED: VITAMIN D2 PO SCH (10:00)
== END 2018-12-02 13:15 | disposition home or self-care (01) ==
LOC: MED SURG 15:25
PROVIDERS: ADMIT Internal Medicine; ATTEND Internal Medicine
DX: K50.90 Crohn's disease, unspecified, without complications (principal); F41.9 Anxiety disorder, unspecified; E55.9 Vitamin D deficiency, unspecified; E87.6 Hypokalemia; R11.2 Nausea with vomiting, unspecified; Z79.899 Other long term (current) drug therapy
CPT/HCPCS: 36415; 80048; 80053; 83735; 84132; 85025; 86900; 93005; 93268; G0378; J1170; J1642; J3010; J3475; J3480; Q0162; A9270-GY

== ENCOUNTER 2018-12-31 15:12 | Inpatient (IN) | payer OTHER ==
[2018-12-31] MEDS ORDERED: Sodium Chloride 0.9% 1000 ML 1,000 ML IV STA (15:56)
[2018-12-31 16:09] LABS: BASOPHIL % 0.2 % (0.0-0.4); Basophil (Absolute #) 0.02 (0-0.4); Eosinophil % 0.9 % (0.00-5.0); Eosinophil (Absolute #) 0.08 (0-0.5); Granulocyte Absolute (ANC) 6.46 (1.4-6.9); Granulocytes % 72.2 % (36.0-66.0); Hematocrit 37.3 % (35-47); Hemoglobin 11.9 gm/dl (12.0-16.0); Lymphocytes % 21.3 % (24.0-44.0); Mean Cell Volume 78.9 fl (78-100); Mean Corpuscular Hgb Concent. 31.9 g/dl (32-36); Mean Platelet Volume 9.3 fl (6-9.5); Monocyte (Absolute #) 0.48 (0.0-1.3); Monocytes % 5.4 % (0.0-12.0); Platelet Count 598 K/mm3 (150-450); Red Blood Count 4.73 M/mm3 (4.1-5.4); Red Cell Distribution Width 18.2 % (11.5-14.0); White Blood Count 8.9 K/mm3 (4.0-10.5)
[2018-12-31 16:11] LABS: Mean Corpuscular Hemoglobin 25.1 pg (26-32)
[2018-12-31 16:16] LABS: ALBUMIN 4.1 g/dL (3.5-5.0); ALKALINE PHOSPHATASE 111 U/L (38-126); AMYLASE 140 U/L (30-110); BLOOD UREA NITROGEN 17 mg/dL (7-17); CHLORIDE 105 mmol/L (98-107); Calcium 9.7 mg/dL (8.4-10.2); Carbon Dioxide 24 mmol/L (22-30); Creatinine 1 0.55 mg/dL (0.52-1.04); Glucose 142 mg/dL (74-106); Potassium 3.6 mmol/L (3.5-5.1); SGOT/AST 53 U/L (14-36); SGPT/ALT 93 U/L (0-35); SODIUM 140 mmol/L (137-145); Total Protein 7.6 g/dL (6.3-8.2)
[2018-12-31] MEDS ORDERED: Hydromorphone 1 mg/ml Ampule IV ONE (16:17)
[2018-12-31] MEDS ORDERED: Zofran 4 MG/2 ML VIAL IV ONE (16:17)
--- NOTE | 2018-12-31 16:22 | ERPHSYRPT ---
- History of Present Illness Time Seen by Provider: 12/31/18 16:11 Historian: patient Exam Limitations: no limitations Patient Subjective Stated Complaint: Pt states "I think my crohn's is acting up. I had a third bowel resection done on November 16. I feel like crap and have ever since. I am having horrible diarrhea." Triage Nursing Assessment: Pt presented through the front, alert and oriented X 3, skin pwd. Pt ambulated with an upright steady gait, able to speak in clear full sentences. PT in no apparent respiratory distress. Physician History: This is a 43-year-old white female with history of arrhythmia, hypothyroidism, fibromyalgia, Crohn's, anxiety, depression, cluster headaches She arrives with complaint of abdominal pain crampy in nature low abdominal region she states she vomits whenever she is she states she is having multiple loose stools symptoms going on for a week. Patient states she is unable to take her medications at home. Past medical history includes arrhythmia, hypothyroidism, fibromyalgia, osteoarthritis, Crohn's, anxiety, depression, cluster headaches, precancerous cells on her cervix Past surgical history includes bowel surgery, cholecystectomy, colon resection, hysterectomy, Port-A-Cath, tonsils, bowel resection x3 last time was in October of this year. Timing/Duration: week(s) Activities at Onset: none (one week) Quality: cramping Abdominal Pain Onset Location: suprapubic Pain Radiation: no radiation Severity of Pain-Max: moderate Severity of Pain-Current: moderate Modifying Factors: Improves With: other (ppatient states she is unable to take her pain medications because of nausea and vomiting) Associated Symptoms: diarrhea, nausea, vomiting, weakness, No back, No chest pain, No diaphoresis, No fever/chills, No fatigue, No headache, No heartburn, No loss of appetite, No neck pain, No rash, No shortness of breath, No syncope Allergies/Adverse Reactions: clonazepam [From Klonopin] Allergy (Mild, Verified 11/10/18 20:08) "I DON'T KNOW" divalproex sodium [From Depakote] Allergy (Mild, Verified 11/10/18 20:08) "I DON'T KNOW" duloxetine HCl [From Cymbalta] Allergy (Mild, Verified 11/10/18 20:08) Hives fentanyl Allergy (Mild, Verified 11/10/18 20:08) Hives meperidine HCl [From Demerol] Allergy (Mild, Verified 11/10/18 20:08) Hives buprenorphine Allergy (Verified 11/10/18 20:08) duloxetine [From Cymbalta] Allergy (Verified 11/10/18 20:08) meperidine [From Demerol] Allergy (Verified 11/10/18 20:08) adalimumab [From Humira] Adverse Reaction (Mild, Verified 11/10/18 20:08) Vomiting prednisone Adverse Reaction (Mild, Verified 11/10/18 20:08) SHAKING Home Medications: Cholecalciferol (Vitamin D3) [Vitamin D3] 50,000 unit PO WEEKLY 11/13/16 [ History] Vedolizumab [Entyvio] 300 mg IV UD 11/13/16 [History] Omeprazole 20 mg PO DAILY 10/09/18 [History] Cyanocobalamin (Vitamin B-12) [Cobal-1000] 1,000 mcg IM UD 11/29/18 [History] Ondansetron HCl [Zofran] 4 mg PO Q6H PRN 11/29/18 [History] Hx Tetanus, Diphtheria Vaccination/Date Given: Yes Hx Influenza Vaccination/Date Given: No Hx Pneumococcal Vaccination/Date Given: No Immunizations Up to Date: Yes - Review of Systems Constitutional: No Fever, No Chills Eyes: No Symptoms Ears, Nose, & Throat: No Symptoms Respiratory: No Cough, No Dyspnea Cardiac: No Chest Pain, No Edema, No Syncope Abdominal/Gastrointestinal: Abdominal Pain, Nausea, Vomiting, Diarrhea, No Constipation, No Hematemesis, No Hematochezia, No Melena, No Dysphagia, No Appetite Changes Genitourinary Symptoms: No Dysuria Musculoskeletal: No Back Pain, No Neck Pain Skin: No Rash Neurological: No Dizziness, No Focal Weakness, No Sensory Changes Psychological: No Symptoms Endocrine: No Symptoms All Other Systems: Reviewed and Negative - Past Medical History Pertinent Past Medical History: Yes Neurological History: No Pertinent History ENT History: No Pertinent History Cardiac History: Arrhythmia Respiratory History: No Pertinent History Endocrine Medical History: Hypothyroidism Musculoskeletal History: Fibromyalgia, Osteoarthritis GI Medical History: Crohns Disease History: No Pertinent History Psycho-Social History: Anxiety, Depression Female Reproductive Disorders: Other Other Medical History: Cluster Headaches, pre cancerous cells cervix - Past Surgical History Past Surgical History: Yes Neuro Surgical History: No Pertinent History Cardiac: No Pertinent History Respiratory: No Pertinent History Gastrointestinal: Bowel Surgery, Cholecystectomy, Colon Resection Genitourinary: No Pertinent History Musculoskeletal: No Pertinent History Female Surgical History: Hysterectomy Other Surgical History: port-a-cath placement, tonsillectomy, 2 bowel resections. another bowel resection. - Social History Smoking Status: Current every day smoker How long have you smoked: 30 years Exposure to second hand smoke: Yes Alcohol Use: None Drug Use: none Patient Lives Alone: No Significant Family History: no pertinent family hx - Female History Hx Last Menstrual Period: hysterectomy Hx Now: No - Nursing Vital Signs Nursing Vital Signs: Initial Vital Signs Temperature 98.8 F 12/31/18 15:20 Pulse Rate 126 H 12/31/18 15:20 Respiratory Rate 22 12/31/18 15:20 Blood Pressure 127/87 12/31/18 15:20 O2 Sat by Pulse Oximetry 98 12/31/18 15:20 Pain Scale Pain Intensity 2 - Physical Exam General Appearance: mild distress, alert Eye Exam: PERRL/EOMI, eyes nml inspection Ears, Nose, Throat Exam: normal ENT inspection, pharynx normal, moist mucous membranes Neck Exam: normal inspection, non-tender, supple, full range of motion Respiratory Exam: normal breath sounds, lungs clear, No respiratory distress Cardiovascular Exam: regular rate/rhythm, normal heart sounds, capillary refill <2 sec Gastrointestinal/Abdomen Exam: soft, normal bowel sounds, tenderness ( suprapubic abdominal tenderness), other (healed abdominal incision low abdomen) Back Exam: normal inspection, normal range of motion, No CVA tenderness, No vertebral tenderness Extremity Exam: normal inspection, normal range of motion, pelvis stable Neurologic Exam: alert, oriented x 3, cooperative, 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 Compared to November 10, 2018. Mild distended small bowel loops left abdomen with fluid leveling unchanged on delayed iimages. Ileus versus enteritis. Stable partial a standing colectomy with intact anastomosis. Cholecystectomy and calcified granulomas. Remaining abdomen and pelvis negative..) Ordered Tests: Active Orders 24 hr Category Date Time Status IV Insertion STAT Care 12/31/18 15:56 Active ABDOMEN AND PELVIS W CONTRAST [CT] Stat Exams 12/31/18 16:54 Taken AMYLASE Stat Lab 12/31/18 16:00 Completed CBC W DIFF Stat Lab 12/31/18 15:56 Completed CMP Stat Lab 12/31/18 16:00 Completed LIPASE Stat Lab 12/31/18 16:00 Completed UA W/RFX UR CULTURE Stat Lab 12/31/18 16:07 Completed Medication Summary Discontinued Medications Generic Name Dose Route Start Last Admin Trade Name Freq PRN Reason Stop Dose Admin Hydromorphone HCl 1 mg 12/31/18 16:17 12/31/18 16:31 Hydromorphone 1 Mg/Ml Ampule IV 12/31/18 16:18 1 mg STAT ONE Administration Hydromorphone HCl Confirm 12/31/18 16:26 Hydromorphone 1 Mg/Ml Ampule Administered 12/31/18 16:27 Dose 1 mg .ROUTE .STK-MED ONE Sodium Chloride 1,000 mls @ 999 mls/hr 12/31/18 15:56 12/31/18 17:40 Sodium Chloride 0.9% 1000 Ml IV 12/31/18 16:56 Infused .Q1H1M STA Infusion Sodium Chloride Confirm 12/31/18 16:26 Sodium Chloride 0.9% 1000 Ml Administered 12/31/18 16:27 Dose 1,000 mls @ ud .ROUTE .STK-MED ONE Ondansetron HCl 4 mg 12/31/18 16:17 12/31/18 16:31 Zofran 4 Mg/2 Ml Vial IV 12/31/18 16:18 4 mg STAT ONE Administration Ondansetron HCl Confirm 12/31/18 16:26 Zofran 4 Mg/2 Ml Vial Administered 12/31/18 16:27 Dose 4 mg .ROUTE .STK-MED ONE Lab/Rad Data: Laboratory Result Diagrams 12/31/18 15:56 12/31/18 16:00 Laboratory Results 12/31/18 12/31/18 12/31/18 Range/Units 16:07 16:00 15:56 WBC 8.9 (4.0-10.5) K/mm3 RBC 4.73 (4.1-5.4) M/mm3 Hgb 11.9 L (12.0-16.0) gm/dl Hct 37.3 (35-47) % MCV 78.9 (78-100) fl MCH 25.1 L (26-32) pg MCHC 31.9 L (32-36) g/dl RDW 18.2 H (11.5-14.0) % Plt Count 598 H (150-450) K/mm3 MPV 9.3 (6-9.5) fl Gran % 72.2 H (36.0-66.0) % Eos # (Auto) 0.08 (0-0.5) Absolute Lymphs (auto) 1.90 (1.0-4.6) Absolute Monos (auto) 0.48 (0.0-1.3) Lymphocytes % 21.3 L (24.0-44.0) % Monocytes % 5.4 (0.0-12.0) % Eosinophils % 0.9 (0.00-5.0) % Basophils % 0.2 (0.0-0.4) % Absolute Granulocytes 6.46 (1.4-6.9) Basophils # 0.02 (0-0.4) Sodium 140 (137-145) mmol/L Potassium 3.6 (3.5-5.1) mmol/L Chloride 105 (98-107) mmol/L Carbon Dioxide 24 (22-30) mmol/L Anion Gap 14.0 (5-15) MEQ/L BUN 17 (7-17) mg/dL Creatinine 0.55 (0.52-1.04) mg/dL Estimated GFR > 60.0 ML/MIN Glucose 142 H (74-106) mg/dL Calcium 9.7 (8.4-10.2) mg/dL Total Bilirubin 0.30 (0.2-1.3) mg/dL AST 53 H (14-36) U/L ALT 93 H (0-35) U/L Alkaline Phosphatase 111 (38-126) U/L Serum Total Protein 7.6 (6.3-8.2) g/dL Albumin 4.1 (3.5-5.0) g/dL Amylase 140 H (30-110) U/L Lipase 698 H (23-300) U/L Urine Color YELLOW (YELLOW) Urine Appearance SLIGHTLY CLOUDY (CLEAR) Urine pH 5.0 (5-6) Ur Specific [place] 1.034 (1.005-1.025) Urine Protein 30 (Negative) Urine Ketones TRACE (NEGATIVE) Urine Blood NEGATIVE (0-5) Elias/ul Urine Nitrite NEGATIVE (NEGATIVE) Urine Bilirubin NEGATIVE (NEGATIVE) Urine Urobilinogen NEGATIVE (0-1) mg/dL Ur Leukocyte Esterase NEGATIVE (NEGATIVE) Urine WBC (Auto) 3-5 (0-5) /HPF Urine RBC (Auto) 0-2 (0-2) /HPF U Epithel Cells (Auto) RARE (FEW) /HPF Urine Bacteria (Auto) RARE (NEGATIVE) /HPF Urine Mucus (Auto) MANY (NEGATIVE) /HPF Urine Culture Reflexed NO (NO) Urine Glucose NEGATIVE (NEGATIVE) mg/dL - Progress Progress: improved Progress Note: 12/31/18 18:07 This is a 43-year-old white female with history of arrhythmias, hypothyroidism fibromyalgia, sore throat, Crohn's, anxiety, depression, cluster headaches who apparently had a bowel resection secondary to Crohn's in October of this year She arrives with complaint of lower abdominal pain frequent diarrhea and vomiting she states is unable to keep her pain medications down at home. Patient arrives mild tachycardia on arrival which has improved with IV normal saline and IV hydromorphine and Zofran. She has some suprapubic abdominal tenderness on examination. Patient is noted to have an elevated lipase of 698 on her chemistry also an amylase of 140 AST is 53 SGPT is 97 Patient's remainder of her chemistry is essentially normal she has a white count of 8.9 hemoglobin 11.9 hematocrit 37.3 platelets are 598 Patient's urine is essentially negative patient with a CT of the abdomen remarkable for mild distended small bowel loops left abdomen with fluid leveling unchanged on delayed images ileus versus enteritis. She also has a stable ascending colectomy with intact anastomosis, cholecystectomy and calcified granulomas. The remainder of the abdomen and pelvis are negative Patient is given IV normal saline 1 L she was given Zofran 4 mg IV and hydromorphone 1 mg IV. Patient states she does not feel well but she appears to be somewhat improved. I've discussed the patient's case with Dr. dykes.. Will go ahead and admit the patient to observation provide hydromorphone as needed for pain continuing IV normal saline, and provide Zofran for nausea and vomiting. Will obtain CBC CMP amylase and lipase in the morning. Impression nausea and vomiting. Abdominal pain. Pancreatitis. History of Crohn's colitis. - Departure Departure Disposition: Observation Clinical Impression: Hx of Crohn's disease Abdominal pain Qualifiers: Abdominal location: unspecified location Qualified Code(s): R10.9 - Unspecified abdominal pain Nausea and vomiting Qualifiers: Vomiting type: unspecified Vomiting Intractability: non-intractable Qualified Code(s): R11.2 - Nausea with vomiting, unspecified Pancreatitis Qualifiers: Chronicity: acute Pancreatitis type: unspecified pancreatitis type Acute pancreatitis complication: unspecified Qualified Code(s): K85.90 - Acute pancreatitis without necrosis or infection, unspecified Condition: Fair Critical Care Time: No Referrals: AKIKO DYKES [Primary Care Provider] -
[2018-12-31] MEDS ORDERED: Sodium Chloride 0.9% 1000 ML 1,000 ML ONE (16:26)
[2018-12-31] MEDS ORDERED: Hydromorphone 1 mg/ml Ampule ONE (16:26)
[2018-12-31] MEDS ORDERED: Zofran 4 MG/2 ML VIAL ONE (16:26)
[2018-12-31 16:35] LABS: Appearance SLIGHTLY CLOUDY (CLEAR); Bacteria RARE /HPF (NEGATIVE); Bilirubin NEGATIVE (NEGATIVE); Blood NEGATIVE Ery/ul (0-5); Epithelial Cells RARE /HPF (FEW); Glucose NEGATIVE (NEGATIVE); Ketones TRACE (NEGATIVE); Leukocyte Esterase NEGATIVE (NEGATIVE); Mucus MANY /HPF (NEGATIVE); Nitrite NEGATIVE (NEGATIVE); Protein,Urine Dip 30 (Negative); RBC 0-2 /HPF (0-2); Specific Gravity 1.034 (1.005-1.025); Urobilinogen NEGATIVE mg/dL (0-1)
--- NOTE | 2018-12-31 19:33 | XRAY ---
Exam: CT of the abdomen and pelvis with IV contrast from 12/31/2018. CTDI: 8.66 Comparison: CT of the abdomen and pelvis with IV contrast from 11/10/2018. Indication: 43-year-old female with history of lower abdominal and pelvic cramping, history of Crohn's disease, history of 3 prior bowel resections, the last partial bowel resection on November 16, 2018. The patient was a history of prior cholecystectomy and hysterectomy as well. Technique: Post-IV contrast axial images were obtained through the abdomen and pelvis during automated intravenous injection of 80 cc of Isovue-370 contrast material using the power port. Delayed axial images were obtained. Reconstructed coronal and sagittal images were created and reviewed. Findings: The lung bases reveal minor posterior bibasilar compression atelectatic changes. No posterior pleural fluid is seen. The heart size is normal. The liver appears of normal size. No focal hepatic mass or significant biliary duct distention is seen. Surgical clips consistent with prior cholecystectomy are seen within the right upper quadrant. The spleen is remarkable for multiple scattered calcified granulomas. No splenomegaly or focal splenic mass is seen. The pancreas appears of normal size and attenuation. No pancreatic inflammatory changes are seen. The adrenal glands appear normal. Both kidneys function on delayed images. No renal calculi, solid renal mass, or hydronephrosis is seen. The abdominal aorta is of normal diameter. No abnormal retroperitoneal lymphadenopathy is seen. I see no evidence of free intraperitoneal air. The anterior abdominal wall appears intact. Surgical suture material overlies the right hemiabdomen from prior partial bowel resections. The stomach is mildly distended with fluid and secretions. Some fluid-filled, mildly distended small bowel loops overlie the lower left hemiabdomen and upper pelvis centered just to the left of midline. Maximum distention of the small bowel just to the left of midline within the lower abdomen/upper pelvis is 4.0 cm on coronal image #22. Some mucosal enhancement is seen at this level as well. Consider an ileus versus enteritis with small bowel inflammation. There appears to be a partial ascending colon colectomy with intact anastomosis. Some mild scattered stool is seen throughout the colon. I believe there is some bowel wall thickening within the proximal sigmoid colon within the lateral left hemipelvis. See axial images #62 through #74. The possibility of exacerbation of Crohn's disease is not excluded. The uterus is surgically absent. There is only mild distention of the urinary bladder. No other pelvic mass or free intraperitoneal fluid is seen. No enlarged pelvic lymph nodes are seen. I see no evidence of appendicitis. The skeleton reveals no acute fracture or bone destruction. I believe there is some mild bilateral sacroiliitis, more pronounced on the right than left. See axial images #65 through #73 of series #4. This appears similar to 11/10/2018 in retrospect. Impression: 1. Despite the patient's interval partial bowel resection, the patient's bowel gas pattern continues to be abnormal. I see some mildly distended, fluid-filled small bowel loops overlying the left hemiabdomen and upper left pelvis measuring up to 4 cm in diameter which display mucosal enhancement. Inflammation cannot be excluded at this level. This could be due to enteritis, or possibly an ileus. In addition, I see some bowel wall thickening with narrowing of the colon lumen within the proximal sigmoid colon within the lateral left hemipelvis. This appears new from 11/10/2018. Exacerbation of Crohn's disease at this level cannot be excluded. Colitis would be another possibility. 2. There is no evidence of free intraperitoneal fluid or free intraperitoneal air. 3. Surgical suture material/clips overlie the right hemiabdomen from prior partial bowel resections. 4. Status post cholecystectomy and hysterectomy.
[2018-12-31] MEDS: Sodium Chloride 0.9% 1000 ML 1,000 ML IV SCH (19:45)
[2018-12-31] MEDS: DILAUDID 2 MG INJECTION IV PRN (20:34)
[2018-12-31] MEDS ORDERED: Ativan 1 MG PO PRN (21:06)
[2018-12-31] MEDS: Zofran 4 MG/2 ML VIAL IV PRN (22:44)
[2019-01-01] MEDS: DILAUDID 2 MG INJECTION IV PRN ×8 (00:33→23:20)
[2019-01-01 04:29] LABS: BASOPHIL % 0.5 % (0.0-0.4); Basophil (Absolute #) 0.04 (0-0.4); Eosinophil % 2.2 % (0.00-5.0); Eosinophil (Absolute #) 0.19 (0-0.5); Granulocyte Absolute (ANC) 5.48 (1.4-6.9); Hematocrit 31.8 % (35-47); Hemoglobin 9.8 gm/dl (12.0-16.0); Lymphocyte (Absolute #) 2.27 (1.0-4.6); Lymphocytes % 26.2 % (24.0-44.0); Mean Cell Volume 81.1 fl (78-100); Mean Corpuscular Hgb Concent. 30.8 g/dl (32-36); Mean Platelet Volume 9.2 fl (6-9.5); Monocytes % 8.1 % (0.0-12.0); Platelet Count 457 K/mm3 (150-450); Red Blood Count 3.92 M/mm3 (4.1-5.4); Red Cell Distribution Width 18.2 % (11.5-14.0); White Blood Count 8.7 K/mm3 (4.0-10.5)
[2019-01-01 04:38] LABS: ALBUMIN 3.5 g/dL (3.5-5.0); ALKALINE PHOSPHATASE 92 U/L (38-126); AMYLASE 109 U/L (30-110); ANION GAP 8.3 MEQ/L (5-15); BLOOD UREA NITROGEN 12 mg/dL (7-17); CHLORIDE 111 mmol/L (98-107); Calcium 9.4 mg/dL (8.4-10.2); Carbon Dioxide 25 mmol/L (22-30); Creatinine 1 0.48 mg/dL (0.52-1.04); Glucose 84 mg/dL (74-106); Potassium 4.2 mmol/L (3.5-5.1); SGOT/AST 40 U/L (14-36); SGPT/ALT 78 U/L (0-35); SODIUM 140 mmol/L (137-145); Total Protein 6.4 g/dL (6.3-8.2)
[2019-01-01] MEDS: Zofran 4 MG/2 ML VIAL IV PRN ×4 (04:40→23:21)
[2019-01-01] MEDS: Sodium Chloride 0.9% 1000 ML 1,000 ML IV SCH ×2 (04:47→15:29)
[2019-01-01] MEDS ORDERED: TYLENOL 325 MG PO PRN (08:42)
[2019-01-01] MEDS ORDERED: Cyanocobalamin B-12 1000 MCG/ML IM SCH (09:45)
[2019-01-01] MEDS ORDERED: NON-FORMULARY ITEM (Cholecalciferol (Vitamin D3) [Vitamin D3] 50,000 UNIT) PO SCH (09:45)
--- NOTE | 2019-01-01 09:52 | HP ---
HISTORY OF PRESENT ILLNESS: This is a 43 year-old patient of [facility] who also sees gastroenterology, Dr. Leonard Pineda, who has a long standing history of Crohn's disease. She presented to the emergency department. She said that she started to have more abdominal pain and vomiting starting last . She felt like her potassium was low and was able to take her liquid potassium and then started feeling bad again on Sunday with vomiting into Sunday so she came to the emergency department. She reports the pain is a little bit different than what her Crohn's pain usually is although she still has that pain as well. She has more pain in the epigastric area radiating to her back. She reports the vomiting is better since being here. She continues to have diarrhea approximately 14 times a day and reports her respiratory care program director told her that probably will not get better. A couple of months ago she had resection a part of her small bowel due to the Crohn's disease and has been recovering from that. She has not been restarted yet on her Entyvio that helps with her Crohn's disease. Since she had her surgery she reports she was supposed to start last week but was not feeling well. She also reports today that she was supposed to have two teeth pulled but instead she is here in the hospital. REVIEW OF SYSTEMS: No fever. She has nausea, diarrhea or abdominal pain. No chest pain. No shortness of breath. No lower extremity edema. No rashes. MEDICATIONS: Please see the home medication reconciliation form. ALLERGIES: CLONIPINE, DEPAKOTE, CYMBALTA, FENTANYL, DEMEROL, HUMIRA, BUPRENORPHINE, PREDNISONE. PAST MEDICAL HISTORY: Crohn's disease. Anxiety. Chronic abdominal pain. Depression. Fibromyalgia. Cervical cancer. PAST SURGICAL HISTORY: Cholecystectomy. Hysterectomy. Bowel resection x3. Tonsillectomy. SOCIAL HISTORY: Former smoker. She lives alone. FAMILY HISTORY: Noncontributory. PHYSICAL EXAMINATION: VITAL SIGNS: Temperature current 98.6F, temperature max 98.6F, heart rate 88, respiratory rate 16, blood pressure 93/61, weight 49.3 kg. Oxygen saturation 95% on room air. GENERAL: The patient is lying in bed alert, talkative and in no acute distress. CVS: She has a regular rate and rhythm. No murmurs, gallops or rubs. CHEST: Clear to auscultation bilaterally. No crackles or wheezes. ABDOMEN: Soft with normal bowel sounds with diffuse tenderness throughout but worse in the epigastric area. No guarding. No rigidity. EXTREMITIES: No clubbing, cyanosis or edema. SKIN: Warm, dry and intact. LABORATORY DATA AND TESTS: On admission her amylase was 140 and now 109, lipase 777 now 352. Hemoglobin 9.8. She had a CT of her abdomen and pelvis. Please see the radiologist report for the dictation. ASSESSMENT AND PLAN: 1) ACUTE PANCREATITIS. Will continue with IV fluids, IV pain control, Zofran for nausea. I will recheck amylase and lipase again in the morning. Will start her on clear liquids as tolerated. 2) CROHN'S DISEASE: Will continue again with IV fluids and pain control. She sees the respiratory care program director regularly and reports she is to see him again in January and start the Entyvio as soon as she feels well enough to do so. 3) ANXIETY/DEPRESSION: Will continue her home medications. 4) CHRONIC ABDOMINAL PAIN: She usually takes oral Dilaudid at home and right now she is on IV Dilaudid so we are holding of course the oral Dilaudid.
[2019-01-01] MEDS: Protonix 40MG Tablet PO SCH (09:59)
[2019-01-02] MEDS: Sodium Chloride 0.9% 1000 ML 1,000 ML IV SCH ×3 (01:18→20:48)
[2019-01-02] MEDS: DILAUDID 2 MG INJECTION IV PRN ×8 (02:20→23:47)
[2019-01-02 04:33] LABS: BASOPHIL % 0.3 % (0.0-0.4); Basophil (Absolute #) 0.02 (0-0.4); Eosinophil % 1.4 % (0.00-5.0); Eosinophil (Absolute #) 0.11 (0-0.5); Granulocyte Absolute (ANC) 5.24 (1.4-6.9); Granulocytes % 68.7 % (36.0-66.0); Hematocrit 32.8 % (35-47); Hemoglobin 10.1 gm/dl (12.0-16.0); Lymphocyte (Absolute #) 1.78 (1.0-4.6); Lymphocytes % 23.4 % (24.0-44.0); Mean Cell Volume 81.4 fl (78-100); Mean Corpuscular Hgb Concent. 30.8 g/dl (32-36); Mean Platelet Volume 9.5 fl (6-9.5); Monocyte (Absolute #) 0.47 (0.0-1.3); Monocytes % 6.2 % (0.0-12.0); Platelet Count 458 K/mm3 (150-450); Red Blood Count 4.03 M/mm3 (4.1-5.4); Red Cell Distribution Width 17.9 % (11.5-14.0); White Blood Count 7.6 K/mm3 (4.0-10.5)
[2019-01-02 04:47] LABS: ALBUMIN 3.6 g/dL (3.5-5.0); ALKALINE PHOSPHATASE 103 U/L (38-126); AMYLASE 79 U/L (30-110); ANION GAP 11.1 MEQ/L (5-15); BLOOD UREA NITROGEN 8 mg/dL (7-17); CHLORIDE 105 mmol/L (98-107); Calcium 9.3 mg/dL (8.4-10.2); Carbon Dioxide 26 mmol/L (22-30); Creatinine 1 0.47 mg/dL (0.52-1.04); Glucose 71 mg/dL (74-106); Potassium 4.6 mmol/L (3.5-5.1); SGOT/AST 27 U/L (14-36); SGPT/ALT 59 U/L (0-35); SODIUM 138 mmol/L (137-145); Total Protein 6.6 g/dL (6.3-8.2)
[2019-01-02] MEDS: Zofran 4 MG/2 ML VIAL IV PRN ×4 (05:20→23:48)
[2019-01-02] MEDS: Protonix 40MG Tablet PO SCH (08:29)
--- NOTE | 2019-01-02 08:51 | PCM.NOTE ---
Date and Time: 01/02/19847 Subjective Assessment: Patient reports a little better rest but still having some upper abdominal pain that goes around to her back. The pain medication helps. She reports the broth runs right through her. She has been able to take some sips of sprite. - Review of Systems Constitutional: No Symptoms Eyes: No Symptoms Ears, Nose, & Throat: No Symptoms Respiratory: No Symptoms Cardiac: No Symptoms Abdominal/Gastrointestinal: Abdominal Pain Genitourinary Symptoms: No Symptoms, Other (urinating well, clear urine) Objective Exam General Appearance: no apparent distress, alert Neurologic Exam: alert, cooperative, normal mood/affect Skin Exam: normal color, warm, dry, No rash Respiratory Exam: normal breath sounds, lungs clear, No crackles/rales, No rhonchi, No wheezing Cardiovascular Exam: regular rate/rhythm, normal heart sounds, No murmur, No friction rub, No gallop Gastrointestinal/Abdomen Exam: soft, normal bowel sounds, tenderness, other ( well healed surgical scar), No distention, No mass, No guarding OBJECTIVE DATA Vital Signs: Vital Signs - 24 hr Temp Pulse Resp BP Pulse Ox 01/02/19 07:42 98.7 F 87 16 113/59 94 L 01/02/19 04:00 98.0 F 79 18 105/61 98 01/02/19 00:21 98.6 F 87 18 110/65 96 01/01/19 20:00 98.5 F 74 18 104/62 96 01/01/19 16:00 97.8 F 85 16 112/55 93 L 01/01/19 11:40 98.3 F 75 18 106/66 95 Pain Assessment - Last Documented Pain Intensity 7 Pain Scale Used 0-10 Pain Scale Intake and Output: Intake & Output 12/31/18 01/01/19 01/02/19 01/03/19 06:59 06:59 06:59 06:59 Intake Total 869 4612 360 Output Total 5474 1200 Balance 869 -828 -840 Weight 49.3 kg 47.7 kg Lab Results: Lab Results-Last 24 Hours 01/02/19 01/02/19 Range/Units 04:32 04:32 WBC 7.6 (4.0-10.5) K/mm3 RBC 4.03 L (4.1-5.4) M/mm3 Hgb 10.1 L (12.0-16.0) gm/dl Hct 32.8 L (35-47) % MCV 81.4 (78-100) fl MCH 25.0 L (26-32) pg MCHC 30.8 L (32-36) g/dl RDW 17.9 H (11.5-14.0) % Plt Count 458 H (150-450) K/mm3 MPV 9.5 (6-9.5) fl Gran % 68.7 H (36.0-66.0) % Eos # (Auto) 0.11 (0-0.5) Absolute Lymphs (auto) 1.78 (1.0-4.6) Absolute Monos (auto) 0.47 (0.0-1.3) Lymphocytes % 23.4 L (24.0-44.0) % Monocytes % 6.2 (0.0-12.0) % Eosinophils % 1.4 (0.00-5.0) % Basophils % 0.3 (0.0-0.4) % Absolute Granulocytes 5.24 (1.4-6.9) Basophils # 0.02 (0-0.4) Sodium 138 (137-145) mmol/L Potassium 4.6 (3.5-5.1) mmol/L Chloride 105 (98-107) mmol/L Carbon Dioxide 26 (22-30) mmol/L Anion Gap 11.1 (5-15) MEQ/L BUN 8 (7-17) mg/dL Creatinine 0.47 L (0.52-1.04) mg/dL Estimated GFR > 60.0 ML/MIN Glucose 71 L (74-106) mg/dL Calcium 9.3 (8.4-10.2) mg/dL Total Bilirubin 0.30 (0.2-1.3) mg/dL AST 27 (14-36) U/L ALT 59 H (0-35) U/L Alkaline Phosphatase 103 (38-126) U/L Serum Total Protein 6.6 (6.3-8.2) g/dL Albumin 3.6 (3.5-5.0) g/dL Amylase 79 (30-110) U/L Lipase 121 (23-300) U/L Radiology Exams: Radiology Procedures Category Date Time Status ABDOMEN AND PELVIS W CONTRAST [CT] Stat Exams 12/31/18 16:54 Completed Assessment/Plan (1) Pancreatitis Current Visit: Yes Status: Acute Qualifiers: Chronicity: acute Pancreatitis type: unspecified pancreatitis type Acute pancreatitis complication: unspecified Qualified Code(s): K85.90 - Acute pancreatitis without necrosis or infection, unspecified Assessment & Plan: Amylase and lipase are normal; she continues to have some upper abdominal pain. Continue IV fluids, pain medication, zofran. Advance diet as tolerated. Code(s): K85.90 - ACUTE PANCREATITIS WITHOUT NECROSIS OR INFECTION, UNSP (2) Crohns disease of small intestine Current Visit: Yes Status: Acute Assessment & Plan: Last office visit note from her summer nanny reviewed. He plans for her to restart Entyvio but she has not restarted this yet. Code(s): K50.00 - CROHN'S DISEASE OF SMALL INTESTINE WITHOUT COMPLICATIONS (3) Anxiety Current Visit: No Status: Acute Onset Date: ~02/28/18 Assessment & Plan: Continue home medication. Code(s): F41.9 - ANXIETY DISORDER, UNSPECIFIED (4) Depression Current Visit: Yes Status: Acute Assessment & Plan: Continue home medication Code(s): F32.9 - MAJOR DEPRESSIVE DISORDER, SINGLE EPISODE, UNSPECIFIED (5) Chronic abdominal pain Current Visit: No Status: Chronic Assessment & Plan: She is on IV pain medication here. She takes oral pain medication at home. Code(s): R10.9 - UNSPECIFIED ABDOMINAL PAIN; G89.29 - OTHER CHRONIC PAIN
[2019-01-02] MEDS ORDERED: VITAMIN D2 PO SCH (10:00)
[2019-01-03] MEDS: DILAUDID 2 MG INJECTION IV PRN ×7 (02:46→21:15)
[2019-01-03 05:24] LABS: BASOPHIL % 0.1 % (0.0-0.4); Basophil (Absolute #) 0.01 (0-0.4); Eosinophil % 1.1 % (0.00-5.0); Granulocyte Absolute (ANC) 6.56 (1.4-6.9); Granulocytes % 75.2 % (36.0-66.0); Hematocrit 31.9 % (35-47); Lymphocyte (Absolute #) 1.49 (1.0-4.6); Mean Cell Volume 80.8 fl (78-100); Mean Corpuscular Hemoglobin 25.3 pg (26-32); Mean Corpuscular Hgb Concent. 31.3 g/dl (32-36); Mean Platelet Volume 9.2 fl (6-9.5); Monocyte (Absolute #) 0.58 (0.0-1.3); Monocytes % 6.6 % (0.0-12.0); Platelet Count 402 K/mm3 (150-450); Red Blood Count 3.95 M/mm3 (4.1-5.4); Red Cell Distribution Width 17.8 % (11.5-14.0); White Blood Count 8.7 K/mm3 (4.0-10.5)
[2019-01-03 05:36] LABS: ALBUMIN 3.3 g/dL (3.5-5.0); ALKALINE PHOSPHATASE 92 U/L (38-126); ANION GAP 11.1 MEQ/L (5-15); BLOOD UREA NITROGEN 5 mg/dL (7-17); CHLORIDE 108 mmol/L (98-107); Calcium 9.2 mg/dL (8.4-10.2); Carbon Dioxide 26 mmol/L (22-30); Glucose 79 mg/dL (74-106); Potassium 4.9 mmol/L (3.5-5.1); SGOT/AST 18 U/L (14-36); SGPT/ALT 41 U/L (0-35); SODIUM 141 mmol/L (137-145); Total Protein 6.2 g/dL (6.3-8.2)
[2019-01-03] MEDS: Sodium Chloride 0.9% 1000 ML 1,000 ML IV SCH ×2 (05:50→15:55)
[2019-01-03] MEDS: Zofran 4 MG/2 ML VIAL IV PRN ×3 (05:50→18:05)
[2019-01-03] MEDS: Protonix 40MG Tablet PO SCH (09:04)
[2019-01-03] MEDS: solu-MEDROL 125 MG IV SCH ×3 (09:13→21:18)
--- NOTE | 2019-01-03 16:21 | PCM.NOTE ---
Date and Time: 01/03/191616 Subjective Assessment: Patient reports continued abdominal pain a little worse in the upper abdomen. She has been able to take fluids well and some soup but is still requiring IV zofran to keep food down and IV pain medication for her pain. She reports that she continues to have diarrhea. - Review of Systems Constitutional: No Symptoms Eyes: No Symptoms Ears, Nose, & Throat: No Symptoms Respiratory: No Symptoms Cardiac: No Symptoms Abdominal/Gastrointestinal: Abdominal Pain, Nausea, Diarrhea Genitourinary Symptoms: No Symptoms Musculoskeletal: No Symptoms Objective Exam General Appearance: no apparent distress Neurologic Exam: alert, cooperative, normal mood/affect Skin Exam: normal color, warm, dry Respiratory Exam: normal breath sounds, lungs clear, No crackles/rales, No rhonchi, No wheezing Cardiovascular Exam: regular rate/rhythm, normal heart sounds, No murmur, No friction rub, No gallop Gastrointestinal/Abdomen Exam: soft, normal bowel sounds, tenderness, No distention, No mass, No guarding Extremity Exam: normal inspection, other (no c/c/e) OBJECTIVE DATA Vital Signs: Vital Signs - 24 hr Temp Pulse Resp BP Pulse Ox 01/03/19 12:29 98 F 90 20 100/58 96 01/03/19 07:14 97.8 F 87 18 139/64 87 L 01/03/19 04:00 98.3 F 67 16 100/65 98 01/02/19 23:34 98.7 F 81 16 104/59 97 01/02/19 20:05 98.4 F 68 16 111/62 98 Pain Assessment - Last Documented Pain Intensity 6 Pain Scale Used 0-10 Pain Scale Intake and Output: Intake & Output 01/01/19 01/02/19 01/03/19 01/04/19 06:59 06:59 06:59 06:59 Intake Total 869 4612 3953 480 Output Total 5450 6000 300 Balance 519 -401 -2372 180 Weight 49.3 kg 47.7 kg 47.9 kg Lab Results: Lab Results-Last 24 Hours 01/03/19 01/03/19 Range/Units 05:21 05:21 WBC 8.7 (4.0-10.5) K/mm3 RBC 3.95 L (4.1-5.4) M/mm3 Hgb 10.0 L (12.0-16.0) gm/dl Hct 31.9 L (35-47) % MCV 80.8 (78-100) fl MCH 25.3 L (26-32) pg MCHC 31.3 L (32-36) g/dl RDW 17.8 H (11.5-14.0) % Plt Count 402 (150-450) K/mm3 MPV 9.2 (6-9.5) fl Gran % 75.2 H (36.0-66.0) % Eos # (Auto) 0.10 (0-0.5) Absolute Lymphs (auto) 1.49 (1.0-4.6) Absolute Monos (auto) 0.58 (0.0-1.3) Lymphocytes % 17.0 L (24.0-44.0) % Monocytes % 6.6 (0.0-12.0) % Eosinophils % 1.1 (0.00-5.0) % Basophils % 0.1 (0.0-0.4) % Absolute Granulocytes 6.56 (1.4-6.9) Basophils # 0.01 (0-0.4) Sodium 141 (137-145) mmol/L Potassium 4.9 (3.5-5.1) mmol/L Chloride 108 H (98-107) mmol/L Carbon Dioxide 26 (22-30) mmol/L Anion Gap 11.1 (5-15) MEQ/L BUN 5 L (7-17) mg/dL Creatinine 0.50 L (0.52-1.04) mg/dL Estimated GFR > 60.0 ML/MIN Glucose 79 (74-106) mg/dL Calcium 9.2 (8.4-10.2) mg/dL Total Bilirubin 0.30 (0.2-1.3) mg/dL AST 18 (14-36) U/L ALT 41 H (0-35) U/L Alkaline Phosphatase 92 (38-126) U/L Serum Total Protein 6.2 L (6.3-8.2) g/dL Albumin 3.3 L (3.5-5.0) g/dL Assessment/Plan (1) Pancreatitis Current Visit: Yes Status: Acute Qualifiers: Chronicity: acute Pancreatitis type: unspecified pancreatitis type Acute pancreatitis complication: unspecified Qualified Code(s): K85.90 - Acute pancreatitis without necrosis or infection, unspecified Assessment & Plan: Continue IV fluids, IV pain medication, zofran as needed. Code(s): K85.90 - ACUTE PANCREATITIS WITHOUT NECROSIS OR INFECTION, UNSP (2) Crohns disease of small intestine Current Visit: Yes Status: Acute Assessment & Plan: As amylase and lipase have improved, abdominal pain may be Crohn's disease exacerbation as well. Will start IV solumedrol while she is here in the hospital. Continue other treatment as discussed under pancreatitis. Code(s): K50.00 - CROHN'S DISEASE OF SMALL INTESTINE WITHOUT COMPLICATIONS (3) Anxiety Current Visit: No Status: Acute Onset Date: ~02/28/18 Assessment & Plan: Well controlled on current medication. Code(s): F41.9 - ANXIETY DISORDER, UNSPECIFIED (4) Depression Current Visit: Yes Status: Acute Assessment & Plan: Anti depressant not on her home medication list. Patient appears to be doing well considering her chronic health problems. Code(s): F32.9 - MAJOR DEPRESSIVE DISORDER, SINGLE EPISODE, UNSPECIFIED (5) Chronic abdominal pain Current Visit: Yes Status: Chronic Assessment & Plan: Patient takes oral dilaudid at home but is currently on IV dilaudid now. Code(s): R10.9 - UNSPECIFIED ABDOMINAL PAIN; G89.29 - OTHER CHRONIC PAIN
[2019-01-04] MEDS: DILAUDID 2 MG INJECTION IV PRN ×8 (00:18→21:49)
[2019-01-04] MEDS: Zofran 4 MG/2 ML VIAL IV PRN ×4 (00:19→18:46)
[2019-01-04] MEDS: solu-MEDROL 125 MG IV SCH ×4 (03:16→21:54)
[2019-01-04 05:44] LABS: BASOPHIL % 0.1 % (0.0-0.4); Basophil (Absolute #) 0.01 (0-0.4); Eosinophil (Absolute #) 0 (0-0.5); Granulocyte Absolute (ANC) 11.46 (1.4-6.9); Granulocytes % 90.5 % (36.0-66.0); Hematocrit 32.2 % (35-47); Hemoglobin 10.1 gm/dl (12.0-16.0); Lymphocyte (Absolute #) 0.99 (1.0-4.6); Lymphocytes % 7.8 % (24.0-44.0); Mean Cell Volume 80.9 fl (78-100); Mean Corpuscular Hgb Concent. 31.4 g/dl (32-36); Mean Platelet Volume 9.5 fl (6-9.5); Monocytes % 1.6 % (0.0-12.0); Platelet Count 457 K/mm3 (150-450); Red Blood Count 3.98 M/mm3 (4.1-5.4); White Blood Count 12.7 K/mm3 (4.0-10.5)
[2019-01-04 05:59] LABS: Mean Corpuscular Hemoglobin 25.3 pg (26-32)
[2019-01-04 06:05] LABS: ALBUMIN 3.6 g/dL (3.5-5.0); ALKALINE PHOSPHATASE 96 U/L (38-126); ANION GAP 9.5 MEQ/L (5-15); BLOOD UREA NITROGEN 6 mg/dL (7-17); CHLORIDE 107 mmol/L (98-107); Calcium 9.8 mg/dL (8.4-10.2); Carbon Dioxide 27 mmol/L (22-30); Creatinine 1 0.41 mg/dL (0.52-1.04); Glucose 132 mg/dL (74-106); SGOT/AST 11 U/L (14-36); SGPT/ALT 30 U/L (0-35); SODIUM 139 mmol/L (137-145); Total Protein 6.6 g/dL (6.3-8.2)
[2019-01-04] MEDS: Sodium Chloride 0.9% 1000 ML 1,000 ML IV SCH ×2 (08:04→22:10)
[2019-01-04] MEDS: Protonix 40MG Tablet PO SCH (08:07)
--- NOTE | 2019-01-04 13:15 | PCM.NOTE ---
Date and Time: 01/04/19 1311 Subjective Assessment: Patient reports that 3 hours after receiving the IV solumedrol, her abdominal pain started to feel better. She has been able to eat more but is still requiring IV zofran and IV pain medication. She reports that she continues to have diarrhea. She has not vomited. - Review of Systems Constitutional: Weakness Eyes: No Symptoms Ears, Nose, & Throat: No Symptoms Respiratory: No Symptoms Cardiac: No Symptoms Abdominal/Gastrointestinal: Abdominal Pain, Nausea, Diarrhea, No Vomiting, No Constipation Genitourinary Symptoms: No Symptoms Musculoskeletal: No Symptoms Objective Exam General Appearance: no apparent distress, anxiety Neurologic Exam: alert, cooperative, normal mood/affect Skin Exam: normal color, warm, dry, No rash Respiratory Exam: normal breath sounds, lungs clear, No crackles/rales, No rhonchi, No wheezing Cardiovascular Exam: regular rate/rhythm, normal heart sounds, No friction rub, No gallop, No tachycardia Gastrointestinal/Abdomen Exam: soft, normal bowel sounds, tenderness, No distention, No mass, No guarding Extremity Exam: normal inspection, other (no c/c/e) OBJECTIVE DATA Vital Signs: Vital Signs - 24 hr Temp Pulse Resp BP Pulse Ox 01/04/19 07:50 97.9 F 77 18 103/65 97 01/04/19 04:00 97.5 F 68 18 114/53 97 01/04/19 00:00 98.1 F 81 18 118/77 96 01/03/19 20:00 98.5 F 91 H 18 109/60 96 01/03/19 16:20 98.2 F 74 18 99/57 97 Pain Assessment - Last Documented Pain Intensity 7 Pain Scale Used 0-10 Pain Scale Intake and Output: Intake & Output 01/02/19 01/03/19 01/04/19 01/05/19 06:59 06:59 06:59 06:59 Intake Total 4658 3953 1570 480 Output Total 5446 4471 8530 Balance -525 -5520 -9566 480 Weight 47.7 kg 47.9 kg 47.9 kg Lab Results: Lab Results-Last 24 Hours 01/04/19 01/04/19 Range/Units 05:34 05:34 WBC 12.7 H (4.0-10.5) K/mm3 RBC 3.98 L (4.1-5.4) M/mm3 Hgb 10.1 L (12.0-16.0) gm/dl Hct 32.2 L (35-47) % MCV 80.9 (78-100) fl MCH 25.3 L (26-32) pg MCHC 31.4 L (32-36) g/dl RDW 18.0 H (11.5-14.0) % Plt Count 457 H (150-450) K/mm3 MPV 9.5 (6-9.5) fl Gran % 90.5 H (36.0-66.0) % Eos # (Auto) 0 (0-0.5) Absolute Lymphs (auto) 0.99 L (1.0-4.6) Absolute Monos (auto) 0.20 (0.0-1.3) Lymphocytes % 7.8 L (24.0-44.0) % Monocytes % 1.6 (0.0-12.0) % Eosinophils % 0.0 (0.00-5.0) % Basophils % 0.1 (0.0-0.4) % Absolute Granulocytes 11.46 H (1.4-6.9) Basophils # 0.01 (0-0.4) Sodium 139 (137-145) mmol/L Potassium 5.0 (3.5-5.1) mmol/L Chloride 107 (98-107) mmol/L Carbon Dioxide 27 (22-30) mmol/L Anion Gap 9.5 (5-15) MEQ/L BUN 6 L (7-17) mg/dL Creatinine 0.41 L (0.52-1.04) mg/dL Estimated GFR > 60.0 ML/MIN Glucose 132 H (74-106) mg/dL Calcium 9.8 (8.4-10.2) mg/dL Total Bilirubin 0.20 (0.2-1.3) mg/dL AST 11 L (14-36) U/L ALT 30 (0-35) U/L Alkaline Phosphatase 96 (38-126) U/L Serum Total Protein 6.6 (6.3-8.2) g/dL Albumin 3.6 (3.5-5.0) g/dL Assessment/Plan (1) Pancreatitis Current Visit: Yes Status: Acute Qualifiers: Chronicity: acute Pancreatitis type: unspecified pancreatitis type Acute pancreatitis complication: unspecified Qualified Code(s): K85.90 - Acute pancreatitis without necrosis or infection, unspecified Assessment & Plan: Continue IV fluids and IV pain medication; slowly improving. Code(s): K85.90 - ACUTE PANCREATITIS WITHOUT NECROSIS OR INFECTION, UNSP (2) Crohns disease of small intestine Current Visit: Yes Status: Acute Assessment & Plan: Continue fluids, IV solumedrol and IV pain medication. She follows up with a managed services sales consultant as an outpatient. Code(s): K50.00 - CROHN'S DISEASE OF SMALL INTESTINE WITHOUT COMPLICATIONS (3) Anxiety Current Visit: No Status: Acute Onset Date: ~02/28/18 Assessment & Plan: Currently stable. Code(s): F41.9 - ANXIETY DISORDER, UNSPECIFIED (4) Depression Current Visit: Yes Status: Acute Assessment & Plan: Currently stable. Code(s): F32.9 - MAJOR DEPRESSIVE DISORDER, SINGLE EPISODE, UNSPECIFIED (5) Chronic abdominal pain Current Visit: Yes Status: Chronic Assessment & Plan: Currently on IV pain medication; she takes oral pain medication at home. Code(s): R10.9 - UNSPECIFIED ABDOMINAL PAIN; G89.29 - OTHER CHRONIC PAIN
[2019-01-05] MEDS: DILAUDID 2 MG INJECTION IV PRN ×8 (00:45→22:40)
[2019-01-05] MEDS: Zofran 4 MG/2 ML VIAL IV PRN ×4 (00:47→19:32)
[2019-01-05] MEDS: solu-MEDROL 125 MG IV SCH ×4 (03:52→22:44)
[2019-01-05 05:46] LABS: BASOPHIL % 0.1 % (0.0-0.4); Basophil (Absolute #) 0.01 (0-0.4); Eosinophil % 0.1 % (0.00-5.0); Eosinophil (Absolute #) 0.02 (0-0.5); Granulocyte Absolute (ANC) 15.12 (1.4-6.9); Granulocytes % 89.9 % (36.0-66.0); Hematocrit 31.6 % (35-47); Hemoglobin 9.8 gm/dl (12.0-16.0); Lymphocyte (Absolute #) 1.18 (1.0-4.6); Mean Cell Volume 81.4 fl (78-100); Mean Corpuscular Hemoglobin 25.2 pg (26-32); Mean Platelet Volume 9.7 fl (6-9.5); Monocyte (Absolute #) 0.49 (0.0-1.3); Monocytes % 2.9 % (0.0-12.0); Platelet Count 434 K/mm3 (150-450); Red Blood Count 3.88 M/mm3 (4.1-5.4); Red Cell Distribution Width 18.5 % (11.5-14.0); White Blood Count 16.8 K/mm3 (4.0-10.5)
[2019-01-05 06:06] LABS: ALBUMIN 3.3 g/dL (3.5-5.0); ALKALINE PHOSPHATASE 84 U/L (38-126); ANION GAP 9.6 MEQ/L (5-15); BLOOD UREA NITROGEN 12 mg/dL (7-17); CHLORIDE 107 mmol/L (98-107); Calcium 9.4 mg/dL (8.4-10.2); Carbon Dioxide 27 mmol/L (22-30); Creatinine 1 0.44 mg/dL (0.52-1.04); Glucose 111 mg/dL (74-106); SGOT/AST 11 U/L (14-36); SGPT/ALT 23 U/L (0-35); SODIUM 138 mmol/L (137-145); Total Protein 6.3 g/dL (6.3-8.2)
[2019-01-05] MEDS: Protonix 40MG Tablet PO SCH (09:53)
--- NOTE | 2019-01-05 12:34 | PCM.NOTE ---
Date and Time: 01/05/19 1232 Subjective Assessment: She reports that her abdominal pain has improved some. She has been able to eat a little more but still requiring IV pain medication and zofran. She notes at this time she does not have any zofran at home and her pharmacy is not open today. She feels like she continues to improve. - Review of Systems Constitutional: No Symptoms Eyes: No Symptoms Ears, Nose, & Throat: No Symptoms Respiratory: No Symptoms Cardiac: No Symptoms Abdominal/Gastrointestinal: Abdominal Pain, Nausea, Diarrhea, No Vomiting, No Constipation Genitourinary Symptoms: No Symptoms Musculoskeletal: No Symptoms Skin: No Symptoms Objective Exam General Appearance: no apparent distress Neurologic Exam: alert, cooperative, normal mood/affect Skin Exam: normal color, warm, dry, No rash Respiratory Exam: normal breath sounds, lungs clear, No crackles/rales, No rhonchi, No wheezing Gastrointestinal/Abdomen Exam: soft, normal bowel sounds, tenderness, other ( well healed scar), No distention, No mass, No guarding Extremity Exam: other (no c/c/e) OBJECTIVE DATA Vital Signs: Vital Signs - 24 hr Temp Pulse Resp BP Pulse Ox 01/05/19 12:00 98.3 F 76 18 106/65 95 01/05/19 07:31 97.9 F 61 18 101/64 96 01/05/19 04:00 97.7 F 60 18 102/62 98 01/05/19 00:00 98.4 F 66 19 102/61 96 01/04/19 19:56 98.4 F 82 18 108/74 97 01/04/19 16:00 98.1 F 74 18 94/59 97 Pain Assessment - Last Documented Pain Intensity 7 Pain Scale Used 0-10 Pain Scale Intake and Output: Intake & Output 01/03/19 01/04/19 01/05/19 01/06/19 06:59 06:59 06:59 06:59 Intake Total 3953 1570 4384 580 Output Total 6000 3700 4000 Balance -2046 384 580 Weight 47.9 kg 47.9 kg 48 kg Lab Results: Lab Results-Last 24 Hours 01/05/19 01/05/19 Range/Units 05:20 05:20 WBC 16.8 H (4.0-10.5) K/mm3 RBC 3.88 L (4.1-5.4) M/mm3 Hgb 9.8 L (12.0-16.0) gm/dl Hct 31.6 L (35-47) % MCV 81.4 (78-100) fl MCH 25.2 L (26-32) pg MCHC 31.0 L (32-36) g/dl RDW 18.5 H (11.5-14.0) % Plt Count 434 (150-450) K/mm3 MPV 9.7 H (6-9.5) fl Gran % 89.9 H (36.0-66.0) % Eos # (Auto) 0.02 (0-0.5) Absolute Lymphs (auto) 1.18 (1.0-4.6) Absolute Monos (auto) 0.49 (0.0-1.3) Lymphocytes % 7.0 L (24.0-44.0) % Monocytes % 2.9 (0.0-12.0) % Eosinophils % 0.1 (0.00-5.0) % Basophils % 0.1 (0.0-0.4) % Absolute Granulocytes 15.12 H (1.4-6.9) Basophils # 0.01 (0-0.4) Sodium 138 (137-145) mmol/L Potassium 5.0 (3.5-5.1) mmol/L Chloride 107 (98-107) mmol/L Carbon Dioxide 27 (22-30) mmol/L Anion Gap 9.6 (5-15) MEQ/L BUN 12 (7-17) mg/dL Creatinine 0.44 L (0.52-1.04) mg/dL Estimated GFR > 60.0 ML/MIN Glucose 111 H (74-106) mg/dL Calcium 9.4 (8.4-10.2) mg/dL Total Bilirubin 0.20 (0.2-1.3) mg/dL AST 11 L (14-36) U/L ALT 23 (0-35) U/L Alkaline Phosphatase 84 (38-126) U/L Serum Total Protein 6.3 (6.3-8.2) g/dL Albumin 3.3 L (3.5-5.0) g/dL Assessment/Plan (1) Pancreatitis Current Visit: Yes Status: Acute Qualifiers: Chronicity: acute Pancreatitis type: unspecified pancreatitis type Acute pancreatitis complication: unspecified Qualified Code(s): K85.90 - Acute pancreatitis without necrosis or infection, unspecified Assessment & Plan: Continuing to improve. Continue IV fluids and IV pain medication. Code(s): K85.90 - ACUTE PANCREATITIS WITHOUT NECROSIS OR INFECTION, UNSP (2) Crohns disease of small intestine Current Visit: Yes Status: Acute Assessment & Plan: Continue IV solumedrol and will plan to discharge on oral Enterocort for treatment with close follow up with her tube cutter. Code(s): K50.00 - CROHN'S DISEASE OF SMALL INTESTINE WITHOUT COMPLICATIONS (3) Anxiety Current Visit: No Status: Acute Onset Date: ~02/28/18 Code(s): F41.9 - ANXIETY DISORDER, UNSPECIFIED (4) Depression Current Visit: Yes Status: Acute Code(s): F32.9 - MAJOR DEPRESSIVE DISORDER , SINGLE EPISODE, UNSPECIFIED (5) Chronic abdominal pain Current Visit: Yes Status: Chronic Assessment & Plan: On IV pain medication now; she takes oral pain medication at home. Code(s): R10.9 - UNSPECIFIED ABDOMINAL PAIN; G89.29 - OTHER CHRONIC PAIN
[2019-01-05] MEDS: Sodium Chloride 0.9% 1000 ML 1,000 ML IV SCH (14:17)
[2019-01-06] MEDS: DILAUDID 2 MG INJECTION IV PRN ×3 (01:28→08:10)
[2019-01-06] MEDS: Zofran 4 MG/2 ML VIAL IV PRN ×2 (01:29→08:08)
[2019-01-06] MEDS: solu-MEDROL 125 MG IV SCH ×2 (03:03→08:11)
[2019-01-06] MEDS: Sodium Chloride 0.9% 1000 ML 1,000 ML IV SCH ×2 (06:28→06:30)
[2019-01-06 07:29] VITALS: BP 119/57; PULSE 55; O2SAT 97
--- NOTE | 2019-01-06 09:09 | PCM.DCORD ---
- Discharge Discharge Date: 01/06/19 Disposition: Home, Self-Care Condition: Fair Prescriptions: New Budesonide [Budesonide ER] 9 mg PO DAILY #30 tabdr...er Continue Cholecalciferol (Vitamin D3) [Vitamin D3] 50,000 unit PO WEEKLY Vedolizumab [Entyvio] 300 mg IV UD Omeprazole 20 mg PO DAILY Cyanocobalamin (Vitamin B-12) [Cobal-1000] 1,000 mcg IM UD Lorazepam 1 mg [Ativan 1 MG] 1 mg PO TIDPRN PRN #90 tablet PRN Reason: Anxiety Hydromorphone HCl 4 mg [Dilaudid 4 MG Tab] 4 mg PO Q6HPRN PRN #120 tab MDD 4 PRN Reason: Pain Ondansetron HCl [Zofran] 4 mg PO Q6H PRN #120 tablet PRN Reason: Nausea/Vomiting Follow up with: KHRIS CASTILLO JR [NON-STAFF PHY W/O PRIVILEGES] - 1 Week AKIKO GREGORY [Primary Care Provider] - 1 Week
--- NOTE | 2019-01-07 09:44 | DS ---
DISCHARGE DIAGNOSES: 1) ACUTE PANCREATITIS. 2) CROHN'S DISEASE OF THE SMALL INTESTINE. 3) ANXIETY. 4) DEPRESSION. 5) CHRONIC ABDOMINAL PAIN. DISCHARGE PHYSICAL EXAMINATION: VITALS: Temperature current 97.9F, heart rate 55, respiratory rate 18, blood pressure 119/57. Oxygen saturation 97% on room air. GENERAL: The patient is a pleasant talkative lady lying in bed in no acute distress. CVS: She has a regular rate and rhythm. No murmurs, gallops or rubs are appreciated. CHEST: Clear to auscultation bilaterally. No crackles or wheezes. ABDOMEN: Diffusely tender, soft, normal bowel sounds. EXTREMITIES: No clubbing, cyanosis or edema. SKIN: Warm, dry and intact. HOSPITAL COURSE: 1) ACUTE PANCREATITIS: Her amylase and lipase are elevated on admission and came down to normal. Her epigastric pain resolved but otherwise her abdominal pain continued. The etiology of the acute pancreatitis is not known. 2) CROHN'S DISEASE OF THE SMALL INTESTINE: Once the pancreatitis seemed to have resolved, she continued to have pain and so Solu-Medrol was added given IV and this seemed to help. I discharged her on Entocort Extended Release 9 mg p.o. daily for 30 days and asked them to try to move her appointment up with her dial equipment engineer. She is supposed to be starting on Entyvio at some point but had not been able to do that before this hospitalization. 3) ANXIETY: Currently well controlled on her home medications. 4) DEPRESSION: She currently does not take any medications for this but seems to be well controlled. 5) CHRONIC ABDOMINAL PAIN: Prescriptions were written for 90 days of her Dilaudid as she had missed an outpatient appointment but the patient was told she needs to come next week for follow up from the hospitalization. DISCHARGE MEDICATIONS: Please see the discharge order. FOLLOW UP: She is to follow up with myself as well as her dial equipment engineer, Dr. Leonard Pineda Jr. DISPOSITION: The patient was discharged to home in fair condition.
== END 2019-01-06 13:00 | disposition home or self-care (01) | DRG 439 ==
LOC: ED 15:12 → MED SURG 19:25 → OBSVTOIN 01-02 17:45
PROVIDERS: ADMIT Internal Medicine; ATTEND Internal Medicine
DX: K85.90 Acute pancreatitis without necrosis or infection, unspecified (principal); K50.00 Crohn's disease of small intestine without complications; F41.8 Other specified anxiety disorders; R10.9 Unspecified abdominal pain; G89.29 Other chronic pain; Z79.899 Other long term (current) drug therapy
CPT/HCPCS: 36000; 36415; 74177; 80053; 81001; 82150; 83690; 85025; 93268; 94762; 96360; 96374; 96375; 99285; J1170; J2405; J2930; A9270-GY; G0378

== ENCOUNTER 2019-12-08 16:32 | Emergency (ER) | payer OTHER ==
[2019-12-08] MEDS ORDERED: Hydromorphone 1 mg/ml Ampule IV ONE (17:04)
[2019-12-08] MEDS ORDERED: Sodium Chloride 0.9% 1000 ML 1,000 ML IV SCH (17:15)
[2019-12-08] MEDS ORDERED: Sodium Chloride 0.9% 1000 ML 1,000 ML ONE (17:40)
[2019-12-08] MEDS ORDERED: Hydromorphone 1 mg/ml Ampule ONE (17:40)
[2019-12-08 17:42] LABS: Absolute Neutrophil Ct (ANC) 9.72 (1.4-6.9); BASOPHIL % 0.2 % (0.0-0.4); Basophil (Absolute #) 0.03 (0-0.4); Eosinophil % 0.9 % (0.00-5.0); Eosinophil (Absolute #) 0.11 (0-0.5); Hematocrit 30.1 % (35-47); Hemoglobin 9.4 gm/dl (12.0-16.0); Lymphocyte (Absolute #) 1.95 (1.0-4.6); Lymphocytes % 15.8 % (24.0-44.0); Mean Cell Volume 81.1 fl (78-100); Mean Corpuscular Hemoglobin 25.3 pg (26-32); Mean Corpuscular Hgb Concent. 31.2 g/dl (32-36); Mean Platelet Volume 7.9 fl (7.5-11.0); Monocyte (Absolute #) 0.55 (0.0-1.3); Monocytes % 4.4 % (0.0-12.0); Neutrophil % 78.7 % (36.0-66.0); Platelet Count 734 K/mm3 (150-450); Red Blood Count 3.71 M/mm3 (4.1-5.4); Red Cell Distribution Width 16.8 % (11.5-14.0); White Blood Count 12.4 K/mm3 (4.0-10.5)
[2019-12-08 17:49] LABS: INR 1.07 (0.8-3.0); PROTIME 12.1 SECONDS (9.95-12.35)
[2019-12-08 17:54] LABS: ALBUMIN 3.3 g/dL (3.5-5.0); ALKALINE PHOSPHATASE 111 U/L (38-126); AMYLASE 68 U/L (30-110); ANION GAP 8.6 MEQ/L (5-15); BILIRUBIN,TOTAL < 0.10 mg/dL (0.2-1.3); BLOOD UREA NITROGEN 13 mg/dL (7-17); CHLORIDE 107 mmol/L (98-107); Calcium 8.9 mg/dL (8.4-10.2); Carbon Dioxide 27 mmol/L (22-30); Creatinine 1 0.38 mg/dL (0.52-1.04); Glucose 87 mg/dL (74-106); LIPASE 192 U/L (23-300); MAGNESIUM 1.9 mg/dL (1.6-2.3); Potassium 4.6 mmol/L (3.5-5.1); SGOT/AST 15 U/L (14-36); SGPT/ALT 15 U/L (0-35); SODIUM 138 mmol/L (137-145); Total Protein 6.4 g/dL (6.3-8.2)
[2019-12-08 19:25] LABS: Appearance CLEAR (CLEAR); Bilirubin NEGATIVE (NEGATIVE); Blood MODERATE Ery/ul (0-5); Glucose NEGATIVE (NEGATIVE); Ketones NEGATIVE (NEGATIVE); Leukocyte Esterase NEGATIVE (NEGATIVE); Mucus SLIGHT /HPF (NEGATIVE); Nitrite NEGATIVE (NEGATIVE); Protein,Urine Dip NEGATIVE (Negative); Specific Gravity 1.017 (1.005-1.025); Urobilinogen NEGATIVE mg/dL (0-1)
--- NOTE | 2019-12-08 19:38 | ERPHSYRPT ---
- History of Present Illness Time Seen by Provider: 12/08/19 16:50 Historian: patient Exam Limitations: no limitations Patient Subjective Stated Complaint: pt to ER with complaints of chest pain since last week. pt states back/rib pain on left side. Triage Nursing Assessment: pt A&Ox4. pt appears to be in pain. pt ambulatory. skin pwd. Physician History: 44-year-old female with multiple health problems who presents with a complaint of chest pain. This started last week at 1 spot in a posterior left rib and then radiated around almost in a dermal type pattern to the front. She also was concerned about her low potassium which she chronically has she also now has left-sided tenderness even to touching the skin lightly. She does have Crohn's disease and has had some recent nausea and diarrhea pain 8 of 10. She denies any vomiting but has been nauseated she denies diaphoresis she denies shortness of breath. Risk factors include smoking and family history otherwise negative. Timing/Duration: week(s) (1) Quality: burning, throbbing Location: back Chest Pain Radiation: no radiation Severity of Pain-Max: moderate Severity of Pain-Current: moderate Modifying Factors: Improves With: nothing Associated Symptoms: nausea Nitro Today/Relief: no nitro taken today Aspirin Treatment Today: no aspirin today Allergies/Adverse Reactions: clonazepam [From Klonopin] Allergy (Mild, Verified 12/08/19 16:51) "I DON'T KNOW" divalproex sodium [From Depakote] Allergy (Mild, Verified 12/08/19 16:51) "I DON'T KNOW" duloxetine HCl [From Cymbalta] Allergy (Mild, Verified 12/08/19 16:51) Hives fentanyl Allergy (Mild, Verified 12/08/19 16:51) Hives meperidine HCl [From Demerol] Allergy (Mild, Verified 12/08/19 16:51) Hives buprenorphine Allergy (Verified 12/08/19 16:51) duloxetine [From Cymbalta] Allergy (Verified 12/08/19 16:51) meperidine [From Demerol] Allergy (Verified 12/08/19 16:51) adalimumab [From Humira] Adverse Reaction (Mild, Verified 12/08/19 16:51) Vomiting prednisone Adverse Reaction (Mild, Verified 06/15/20 16:51) SHAKING Home Medications: Cholecalciferol (Vitamin D3) [Vitamin D3] 50,000 unit PO WEEKLY 11/13/16 [ History] Vedolizumab [Entyvio] 300 mg IV UD 11/13/16 [History] Omeprazole 20 mg PO DAILY 10/09/18 [History] Cyanocobalamin (Vitamin B-12) [Cobal-1000] 1,000 mcg IM UD 11/29/18 [History] Hx Tetanus, Diphtheria Vaccination/Date Given: Yes Hx Influenza Vaccination/Date Given: No Hx Pneumococcal Vaccination/Date Given: No Immunizations Up to Date: Yes Travel Risk - International Travel Have you traveled outside of the country in past 3 weeks: No - Coronavirus Screening Are you exhibiting any of the following symptoms?: No Close contact with a COVID-19 positive Pt in past 14-21 Days: No - Review of Systems Constitutional: No Fever, No Chills Eyes: No Symptoms Ears, Nose, & Throat: No Symptoms Respiratory: No Cough, No Dyspnea Cardiac: Chest Pain, No Edema, No Syncope Abdominal/Gastrointestinal: No Abdominal Pain, No Nausea, No Vomiting, No Diarrhea Genitourinary Symptoms: No Dysuria Musculoskeletal: No Back Pain, No Neck Pain Skin: No Rash Neurological: No Dizziness, No Focal Weakness, No Sensory Changes Psychological: No Symptoms Endocrine: No Symptoms All Other Systems: Reviewed and Negative - Past Medical History Pertinent Past Medical History: Yes Neurological History: No Pertinent History ENT History: No Pertinent History Cardiac History: Arrhythmia Respiratory History: No Pertinent History Endocrine Medical History: Hypothyroidism Musculoskeletal History: Fibromyalgia, Osteoarthritis GI Medical History: Crohns Disease History: No Pertinent History Psycho-Social History: Anxiety, Depression Female Reproductive Disorders: Other Other Medical History: Cluster Headaches, pre cancerous cells cervix - Past Surgical History Past Surgical History: Yes Neuro Surgical History: No Pertinent History Cardiac: No Pertinent History Respiratory: No Pertinent History Gastrointestinal: Bowel Surgery, Cholecystectomy, Colon Resection Genitourinary: No Pertinent History Musculoskeletal: No Pertinent History Female Surgical History: Hysterectomy Other Surgical History: port-a-cath placement, tonsillectomy, 2 bowel resections. another bowel resection. - Social History Smoking Status: Current every day smoker How long have you smoked: 30 years Exposure to second hand smoke: Yes Alcohol Use: None Drug Use: none Patient Lives Alone: No Significant Family History: no pertinent family hx - Female History Hx Now: No - Nursing Vital Signs Nursing Vital Signs: Initial Vital Signs Temperature 98.0 F 12/08/19 16:39 Pulse Rate 126 H 12/08/19 16:39 Respiratory Rate 15 12/08/19 16:39 Blood Pressure 95/71 12/08/19 16:39 O2 Sat by Pulse Oximetry 99 12/08/19 16:39 Pain Scale Pain Intensity 8 - Physical Exam General Appearance: moderate distress, alert Eye Exam: PERRL/EOMI, eyes nml inspection Ears, Nose, Throat Exam: normal ENT inspection, moist mucous membranes Neck Exam: normal inspection, non-tender, supple, full range of motion Respiratory Exam: normal breath sounds, lungs clear, No respiratory distress Cardiovascular Exam: regular rate/rhythm, normal heart sounds, other (Pain elicited by palpation of the chest wall) Gastrointestinal/Abdomen Exam: soft, No tenderness, No mass Back Exam: normal inspection, No CVA tenderness, No vertebral tenderness Extremity Exam: normal inspection, normal range of motion Neurologic Exam: alert, oriented x 3, cooperative, normal mood/affect, sensation nml, No motor deficits Skin Exam: normal color, warm, dry Lymphatic Exam: No adenopathy SpO2 Interpretation: normal SpO2: 97 O2 Delivery: Room Air - Course Nursing assessment & vital signs reviewed: Yes EKG Interpreted by Me: RATE ([id number]), Sinus Tach, NORMAL AXIS, NORMAL INTERVALS, NORMAL QRS, Non-specific ST Changes - Radiology Exams Chest X-ray Interpretation: Negative - CT Exams Chest CT Interpretation: Other (No pulmonary emboli or acute processes identified) Ordered Tests: Active Orders 24 hr Category Date Time Status EKG-ER Only STAT Care 12/08/19 17:01 Active CHEST 1 VIEW (PORTABLE) Stat Exams 12/08/19 17:41 Taken CHEST WITH CONTRAST [CT] Stat Exams 12/08/19 18:52 Taken AMYLASE Stat Lab 12/08/19 17:40 Completed CBC W DIFF Stat Lab 12/08/19 Completed CMP Stat Lab 12/08/19 17:40 Completed D-DIMER QUANTITATIVE Stat Lab 12/08/19 17:40 Completed LIPASE Stat Lab 12/08/19 17:40 Completed MAGNESIUM Stat Lab 12/08/19 17:40 Completed PROTIME WITH INR Stat Lab 12/08/19 17:40 Completed TROPONIN Q3H Lab 12/08/19 17:40 Completed TROPONIN Q3H Lab 12/08/19 20:15 Ordered TROPONIN Q3H Lab 12/08/19 23:15 Ordered TROPONIN Q3H Lab 12/09/19 02:15 Ordered TROPONIN Q3H Lab 12/09/19 05:15 Ordered UA W/RFX UR CULTURE Stat Lab 12/08/19 19:00 Completed Medication Summary Generic Name Dose Route Start Last Admin Trade Name Freq PRN Reason Stop Dose Admin Sodium Chloride 1,000 mls @ 100 mls/hr 12/08/19 17:15 12/08/19 17:52 Sodium Chloride 0.9% 1000 Ml IV 01/07/20 17:14 100 mls/hr .Q10H FRANK Administration Discontinued Medications Generic Name Dose Route Start Last Admin Trade Name Freq PRN Reason Stop Dose Admin Hydromorphone HCl 1 mg 12/08/19 17:04 12/08/19 17:51 Hydromorphone 1 Mg/Ml Ampule IV 12/08/19 17:05 1 mg STAT ONE Administration Hydromorphone HCl Confirm 12/08/19 17:40 Hydromorphone 1 Mg/Ml Ampule Administered 12/08/19 17:41 Dose 1 mg .ROUTE .STK-MED ONE Lab/Rad Data: Laboratory Result Diagrams 12/08/19 Unknown 12/08/19 17:40 Laboratory Results 12/08/19 12/08/19 12/08/19 Range/Units Unknown 19:00 17:40 WBC 12.4 H (4.0-10.5) K/mm3 RBC 3.71 L (4.1-5.4) M/mm3 Hgb 9.4 L (12.0-16.0) gm/dl Hct 30.1 L (35-47) % MCV 81.1 (78-100) fl MCH 25.3 L (26-32) pg MCHC 31.2 L (32-36) g/dl RDW 16.8 H (11.5-14.0) % Plt Count 734 H (150-450) K/mm3 MPV 7.9 (7.5-11.0) fl Gran % 78.7 H (36.0-66.0) % Eos # (Auto) 0.11 (0-0.5) Absolute Lymphs (auto) 1.95 (1.0-4.6) Absolute Monos (auto) 0.55 (0.0-1.3) Lymphocytes % 15.8 L (24.0-44.0) % Monocytes % 4.4 (0.0-12.0) % Eosinophils % 0.9 (0.00-5.0) % Basophils % 0.2 (0.0-0.4) % Absolute Granulocytes 9.72 H (1.4-6.9) Basophils # 0.03 (0-0.4) PT (9.95-12.35) SECONDS INR (0.8-3.0) D-Dimer (215-500) ng/mL Sodium (137-145) mmol/L Potassium (3.5-5.1) mmol/L Chloride (98-107) mmol/L Carbon Dioxide (22-30) mmol/L Anion Gap (5-15) MEQ/L BUN (7-17) mg/dL Creatinine (0.52-1.04) mg/dL Estimated GFR ML/MIN Glucose (74-106) mg/dL Calcium (8.4-10.2) mg/dL Magnesium (1.6-2.3) mg/dL Total Bilirubin (0.2-1.3) mg/dL AST (14-36) U/L ALT (0-35) U/L Alkaline Phosphatase (38-126) U/L Troponin I < 0.012 (0.000-0.034) ng/mL Serum Total Protein (6.3-8.2) g/dL Albumin (3.5-5.0) g/dL Amylase (30-110) U/L Lipase (23-300) U/L Urine Color YELLOW (YELLOW) Urine Appearance CLEAR (CLEAR) Urine pH 5.0 (5-6) Ur Specific [place] 1.017 (1.005-1.025) Urine Protein NEGATIVE (Negative) Urine Ketones NEGATIVE (NEGATIVE) Urine Blood MODERATE (0-5) Elias/ul Urine Nitrite NEGATIVE (NEGATIVE) Urine Bilirubin NEGATIVE (NEGATIVE) Urine Urobilinogen NEGATIVE (0-1) mg/dL Ur Leukocyte Esterase NEGATIVE (NEGATIVE) Urine WBC (Auto) NONE (0-5) /HPF Urine RBC (Auto) NONE (0-2) /HPF U Epithel Cells (Auto) NONE (FEW) /HPF Urine Bacteria (Auto) NONE (NEGATIVE) /HPF Urine Mucus (Auto) SLIGHT (NEGATIVE) /HPF Urine Culture Reflexed NO (NO) Urine Glucose NEGATIVE (NEGATIVE) mg/dL 12/08/19 12/08/19 Range/Units 17:40 17:40 WBC (4.0-10.5) K/mm3 RBC (4.1-5.4) M/mm3 Hgb (12.0-16.0) gm/dl Hct (35-47) % MCV (78-100) fl MCH (26-32) pg MCHC (32-36) g/dl RDW (11.5-14.0) % Plt Count (150-450) K/mm3 MPV (7.5-11.0) fl Gran % (36.0-66.0) % Eos # (Auto) (0-0.5) Absolute Lymphs (auto) (1.0-4.6) Absolute Monos (auto) (0.0-1.3) Lymphocytes % (24.0-44.0) % Monocytes % (0.0-12.0) % Eosinophils % (0.00-5.0) % Basophils % (0.0-0.4) % Absolute Granulocytes (1.4-6.9) Basophils # (0-0.4) PT 12.1 (9.95-12.35) SECONDS INR 1.07 (0.8-3.0) D-Dimer 815 H* (215-500) ng/mL Sodium 138 (137-145) mmol/L Potassium 4.6 (3.5-5.1) mmol/L Chloride 107 (98-107) mmol/L Carbon Dioxide 27 (22-30) mmol/L Anion Gap 8.6 (5-15) MEQ/L BUN 13 (7-17) mg/dL Creatinine 0.38 L (0.52-1.04) mg/dL Estimated GFR > 60.0 ML/MIN Glucose 87 (74-106) mg/dL Calcium 8.9 (8.4-10.2) mg/dL Magnesium 1.9 (1.6-2.3) mg/dL Total Bilirubin < 0.10 L (0.2-1.3) mg/dL AST 15 (14-36) U/L ALT 15 (0-35) U/L Alkaline Phosphatase 111 (38-126) U/L Troponin I (0.000-0.034) ng/mL Serum Total Protein 6.4 (6.3-8.2) g/dL Albumin 3.3 L (3.5-5.0) g/dL Amylase 68 (30-110) U/L Lipase 192 (23-300) U/L Urine Color (YELLOW) Urine Appearance (CLEAR) Urine pH (5-6) Ur Specific [place] (1.005-1.025) Urine Protein (Negative) Urine Ketones (NEGATIVE) Urine Blood (0-5) Elias/ul Urine Nitrite (NEGATIVE) Urine Bilirubin (NEGATIVE) Urine Urobilinogen (0-1) mg/dL Ur Leukocyte Esterase (NEGATIVE) Urine WBC (Auto) (0-5) /HPF Urine RBC (Auto) (0-2) /HPF U Epithel Cells (Auto) (FEW) /HPF Urine Bacteria (Auto) (NEGATIVE) /HPF Urine Mucus (Auto) (NEGATIVE) /HPF Urine Culture Reflexed (NO) Urine Glucose (NEGATIVE) mg/dL - Progress Progress: improved Air Movement: fair Blood Culture(s) Obtained: No Antibiotics given: No - Departure Departure Disposition: Home Clinical Impression: Atypical chest pain Condition: Stable Critical Care Time: No Referrals: AKIKO GREGORY [Primary Care Provider] - Instructions: Atypical Chest Pain Prescriptions: Hydrocodone/APAP 5-325 Tab^^^ [[place] 5-325 Tablet^^^] 1 tab PO Q6HPRN PRN #10 tablet MDD 6 PRN Reason: Pain
[2019-12-08 19:50] VITALS: BP 125/59; PULSE 110; O2SAT 96
--- NOTE | 2019-12-09 08:43 | XRAY ---
Indication: Left-sided pain. Elevated d-dimer. Multiple contiguous axial images obtained through the chest using 80 cc Isovue 370 contrast and PE protocol. Comparison: December 01, 2017. There is satisfactory opacification of the pulmonary arteries to include the lobar and segmental branches. Again no filling defects/pulmonary embolus. Heart is not enlarged with stable right Port-A-Cath. Aorta is normal in course and caliber. Stable tiny left hilar calcified nodes. No pathologic mediastinal/hilar lymphadenopathy. Lungs again demonstrates mild bilateral dependent atelectasis, minimal bibasilar fibrosis/scarring, and left upper lobe calcified granuloma. No new pulmonary mass, infiltrate, consolidation, or effusion. Bony thorax intact. Limited upper abdomen again demonstrates calcified splenic granulomas and cholecystectomy clips. Impression: 1. Continued negative pulmonary embolus. No new/acute cardiopulmonary abnormalities. 2. Again evidence for old granulomatous disease.
--- NOTE | 2019-12-09 08:59 | XRAY ---
Indication: Left rib pain. No known injury. Comparison: February 28, 2018. Portable chest unchanged again demonstrating normal heart and lungs with incidental left lung calcified granuloma and right Port-A-Cath. Bony thorax intact. No new/acute findings.
== END 2019-12-08 20:08 | disposition home or self-care (01) ==
LOC: ED 16:32
DX: R07.89 Other chest pain (principal); Z79.899 Other long term (current) drug therapy
CPT/HCPCS: 36000; 36415; 71045; 71260; 80053; 81001; 82150; 83690; 83735; 84484; 85025; 85379; 85610; 93005; 96374; 99284; 99291; J1170; J1642

== ENCOUNTER 2020-08-19 11:25 | Observation (INO) | payer OTHER ==
[2020-08-19] MEDS ORDERED: Sodium Chloride 0.9% 1000 ML 1,000 ML IV STA (11:37)
--- NOTE | 2020-08-19 11:45 | ERPHSYRPT ---
- History of Present Illness Time Seen by Provider: 08/19/20 11:55 Historian: patient Exam Limitations: no limitations Physician History: Patient is a 44-year-old female presents to emergency department for evaluation of left upper flank pain. Patient has been experiencing pain at this location intermittently since November. Patient's pain became acutely worse today. Pain described as a sharp sensation rated 7 out of 10. Pain at this point is constant. Patient denies trauma. No fever. No nausea or vomiting. No chest pain or shortness of breath. Patient has no diarrhea. Patient has a history of Crohn's. Symptoms are moderate in intensity. No specific worsening improving factors. Patient voices no other complaints or concerns at this time. Timing/Duration: today Allergies/Adverse Reactions: clonazepam [From Klonopin] Allergy (Mild, Verified 08/19/20 11:40) "I DON'T KNOW" divalproex sodium [From Depakote] Allergy (Mild, Verified 08/19/20 11:40) "I DON'T KNOW" duloxetine HCl [From Cymbalta] Allergy (Mild, Verified 08/19/20 11:40) Hives fentanyl Allergy (Mild, Verified 08/19/20 11:40) Hives meperidine HCl [From Demerol] Allergy (Mild, Verified 08/19/20 11:40) Hives buprenorphine Allergy (Verified 08/19/20 11:40) duloxetine [From Cymbalta] Allergy (Verified 08/19/20 11:40) meperidine [From Demerol] Allergy (Verified 08/19/20 11:40) adalimumab [From Humira] Adverse Reaction (Mild, Verified 08/19/20 11:40) Vomiting prednisone Adverse Reaction (Mild, Verified 08/19/20 11:40) SHAKING Home Medications: Cholecalciferol (Vitamin D3) [Vitamin D3] 50,000 unit PO WEEKLY 11/13/16 [History] Vedolizumab [Entyvio] 300 mg IV UD 11/13/16 [History] Omeprazole 20 mg PO DAILY 10/09/18 [History] Cyanocobalamin (Vitamin B-12) [Cobal-1000] 1,000 mcg IM UD 11/29/18 [History] Hx Tetanus, Diphtheria Vaccination/Date Given: Yes Hx Influenza Vaccination/Date Given: No Hx Pneumococcal Vaccination/Date Given: No - Review of Systems Constitutional: No Symptoms, No Fever, No Chills Eyes: No Symptoms Ears, Nose, & Throat: No Symptoms Respiratory: No Symptoms, No Cough, No Dyspnea Cardiac: No Symptoms, No Chest Pain, No Edema, No Syncope Abdominal/Gastrointestinal: No Symptoms, No Abdominal Pain, No Nausea, No Vomiting, No Diarrhea Genitourinary Symptoms: No Symptoms, No Dysuria Musculoskeletal: No Symptoms, No Back Pain, No Neck Pain Skin: No Symptoms, No Rash Neurological: No Symptoms, No Dizziness, No Focal Weakness, No Sensory Changes Psychological: No Symptoms Endocrine: No Symptoms Hematologic/Lymphatic: No Symptoms Immunological/Allergic: No Symptoms All Other Systems: Reviewed and Negative - Past Medical History Pertinent Past Medical History: Yes Neurological History: No Pertinent History ENT History: No Pertinent History Cardiac History: Arrhythmia Respiratory History: No Pertinent History Endocrine Medical History: Hypothyroidism Musculoskeletal History: Fibromyalgia, Osteoarthritis GI Medical History: Crohns Disease History: No Pertinent History Psycho-Social History: Anxiety, Depression Female Reproductive Disorders: Other Other Medical History: Cluster Headaches, pre cancerous cells cervix - Past Surgical History Past Surgical History: Yes Neuro Surgical History: No Pertinent History Cardiac: No Pertinent History Respiratory: No Pertinent History Gastrointestinal: Bowel Surgery, Cholecystectomy, Colon Resection Genitourinary: No Pertinent History Musculoskeletal: No Pertinent History Female Surgical History: Hysterectomy Other Surgical History: port-a-cath placement, tonsillectomy, 2 bowel resections. another bowel resection. - Social History Smoking Status: Current every day smoker How long have you smoked: 30 years Exposure to second hand smoke: Yes Alcohol Use: None Drug Use: none Patient Lives Alone: No Significant Family History: no pertinent family hx - Female History Hx Now: No - Nursing Vital Signs Nursing Vital Signs: Initial Vital Signs Temperature 99.0 F 08/19/20 11:48 Pulse Rate 111 H 08/19/20 11:48 Respiratory Rate 18 08/19/20 11:48 Blood Pressure 113/68 08/19/20 11:48 O2 Sat by Pulse Oximetry 97 08/19/20 11:48 Pain Scale Pain Intensity 7 - Physical Exam General Appearance: no apparent distress, alert Eye Exam: PERRL/EOMI, eyes nml inspection Ears, Nose, Throat Exam: normal ENT inspection, pharynx normal, moist mucous membranes Neck Exam: normal inspection, non-tender, supple, full range of motion Respiratory Exam: normal breath sounds, lungs clear, No respiratory distress Cardiovascular Exam: regular rate/rhythm, normal heart sounds Gastrointestinal/Abdomen Exam: soft, tenderness, other (Epigastric pain and left upper posterior back pain), No mass, No guarding, No ecchymosis, No pulsatile mass, No organomegaly Back Exam: normal inspection, normal range of motion, CVA tenderness, other (Positive left-sided CVA tenderness.), No vertebral tenderness Extremity Exam: normal inspection, normal range of motion, pelvis stable Neurologic Exam: alert, oriented x 3, cooperative, normal mood/affect, nml cerebellar function, sensation nml, No motor deficits Skin Exam: normal color, warm, dry Lymphatic Exam: No adenopathy SpO2 Interpretation: normal SpO2: 97 O2 Delivery: Room Air Ordered Tests: Active Orders 24 hr Category Date Time Status IV Insertion STAT Care 08/19/20 11:37 Active ABDOMEN AND PELVIS W/0 CONTRAS [CT] Stat Exams 08/19/20 11:39 Completed CBC W DIFF Stat Lab 08/19/20 11:50 Completed CMP Stat Lab 08/19/20 11:50 Completed HCG,QUALITATIVE URINE Stat Lab 08/19/20 12:15 Completed LIPASE Stat Lab 08/19/20 11:50 Completed Lactic Acid Stat Lab 08/19/20 11:55 Completed TROPONIN Q3H Lab 08/19/20 11:50 Completed TROPONIN Q3H Lab 08/19/20 15:00 Received TROPONIN Q3H Lab 08/19/20 17:45 Ordered TROPONIN Q3H Lab 08/19/20 20:45 Ordered TROPONIN Q3H Lab 08/19/20 23:45 Ordered UA W/RFX UR CULTURE Stat Lab 08/19/20 11:56 Completed Medication Summary Discontinued Medications Generic Name Dose Route Start Last Admin Trade Name Freq PRN Reason Stop Dose Admin Hydromorphone HCl 0.5 mg 08/19/20 15:11 08/19/20 15:16 Hydromorphone 1 Mg/Ml Injection IV 08/19/20 15:12 0.5 mg STAT ONE Administration Hydromorphone HCl Confirm 08/19/20 15:16 Hydromorphone 1 Mg/Ml Injection Administered 08/19/20 15:17 Dose 1 mg .ROUTE .STK-MED ONE Sodium Chloride 1,000 mls @ 999 mls/hr 08/19/20 11:37 08/19/20 13:48 Sodium Chloride 0.9% 1000 Ml IV 08/19/20 12:37 Infused .Q1H1M STA Infusion Sodium Chloride Confirm 08/19/20 11:58 Sodium Chloride 0.9% 1000 Ml Administered 08/19/20 11:59 Dose 1,000 mls @ ud .ROUTE .STK-MED ONE Ketorolac Tromethamine 30 mg 08/19/20 12:06 08/19/20 12:10 Toradol 30 Mg Injection IV 08/19/20 12:07 30 mg STAT ONE Administration Ketorolac Tromethamine Confirm 08/19/20 12:10 Toradol 30 Mg Injection Administered 08/19/20 12:11 Dose 30 mg .ROUTE .STK-MED ONE Lab/Rad Data: Laboratory Result Diagrams 08/19/20 11:50 08/19/20 11:50 Laboratory Results 08/19/20 08/19/20 08/19/20 Range/Units 12:15 11:56 11:55 WBC (4.0-10.5) K/mm3 RBC (4.1-5.4) M/mm3 Hgb (12.0-16.0) gm/dl Hct (35-47) % MCV (78-100) fl MCH (26-32) pg MCHC (32-36) g/dl RDW (11.5-14.0) % Plt Count (150-450) K/mm3 MPV (7.5-11.0) fl Gran % (36.0-66.0) % Eos # (Auto) (0-0.5) Absolute Lymphs (auto) (1.0-4.6) Absolute Monos (auto) (0.0-1.3) Lymphocytes % (24.0-44.0) % Monocytes % (0.0-12.0) % Eosinophils % (0.00-5.0) % Basophils % (0.0-0.4) % Absolute Granulocytes (1.4-6.9) Basophils # (0-0.4) Sodium (137-145) mmol/L Potassium (3.5-5.1) mmol/L Chloride (98-107) mmol/L Carbon Dioxide (22-30) mmol/L Anion Gap (5-15) MEQ/L BUN (7-17) mg/dL Creatinine (0.52-1.04) mg/dL Estimated GFR ML/MIN Glucose (74-106) mg/dL Lactic Acid 1.2 (0.4-2.0) Calcium (8.4-10.2) mg/dL Total Bilirubin (0.2-1.3) mg/dL AST (14-36) U/L ALT (0-35) U/L Alkaline Phosphatase (38-126) U/L Troponin I (0.000-0.034) ng/mL Serum Total Protein (6.3-8.2) g/dL Albumin (3.5-5.0) g/dL Lipase (23-300) U/L Urine Color YELLOW (YELLOW) Urine Appearance CLEAR (CLEAR) Urine pH 5.0 (5-6) Ur Specific [place] 1.025 (1.005-1.025) Urine Protein NEGATIVE (Negative) Urine Ketones NEGATIVE (NEGATIVE) Urine Blood SMALL (0-5) Elias/ul Urine Nitrite NEGATIVE (NEGATIVE) Urine Bilirubin NEGATIVE (NEGATIVE) Urine Urobilinogen NEGATIVE (0-1) mg/dL Ur Leukocyte Esterase NEGATIVE (NEGATIVE) Urine WBC (Auto) NONE (0-5) /HPF Urine RBC (Auto) NONE (0-2) /HPF U Epithel Cells (Auto) RARE (FEW) /HPF Urine Bacteria (Auto) NONE (NEGATIVE) /HPF Urine Mucus (Auto) SLIGHT (NEGATIVE) /HPF Urine Culture Reflexed NO (NO) Urine Glucose NEGATIVE (NEGATIVE) mg/dL Urine HCG, Qual NEGATIVE (Negative) Slides for Path Review 08/19/20 08/19/20 08/19/20 Range/Units 11:50 11:50 11:50 WBC 12.0 H (4.0-10.5) K/mm3 RBC 4.46 (4.1-5.4) M/mm3 Hgb 9.6 L (12.0-16.0) gm/dl Hct 33.2 L (35-47) % MCV 74.4 L (78-100) fl MCH 21.5 L (26-32) pg MCHC 28.9 L (32-36) g/dl RDW 19.9 H (11.5-14.0) % Plt Count 697 H (150-450) K/mm3 MPV 8.1 (7.5-11.0) fl Gran % 73.1 H (36.0-66.0) % Eos # (Auto) 0.08 (0-0.5) Absolute Lymphs (auto) 2.64 (1.0-4.6) Absolute Monos (auto) 0.45 (0.0-1.3) Lymphocytes % 22.1 L (24.0-44.0) % Monocytes % 3.8 (0.0-12.0) % Eosinophils % 0.7 (0.00-5.0) % Basophils % 0.3 (0.0-0.4) % Absolute Granulocytes 8.77 H (1.4-6.9) Basophils # 0.03 (0-0.4) Sodium 141 (137-145) mmol/L Potassium 4.1 (3.5-5.1) mmol/L Chloride 105 (98-107) mmol/L Carbon Dioxide 28 (22-30) mmol/L Anion Gap 12.1 (5-15) MEQ/L BUN 15 (7-17) mg/dL Creatinine 0.64 (0.52-1.04) mg/dL Estimated GFR > 60.0 ML/MIN Glucose 108 H (74-106) mg/dL Lactic Acid (0.4-2.0) Calcium 9.4 (8.4-10.2) mg/dL Total Bilirubin 0.10 L (0.2-1.3) mg/dL AST 13 L (14-36) U/L ALT 9 (0-35) U/L Alkaline Phosphatase 85 (38-126) U/L Troponin I < 0.012 (0.000-0.034) ng/mL Serum Total Protein 7.1 (6.3-8.2) g/dL Albumin 3.8 (3.5-5.0) g/dL Lipase 377 H (23-300) U/L Urine Color (YELLOW) Urine Appearance (CLEAR) Urine pH (5-6) Ur Specific [place] (1.005-1.025) Urine Protein (Negative) Urine Ketones (NEGATIVE) Urine Blood (0-5) Elias/ul Urine Nitrite (NEGATIVE) Urine Bilirubin (NEGATIVE) Urine Urobilinogen (0-1) mg/dL Ur Leukocyte Esterase (NEGATIVE) Urine WBC (Auto) (0-5) /HPF Urine RBC (Auto) (0-2) /HPF U Epithel Cells (Auto) (FEW) /HPF Urine Bacteria (Auto) (NEGATIVE) /HPF Urine Mucus (Auto) (NEGATIVE) /HPF Urine Culture Reflexed (NO) Urine Glucose (NEGATIVE) mg/dL Urine HCG, Qual (Negative) Slides for Path Review YES - Departure Departure Disposition: Observation Clinical Impression: Pancreatitis, Leukocytosis, Microcytic anemia, Elevated lipase, Bilateral sacroiliitis Referrals: AKIKO GREGORY [Primary Care Provider] -
[2020-08-19] MEDS ORDERED: Sodium Chloride 0.9% 1000 ML 1,000 ML ONE (11:58)
[2020-08-19 12:04] LABS: Absolute Neutrophil Ct (ANC) 8.77 (1.4-6.9); BASOPHIL % 0.3 % (0.0-0.4); Basophil (Absolute #) 0.03 (0-0.4); Eosinophil % 0.7 % (0.00-5.0); Eosinophil (Absolute #) 0.08 (0-0.5); Hematocrit 33.2 % (35-47); Hemoglobin 9.6 gm/dl (12.0-16.0); Lymphocyte (Absolute #) 2.64 (1.0-4.6); Lymphocytes % 22.1 % (24.0-44.0); Mean Cell Volume 74.4 fl (78-100); Mean Corpuscular Hemoglobin 21.5 pg (26-32); Mean Corpuscular Hgb Concent. 28.9 g/dl (32-36); Mean Platelet Volume 8.1 fl (7.5-11.0); Monocyte (Absolute #) 0.45 (0.0-1.3); Monocytes % 3.8 % (0.0-12.0); Neutrophil % 73.1 % (36.0-66.0); Platelet Count 697 K/mm3 (150-450); Red Blood Count 4.46 M/mm3 (4.1-5.4); Red Cell Distribution Width 19.9 % (11.5-14.0)
[2020-08-19] MEDS ORDERED: TORAdol 30 mg Injection IV ONE (12:06)
[2020-08-19] MEDS ORDERED: TORAdol 30 mg Injection ONE (12:10)
[2020-08-19 12:13] LABS: ALBUMIN 3.8 g/dL (3.5-5.0); ALKALINE PHOSPHATASE 85 U/L (38-126); ANION GAP 12.1 MEQ/L (5-15); BLOOD UREA NITROGEN 15 mg/dL (7-17); CHLORIDE 105 mmol/L (98-107); Calcium 9.4 mg/dL (8.4-10.2); Carbon Dioxide 28 mmol/L (22-30); Creatinine 1 0.64 mg/dL (0.52-1.04); EST GLOMERULAR FILTRATION RATE > 60.0 ML/MIN; Glucose 108 mg/dL (74-106); LIPASE 377 U/L (23-300); Potassium 4.1 mmol/L (3.5-5.1); SGOT/AST 13 U/L (14-36); SGPT/ALT 9 U/L (0-35); SODIUM 141 mmol/L (137-145); Total Protein 7.1 g/dL (6.3-8.2)
[2020-08-19 12:32] LABS: Appearance CLEAR (CLEAR); Bilirubin NEGATIVE (NEGATIVE); Blood SMALL Ery/ul (0-5); Epithelial Cells RARE /HPF (FEW); Glucose NEGATIVE (NEGATIVE); Ketones NEGATIVE (NEGATIVE); Leukocyte Esterase NEGATIVE (NEGATIVE); Mucus SLIGHT /HPF (NEGATIVE); Nitrite NEGATIVE (NEGATIVE); Protein,Urine Dip NEGATIVE (Negative); Specific Gravity 1.025 (1.005-1.025); Urobilinogen NEGATIVE mg/dL (0-1)
[2020-08-19 14:03] LABS: Slide Review 1 YES
--- NOTE | 2020-08-19 14:26 | XRAY ---
Exam: CT of the abdomen and pelvis without IV contrast from 08/19/2020. CTDI: 2.87 mGy Comparison: CT of the abdomen and pelvis with IV contrast from 12/31/2018. Indication: 44-year-old female with left flank pain, history of Crohn's disease. Surgical history of prior hysterectomy, cholecystectomy, and multiple bowel resections. Evidently, the patient also has a chest port. Technique: Non-IV contrast axial images were obtained through the abdomen and pelvis. Reconstructed coronal and sagittal images were created and reviewed. No oral contrast was given. Findings: The visualized lung bases appear clear. The heart size is normal. Please note evaluation of the solid organs is limited without the use of IV contrast. The liver and spleen appear of normal size. No intrahepatic biliary duct distention is seen. No gross liver mass is seen. Numerous calcified splenic granulomas are seen. Surgical clips consistent with prior cholecystectomy are noted within the right upper quadrant. The pancreas and adrenal glands appear unremarkable. The kidneys appear of average size and shape. No renal calculi or hydronephrosis is seen. No gross renal mass is seen. I see no definite ureteral calculi, particularly on the left. The abdominal aorta is of normal diameter. No abnormal retroperitoneal lymphadenopathy is seen. There is no free intraperineal air or ventral abdominal wall hernia. Scattered surgical suture material is seen overlying the lower right abdomen, apparently due to prior partial bowel resections. I see no evidence of bowel obstruction. I see no evidence of appendicitis within the right lower quadrant. The uterus is surgically absent. Nondilated small bowel loops are seen within the mid and lower pelvis. The urinary bladder is only minimally distended. No urinary bladder calculus is evident. Some calcified phleboliths are seen. No abnormal pelvic lymphadenopathy is seen. The skeletal structures reveal no fracture or aggressive bone lesion. Mild bilateral facet arthropathy is seen at L5-S1. There is also mild facet joint arthropathy on the left at L4-L5. In addition, there are some sclerotic and cystic changes within the lower aspect of the sacroiliac joints which may represent sacroiliitis. In retrospect, I believe this is evident on the prior CT study as well, although it is easier to see on today's CT study. Impression: 1. Assessment of the solid organs as well as the bowel is mildly limited without IV contrast or oral contrast. However, I see no evidence of renal/ureteral calculi or obstructive uropathy. Nor do I see any evidence of bowel obstruction or free air/free fluid. 2. I again note areas of surgical suture overlying the lower right abdomen from prior bowel surgery. The patient has a history of Crohn's disease. The patient also has a history of prior cholecystectomy and hysterectomy. 3. No other acute process is seen within the abdomen or pelvis on the present study. 4. There appear to be some findings suggesting bilateral sacroiliitis within the inferior aspect of both sacroiliac joints. Correlate clinically. I also note mild facet joint arthropathy at L4-L5 on the left and at L5-S1 bilaterally.
[2020-08-19] MEDS ORDERED: Hydromorphone 1 mg/ml Injection IV ONE ×2 (15:11→17:12)
[2020-08-19] MEDS ORDERED: Hydromorphone 1 mg/ml Injection ONE ×3 (15:16→18:08)
[2020-08-19 16:36] LABS: INFLUENZA A NEGATIVE (NEGATIVE); INFLUENZA B NEGATIVE (NEGATIVE); RESPIRATORY SYNCTIAL VIRUS NEGATIVE (Negative)
[2020-08-19] MEDS ORDERED: Hydromorphone 1 mg/ml Injection IV PRN (18:06)
[2020-08-19] MEDS: Sodium Chloride 0.9% 1000 ML 1,000 ML IV SCH ×2 (18:10→23:30)
[2020-08-19] MEDS: Zofran 4 MG/2 ML VIAL IV PRN (18:10)
[2020-08-19] MEDS: MAG-OX 400 PO SCH (20:31)
[2020-08-19] MEDS: Hydromorphone 1 mg/ml Injection IV PRN ×2 (20:31→23:26)
[2020-08-19] MEDS ORDERED: Ativan 1 MG PO SCH (22:00)
[2020-08-20] MEDS: Zofran 4 MG/2 ML VIAL IV PRN ×2 (02:19→08:26)
[2020-08-20] MEDS: Hydromorphone 1 mg/ml Injection IV PRN ×4 (02:20→11:25)
[2020-08-20 05:39] LABS: Hematocrit 28.8 % (35-47); Hemoglobin 8.1 gm/dl (12.0-16.0); Mean Cell Volume 76.4 fl (78-100); Mean Corpuscular Hemoglobin 21.5 pg (26-32); Mean Corpuscular Hgb Concent. 28.1 g/dl (32-36); Mean Platelet Volume 8.4 fl (7.5-11.0); Platelet Count 570 K/mm3 (150-450); Red Blood Count 3.77 M/mm3 (4.1-5.4); Red Cell Distribution Width 19.3 % (11.5-14.0); White Blood Count 7.1 K/mm3 (4.0-10.5)
[2020-08-20 06:10] LABS: ALBUMIN 3.2 g/dL (3.5-5.0); ALKALINE PHOSPHATASE 73 U/L (38-126); ANION GAP 8.9 MEQ/L (5-15); BLOOD UREA NITROGEN 10 mg/dL (7-17); CHLORIDE 107 mmol/L (98-107); Calcium 8.9 mg/dL (8.4-10.2); Carbon Dioxide 27 mmol/L (22-30); Creatinine 1 0.38 mg/dL (0.52-1.04); EST GLOMERULAR FILTRATION RATE > 60.0 ML/MIN; Glucose 80 mg/dL (74-106); LIPASE 141 U/L (23-300); Potassium 3.6 mmol/L (3.5-5.1); SGOT/AST 15 U/L (14-36); SGPT/ALT 7 U/L (0-35); SODIUM 139 mmol/L (137-145); Total Protein 6.2 g/dL (6.3-8.2)
[2020-08-20] MEDS ORDERED: CHOLECALCIFEROL PO SCH (07:45)
[2020-08-20] MEDS ORDERED: MEDICATION INTERVENTION PO SCH (07:45)
[2020-08-20] MEDS: MAG-OX 400 PO SCH (09:03)
--- NOTE | 2020-08-20 09:40 | HP ---
CHIEF COMPLAINT: Abdominal pain. HISTORY OF PRESENT ILLNESS: The patient is a 44 year-old white female with long history of Crohn's colitis. She had recent surgery on her bowel for the Crohn's colitis. She also has history of pancreatitis. She sees Dr. Kay on a monthly basis. She has seen Dr. 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 PAST MEDICAL/SURGICAL HISTORY: Hysterectomy. Tonsillectomy. HOME MEDICATIONS: Vitamin D, Entyvio 300 mg IV every other day, omeprazole 20 mg a day, vitamin B12. ALLERGIES: CLONAZEPAM. DEPAKOTE. CYMBALTA. DEMEROL. SOCIAL HISTORY: She is a smoker. PHYSICAL EXAMINATION: Her vital signs on admission showed her temperature to be 99.0F, pulse 111, respiratory rate 18 and blood pressure 113/68. O2 saturation 97% on room air. HEENT: Normocephalic, atraumatic. Pupils equal round reactive to light. Extraocular movements intact. Oropharynx is dry. NECK: Supple without lymphadenopathy or thyromegaly. CHEST: Clear to auscultation. ABDOMEN: Diffusely tender. No palpable masses. EXTREMITIES: Without cyanosis, clubbing or edema. NEUROLOGIC: The patient is alert and oriented x3 with no focal deficits. LAB DATA AND TESTS: The patient's initial laboratory studies in the emergency room showed troponin to be less than 0.012. Her lipase was slightly elevated at 377 and amylase was not performed. Glucose 108, BUN 15, creatinine 0.64. Electrolytes were normal. Liver enzymes were otherwise essentially normal. Her white count was 12,000, hemoglobin 9.6, PLT count 697,000. Lactic acid was 1.2. Urine HCG was negative. ASSESSMENT: By the next morning the patient's lipase was back down to normal, I believe, at 187. The patient was seen and currently NPO, receiving IV fluids. She requested to increase her Dilaudid to every two hours as she had previously at home. We did increase it to 1 mg every three hours for her pain control. The patient will be increased on her p.o. to clear liquids and monitor her overall progress. If she tolerates the clear liquids then she could go home and follow up with her primary care provider. She reports that she does have Tylenol #3 at home for pain control which she reports is sufficient ordinarily for her control.
[2020-08-20 11:44] VITALS: BP 107/59; PULSE 95; O2SAT 94
== END 2020-08-20 13:40 | disposition home or self-care (01) ==
LOC: ED 11:25 → MED SURG 17:24
PROVIDERS: ADMIT Family Medicine; ATTEND Family Medicine
DX: K85.90 Acute pancreatitis without necrosis or infection, unspecified (principal); K50.90 Crohn's disease, unspecified, without complications; Z79.899 Other long term (current) drug therapy
CPT/HCPCS: 0241U; 36000; 36415; 74176; 80053; 81001; 83605; 83690; 84484; 84703; 85025; 85027; 96360; 96374; 96375; 99285; G0378; J1170; J1642; J1885; J2405; A9270-GY

== ENCOUNTER 2021-04-20 14:46 | Emergency (ER) | payer OTHER ==
--- NOTE | 2021-04-20 14:52 | ERPHSYRPT ---
- History of Present Illness Time Seen by Provider: 04/20/21 14:52 Historian: patient Exam Limitations: no limitations Physician History: This is a 45-year-old white female who has a history of Crohn's disease and has a history of pancreatitis in the past and presents with intermittent left upper quadrant and left lower lateral rib pain for over a year. Patient has had three different bowel resections. The most recent was 1 year ago. She has not seen her hide inspector and has not been on any medications to control her Crohn's disease in several months. Patient sees Dr. Fernandez as a litigation attorney for chronic anemia. She has received two iron infusions intravenously over the last 2 months. She has not required any blood transfusions of packed red blood cells per her report. Patient was seen by a chiropractor within the last month and there supposedly was a "mass" in the left upper quadrant left lower lung region. Patient ordinarily has twenty loose bowel movements a day. She states that this morning she had "filled the toilet" with bloody bowel movement and clots. She has chronic abdominal pain and that has not changed. What was most concerning to her was the bloody bowel movements. Patient has used morphine and Dilaudid medication intravenously without any problems or side effects per her report. Patient denies shortness of breath. She denies chest pain. Quality: sharpness, stabbing Abdominal Pain Onset Location: LUQ, other (Left lower lateral rib pain) Pain Radiation: no radiation Severity of Pain-Max: moderate Severity of Pain-Current: moderate Modifying Factors: Improves With: nothing Associated Symptoms: other (Bright red blood and blood clots passed rectally) Previous symptoms: same symptoms as today, no recent treatment Allergies/Adverse Reactions: clonazepam [From Klonopin] Allergy (Mild, Verified 08/19/20 11:40) "I DON'T KNOW" divalproex sodium [From Depakote] Allergy (Mild, Verified 08/19/20 11:40) "I DON'T KNOW" duloxetine HCl [From Cymbalta] Allergy (Mild, Verified 08/19/20 11:40) Hives fentanyl Allergy (Mild, Verified 08/19/20 11:40) Hives meperidine HCl [From Demerol] Allergy (Mild, Verified 08/19/20 11:40) Hives buprenorphine Allergy (Verified 08/19/20 11:40) duloxetine [From Cymbalta] Allergy (Verified 08/19/20 11:40) meperidine [From Demerol] Allergy (Verified 08/19/20 11:40) adalimumab [From Humira] Adverse Reaction (Mild, Verified 08/19/20 11:40) Vomiting prednisone Adverse Reaction (Mild, Verified 08/19/20 11:40) SHAKING Home Medications: Cholecalciferol (Vitamin D3) [Vitamin D3] 25,000 unit PO WEEKLY 11/13/16 [Hist ory] Codeine Phosphate/APAP #3 [Tylenol #3 Tablet] 1 tab PO Q4H PRN PRN 08/19/20 [History] Lorazepam 1 mg [Ativan 1 MG] 1 mg PO HS 08/19/20 [History] Magnesium 500 mg PO BID 08/19/20 [History] Cyanocobalamin 1000 Mcg/ml [Cyanocobalamin B-12 1000 MCG/ML] 1,000 mcg IJ WEEKLY 04/20/21 [History] Hx Tetanus, Diphtheria Vaccination/Date Given: Yes Hx Influenza Vaccination/Date Given: No Hx Pneumococcal Vaccination/Date Given: No Travel Risk - International Travel Have you traveled outside of the country in past 3 weeks: No - Coronavirus Screening Are you exhibiting any of the following symptoms?: No Close contact with a COVID-19 positive Pt in past 14-21 Days: No - Review of Systems Constitutional: No Symptoms Eyes: No Symptoms Ears, Nose, & Throat: No Symptoms Respiratory: No Symptoms Cardiac: No Symptoms Abdominal/Gastrointestinal: Abdominal Pain, Diarrhea, Hematochezia Genitourinary Symptoms: No Symptoms Musculoskeletal: No Symptoms Skin: No Symptoms Neurological: No Symptoms Psychological: No Symptoms Endocrine: No Symptoms Hematologic/Lymphatic: No Symptoms Immunological/Allergic: No Symptoms All Other Systems: Reviewed and Negative - Past Medical History Pertinent Past Medical History: Yes Neurological History: No Pertinent History ENT History: No Pertinent History Cardiac History: Arrhythmia Respiratory History: No Pertinent History Endocrine Medical History: Hypothyroidism Musculoskeletal History: Fibromyalgia, Osteoarthritis GI Medical History: Crohns Disease History: No Pertinent History Psycho-Social History: Anxiety, Depression Female Reproductive Disorders: Other Other Medical History: Cluster Headaches, pre cancerous cells cervix - Past Surgical History Past Surgical History: Yes Neuro Surgical History: No Pertinent History Cardiac: No Pertinent History Respiratory: No Pertinent History Gastrointestinal: Bowel Surgery, Cholecystectomy, Colon Resection Genitourinary: No Pertinent History Musculoskeletal: No Pertinent History Female Surgical History: Hysterectomy Other Surgical History: port-a-cath placement, tonsillectomy, 2 bowel resections. another bowel resection. - Social History Smoking Status: Current every day smoker How long have you smoked: 30 years Exposure to second hand smoke: Yes Alcohol Use: None Drug Use: none Patient Lives Alone: No Significant Family History: no pertinent family hx - Nursing Vital Signs Nursing Vital Signs: Initial Vital Signs Temperature 97.8 F 04/20/21 15:08 Pulse Rate 113 H 04/20/21 15:08 Respiratory Rate 22 04/20/21 15:08 Blood Pressure 127/81 04/20/21 15:08 O2 Sat by Pulse Oximetry 99 04/20/21 15:08 Pain Scale Pain Intensity 3 - Physical Exam General Appearance: mild distress, alert, anxiety Eye Exam: PERRL/EOMI Ears, Nose, Throat Exam: normal ENT inspection, moist mucous membranes Neck Exam: normal inspection, non-tender, supple, full range of motion Respiratory Exam: normal breath sounds, lungs clear, airway intact, No chest tenderness, No respiratory distress Cardiovascular Exam: tachycardia (Mild) Gastrointestinal/Abdomen Exam: soft, normal bowel sounds, tenderness (Left upper quadrant left mid abdomen), guarding Pelvic Exam: not done Rectal Exam: not done Back Exam: normal inspection, normal range of motion, No CVA tenderness, No vertebral tenderness Extremity Exam: normal inspection, normal range of motion, pelvis stable Neurologic Exam: alert, oriented x 3, cooperative, geriatric psychiatrist II-XII nml as tested, normal mood/affect, nml cerebellar function, nml station & gait, sensation nml Skin Exam: normal color, warm, dry Lymphatic Exam: No adenopathy SpO2 Interpretation: normal O2 Delivery: Room Air - Course Nursing assessment & vital signs reviewed: Yes Ordered Tests: Active Orders 24 hr Category Date Time Status IV Insertion STAT Care 04/20/21 15:31 Active ABDOMEN AND PELVIS W/0 CONTRAS [CT] Stat Exams 04/20/21 15:32 Completed AMYLASE Stat Lab 04/20/21 15:35 Completed CBC W DIFF Stat Lab 04/20/21 15:35 Completed CMP Stat Lab 04/20/21 15:35 Completed LIPASE Stat Lab 04/20/21 15:35 Completed UA W/RFX UR CULTURE Stat Lab 04/20/21 15:40 Completed Medication Summary Generic Name Dose Route Start Last Admin Trade Name Rohit PRN Reason Stop Dose Admin Methylprednisolone Sodium 0 mg 04/20/21 16:36 Succinate 125 mg/ Sterile IV 04/20/21 16:37 Water 2 ml STAT ONE Discontinued Medications Generic Name Dose Route Start Last Admin Trade Name Rohit PRN Reason Stop Dose Admin Hydromorphone HCl 1 mg 04/20/21 15:31 04/20/21 15:41 Hydromorphone 1 Mg/1ml Inj 1 Mg/Ml Syringe IV 04/20/21 15:32 1 mg STAT ONE Administration Hydromorphone HCl Confirm 04/20/21 15:37 Hydromorphone 1 Mg/1ml Inj 1 Mg/Ml Syringe Administered 04/20/21 15:38 Dose 1 mg .ROUTE .STK-MED ONE Sodium Chloride 1,000 mls @ 999 mls/hr 04/20/21 15:31 04/20/21 15:41 Sodium Chloride 0.9% 1000 Ml IV 04/20/21 16:31 999 mls/hr .Q1H1M STA Administration Sodium Chloride Confirm 04/20/21 15:37 Sodium Chloride 0.9% 1000 Ml Administered 04/20/21 15:38 Dose 1,000 mls @ ud .ROUTE .STK-MED ONE Levofloxacin 500 mg 04/20/21 16:34 Levofloxacin 250 Mg Tab PO 04/20/21 16:35 STAT ONE Metronidazole 500 mg 04/20/21 16:35 Metronidazole 500 Mg Tablet PO 04/20/21 16:36 STAT ONE Ondansetron HCl 4 mg 04/20/21 15:31 04/20/21 15:41 Ondansetron Hcl 4 Mg/2 Ml Vial IV 04/20/21 15:32 4 mg STAT ONE Administration Ondansetron HCl Confirm 04/20/21 15:37 Ondansetron Hcl 4 Mg/2 Ml Vial Administered 04/20/21 15:38 Dose 4 mg .ROUTE .STK-MED ONE Lab/Rad Data: Laboratory Result Diagrams 04/20/21 15:35 04/20/21 15:35 Laboratory Results 04/20/21 04/20/21 04/20/21 Range/Units 15:40 15:35 15:35 WBC 9.2 (4.0-10.5) K/mm3 RBC 4.47 (4.1-5.4) M/mm3 Hgb 12.8 (12.0-16.0) gm/dl Hct 40.0 (35-47) % MCV 89.5 (78-100) fl MCH 28.6 (26-32) pg MCHC 32.0 (32-36) g/dl Plt Count 430 (150-450) K/mm3 MPV 8.5 (7.5-11.0) fl Gran % 75.1 H (36.0-66.0) % Eos # (Auto) 0.07 (0-0.5) Absolute Lymphs (auto) 1.76 (1.0-4.6) Absolute Monos (auto) 0.43 (0.0-1.3) Lymphocytes % 19.2 L (24.0-44.0) % Monocytes % 4.7 (0.0-12.0) % Eosinophils % 0.8 (0.00-5.0) % Basophils % 0.2 (0.0-0.4) % Absolute Granulocytes 6.90 (1.4-6.9) Basophils # 0.02 (0-0.4) Sodium 141 (137-145) mmol/L Potassium 4.0 (3.5-5.1) mmol/L Chloride 104 (98-107) mmol/L Carbon Dioxide 27 (22-30) mmol/L Anion Gap 14.9 (5-15) MEQ/L BUN 20 H (7-17) mg/dL Creatinine 0.61 (0.52-1.04) mg/dL Estimated GFR > 60.0 ML/MIN Glucose 103 (74-106) mg/dL Calcium 9.2 (8.4-10.2) mg/dL Total Bilirubin 0.20 (0.2-1.3) mg/dL AST 21 (14-36) U/L ALT 24 (0-35) U/L Alkaline Phosphatase 117 (38-126) U/L Serum Total Protein 7.0 (6.3-8.2) g/dL Albumin 3.9 (3.5-5.0) g/dL Amylase 81 (30-110) U/L Lipase 273 (23-300) U/L Urine Color YELLOW (YELLOW) Urine Appearance SLIGHTLY CLOUDY (CLEAR) Urine pH 5.0 (5-6) Ur Specific [place] 1.032 (1.005-1.025) Urine Protein 30 (Negative) Urine Ketones TRACE (NEGATIVE) Urine Blood SMALL (0-5) Elias/ul Urine Nitrite NEGATIVE (NEGATIVE) Urine Bilirubin NEGATIVE (NEGATIVE) Urine Urobilinogen 2 (0-1) mg/dL Ur Leukocyte Esterase NEGATIVE (NEGATIVE) Urine WBC (Auto) 0-2 (0-5) /HPF Urine RBC (Auto) 3-5 (0-2) /HPF U Epithel Cells (Auto) RARE (FEW) /HPF Urine Bacteria (Auto) NONE (NEGATIVE) /HPF Urine Mucus (Auto) SLIGHT (NEGATIVE) /HPF Urine Culture Reflexed NO (NO) Urine Glucose NEGATIVE (NEGATIVE) mg/dL - Progress Progress: improved, pain not gone completely Progress Note: 04/20/21 16:38 Medical decision making: This patient has small bowel loops with wall thickening present. This could represent an exacerbation of her Crohn's disease. Patient has Tylenol No. 3 with codeine at home. We will add steroid prescription, and prescriptions for Cipro and Flagyl. The CAT scan of the abdomen pelvis without contrast shows left abdomen fluid distended small bowel loops with wall thickening. The remaining CT abdomen/pelvis without contrast exam is negative. The lung bases do not show any type of infiltrate or effusion and there are no masses present. Counseled pt/family regarding: lab results, diagnosis, need for follow-up, rad results - Departure Departure Disposition: Home Clinical Impression: Enteritis, Exacerbation of Crohn's disease of small intestine Condition: Stable Critical Care Time: No Referrals: AKIKO GREGORY [Primary Care Provider] - Additional Instructions: Take your medication as prescribed. Call your hide inspector tomorrow morning to make arrangements for follow-up appointment. Continue your Tylenol with codeine medication as prescribed. Prescriptions: Ciprofloxacin [Cipro 500 MG] 500 mg PO BID #14 tablet Prednisone 10 mg [Deltasone 10 mg] 10 mg PO TID #12 tablet Metronidazole 500 mg [Flagyl 500 MG] 500 mg PO TID #21 tablet
[2021-04-20] MEDS ORDERED: Zofran 4 MG/2 ML VIAL ONE (15:37)
[2021-04-20] MEDS ORDERED: Hydromorphone 1 mg/ml Injection ONE ×2 (15:37→17:20)
[2021-04-20] MEDS ORDERED: Sodium Chloride 0.9% 1000 ML 1,000 ML ONE (15:37)
[2021-04-20] MEDS: Zofran 4 MG/2 ML VIAL IV ONE (15:41)
[2021-04-20] MEDS: Sodium Chloride 0.9% 1000 ML 1,000 ML IV STA (15:41)
[2021-04-20] MEDS: Hydromorphone 1 mg/ml Injection IV ONE ×2 (15:41→17:22)
[2021-04-20 15:51] LABS: Appearance SLIGHTLY CLOUDY (CLEAR); Bilirubin NEGATIVE (NEGATIVE); Blood SMALL Ery/ul (0-5); Epithelial Cells RARE /HPF (FEW); Glucose NEGATIVE (NEGATIVE); Ketones TRACE (NEGATIVE); Leukocyte Esterase NEGATIVE (NEGATIVE); Mucus SLIGHT /HPF (NEGATIVE); Nitrite NEGATIVE (NEGATIVE); Protein,Urine Dip 30 (Negative); Specific Gravity 1.032 (1.005-1.025); Urobilinogen 2 mg/dL (0-1); WBC 0-2 /HPF (0-5)
[2021-04-20 15:57] LABS: ALBUMIN 3.9 g/dL (3.5-5.0); ALKALINE PHOSPHATASE 117 U/L (38-126); AMYLASE 81 U/L (30-110); ANION GAP 14.9 MEQ/L (5-15); BLOOD UREA NITROGEN 20 mg/dL (7-17); CHLORIDE 104 mmol/L (98-107); Calcium 9.2 mg/dL (8.4-10.2); Carbon Dioxide 27 mmol/L (22-30); Creatinine 1 0.61 mg/dL (0.52-1.04); EST GLOMERULAR FILTRATION RATE > 60.0 ML/MIN; Glucose 103 mg/dL (74-106); LIPASE 273 U/L (23-300); SGOT/AST 21 U/L (14-36); SGPT/ALT 24 U/L (0-35); SODIUM 141 mmol/L (137-145)
[2021-04-20 16:06] LABS: BASOPHIL % 0.2 % (0.0-0.4); Basophil (Absolute #) 0.02 (0-0.4); Eosinophil % 0.8 % (0.00-5.0); Eosinophil (Absolute #) 0.07 (0-0.5); Hemoglobin 12.8 gm/dl (12.0-16.0); Lymphocyte (Absolute #) 1.76 (1.0-4.6); Lymphocytes % 19.2 % (24.0-44.0); Mean Cell Volume 89.5 fl (78-100); Mean Corpuscular Hemoglobin 28.6 pg (26-32); Mean Platelet Volume 8.5 fl (7.5-11.0); Monocyte (Absolute #) 0.43 (0.0-1.3); Monocytes % 4.7 % (0.0-12.0); Neutrophil % 75.1 % (36.0-66.0); Platelet Count 430 K/mm3 (150-450); Red Blood Count 4.47 M/mm3 (4.1-5.4); White Blood Count 9.2 K/mm3 (4.0-10.5)
[2021-04-20 16:25] VITALS: PULSE 96
--- NOTE | 2021-04-20 16:33 | XRAY ---
Indication: Left upper quadrant/ flank pain. Multiple contiguous axial images obtained through the abdomen and pelvis without contrast. Comparison: August 19, 2020. Lung bases again demonstrates minimal dependent atelectasis. No infiltrate or effusion. Heart not enlarged. Stomach is distended with food/fluid. Noncontrasted stomach and bowel loops are nonobstructed. Left midabdomen now demonstrates mild fluid distended bowel loops with mild wall thickening, possible enteritis in the right clinical setting. Intact right lower quadrant bowel anastomosis. Again splenic calcified granulomas, hysterectomy, and cholecystectomy. No free fluid/air. Remaining liver, pancreas, spleen, adrenal glands, kidneys, ureters, bladder, and aorta are unremarkable for noncontrast exam. Osseous structures intact. Impression: 1. Left abdomen fluid distended small bowel loops with wall thickening. Rule out enteritis. 2. Remaining CT abdomen/pelvis without contrast exam is negative.
[2021-04-20] MEDS ORDERED: Levofloxacin 250MG Tablet ONE (16:41)
[2021-04-20] MEDS ORDERED: Flagyl 500 MG ONE (16:41)
[2021-04-20] MEDS ORDERED: solu-MEDROL ONE (16:41)
[2021-04-20] MEDS ORDERED: Sterile H2O 10 ml IJ ONE (16:41)
[2021-04-20] MEDS: solu-MEDROL 125 MG, Sterile H2O 10 ml 2 ML IV ONE ×2 (16:42)
[2021-04-20] MEDS: Flagyl 500 MG PO ONE (16:43)
[2021-04-20] MEDS: Levofloxacin 250MG Tablet PO ONE (16:43)
[2021-04-20 17:14] VITALS: BP 114/79; O2SAT 96
== END 2021-04-20 17:30 | disposition home or self-care (01) ==
LOC: ED 14:46
DX: K52.9 Noninfective gastroenteritis and colitis, unspecified (principal); K50.90 Crohn's disease, unspecified, without complications
CPT/HCPCS: 36000; 36415; 74176; 80053; 81001; 82150; 83690; 85025; 96374; 96375; 96376; 99284; J1170; J1642; J2405; J2930; A9270-GY

== ENCOUNTER 2023-09-05 13:34 | Emergency (ER) | payer OTHER ==
--- NOTE | 2023-09-05 13:43 | ERPHSYRPT ---
- History of Present Illness Time Seen by Provider: 09/05/23 13:43 Historian: patient Exam Limitations: no limitations Physician History: This is a 47-year-old white female patient who has history of Crohn disease and recurrent pancreatitis and presents with vomiting and worsening abdominal pain in the last 3 to 4 days. The pain is generalized abdominal pain. She also has a history of chronic anemia and is followed by grout worker Dr. Morgan. She has a history of fibromyalgia, osteoarthritis, anxiety and arrhythmias. Patient is a daily smoker of tobacco cigarettes. Patient has had a hysterectomy in the past. Patient is no longer on steroids. She is still not on any medications to help prevent Crohn's flareups. She is working with her prescribing provider and the insurance company to be placed on medication. Patient is taking Tylenol 3 as an outpatient. Timing/Duration: day(s) (3 to 4 days), worse (3 to 4 days) Quality: cramping Abdominal Pain Onset Location: generalized abdomen Severity of Pain-Max: moderate Severity of Pain-Current: moderate Modifying Factors: Improves With: vomiting, other (Diarrhea) Associated Symptoms: diarrhea, nausea, vomiting Previous symptoms: same symptoms as today, no recent treatment Allergies/Adverse Reactions: clonazepam [From Klonopin] Allergy (Mild, Verified 09/05/23 14:04) "I DON'T KNOW" divalproex sodium [From Depakote] Allergy (Mild, Verified 09/05/23 14:04) "I DON'T KNOW" duloxetine HCl [From Cymbalta] Allergy (Mild, Verified 09/05/23 14:04) Hives fentanyl Allergy (Mild, Verified 09/05/23 14:04) Hives meperidine HCl [From Demerol] Allergy (Mild, Verified 09/05/23 14:04) Hives buprenorphine Allergy (Verified 09/05/23 14:04) duloxetine [From Cymbalta] Allergy (Verified 09/05/23 14:04) meperidine [From Demerol] Allergy (Verified 09/05/23 14:04) adalimumab [From Humira] Adverse Reaction (Mild, Verified 09/05/23 14:04) Vomiting prednisone Adverse Reaction (Mild, Verified 09/05/23 14:04) SHAKING Home Medications: Cholecalciferol (Vitamin D3) [Vitamin D3] 25,000 unit PO WEEKLY 11/13/16 [History] Codeine Phosphate/APAP #3 [Tylenol #3 Tablet] 1 tab PO Q4H PRN PRN 08/19/20 [History] Lorazepam 1 mg [Ativan 1 MG] 1 mg PO HS 08/19/20 [History] Magnesium 500 mg PO BID 08/19/20 [History] Cyanocobalamin 1000 Mcg/ml [Cyanocobalamin B-12 1000 MCG/ML] 1,000 mcg IJ WEEKLY 04/20/21 [History] Hx Tetanus, Diphtheria Vaccination/Date Given: Yes Hx Influenza Vaccination/Date Given: No Hx Pneumococcal Vaccination/Date Given: No Travel Risk - International Travel Have you traveled outside of the country in past 3 weeks: No - Coronavirus Screening Are you exhibiting any of the following symptoms?: No Close contact with a COVID-19 positive Pt in past 14-21 Days: No - Vaccine Status Have you recieved a Covid-19 vaccination: No - Review of Systems Constitutional: No Symptoms Eyes: No Symptoms Ears, Nose, & Throat: Nose Pain Respiratory: No Symptoms Cardiac: No Symptoms Abdominal/Gastrointestinal: Abdominal Pain, Nausea, Vomiting, Diarrhea Genitourinary Symptoms: No Symptoms Musculoskeletal: No Symptoms Skin: No Symptoms Neurological: No Symptoms Psychological: No Symptoms Endocrine: No Symptoms Hematologic/Lymphatic: No Symptoms Immunological/Allergic: No Symptoms All Other Systems: Reviewed and Negative - Past Medical History Pertinent Past Medical History: Yes Neurological History: No Pertinent History ENT History: No Pertinent History Cardiac History: Arrhythmia Respiratory History: No Pertinent History Endocrine Medical History: Hypothyroidism Musculoskeletal History: Fibromyalgia, Osteoarthritis GI Medical History: Crohns Disease History: No Pertinent History Psycho-Social History: Anxiety, Depression Female Reproductive Disorders: Other Other Medical History: Cluster Headaches, pre cancerous cells cervix - Past Surgical History Past Surgical History: Yes Neuro Surgical History: No Pertinent History Cardiac: No Pertinent History Respiratory: No Pertinent History Gastrointestinal: Bowel Surgery, Cholecystectomy, Colon Resection Genitourinary: No Pertinent History Musculoskeletal: No Pertinent History Female Surgical History: Hysterectomy Other Surgical History: port-a-cath placement, tonsillectomy, 2 bowel resections. another bowel resection. - Social History Smoking Status: Current every day smoker How long have you smoked: 30 years Exposure to second hand smoke: Yes Alcohol Use: None Drug Use: none Patient Lives Alone: No Significant Family History: no pertinent family hx - Nursing Vital Signs Nursing Vital Signs: Initial Vital Signs Temperature 97 F 09/05/23 14:14 Pulse Rate 122 H 09/05/23 14:14 Respiratory Rate 16 09/05/23 14:14 Blood Pressure 106/75 09/05/23 14:14 O2 Sat by Pulse Oximetry 125 H 09/05/23 14:14 Pain Scale Pain Intensity 6 - Physical Exam General Appearance: no apparent distress, alert, anxiety Eye Exam: PERRL/EOMI, eyes nml inspection Ears, Nose, Throat Exam: normal ENT inspection, moist mucous membranes Neck Exam: normal inspection, non-tender, supple, full range of motion Respiratory Exam: normal breath sounds, lungs clear, airway intact, No chest tenderness, No respiratory distress Cardiovascular Exam: tachycardia Gastrointestinal/Abdomen Exam: soft, normal bowel sounds, tenderness (Mild diffuse to palpation), guarding (Mild diffuse to palpation) Pelvic Exam: not done Rectal Exam: not done Back Exam: normal inspection, normal range of motion, No CVA tenderness, No vertebral tenderness Extremity Exam: normal inspection, normal range of motion, pelvis stable Neurologic Exam: alert, oriented x 3, cooperative, sales project manager II-XII nml as tested, nml cerebellar function, nml station & gait, sensation nml Skin Exam: normal color, warm, dry Lymphatic Exam: No adenopathy SpO2 Interpretation: normal O2 Delivery: Room Air - Course Nursing assessment & vital signs reviewed: Yes Ordered Tests: Active Orders 24 hr Category Date Time Status IV Insertion STAT Care 09/05/23 14:23 Active ABDOMEN AND PELVIS W/0 CONTRAS [CT] Stat Exams 09/05/23 14:23 Completed AMYLASE Stat Lab 09/05/23 14:00 Completed CBC W DIFF Stat Lab 09/05/23 14:00 Completed CMP Stat Lab 09/05/23 14:00 Completed LIPASE Stat Lab 09/05/23 14:00 Completed Lactic Acid Stat Lab 09/05/23 14:23 Completed UA W/RFX UR CULTURE Stat Lab 09/05/23 14:27 Completed Medication Summary Generic Name Dose Route Start Last Admin Trade Name Freq PRN Reason Stop Dose Admin Sodium Chloride 1,000 mls @ 999 mls/hr 09/05/23 16:03 09/05/23 16:14 Sodium Chloride 0.9% 1000 Ml IV 09/05/23 17:03 999 mls/hr .Q1H1M STA Administration Discontinued Medications Generic Name Dose Route Start Last Admin Trade Name Rohit PRN Reason Stop Dose Admin Methylprednisolone Sodium 0 mg 09/05/23 14:31 09/05/23 14:41 Succinate 125 mg/ Sterile IV 09/05/23 14:32 125 mg Water 2 ml STAT ONE Administration Hydromorphone HCl 1 mg 09/05/23 14:31 09/05/23 14:41 Hydromorphone 1 Mg/1ml Inj IV 09/05/23 14:32 1 mg STAT ONE Administration Hydromorphone HCl Confirm 09/05/23 14:35 Hydromorphone 1 Mg/1ml Inj Administered 09/05/23 14:36 Dose 1 mg .ROUTE .STK-MED ONE Sodium Chloride 1,000 mls @ 999 mls/hr 09/05/23 14:23 09/05/23 15:40 Sodium Chloride 0.9% 1000 Ml IV 09/05/23 15:23 Infused .Q1H1M STA Infusion Sodium Chloride Confirm 09/05/23 14:35 Sodium Chloride 0.9% 1000 Ml Administered 09/05/23 14:36 Dose 1,000 mls @ ud .ROUTE .STK-MED ONE Sodium Chloride Confirm 09/05/23 16:13 Sodium Chloride 0.9% 1000 Ml Administered 09/05/23 16:14 Dose 1,000 mls @ ud .ROUTE .STK-MED ONE Methylprednisolone Sodium Succinate Confirm 09/05/23 14:35 Methylprednis Sod Succ 125 Mg/2 Ml Vial Administered 09/05/23 14:36 Dose 125 mg .ROUTE .STK-MED ONE Ondansetron HCl 4 mg 09/05/23 14:23 09/05/23 14:41 Ondansetron Hcl 4 Mg/2 Ml Vial IV 09/05/23 14:24 4 mg STAT ONE Administration Ondansetron HCl Confirm 09/05/23 14:35 Ondansetron Hcl 4 Mg/2 Ml Vial Administered 09/05/23 14:36 Dose 4 mg .ROUTE .STK-MED ONE Sterile Water Confirm 09/05/23 14:35 Water For Injection,Sterile 10 Ml Vial Administered 09/05/23 14:36 Dose 10 ml IJ .STK-MED ONE Lab/Rad Data: Laboratory Result Diagrams 09/05/23 14:00 09/05/23 14:00 Laboratory Results 09/05/23 09/05/23 09/05/23 Range/Units 14:27 14:23 14:00 WBC (4.0-10.5) x10^3/uL RBC (4.1-5.4) x10^6/uL Hgb (12.0-16.0) g/dL Hct (35-47) % MCV (78-100) fL MCH (26-32) pg MCHC (32-36) g/dL RDW (11.5-14.0) % Plt Count (150-450) x10^3/uL MPV (7.5-11.0) fL Gran % (36.0-66.0) % Immature Gran % (Auto) (0.00-0.4) % Nucleat RBC Rel Count (0.00-0.1) % Eos # (Auto) (0-0.5) x10^3/uL Immature Gran # (Auto) (0.00-0.03) x10^3u/L Absolute Lymphs (auto) (1.0-4.6) x10^3/uL Absolute Monos (auto) (0.0-1.3) x10^3/uL Absolute Nucleated RBC (0.00-0.01) x10^3u/L Lymphocytes % (24.0-44.0) % Monocytes % (0.0-12.0) % Eosinophils % (0.00-5.0) % Basophils % (0.0-0.4) % Absolute Granulocytes (1.4-6.9) x10^3/uL Basophils # (0-0.4) x10^3/uL Sodium 135 (135-145) mmol/L Potassium 4.4 (3.5-5.1) mmol/L Chloride 102 (98-107) mmol/L Carbon Dioxide 19 L (22-30) mmol/L Anion Gap 18.3 H (5-15) MEQ/L BUN 27 H (7-17) mg/dL Creatinine 0.78 (0.52-1.04) mg/dL Estimated GFR 93.1 ML/MIN Glucose 98 (74-106) mg/dL Lactic Acid 1.6 (0.4-2.0) Calcium 9.4 (8.4-10.2) mg/dL Total Bilirubin 0.40 (0.2-1.3) mg/dL AST 26 (14-36) U/L ALT 22 (0-35) U/L Alkaline Phosphatase 123 (38-126) U/L Serum Total Protein 8.0 (6.3-8.2) g/dL Albumin 4.6 (3.5-5.0) g/dL Amylase 95 (30-110) U/L Lipase 170 (23-300) U/L Urine Color Dark Yellow A (Yellow) Urine Appearance Clear (Clear) Urine pH 5.0 (4.6-8.0) Ur Specific [place] >=1.030 A (1.005-1.030) Urine Protein 30 (Negative) Urine Glucose (UA) Negative (Negative) mg/dL Urine Ketones 15 A (Negative) Urine Blood Negative (Negative) Urine Nitrite Negative (Negative) Urine Bilirubin Negative (Negative) Urine Urobilinogen 1.0 A (0.2) mg/dL Ur Leukocyte Esterase Negative (Negative) U Hyaline Cast (Auto) 11-20 (0-2) /LPF Urine Microscopic RBC 0-2 (0-5) /HPF Urine Microscopic WBC 0-2 (0-5) /HPF Ur Epithelial Cells None Seen (None Seen) /HPF Urine Bacteria None Seen (None Seen) /HPF Granular Casts 6-10 A (None Seen) /LPF Urine Culture Reflexed NO (NO) Slides for Path Review 09/05/23 Range/Units 14:00 WBC 15.2 H (4.0-10.5) x10^3/uL RBC 4.32 (4.1-5.4) x10^6/uL Hgb 13.7 (12.0-16.0) g/dL Hct 41.8 (35-47) % MCV 96.8 (78-100) fL MCH 31.7 (26-32) pg MCHC 32.8 (32-36) g/dL RDW 14.1 H (11.5-14.0) % Plt Count 382 (150-450) x10^3/uL MPV 10.1 (7.5-11.0) fL Gran % 78.9 H (36.0-66.0) % Immature Gran % (Auto) 0.5 H (0.00-0.4) % Nucleat RBC Rel Count 0.0 (0.00-0.1) % Eos # (Auto) 0.03 (0-0.5) x10^3/uL Immature Gran # (Auto) 0.08 H (0.00-0.03) x10^3u/L Absolute Lymphs (auto) 2.51 (1.0-4.6) x10^3/uL Absolute Monos (auto) 0.55 (0.0-1.3) x10^3/uL Absolute Nucleated RBC 0.00 (0.00-0.01) x10^3u/L Lymphocytes % 16.5 L (24.0-44.0) % Monocytes % 3.6 (0.0-12.0) % Eosinophils % 0.2 (0.00-5.0) % Basophils % 0.3 (0.0-0.4) % Absolute Granulocytes 12.03 H (1.4-6.9) x10^3/uL Basophils # 0.04 (0-0.4) x10^3/uL Sodium (135-145) mmol/L Potassium (3.5-5.1) mmol/L Chloride (98-107) mmol/L Carbon Dioxide (22-30) mmol/L Anion Gap (5-15) MEQ/L BUN (7-17) mg/dL Creatinine (0.52-1.04) mg/dL Estimated GFR ML/MIN Glucose (74-106) mg/dL Lactic Acid (0.4-2.0) Calcium (8.4-10.2) mg/dL Total Bilirubin (0.2-1.3) mg/dL AST (14-36) U/L ALT (0-35) U/L Alkaline Phosphatase (38-126) U/L Serum Total Protein (6.3-8.2) g/dL Albumin (3.5-5.0) g/dL Amylase (30-110) U/L Lipase (23-300) U/L Urine Color (Yellow) Urine Appearance (Clear) Urine pH (4.6-8.0) Ur Specific [place] (1.005-1.030) Urine Protein (Negative) Urine Glucose (UA) (Negative) mg/dL Urine Ketones (Negative) Urine Blood (Negative) Urine Nitrite (Negative) Urine Bilirubin (Negative) Urine Urobilinogen (0.2) mg/dL Ur Leukocyte Esterase (Negative) U Hyaline Cast (Auto) (0-2) /LPF Urine Microscopic RBC (0-5) /HPF Urine Microscopic WBC (0-5) /HPF Ur Epithelial Cells (None Seen) /HPF Urine Bacteria (None Seen) /HPF Granular Casts (None Seen) /LPF Urine Culture Reflexed (NO) Slides for Path Review YES - Progress Progress: improved, pain not gone completely Progress Note: 09/05/23 14:37 This patient's medical issue is 1 of moderate complexity. Level complexity in the workup performed is based on review of the patient's past medical history, review the patient's medication list, review of patient drug allergy list, history present illness and physical findings on examination. This patient's medical workup includes placement of intravenous line, infusion of normal saline solution, infusion of Dilaudid 1 mg, infusion of 125 mg intravenous Solu- Medrol, infusion of 4 mg intravenous Zofran, CT scan of the abdomen pelvis, urinalysis, CBC, CMP, lactic acid level amylase and lipase levels. 09/05/23 16:37 CT scan of the abdomen pelvis without contrast was interpreted by radiologist and I reviewed the impression. Impression states new diffuse colonic diarrhea. Counseled pt/family regarding: lab results, diagnosis, need for follow-up, rad results - Departure Departure Disposition: Home Clinical Impression: Colitis, Dehydration, Vomiting and diarrhea Condition: Stable Critical Care Time: No Referrals: AKIKO GREGORY [Primary Care Provider] - Follow up/PCP as directed Additional Instructions: Drink plenty of clear liquids before advancing your diet. Avoid lactose produ cts. Take your antibiotics and steroids as prescribed. Continue your outpatient Tylenol 3 with codeine. Call your electrical technician tomorrow, 09/06/2023 for further evaluation management. Prescriptions: Ondansetron ODT 4 MG [Zofran Odt 4 mg] 4 mg PO Q6H PRN PRN #10 tablet PRN Reason: Vomiting Prednisone 10 mg [Deltasone 10 mg] 10 mg PO TID #12 tablet Metronidazole 500 mg [Flagyl 500 MG] 500 mg PO TID #21 tablet
[2023-09-05 14:18] VITALS: TEMP 97
[2023-09-05] MEDS ORDERED: Hydromorphone 1 mg/ml Injection ONE (14:35)
[2023-09-05] MEDS ORDERED: solu-MEDROL ONE (14:35)
[2023-09-05] MEDS ORDERED: Sterile H2O 10 ml IJ ONE (14:35)
[2023-09-05] MEDS ORDERED: Zofran 4 MG/2 ML VIAL ONE (14:35)
[2023-09-05] MEDS ORDERED: Sodium Chloride 0.9% 1000 ML 1,000 ML ONE ×2 (14:35→16:13)
[2023-09-05] MEDS: Sodium Chloride 0.9% 1000 ML 1,000 ML IV STA ×2 (14:39→16:14)
[2023-09-05] MEDS: Zofran 4 MG/2 ML VIAL IV ONE (14:41)
[2023-09-05] MEDS: solu-MEDROL 125 MG, Sterile H2O 10 ml 2 ML IV ONE (14:41)
[2023-09-05] MEDS: Hydromorphone 1 mg/ml Injection IV ONE (14:41)
[2023-09-05 14:42] LABS: Absolute Neutrophil Ct (ANC) 12.03 x10^3/uL (1.4-6.9); BASOPHIL % 0.3 % (0.0-0.4); Basophil (Absolute #) 0.04 x10^3/uL (0-0.4); Eosinophil % 0.2 % (0.00-5.0); Eosinophil (Absolute #) 0.03 x10^3/uL (0-0.5); Hematocrit 41.8 % (35-47); Hemoglobin 13.7 g/dL (12.0-16.0); IMMATURE GRAN # 0.08 x10^3u/L (0.00-0.03); IMMATURE GRAN % 0.5 % (0.00-0.4); Lymphocyte (Absolute #) 2.51 x10^3/uL (1.0-4.6); Lymphocytes % 16.5 % (24.0-44.0); Mean Cell Volume 96.8 fL (78-100); Mean Corpuscular Hemoglobin 31.7 pg (26-32); Mean Corpuscular Hgb Concent. 32.8 g/dL (32-36); Mean Platelet Volume 10.1 fL (7.5-11.0); Monocyte (Absolute #) 0.55 x10^3/uL (0.0-1.3); Monocytes % 3.6 % (0.0-12.0); Neutrophil % 78.9 % (36.0-66.0); Platelet Count 382 x10^3/uL (150-450); Red Blood Count 4.32 x10^6/uL (4.1-5.4); Red Cell Distribution Width 14.1 % (11.5-14.0); White Blood Count 15.2 x10^3/uL (4.0-10.5)
[2023-09-05 14:55] LABS: Appearance Clear (Clear); Bacteria None Seen /HPF (None Seen); Bilirubin Negative (Negative); Blood Negative (Negative); Epithelial Cells None Seen /HPF (None Seen); Glucose, Urine Negative (Negative); Ketones 15 (Negative); Leukocyte Esterase Negative (Negative); Nitrite Negative (Negative); Protein,Urine Dip 30 (Negative); RBC 0-2 /HPF (0-5); Specific Gravity >=1.030 (1.005-1.030); WBC 0-2 /HPF (0-5)
[2023-09-05 14:55] LABS: ALBUMIN 4.6 g/dL (3.5-5.0); ANION GAP 18.3 MEQ/L (5-15); BILIRUBIN,TOTAL 0.4 mg/dL (0.2-1.3); Calcium 9.4 mg/dL (8.4-10.2); Creatinine 1 0.78 mg/dL (0.52-1.04); EST GLOMERULAR FILTRATION RATE 93.1 ML/MIN; Potassium 4.4 mmol/L (3.5-5.1)
[2023-09-05 15:03] LABS: ADD URINE CULTURE? NO (NO)
[2023-09-05 15:12] LABS: Slide Review 1 YES
[2023-09-05 16:05] VITALS: BP 119/75
--- NOTE | 2023-09-05 16:30 | XRAY ---
Indication: Pain, nausea, vomiting and diarrhea. History of Crohn's disease. Multiple contiguous axial images obtained through the abdomen and pelvis without contrast. Comparison: April 20, 2021 Lung bases again demonstrates minimal dependent atelectasis. No infiltrate or effusion. Heart not enlarged. Noncontrasted stomach and bowel loops appear nonobstructed with intact right lower quadrant anastomosis. New diffuse moderate colonic diarrhea. Again cholecystectomy, hysterectomy, and incidental splenic calcified granulomas. No free fluid/air. Remaining liver, pancreas, spleen, adrenal glands, kidneys, ureters, and bladder are unremarkable for noncontrast exam. Osseous structures intact. Impression: 1. New diffuse colonic diarrhea. 2. Again incidental old granulomatous disease. 3. Remaining CT abdomen/pelvis without contrast exam is negative.
[2023-09-05 17:04] VITALS: PULSE 100; RESP 18; O2SAT 95
== END 2023-09-05 17:08 | disposition home or self-care (01) ==
LOC: ED 13:34
DX: K52.9 Noninfective gastroenteritis and colitis, unspecified (principal); E86.0 Dehydration; R11.2 Nausea with vomiting, unspecified; R10.84 Generalized abdominal pain; Z79.52 Long term (current) use of systemic steroids; Z79.899 Other long term (current) drug therapy; Z28.310 Unvaccinated for COVID-19; Z72.0 Tobacco use
CPT/HCPCS: 36000; 36415; 74176; 80053; 81001; 82150; 83605; 83690; 85025; 96374; 96375; 99284; J1170; J1642; J2405; J2930